=== PATIENT | male | born 1995 | race Hispanic/Latino ===

== ENCOUNTER 2017-07-07 23:27 | Emergency (ER) | payer SELFPAY ==
[2017-07-08] MEDS ORDERED: PROMETHAZINE 25 MG/ML VIAL ONE (00:02)
[2017-07-08 00:14] LABS: Bicarbonate 28 mEq/L (21-31); Glucose Level 138 mg/dL (65-120); Potassium 4.2 mEq/L (3.6-5.0); Sodium Level 142 mEq/L (135-145)
[2017-07-08 00:17] LABS: Absolute Lymphocytes (CBC) 1.1 K/uL (0.7-4.9); Absolute Monocytes 0.9 K/uL (0.1-1.3); Absolute Neutrophil 17.7 K/uL (1.8-8.0); Basophils % 0.5 % (0-1.3); Hematocrit 47.2 % (39.6-49.0); Lymphocytes % 5.6 % (15.3-44.8); MCH 31.3 pg (27.0-35.0); Monocytes % 4.3 % (3.3-12.3); RBC Red Blood Cell Count 5.08 M/uL (4.33-5.43)
[2017-07-08 00:20] LABS: ALT/SGPT 14 IU/L (10-60); AST/SGOT 21 IU/L (10-42); Albumin 5.3 g/dL (3.2-5.5); Alkaline Phosphatase 111 IU/L (42-121); BUN Blood Urea Nitrogen 11 mg/dL (6-20); Bilirubin Direct 0.1 mg/dL (0-0.2); Bilirubin Total 0.6 mg/dL (0.3-1.2)
[2017-07-08 00:21] LABS: Protime INR 1.04
[2017-07-08 00:25] LABS: Alcohol Serum/Plasma < 10 mg/dl; Salicylates Level < 4.0 mg/dl (<30)
[2017-07-08 00:36] LABS: Creatine Phosphokinase 117 IU/L (22-269)
[2017-07-08] MEDS ORDERED: NA CHLORIDE 0.9% 1,000 ML ONE (00:53)
[2017-07-08] MEDS ORDERED: DIAZEPAM 10 MG/2 ML INJ SYRINGE ONE (01:35)
[2017-07-08 01:45] LABS: Blood Morphology Comment NOT SEEN (NOT SEEN); Platelet Estimate ADEQ
[2017-07-08] MEDS ORDERED: FAMOTIDINE 20 MG/2 ML VIAL IV ONE (03:30)
[2017-07-08] MEDS ORDERED: ONDANSETRON 4 MG/2 ML VIAL ONE (03:30)
[2017-07-08 03:52] LABS: Barbiturates NEGATIVE; Benzodiazepines NEGATIVE; Cocaine NEGATIVE; Opiates NEGATIVE; Phencyclidine NEGATIVE; THC Cannibis POSITIVE
[2017-07-08 04:02] LABS: METHAMPHETAM POSITIVE
--- NOTE | 2017-07-08 05:15 | ER ---
Nurse's Notes [facility] Name: Rony Castrejon Jr Age: 21 yrs Sex: Male : 1995 Arrival Date: 07/07/2017 Time: 23:28 Bed 7 Private MD: Diagnosis: Adverse effect of other psychostimulants-Ciirlo;Unspecified abdominal pain Presentation: 07/07 23:35 Presenting complaint: Mother states: that pt was dropped on her door step at 2300 fc crying and yelling about abd pain, nausea, and vomiting along with chills. Pt states that he smoked synthetic today and a while later started to have these problems. Transition of care: patient was not received from another setting of care. Onset of symptoms was July 07, 2017 at 23:00. Initial Sepsis Screen: Does the patient meet any 2 criteria? No. Patient's initial sepsis screen is negative. Does the patient have a suspected source of infection? No. Patient's initial sepsis screen is negative. Care prior to arrival: None. 23:35 Method Of Arrival: Wheelchair fc 23:35 Acuity: JUSTICE 2 fc Historical: - Allergies: 23:52 No Known Allergies; fc - Home Meds: 23:52 None [Active]; fc - PMHx: 23:52 None; fc - PSHx: 23:52 None; fc - Immunization history:: Last tetanus immunization: unknown. - Social history:: Smoking status: Patient uses tobacco products, smokes one pack cigarettes per day. Patient uses alcohol, occasionally. street drugs, Synthetic Marijuana. Screenin:53 Abuse screen: Denies threats or abuse. Nutritional screening: No deficits noted. fc Tuberculosis screening: No symptoms or risk factors identified. 07/08 00:12 Fall Risk Total Rider Fall Scale indicates High Risk Score (45 or more points). Side lp1 Rails Up X 2 Family Present and informed to notify staff if the need to leave the bedside As available patient and family educated on Fall Prevention Program and Strategies. Assessment: 00:09 General: Appears uncomfortable, slender, Behavior is anxious, restless. Pain: Complains lp1 of pain in abdomen Pain currently is 10 out of 10 on a pain scale. Quality of pain is described as sharp, Noted to be crying, grimacing, moaning, restless. Neuro: Level of Consciousness is awake, alert, obeys commands, Oriented to person, place, situation. Cardiovascular: Patient's skin is warm and dry. Rhythm is sinus rhythm. Respiratory: Airway is patent Respiratory effort is even, Respiratory pattern is regular, symmetrical, Breath sounds are clear bilaterally. GI: Abdomen is flat, Bowel sounds present X 4 quads. Reports lower abdominal pain, upper abdominal pain, nausea, vomiting. : No signs and/or symptoms were reported regarding the genitourinary system. EENT: No signs and/or symptoms were reported regarding the EENT system. Derm: Skin is pink, warm \\T\\ dry. Musculoskeletal: Circulation, motion, and sensation intact. 01:00 Reassessment: Patient states continued nausea and abdominal pain, thrashing in bed, lp1 crying stating "It hurts! I need some ice chips, there is nothing in my stomach". 02:01 Reassessment: Patient and/or family updated on plan of care and expected duration. Pain lp1 level reassessed. States continued pain to abdomen Patient states symptoms have improved. 03:00 Reassessment: No changes from previously documented assessment. lp1 04:00 Reassessment: Patient returned from CT, intermittent outbursts of pain to abdomen. lp1 05:30 Reassessment: Patient discharged at this time, waiting for mother to return for ride lp1 home; Patient moaning, states continuing abdominal pain. 07:07 Reassessment: Mother returned at this time to take patient home. lp1 Vital Signs: 07/07 23:52 BP 124 / 59; Pulse 63; Resp 18; Temp 98.2(O); Pulse Ox 100% on R/A; Weight 63.5 kg (R); fc Height 5 ft. 4 in. (162.56 cm) (R); Pain 10/10; 07 01:33 BP 132 / 67; Pulse 67; Resp 18 S; Pulse Ox 100% on R/A; mt 02:00 BP 108 / 57; Pulse 60; Resp 16; Pulse Ox 100% on R/A; lp1 03:00 BP 119 / 74; Pulse 57; Resp 16; Pulse Ox 100% on R/A; lp1 03:30 BP 130 / 93; Pulse 61; Resp 18; Pulse Ox 100% on R/A; lp1 04:28 BP 108 / 60; Pulse 84; Resp 18; Pulse Ox 99% on R/A; lp1 05:30 BP 126 / 93; Pulse 77; Resp 16; Pulse Ox 99% on R/A; lp1 07/07 23:52 Body Mass Index 24.03 (63.50 kg, 162.56 cm) fc ED Course: 07/07 23:28 Patient arrived in ED. ds1 23:51 Triage completed. fc 23:52 Arm band placed on Patient placed in an exam room, on a stretcher. fc 23:52 No provider procedures requiring assistance completed. Inserted saline lock: 18 gauge fc in right forearm, using aseptic technique. ,using aseptic technique. per Apoorva SELF. 23:53 Patient has correct armband on for positive identification. Bed in low position. Call fc light in reach. Adult w/ patient. 23:57 Rissa Mcneil FNP-C is PHCP. snw 23:57 Anish Yancey MD is Attending Physician. snw 23:59 Apoorva Gutierrez, ARAMIS is Primary Nurse. lp1 07/08 00:02 EKG done, by ED staff. cb2 03:[address] via wheelchair. lp1 04:03 CT Abd/Pelvis - W/Contrast In Process Unspecified. EDMS 05:32 IV discontinued, No redness/swelling at site. Pressure dressing applied. lp1 Administered Medications: 07/07 23:58 Drug: NS 0.9% 1000 ml Route: IV; Rate: 1 bolus; Site: right antecubital; ak1 07/08 00:56 Follow up: IV Status: Completed infusion; IV Intake: 1000ml lp1 00:03 Drug: Phenergan 12.5 mg Route: IVP; Site: right forearm; lp1 00:56 Follow up: Response: Nausea unchanged; Patient states continued nausea, no vomiting lp1 noted 00:55 Drug: NS 0.9% 1000 ml Route: IV; Rate: 1 bolus; Site: right forearm; lp1 02:30 Follow up: IV Status: Completed infusion lp1 01:47 Drug: Valium 2 mg Route: IVP; Site: right forearm; lp1 02:30 Follow up: Response: No adverse reaction lp1 03:37 Drug: Zofran 4 mg Route: IVP; Site: right forearm; lp1 05:30 Follow up: Response: No adverse reaction lp1 03:37 Drug: Pepcid 20 mg Route: IVP; Site: right forearm; lp1 05:30 Follow up: Response: No adverse reaction lp1 Intake: 00:56 IV: 1000ml; Total: 1000ml. lp1 Outcome: 05:14 Discharge ordered by . beena2 05:59 Condition: stable lp1 05:59 Discharge instructions given to patient, Instructed on discharge instructions, follow up and referral plans. medication usage, Demonstrated understanding of instructions, follow-up care, medications, Prescriptions given X 1. 07:07 Discharged to home via wheelchair, with family. lp1 07:08 Patient left the ED. lp1 Signatures: Dispatcher [employer] EDMS Rissa Mcneil, DOCTOR'S ASSISTANT-C DOCTOR'S ASSISTANT-Csnw Margarita Ramirez, RN Mis Garzon ds1 Apoorva Gutierrez RN RN lp1 Danelle Sanchez RN RN ak1 Marcos Sánchez [place] Anish May MD MD ma2
--- NOTE | 2017-07-08 05:15 | EDPHYS ---
Physician Documentation [facility] Name: Rony Castrejon Jr Age: 21 yrs Sex: Male : 1995 Arrival Date: 07/07/2017 Time: 23:28 Bed 7 Private MD: ED Physician Anish Yancey HPI: 07/08 00:07 This 21 yrs old Male presents to ER via Wheelchair with complaints of snw Withdrawls. 00:07 Onset: The symptoms/episode began/occurred acutely. Associated signs and symptoms: snw Pertinent positives: abdominal pain. Modifying factors: The patient symptoms are alleviated by nothing. The patient has experienced similar episodes in the past. The patient has not recently seen a physician. Mom states he had smoked Cirilo before. Pt was dropped at her home post being out with his friends. Historical: - Allergies: 07/07 23:52 No Known Allergies; fc - Home Meds: 23:52 None [Active]; fc - PMHx: 23:52 None; fc - PSHx: 23:52 None; fc - Immunization history:: Last tetanus immunization: unknown. - Social history:: Smoking status: Patient uses tobacco products, smokes one pack cigarettes per day. Patient uses alcohol, occasionally. street drugs, Synthetic Marijuana. ROS: 07/08 00:06 Eyes: Negative for injury, pain, redness, and discharge, ENT: Negative for injury, snw pain, and discharge, Neck: Negative for injury, pain, and swelling, Cardiovascular: Negative for chest pain, palpitations, and edema, Respiratory: Negative for shortness of breath, cough, wheezing, and pleuritic chest pain. Back: Negative for injury and pain, : Negative for injury, bleeding, discharge, and swelling, MS/Extremity: Negative for injury and deformity, Skin: Negative for injury, rash, and discoloration, Neuro: Negative for headache, weakness, numbness, tingling, and seizure. Constitutional: Positive for body aches. Abdomen/GI: Positive for abdominal pain, nausea. Exam: 00:05 Constitutional: This is a well developed, well nourished patient who is awake, alert, snw and in no acute distress. Head/Face: Normocephalic, atraumatic. Eyes: Pupils equal round and reactive to light, extra-ocular motions intact. Lids and lashes normal. Conjunctiva and sclera are non-icteric and not injected. Cornea within normal limits. Periorbital areas with no swelling, redness, or edema. ENT: Nares patent. No nasal discharge, no septal abnormalities noted. Tympanic membranes are normal and external auditory canals are clear. Oropharynx with no redness, swelling, or masses, exudates, or evidence of obstruction, uvula midline. Mucous membranes moist. Neck: Trachea midline, no thyromegaly or masses palpated, and no cervical lymphadenopathy. Supple, full range of motion without nuchal rigidity, or vertebral point tenderness. No Meningismus. Chest/axilla: Normal chest wall appearance and motion. Nontender with no deformity. No lesions are appreciated. Cardiovascular: Regular rate and rhythm with a normal S1 and S2. No gallops, murmurs, or rubs. Normal PMI, no JVD. No pulse deficits. Respiratory: Lungs have equal breath sounds bilaterally, clear to auscultation and percussion. No rales, rhonchi or wheezes noted. No increased work of breathing, no retractions or nasal flaring. Back: No spinal tenderness. No costovertebral tenderness. Full range of motion. Male : Normal genitalia with no discharge or lesions. Skin: Warm, dry with normal turgor. Normal color with no rashes, no lesions, and no evidence of cellulitis. MS/ Extremity: Pulses equal, no cyanosis. Neurovascular intact. Full, normal range of motion. Neuro: Awake and alert, GCS 15, oriented to person, place, time, and situation. Cranial nerves II-XII grossly intact. Motor strength 5/5 in all extremities. Sensory grossly intact. Cerebellar exam normal. Normal gait. 00:05 Abdomen/GI: Inspection: abdomen appears normal, Bowel sounds: diminished, in the right upper quadrant, left upper quadrant, right lower quadrant and left lower quadrant, Palpation: moderate abdominal tenderness, in all quadrants. Vital Signs: 07/07 23:52 BP 124 / 59; Pulse 63; Resp 18; Temp 98.2(O); Pulse Ox 100% on R/A; Weight 63.5 kg (R); fc Height 5 ft. 4 in. (162.56 cm) (R); Pain 10/10; 07/08 01:33 BP 132 / 67; Pulse 67; Resp 18 S; Pulse Ox 100% on R/A; mt 02:00 BP 108 / 57; Pulse 60; Resp 16; Pulse Ox 100% on R/A; lp1 03:00 BP 119 / 74; Pulse 57; Resp 16; Pulse Ox 100% on R/A; lp1 03:30 BP 130 / 93; Pulse 61; Resp 18; Pulse Ox 100% on R/A; lp1 04:28 BP 108 / 60; Pulse 84; Resp 18; Pulse Ox 99% on R/A; lp1 05:30 BP 126 / 93; Pulse 77; Resp 16; Pulse Ox 99% on R/A; lp1 07/07 23:52 Body Mass Index 24.03 (63.50 kg, 162.56 cm) fc MDM: 07/07 23:57 Patient medically screened. snw 07/07 23:44 Order name: Acetaminophen; Complete Time: 00:36 snw 07/07 23:44 Order name: Basic Metabolic Panel; Complete Time: 00:36 snw 07/07 23:44 Order name: CBC with Diff; Complete Time: 03:23 snw 07/07 23:44 Order name: ETOH Level; Complete Time: 00:36 snw 07/07 23:44 Order name: Hepatic Function; Complete Time: 00:36 snw 07/07 23:44 Order name: PT-INR; Complete Time: 00:24 snw 07/07 23:44 Order name: Ptt, Activated; Complete Time: 00:24 snw 07/07 23:44 Order name: Salicylate; Complete Time: 00:36 snw 07/07 23:44 Order name: Urine Drug Screen; Complete Time: 05:53 snw 07/08 00:21 Order name: Manual Differential; Complete Time: 03:23 EDMS 07/08 00:25 Order name: Add On-Lab snw 07/08 00:26 Order name: Creatine Phosphokinase; Complete Time: 00:36 EDMS 07/08 03:05 Order name: Urine Dipstick--Ancillary (enter results) em1 07/08 03:06 Order name: Urine Dipstick-Ancillary; Complete Time: 05:53 EDMS 07/07 23:44 Order name: EKG; Complete Time: 23:44 snw 07/07 23:44 Order name: EKG - Nurse/Tech; Complete Time: 00:00 snw 07/07 23:44 Order name: IV Saline Lock; Complete Time: 23:53 snw 07/07 23:44 Order name: Labs collected and sent; Complete Time: 23:53 snw 07/07 23:44 Order name: Urine Dipstick-Ancillary (obtain specimen); Complete Time: 02:57 snw 07/08 03:27 Order name: CT Abd/Pelvis - W/Contrast ma2 Administered Medications: 23:58 Drug: NS 0.9% 1000 ml Route: IV; Rate: 1 bolus; Site: right antecubital; ak1 07/08 00:56 Follow up: IV Status: Completed infusion; IV Intake: 1000ml lp1 00:03 Drug: Phenergan 12.5 mg Route: IVP; Site: right forearm; lp1 00:56 Follow up: Response: Nausea unchanged; Patient states continued nausea, no vomiting lp1 noted 00:55 Drug: NS 0.9% 1000 ml Route: IV; Rate: 1 bolus; Site: right forearm; lp1 02:30 Follow up: IV Status: Completed infusion lp1 01:47 Drug: Valium 2 mg Route: IVP; Site: right forearm; lp1 02:30 Follow up: Response: No adverse reaction lp1 03:37 Drug: Zofran 4 mg Route: IVP; Site: right forearm; lp1 05:30 Follow up: Response: No adverse reaction lp1 03:37 Drug: Pepcid 20 mg Route: IVP; Site: right forearm; lp1 05:30 Follow up: Response: No adverse reaction lp1 Disposition: 05:12 Co-signature as Attending Physician, Anish Yancey MD. ma2 05:13 pain and vomiting resolved VS wnl. ma2 Disposition: 07/08/17 05:14 Discharged to Home. Impression: Adverse effect of other psychostimulants - Cirilo, Unspecified abdominal pain. - Condition is Stable. - Discharge Instructions: Abdominal Pain, Adult, Alcohol and Drug Addiction, Finding Treatment. - Prescriptions for Zofran 4 mg Oral Tablet - take 1 tablet by ORAL route every 12 hours As needed; 20 tablet. - Medication Reconciliation Form, Thank You Letter, Antibiotic Education, Prescription Opioid Use form. - Follow up: Private Physician; When: 2 - 3 days; Reason: Recheck today's complaints, Continuance of care, Re-evaluation by your physician. Follow up: Emergency Department; When: As needed; Reason: Worsening of condition. - Problem is new. - Symptoms have improved. Signatures: Dispatcher [employer] EDRissa Mensah, FADUMO-C TRAVEL REGISTERED NURSE ICU-Csnw Margarita Ramirez, RN RN fc Apoorva Gutierrez RN RN lp1 Danelle Sanchez RN RN ak1 Anish Yancey MD MD ma2 Corrections: (The following items were deleted from the chart) 07:08 05:14 07/08/2017 05:14 Discharged to Home. Impression: Adverse effect of other lp1 psychostimulants - Cirilo; Unspecified abdominal pain. Condition is Stable. Discharge Instructions: Abdominal Pain, Adult, Alcohol and Drug Addiction, Finding Treatment. Prescriptions for Zofran 4 mg Oral Tablet - take 1 tablet by ORAL route every 12 hours As needed; 20 tablet. and Forms are Medication Reconciliation Form, Thank You Letter, Antibiotic Education, Prescription Opioid Use. Follow up: Private Physician; When: 2 - 3 days; Reason: Recheck today's complaints, Continuance of care, Re-evaluation by your physician. Follow up: Emergency Department; When: As needed; Reason: Worsening of condition. Problem is new. Symptoms have improved. ma2
[2017-07-08 05:48] LABS: Urine Blood NEGATIVE (NEG); Urine Glucose NEGATIVE (NEG); Urine Protein NEGATIVE (NEG)
--- NOTE | 2017-07-08 06:54 | EKG ---
Test Date: 2017-07-07 Test Time: 23:58:00 Bung Driver: DERRICK MEASUREMENT RESULTS: Intervals: Rate: 64 CA: 126 QRSD: 102 QT: 390 QTc: 402 [place]: P: 60 CA: 126 QRS: 78 T: 55 INTERPRETIVE STATEMENTS: Sinus rhythm with marked sinus arrhythmia Otherwise normal ECG Compared to ECG 01/24/2017 18:48:20 Sinus bradycardia no longer present Electronically Signed On 07-08-17 06:53:35 CDT by Mike Hair
[2017-07-08 07:12] VITALS: TEMP 98.2
[2017-07-08 07:18] VITALS: O2SAT 99
[2017-07-08 07:19] VITALS: BP 126/93
--- NOTE | 2017-07-08 08:45 | RAD REPORT ---
EXAM DESCRIPTION: CT - Abdomen Pelvis W Contrast - 07/08/2017 6:50 am CLINICAL HISTORY: Abdominal pain with nausea and vomiting COMPARISON: 2015 TECHNIQUE: Computed axial tomography of the abdomen pelvis was obtained. 100 cc Isovue-300 was admin istered intravenously. Oral contrast was not requested which limits evaluation of bowel. A preliminar y report was generated by virtual radiologic a reviewed prior to this dictation All CT scans are performed using dose optimization technique as appropriate and may include automated exposure control or mA/KV adjustment according to patient size. FINDINGS: Some of the images are degraded by patient motion artifact. The liver, spleen, pancreas, adrenal and kidneys appear unremarkable. There is no evidence of diverticulitis. An abnormal appendix is not seen. The prostate gland is mildl y enlarged IMPRESSION: No acute abnormality is displayed.
== END 2017-07-08 07:08 | disposition home or self-care (01) ==
LOC: ER 23:27
DX: R10.9 Unspecified abdominal pain (principal); T43.695A Adverse effect of other psychostimulants, initial encounter; Y92.9 Unspecified place or not applicable; F17.210 Nicotine dependence, cigarettes, uncomplicated
CPT/HCPCS: 36415; 74177; 80048; 80076; 80307; 80320; 80329; 81003; 82550; 85025; 85610; 85730; 93005; 96361; 96374; 96375; 99285; J2405; J2550; J3360; J7030; Q9967

== ENCOUNTER 2017-09-14 07:34 | Emergency (ER) | payer SELFPAY ==
[2017-09-14] MEDS ORDERED: NA CHLORIDE 0.9% 1,000 ML ONE ×2 (08:16→09:47)
[2017-09-14] MEDS ORDERED: ONDANSETRON 4 MG/2 ML VIAL ONE (08:21)
[2017-09-14 08:38] LABS: Absolute Lymphocytes (CBC) 1.3 K/uL (0.7-4.9); Absolute Monocytes 1.1 K/uL (0.1-1.3); Absolute Neutrophil 17.5 K/uL (1.8-8.0); Basophils % 0.4 % (0-1.3); Eosinophils % 0.1 % (0-4.4); Hematocrit 49.4 % (39.6-49.0); Lymphocytes % 6.3 % (15.3-44.8); MCH 32.2 pg (27.0-35.0); MCV 91.6 fL (80-100); Monocytes % 5.3 % (3.3-12.3)
[2017-09-14] MEDS ORDERED: LORazepam 2 MG/ML VIAL ONE (08:38)
[2017-09-14 08:45] LABS: BUN Blood Urea Nitrogen 13 mg/dL (7-18); Bicarbonate 35 mmol/L (21-32); Glucose Level 99 mg/dL (74-106); Potassium 3.2 mmol/L (3.5-5.1); Sodium Level 136 mmol/L (136-145)
[2017-09-14 09:09] LABS: Protime INR 1.12
[2017-09-14] MEDS ORDERED: POTASSIUM 25 MEQ EFFERV TAB ONE (09:55)
[2017-09-14 10:00] LABS: ALT/SGPT 14 U/L (12-78); AST/SGOT 12 U/L (15-37); Albumin 4.1 g/dL (3.4-5.0); Alkaline Phosphatase 104 U/L (45-117); Bilirubin Direct 0.2 mg/dL (0-0.2); Bilirubin Total 0.7 mg/dL (0.2-1.0); Protein, Total 7.5 g/dL (6.4-8.2)
[2017-09-14] MEDS ORDERED: KCL 20 MEQ/100 mL IVPB 20 MEQ/100 ML BAG IV ONE (10:02)
[2017-09-14 10:03] LABS: Alcohol Serum/Plasma < 3 mg/dL (0-3)
[2017-09-14 10:10] LABS: Blood Morphology Comment NOT SEEN (NOT SEEN); Platelet Estimate ADEQ; Urine White Blood Cell Casts OK
[2017-09-14] MEDS ORDERED: NA CHLORIDE 0.9% 500 ML ONE (10:33)
[2017-09-14 10:57] LABS: Urine Blood NEGATIVE (NEG); Urine Glucose NEGATIVE (NEG); Urine Protein TRACE (NEG)
[2017-09-14 11:04] LABS: Barbiturates NEGATIVE (NEGATIVE); Benzodiazepines NEGATIVE (NEGATIVE); Cocaine NEGATIVE (NEGATIVE); METHAMPHETAM NEGATIVE (NEGATIVE); Methadone NEGATIVE (NEGATIVE); Opiates NEGATIVE (NEGATIVE); Phencyclidine NEGATIVE (NEGATIVE); THC Cannibis POSITIVE (NEGATIVE)
[2017-09-14 11:20] LABS: Absolute Lymphocytes (CBC) 1.2 K/uL (0.7-4.9); Absolute Monocytes 0.7 K/uL (0.1-1.3); Absolute Neutrophil 12.9 K/uL (1.8-8.0); Basophils % 0.4 % (0-1.3); Eosinophils % 0.1 % (0-4.4); Hematocrit 41.6 % (39.6-49.0); Lymphocytes % 8.1 % (15.3-44.8); MCH 32.3 pg (27.0-35.0); MCV 91.6 fL (80-100); MPV 9.1 fL (7.6-11.3); Monocytes % 4.9 % (3.3-12.3); RBC Red Blood Cell Count 4.54 M/uL (4.33-5.43)
--- NOTE | 2017-09-14 12:03 | ER ---
Nurse's Notes [facility] Name: Rony Castrejon Jr Age: 21 yrs Sex: Male : 1995 Arrival Date: 09/14/2017 Time: 07:31 Bed 13 Private MD: Diagnosis: Vomiting;Abuse of non-psychoactive substances;Hypokalemia;Elevated white blood cell count Presentation: 09/14 07:31 Presenting complaint: Patient states: Pt reports N/V that began two days ago. Pt ss reports a regular use of synthetic marijuana, however reports last use was two days ago and he is currently trying to quit. Transition of care: patient was not received from another setting of care. Onset of symptoms was September 12, 2017. Risk Assessment: Do you want to hurt yourself or someone else? Patient reports no desire to harm self or others. Initial Sepsis Screen: Does the patient meet any 2 criteria? No. Patient's initial sepsis screen is negative. Does the patient have a suspected source of infection? No. Patient's initial sepsis screen is negative. Care prior to arrival: None. 07:31 Method Of Arrival: Wheelchair ss 07:31 Acuity: JUSTICE 3 ss Historical: - Allergies: 07:33 No Known Allergies; ss - Home Meds: 07:33 None [Active]; ss - PMHx: 07:33 None; ss - PSHx: 07:33 None; ss - Immunization history:: Adult Immunizations unknown. - Social history:: Smoking status: Patient uses tobacco products, smokes one pack cigarettes per day. Patient uses street drugs, synthetic marijuana. - Ebola Screening: : Patient denies exposure to infectious person Patient denies travel to an Ebola-affected area in the 21 days before illness onset. Screenin:35 Abuse screen: Denies threats or abuse. Nutritional screening: No deficits noted. rb1 Tuberculosis screening: No symptoms or risk factors identified. Fall Risk None identified. Assessment: 07:35 General: Appears in no apparent distress. comfortable, Behavior is calm, cooperative, rb1 Denies fever. Pain: Complains of pain in abdomen Pain currently is 9 out of 10 on a pain scale. Pain began 2-3 days ago. Neuro: Level of Consciousness is awake, alert, obeys commands, Oriented to person, place, time, situation. Cardiovascular: Capillary refill < 3 seconds is brisk in bilateral fingers. Respiratory: Airway is patent Respiratory effort is even, unlabored, Respiratory pattern is regular, symmetrical. GI: Abdomen is flat, Reports nausea, vomiting. : No signs and/or symptoms were reported regarding the genitourinary system. Derm: Skin is pink, warm \T\ dry. 08:30 Reassessment: Patient appears in no apparent distress at this time. Patient and/or rb1 family updated on plan of care and expected duration. Pain level reassessed. Patient is alert, oriented x 3, equal unlabored respirations, skin warm/dry/pink. 09:27 Reassessment: Patient appears in no apparent distress at this time. Pt. is resting with rb1 eyes closed, respirations even, unlabored. call light within reach. 10:20 Reassessment: Patient appears in no apparent distress at this time. Patient and/or rb1 family updated on plan of care and expected duration. Pain level reassessed. Patient is alert, oriented x 3, equal unlabored respirations, skin warm/dry/pink. 11:20 Reassessment: Patient appears in no apparent distress at this time. No changes from rb1 previously documented assessment. 12:19 Reassessment: Patient appears in no apparent distress at this time. Patient and/or rb1 family updated on plan of care and expected duration. Pain level reassessed. Patient is alert, oriented x 3, equal unlabored respirations, skin warm/dry/pink. pt. is calling for transportation home. 12:30 Reassessment: Pt. was able to reach family for transportation. I requested for the pt. rb1 to go to the [facility] and wait for his ride. 12:37 Reassessment: Patient appears in no apparent distress at this time. Pt. is still in the [facility] room, I asked him to please go to the [employer] while he waits. 12:39 Reassessment: Notified BHUPINDER Flowers that the pt. didn't want to leave. [facility] Vital Signs: 07:33 BP 138 / 85; Pulse 88; Resp 18; Pulse Ox 99% on R/A; Weight 61.23 kg; Height 5 ft. 5 ss in. (165.10 cm); Pain 0/10; 08:28 Temp 97.6(TE); ss 08:30 BP 114 / 71; Pulse 55; Resp 19; Pulse Ox 98% on R/A; rb1 09:00 BP 129 / 75; Pulse 50; Resp 18; Pulse Ox 99% on R/A; rb1 10:00 BP 117 / 58; Pulse 48; Resp 19; Pulse Ox 99% on R/A; rb1 11:00 BP 116 / 66; Pulse 55; Resp 18; Pulse Ox 100% on R/A; rb1 12:00 BP 119 / 81; Pulse 62; Resp 20; Pulse Ox 98% on R/A; rb1 07:33 Body Mass Index 22.46 (61.23 kg, 165.10 cm) ED Course: 07:31 Patient arrived in ED. ss 07:32 Ruslan Haider MD is Attending Physician. annia 07:32 Triage completed. ss 07:33 Stefanie Vickers, RN is Primary Nurse. rb1 07:33 Arm band placed on right wrist. ss 07:35 Patient has correct armband on for positive identification. Bed in low position. Call rb1 light in reach. Side rails up X 1. Pulse ox on. NIBP on. Warm blanket given. 08:19 Initial lab(s) drawn, by ks, sent to lab. Inserted saline lock: 18 gauge in right em1 forearm, using aseptic technique. Blood collected. 08:52 EKG done, by ED staff, reviewed by Ruslan Haider MD. em1 12:24 No provider procedures requiring assistance completed. IV discontinued, intact, rb1 bleeding controlled, No redness/swelling at site. Pressure dressing applied. Administered Medications: 08:16 Drug: NS 0.9% 1000 ml Route: IV; Rate: 1 bolus; Site: right antecubital; ss 09:23 Follow up: IV Status: Completed infusion rb1 08:21 Drug: Zofran 4 mg Route: IVP; Site: right antecubital; ss 08:40 Follow up: Response: No adverse reaction; Nausea is decreased rb1 08:28 Not Given (Duplicate Order): NS 0.9% 1000 ml IV at 1000 ml once ss 08:40 Drug: Ativan 1 mg Route: IVP; Site: right antecubital; ss 09:00 Follow up: Response: No adverse reaction; Anxiety decreased rb1 09:48 Drug: NS 0.9% 1000 ml Route: IV; Rate: 1 bolus; Site: right antecubital; rb1 10:57 Follow up: IV Status: Completed infusion rb1 09:57 Not Given (provider changed order): Potassium Effervescent Tablet 25 mEq PO once; rb1 dissolve in 4 ounces of water or juice 10:02 Drug: Potassium Chloride 20 mEq Route: IV; Rate: per protocol; Site: right antecubital; rb1 12:15 Follow up: Response: No adverse reaction; IV Status: Completed infusion rb1 Outcome: 12:02 Discharge ordered by . annia 12:24 Discharged to home ambulatory. rb1 12:24 Condition: stable 12:24 Discharge instructions given to patient, Instructed on discharge instructions, follow up and referral plans. medication usage, Demonstrated understanding of instructions, follow-up care, medications, Prescriptions given X 2. 12:42 Patient left the ED. rb1 Signatures: Ruslan Haider MD MD cha Martinez, Eric 1 Kristie Segovia RN RN Stefanie Vickers, ARAMIS RN rb1 Corrections: (The following items were deleted from the chart) 12:55 12:48 Patient left the ED. rb1 rb1
--- NOTE | 2017-09-14 12:03 | EDPHYS ---
Physician Documentation [facility] Name: Rony Castrejon Jr Age: 21 yrs Sex: Male : 1995 Arrival Date: 09/14/2017 Time: 07:31 Bed 13 Private MD: ED Physician Ruslan Haider HPI: 09/14 08:16 This 21 yrs old Male presents to ER via Wheelchair with complaints of annia Nausea/Vomiting. 08:16 The patient presents to the emergency department with nausea, that is mild, that is annia moderate, vomiting, that is continuous. Onset: The symptoms/episode began/occurred 2 day(s) ago. Possible causes: unknown. The symptoms are aggravated by nothing. Associated signs and symptoms: Pertinent positives: abdominal pain, nausea, vomiting. Severity of symptoms: At their worst the symptoms were moderate in the emergency department the symptoms are unchanged. The patient has experienced similar episodes in the past, a few times. Historical: - Allergies: 07:33 No Known Allergies; ss - Home Meds: 07:33 None [Active]; ss - PMHx: 07:33 None; ss - PSHx: 07:33 None; ss - Immunization history:: Adult Immunizations unknown. - Social history:: Smoking status: Patient uses tobacco products, smokes one pack cigarettes per day. Patient uses street drugs, synthetic marijuana. - Ebola Screening: : Patient denies exposure to infectious person Patient denies travel to an Ebola-affected area in the 21 days before illness onset. ROS: 08:16 Constitutional: Negative for fever, chills, and weight loss, Eyes: Negative for injury, annia pain, redness, and discharge, ENT: Negative for injury, pain, and discharge, Neck: Negative for injury, pain, and swelling, Cardiovascular: Negative for chest pain, palpitations, and edema, Respiratory: Negative for shortness of breath, cough, wheezing, and pleuritic chest pain, Back: Negative for injury and pain, : Negative for injury, bleeding, discharge, and swelling, MS/Extremity: Negative for injury and deformity, Skin: Negative for injury, rash, and discoloration, Neuro: Negative for headache, weakness, numbness, tingling, and seizure, Allergy/Immunology: Negative for hives, rash, and allergies, Endocrine: Negative for neck swelling, polydipsia, polyuria, polyphagia, and marked weight changes, Hematologic/Lymphatic: Negative for swollen nodes, abnormal bleeding, and unusual bruising. 08:16 Abdomen/GI: Positive for abdominal pain, nausea and vomiting. 08:16 Psych: Positive for anxiety. Exam: 08:16 Constitutional: This is a well developed, well nourished patient who is awake, alert, annia and in no acute distress. Head/Face: Normocephalic, atraumatic. Eyes: Pupils equal round and reactive to light, extra-ocular motions intact. Lids and lashes normal. Conjunctiva and sclera are non-icteric and not injected. Cornea within normal limits. Periorbital areas with no swelling, redness, or edema. ENT: Nares patent. No nasal discharge, no septal abnormalities noted. Tympanic membranes are normal and external auditory canals are clear. Oropharynx with no redness, swelling, or masses, exudates, or evidence of obstruction, uvula midline. Mucous membranes moist. Neck: Trachea midline, no thyromegaly or masses palpated, and no cervical lymphadenopathy. Supple, full range of motion without nuchal rigidity, or vertebral point tenderness. No Meningismus. Chest/axilla: Normal chest wall appearance and motion. Nontender with no deformity. No lesions are appreciated. Cardiovascular: Regular rate and rhythm with a normal S1 and S2. No gallops, murmurs, or rubs. Normal PMI, no JVD. No pulse deficits. Respiratory: Lungs have equal breath sounds bilaterally, clear to auscultation and percussion. No rales, rhonchi or wheezes noted. No increased work of breathing, no retractions or nasal flaring. Abdomen/GI: Soft, non-tender, with normal bowel sounds. No distension or tympany. No guarding or rebound. No evidence of tenderness throughout. Back: No spinal tenderness. No costovertebral tenderness. Full range of motion. Male : Normal genitalia with no discharge or lesions. Skin: Warm, dry with normal turgor. Normal color with no rashes, no lesions, and no evidence of cellulitis. MS/ Extremity: Pulses equal, no cyanosis. Neurovascular intact. Full, normal range of motion. Neuro: Awake and alert, GCS 15, oriented to person, place, time, and situation. Cranial nerves II-XII grossly intact. Motor strength 5/5 in all extremities. Sensory grossly intact. Cerebellar exam normal. Normal gait. 08:16 Psych: Behavior/mood is anxious, Affect is animated, Oriented to person, place, time, Patient has no thoughts/intents to harm self or others. Judgement / Insight is normal. Vital Signs: 07:33 BP 138 / 85; Pulse 88; Resp 18; Pulse Ox 99% on R/A; Weight 61.23 kg; Height 5 ft. 5 ss in. (165.10 cm); Pain 0/10; 08:28 Temp 97.6(TE); ss 08:30 BP 114 / 71; Pulse 55; Resp 19; Pulse Ox 98% on R/A; rb1 09:00 BP 129 / 75; Pulse 50; Resp 18; Pulse Ox 99% on R/A; rb1 10:00 BP 117 / 58; Pulse 48; Resp 19; Pulse Ox 99% on R/A; rb1 11:00 BP 116 / 66; Pulse 55; Resp 18; Pulse Ox 100% on R/A; rb1 12:00 BP 119 / 81; Pulse 62; Resp 20; Pulse Ox 98% on R/A; rb1 07:33 Body Mass Index 22.46 (61.23 kg, 165.10 cm) ss MDM: 07:32 Patient medically screened. [facility] 08:18 Data reviewed: vital signs, nurses notes, lab test result(s), EKG, radiologic studies, annia plain films. 09/14 08:07 Order name: CBC with Diff; Complete Time: 10:49 ss 09/14 08:07 Order name: BMP; Complete Time: 09:11 ss 09/14 08:15 Order name: Acetaminophen; Complete Time: 10:49 annia 09/14 08:15 Order name: ETOH Level; Complete Time: 10:49 annia 09/14 08:15 Order name: Hepatic Function; Complete Time: 10:49 annia 09/14 08:15 Order name: PT-INR; Complete Time: 09:49 annia 09/14 08:15 Order name: Ptt, Activated; Complete Time: 09:49 annia 09/14 08:15 Order name: Salicylate; Complete Time: 09:49 annia 09/14 08:15 Order name: Urine Drug Screen; Complete Time: 12:02 annia 09/14 08:53 Order name: CBC Smear Scan; Complete Time: 10:49 EDMS 09/14 10:34 Order name: Urine Dipstick--Ancillary (enter results) 09/14 10:35 Order name: Urine Dipstick-Ancillary; Complete Time: 12:02 EDMS 09/14 10:43 Order name: CBC with Diff; Complete Time: 12:02 [facility] 09/14 08:07 Order name: Urine Dipstick-Ancillary (obtain specimen); Complete Time: 12:05 09/14 08:15 Order name: EKG; Complete Time: 08:16 [facility] 09/14 08:15 Order name: EKG - Nurse/Tech; Complete Time: 08:53 [facility] 09/14 08:15 Order name: IV Saline Lock; Complete Time: 08:17 [facility] 09/14 08:15 Order name: Labs collected and sent; Complete Time: 08:17 [facility] 09/14 09:52 Order name: PO challenge; Complete Time: 12:04 [facility] Administered Medications: 08:16 Drug: NS 0.9% 1000 ml Route: IV; Rate: 1 bolus; Site: right antecubital; ss 09:23 Follow up: IV Status: Completed infusion rb1 08:21 Drug: Zofran 4 mg Route: IVP; Site: right antecubital; ss 08:40 Follow up: Response: No adverse reaction; Nausea is decreased rb1 08:28 Not Given (Duplicate Order): NS 0.9% 1000 ml IV at 1000 ml once ss 08:40 Drug: Ativan 1 mg Route: IVP; Site: right antecubital; ss 09:00 Follow up: Response: No adverse reaction; Anxiety decreased rb1 09:48 Drug: NS 0.9% 1000 ml Route: IV; Rate: 1 bolus; Site: right antecubital; rb1 10:57 Follow up: IV Status: Completed infusion rb1 09:57 Not Given (provider changed order): Potassium Effervescent Tablet 25 mEq PO once; rb1 dissolve in 4 ounces of water or juice 10:02 Drug: Potassium Chloride 20 mEq Route: IV; Rate: per protocol; Site: right antecubital; rb1 12:15 Follow up: Response: No adverse reaction; IV Status: Completed infusion rb1 Disposition: 09/14/17 12:02 Discharged to Home. Impression: Vomiting, Abuse of non-psychoactive substances, Hypokalemia, Elevated white blood cell count. - Condition is Stable. - Discharge Instructions: Nausea and Vomiting, Polysubstance Abuse, Nausea and Vomiting, [id number], Hypokalemia. - Prescriptions for Zofran 4 mg Oral Tablet - take 1 tablet by ORAL route every 12 hours As needed; 20 tablet. Klonopin 0.5 mg Oral Tablet - take 1 tablet by ORAL route every 12 hours As needed; 20 tablet. - Medication Reconciliation Form, Thank You Letter, Antibiotic Education, Prescription Opioid Use form. - Follow up: Private Physician; When: 2 - 3 days; Reason: Recheck today's complaints, Continuance of care, Re-evaluation by your physician. - Problem is new. - Symptoms have improved. Signatures: Dispatcher [employer] EDMS Ruslan Haider MD MD cha Smirch, Shelby RN RN ss Stefanie Vickers, ARAMIS RN rb1 Corrections: (The following items were deleted from the chart) 12:48 12:02 09/14/2017 12:02 Discharged to Home. Impression: Vomiting; Abuse of rb1 non-psychoactive substances; Hypokalemia; Elevated white blood cell count. Condition is Stable. Discharge Instructions: Nausea and Vomiting, Polysubstance Abuse, Nausea and Vomiting, [id number], Hypokalemia. Prescriptions for Zofran 4 mg Oral Tablet - take 1 tablet by ORAL route every 12 hours As needed; 20 tablet. and Forms are Medication Reconciliation Form, Thank You Letter, Antibiotic Education, Prescription Opioid Use. Follow up: Private Physician; When: 2 - 3 days; Reason: Recheck today's complaints, Continuance of care, Re-evaluation by your physician. Problem is new. Symptoms have improved. annia
[2017-09-14 12:51] VITALS: TEMP 97.6
[2017-09-14 12:57] VITALS: BP 119/81; O2SAT 98
--- NOTE | 2017-09-15 09:32 | EKG ---
Test Date: 2017-09-14 Test Time: 08:47:02 Paint Stock Clerk: CASSIE MEASUREMENT RESULTS: Intervals: Rate: 56 NH: 126 QRSD: 106 QT: 454 QTc: 438 [place]: P: 72 NH: 126 QRS: 88 T: 72 INTERPRETIVE STATEMENTS: Sinus bradycardia with sinus arrhythmia Otherwise normal ECG Compared to ECG 07/07/2017 23:58:00 Sinus rhythm no longer present Electronically Signed On 09-15-17 09:28:28 CDT by Mike Hair
== END 2017-09-14 12:48 | disposition home or self-care (01) ==
LOC: ER 07:34
DX: F55.8 Abuse of other non-psychoactive substances (principal); E87.6 Hypokalemia; D72.829 Elevated white blood cell count, unspecified; F17.210 Nicotine dependence, cigarettes, uncomplicated
CPT/HCPCS: 36415; 80048; 80076; 80307; 80320; 80329; 81003; 85025; 85610; 85730; 93005; 96361; 96365; 96366; 96375; 99284; J2405; J7030

== ENCOUNTER 2018-01-25 11:42 | Observation (INO) | payer SELFPAY ==
[2018-01-25] MEDS ORDERED: NA CHLORIDE 0.9% 1,000 ML ONE ×2 (13:22→15:50)
[2018-01-25] MEDS ORDERED: ONDANSETRON 4 MG/2 ML VIAL ONE ×2 (13:22→15:50)
[2018-01-25] MEDS ORDERED: MORPHINE 2 MG/ML SYR ONE ×2 (13:33→15:50)
[2018-01-25 13:44] LABS: Absolute Lymphocytes (CBC) 0.7 K/uL (0.7-4.9); Absolute Monocytes 1.1 K/uL (0.1-1.3); Absolute Neutrophil 11.9 K/uL (1.8-8.0); Basophils % 0.1 % (0-1.3); Hematocrit 47.5 % (39.6-49.0); Lymphocytes % 5.4 % (15.3-44.8); MCH 31.9 pg (27.0-35.0); MCV 91.5 fL (80-100); Monocytes % 7.7 % (3.3-12.3); RBC Red Blood Cell Count 5.19 M/uL (4.33-5.43)
[2018-01-25 13:59] LABS: Albumin 4.6 g/dL (3.4-5.0); Bilirubin Direct 0.1 mg/dL (0-0.2); Bilirubin Total 0.4 mg/dL (0.2-1.0); Potassium 3.8 mmol/L (3.5-5.1); Protein, Total 9.1 g/dL (6.4-8.2)
--- NOTE | 2018-01-25 15:08 | RAD REPORT ---
EXAM DESCRIPTION: CT - Abdomen Pelvis W Contrast - 01/25/2018 2:37 pm CLINICAL HISTORY: Abdominal pain, vomiting, diarrhea COMPARISON: CT study July 08, 2017 TECHNIQUE: Biphasic, helical CT imaging of the abdomen and pelvis was performed following 100 ml non -ionic IV contrast. Oral contrast was given. All CT scans are performed using dose optimization technique as appropriate and may include automated exposure control or mA/KV adjustment according to patient size. FINDINGS: No suspicious findings in the lung bases. The liver, spleen, and pancreas show no suspicious findings. Gallbladder and biliary tree are also wi thout suspicious finding. Symmetric renal function is seen with no hydronephrosis or suspicious renal mass. No urinary bladder abnormality. Prostate gland is prominent but not clearly different from comparison. Fluid distended stomach is present without wall thickening or mass. No gastric outlet suspected. Prom inent fluid-filled small bowel loops are present. No appendicitis findings. An acute colon process no t suspected. No free air, free fluid or inflammatory stranding. No hernia, mass or bulky lymphadeno rebecca. No adrenal abnormality. No suspicious bony findings. IMPRESSION: Gastroenteritis pattern with no obstruction, free air or surgically emergent finding.
--- NOTE | 2018-01-25 16:01 | EDPHYS ---
Physician Documentation [facility] Name: Rony Castrejon Jr Age: 22 yrs Sex: Male : 1995 Arrival Date: 01/25/2018 Time: 11:44 Bed 14 Private MD: None, None ED Physician Natanael Hobson HPI: 01/25 15:44 This 22 yrs old Male presents to ER via Ambulatory with complaints of kb Vomiting, Breathing Difficulty. 15:44 The patient presents to the emergency department with nausea, vomiting, abdominal pain, kb of the left upper quadrant and left lower quadrant. Historical: - Allergies: 11:52 No Known Allergies; la1 - PMHx: 11:52 Anxiety; la1 - Immunization history:: Adult Immunizations up to date. - Social history:: Smoking status: Patient/guardian denies using tobacco. - Ebola Screening: : No symptoms or risks identified at this time. ROS: 15:42 Constitutional: Negative for fever, chills, and weight loss, Cardiovascular: Negative kb for chest pain, palpitations, and edema, Respiratory: Negative for shortness of breath, cough, wheezing, and pleuritic chest pain, Back: Negative for injury and pain, : Negative for injury, bleeding, discharge, and swelling, MS/Extremity: Negative for injury and deformity, Skin: Negative for injury, rash, and discoloration, Neuro: Negative for headache, weakness, numbness, tingling, and seizure. 15:42 Abdomen/GI: Positive for abdominal pain, nausea and vomiting, Negative for diarrhea, constipation, abdominal cramps, abdominal distension, anorexia. Exam: 15:42 Constitutional: This is a well developed, well nourished patient who is awake, alert, kb and in no acute distress. Head/Face: Normocephalic, atraumatic. Chest/axilla: Normal chest wall appearance and motion. Nontender with no deformity. No lesions are appreciated. Cardiovascular: Regular rate and rhythm with a normal S1 and S2. No gallops, murmurs, or rubs. Normal PMI, no JVD. No pulse deficits. Respiratory: Lungs have equal breath sounds bilaterally, clear to auscultation and percussion. No rales, rhonchi or wheezes noted. No increased work of breathing, no retractions or nasal flaring. Back: No spinal tenderness. No costovertebral tenderness. Full range of motion. Skin: Warm, dry with normal turgor. Normal color with no rashes, no lesions, and no evidence of cellulitis. MS/ Extremity: Pulses equal, no cyanosis. Neurovascular intact. Full, normal range of motion. Neuro: Awake and alert, GCS 15, oriented to person, place, time, and situation. Cranial nerves II-XII grossly intact. Motor strength 5/5 in all extremities. Sensory grossly intact. Cerebellar exam normal. Normal gait. 15:42 Abdomen/GI: Inspection: abdomen appears normal, Bowel sounds: normal, in all quadrants, Palpation: soft, in all quadrants, nontender, in the right lower quadrant, moderate abdominal tenderness, in the right upper quadrant, left upper quadrant and left lower quadrant. Vital Signs: 11:51 BP 140 / 100; Pulse 92; Resp 16; Temp 99.5; Pulse Ox 98% on R/A; Weight 58.97 kg; la1 Height 5 ft. 4 in. (162.56 cm); 15:13 BP 112 / 83; Pulse 61; Resp 22 S; Temp 99(O); Pulse Ox 99% on R/A; Pain 10/10; jl7 17:30 BP 115 / 85; Pulse 60; Resp 16 S; Pulse Ox 98% on R/A; jl7 19:45 BP 120 / 76; Pulse 60; Resp 18; Temp 98.7; Pulse Ox 98% on R/A; ea 11:51 Body Mass Index 22.31 (58.97 kg, 162.56 cm) la1 MDM: 12:56 Patient medically screened. kb 15:20 Data reviewed: vital signs, nurses notes. Data interpreted: Pulse oximetry: on room air kb is 99 %. Interpretation: normal. ED course: Pt reports his pain is resolved. States he does not want to be admitted, needs to go home for his son. Will PO challenge pt and dc home if he tolerates. Educated that he should return for worsening or persistent symptoms. . 15:43 ED course: Pt unable to tolerate PO. Requesting to be admitted. kb 15:52 Counseling: I had a detailed discussion with the patient and/or guardian regarding: the kb historical points, exam findings, and any diagnostic results supporting the discharge/admit diagnosis, lab results, radiology results, the need for further work-up and treatment in the hospital. 16:00 Physician consultation: Maritza Moffett MD was contacted at 16:00, regarding admission, kb to the medical/surgical unit. patient's condition, and will see patient in ED, shortly. 01/25 13:20 Order name: Basic Metabolic Panel; Complete Time: 14:08 kb 01/25 13:20 Order name: CBC with Diff; Complete Time: 17:27 kb 01/25 13:20 Order name: Hepatic Function; Complete Time: 14:08 kb 01/25 13:20 Order name: Lipase; Complete Time: 14:08 kb 01/25 13:20 Order name: Strep; Complete Time: 13:52 kb 01/25 13:50 Order name: Throat Culture EDMS 01/25 14:15 Order name: CT Abd/Pelvis - W/Contrast; Complete Time: 15:12 kb 01/25 17:22 Order name: CBC Smear Scan; Complete Time: 17:27 EDMS 01/25 13:20 Order name: IV Saline Lock; Complete Time: 13:23 kb 01/25 13:20 Order name: Labs collected and sent; Complete Time: 13:23 kb 01/25 15:20 Order name: PO challenge; Complete Time: 15:51 kb Administered Medications: 13:20 Drug: NS 0.9% 1000 ml Route: IV; Rate: 1000 ml; Site: right forearm; jl7 14:30 Follow up: IV Status: Completed infusion jl7 13:21 Drug: Zofran 4 mg Route: IVP; Site: right forearm; jl7 13:45 Follow up: Response: No adverse reaction; Nausea is decreased jl7 13:25 Drug: morphine 2 mg Route: IVP; Site: right forearm; jl7 13:45 Follow up: Response: No adverse reaction; Pain is decreased jl7 15:48 Drug: NS 0.9% 1000 ml Route: IV; Rate: 125 ml/hr; Site: right forearm; jl7 15:49 Drug: Zofran 4 mg Route: IVP; Site: right forearm; jl7 16:30 Follow up: Response: No adverse reaction; Nausea is decreased jl7 15:52 Drug: morphine 2 mg Route: IVP; Site: right forearm; jl7 16:30 Follow up: Response: No adverse reaction; Pain is decreased jl7 Disposition: 01/26 09:55 Co-signature as Attending Physician, Natanael Hobson MD I agree with the assessment and kdr plan of care. Disposition: 01/25/18 16:00 Hospitalization ordered by Maritza Moffett for Observation. Preliminary diagnosis are Acute pancreatitis, Nausea and vomiting. - Bed requested for Telemetry/MedSurg (observation). - Status is Observation. ea - Condition is Stable. - Problem is new. - Symptoms are unchanged. UTI on Admission? No Signatures: Dispatcher [employer] EDMS Sherrie España, TUBULAR SPLITTING MACHINE TENDER-C TUBULAR SPLITTING MACHINE TENDER-Aury Mae, RN RN dw Natanael Hobson MD MD kdr Dg Aguero RN RN la1 Yoav Grant RN RN jl7 Jane Brannon RN RN ea Corrections: (The following items were deleted from the chart) 01/25 18:00 16:00 Hospitalization Ordered by Maritza Moffett MD for Observation. Preliminary dw diagnosis is Acute pancreatitis; Nausea and vomiting. Bed requested for Telemetry/MedSurg (observation). Status is Observation. Condition is Stable. Problem is new. Symptoms are unchanged. UTI on Admission? No. kb 20:13 18:00 01/25/2018 16:00 Hospitalization Ordered by Maritza Moffett MD for Observation. ea Preliminary diagnosis is Acute pancreatitis; Nausea and vomiting. Bed requested for Telemetry/MedSurg (observation). Status is Observation. Condition is Stable. Problem is new. Symptoms are unchanged. UTI on Admission? No. dw
--- NOTE | 2018-01-25 16:01 | ER ---
Nurse's Notes [facility] Name: Rony Castrejon Jr Age: 22 yrs Sex: Male : 1995 Arrival Date: 01/25/2018 Time: 11:44 Bed 14 Private MD: None, None Diagnosis: Acute pancreatitis;Nausea and vomiting Presentation: 01/25 11:49 Presenting complaint: Patient states: Abdominal pain, vomiting, diarrhea since 1700 la1 yesterday. Transition of care: patient was not received from another setting of care. Onset of symptoms was January 25, 2018. Risk Assessment: Do you want to hurt yourself or someone else? Patient reports no desire to harm self or others. Initial Sepsis Screen: Does the patient meet any 2 criteria? No. Patient's initial sepsis screen is negative. Does the patient have a suspected source of infection? No. Patient's initial sepsis screen is negative. Care prior to arrival: None. 11:49 Method Of Arrival: Ambulatory la1 11:49 Acuity: JUSTICE 3 la1 Historical: - Allergies: 11:52 No Known Allergies; la1 - PMHx: 11:52 Anxiety; la1 - Immunization history:: Adult Immunizations up to date. - Social history:: Smoking status: Patient/guardian denies using tobacco. - Ebola Screening: : No symptoms or risks identified at this time. Screenin:00 Abuse screen: Denies threats or abuse. Denies injuries from another. Nutritional jl7 screening: No deficits noted. Tuberculosis screening: No symptoms or risk factors identified. Fall Risk IV access (20 points). Total Rider Fall Scale indicates No Risk (0-24 pts). Assessment: 13:00 General: Appears uncomfortable, ill, Behavior is cooperative, anxious, crying. Pain: jl7 Complains of pain in epigastric area, left upper quadrant and left lower quadrant Pain currently is 10 out of 10 on a pain scale. Quality of pain is described as sharp, stabbing, Pain began 1 day ago. Is continuous. Neuro: Level of Consciousness is awake, alert, obeys commands, Oriented to person, place, time, situation. Cardiovascular: Patient's skin is warm and dry. Respiratory: Airway is patent Respiratory effort is even, unlabored, Respiratory pattern is regular, symmetrical. GI: Abdomen is flat, non-distended, Stools are reported to be diarrhea. Last BM was January 24, 2018. Bowel sounds present X 4 quads. Abd is soft X 4 quads Abdomen is tender to palpation in left upper quadrant and left lower quadrant Guarding noted X 4 quads. Reports diarrhea, nausea, vomiting. : No signs and/or symptoms were reported regarding the genitourinary system. Derm: Skin is pink, warm \T\ dry. 13:30 Reassessment: pt laying in bed, reports the medication helped a little. jl7 14:30 Reassessment: No changes from previously documented assessment. Patient and/or family jl7 updated on plan of care and expected duration. Pain level reassessed. Patient is alert, oriented x 3, equal unlabored respirations, skin warm/dry/pink. 15:15 Reassessment: No changes from previously documented assessment. Patient and/or family jl7 updated on plan of care and expected duration. Pain level reassessed. Patient is alert, oriented x 3, equal unlabored respirations, skin warm/dry/pink. 15:35 Reassessment: Pt drank a cup of water, reports no nausea at this time. jl7 15:45 Reassessment: Pt reporting increased pain and nausea, provider notified, see MAR for jl7 orders. 17:00 Reassessment: Patient appears in no apparent distress at this time. Patient and/or jl7 family updated on plan of care and expected duration. Pain level reassessed. Patient is alert, oriented x 3, equal unlabored respirations, skin warm/dry/pink. 18:00 Reassessment: Attempted to give report, floor nurse will call back for report. jl7 18:39 Reassessment: pt laying in bed, respirations even and unlabored, no signs of distress jl7 noted at this time. 18:42 Reassessment: Attempted to call report, placed on hold for 5 minute. Will try again. jl7 19:22 General: Appears uncomfortable, Behavior is calm, cooperative. Pain: Complains of pain ls4 in right lower quadrant and right upper quadrant. Neuro: Level of Consciousness is awake, alert, obeys commands, Oriented to person, place, time, situation. Cardiovascular: Patient's skin is warm and dry. Respiratory: Airway is patent Respiratory effort is even, unlabored, Respiratory pattern is regular, symmetrical. GI: Abdomen is non-distended, Bowel sounds present X 4 quads. Abd is soft X 4 quads Abdomen is tender to palpation in right lower quadrant and right upper quadrant and left lower quadrant and left upper quadrant. Derm: Skin is pink, warm \T\ dry. 20:12 Reassessment: Patient and/or family updated on plan of care and expected duration. Pain ea level reassessed. Patient is alert, oriented x 3, equal unlabored respirations, skin warm/dry/pink. Pt transferred via wheelchair per tech, tolerating well. Vital Signs: 11:51 BP 140 / 100; Pulse 92; Resp 16; Temp 99.5; Pulse Ox 98% on R/A; Weight 58.97 kg; la1 Height 5 ft. 4 in. (162.56 cm); 15:13 BP 112 / 83; Pulse 61; Resp 22 S; Temp 99(O); Pulse Ox 99% on R/A; Pain 10/10; jl7 17:30 BP 115 / 85; Pulse 60; Resp 16 S; Pulse Ox 98% on R/A; jl7 19:45 BP 120 / 76; Pulse 60; Resp 18; Temp 98.7; Pulse Ox 98% on R/A; ea 11:51 Body Mass Index 22.31 (58.97 kg, 162.56 cm) la1 ED Course: 11:44 Patient arrived in ED. mr 11:45 None, None is Private Physician. mr 11:50 Triage completed. la1 11:52 Arm band placed on left wrist. la1 12:55 Sherrie España FNP-C is [facility]. kb 12:55 Natanael Hobson MD is Attending Physician. kb 13:00 Patient has correct armband on for positive identification. Placed in gown. Bed in low jl7 position. Call light in reach. Side rails up X 1. Pulse ox on. NIBP on. 13:00 Initial lab(s) drawn, by me, sent to lab. Inserted saline lock: 20 gauge in right jl7 forearm, using aseptic technique. Blood collected. 13:22 Yoav Grant RN is Primary Nurse. jl7 14:[address] vm2 14:37 CT Abd/Pelvis - W/Contrast In Process Unspecified. EDMS 16:00 Maritza Moffett MD is Hospitalizing Provider. kb 18:59 Primary Nurse role handed off by Yoav Grant RN jl7 19:22 Laura Herman, ARAMIS is Primary Nurse. ls4 19:23 No provider procedures requiring assistance completed. Patient admitted, IV remains in ls4 place. Administered Medications: 13:20 Drug: NS 0.9% 1000 ml Route: IV; Rate: 1000 ml; Site: right forearm; jl7 14:30 Follow up: IV Status: Completed infusion jl7 13:21 Drug: Zofran 4 mg Route: IVP; Site: right forearm; jl7 13:45 Follow up: Response: No adverse reaction; Nausea is decreased jl7 13:25 Drug: morphine 2 mg Route: IVP; Site: right forearm; jl7 13:45 Follow up: Response: No adverse reaction; Pain is decreased jl7 15:48 Drug: NS 0.9% 1000 ml Route: IV; Rate: 125 ml/hr; Site: right forearm; jl7 15:49 Drug: Zofran 4 mg Route: IVP; Site: right forearm; jl7 16:30 Follow up: Response: No adverse reaction; Nausea is decreased jl7 15:52 Drug: morphine 2 mg Route: IVP; Site: right forearm; jl7 16:30 Follow up: Response: No adverse reaction; Pain is decreased jl7 Outcome: 16:00 Decision to Hospitalize by Provider. kb 20:11 Admitted to Med/surg accompanied by tech, room 228, with chart, Report called to leigh Ya RN 20:11 Condition: stable 20:11 Instructed on the need for admit. 20:13 Patient left the ED. leigh Signatures: Dispatcher [employer] EDNC Sherrie España, SHARMILA HOP WEIGHER-Radha Juliana NashDg, RN RN laYoav Guerin RN RN jl7 Kori Baptiste Elena, RN RN ea Stewart, Lisa, RN RN ls4
[2018-01-25 17:22] LABS: Blood Morphology Comment NOT SEEN (NOT SEEN); Platelet Estimate ADEQ; Urine White Blood Cell Casts OK
[2018-01-25] MEDS ORDERED: NA CHLORIDE 0.9% 1,000 ML IV SCH (20:35)
[2018-01-25] MEDS ORDERED: ACETAMINOPHEN 500 MG TAB PO PRN (20:35)
[2018-01-25] MEDS: ONDANSETRON 4 MG/2 ML VIAL IV PRN (21:12)
[2018-01-25] MEDS: NA CHLORIDE 0.9% 1,000 ML IV SCH (21:13)
[2018-01-25] MEDS: MORPHINE 4 MG/ML SYR IV PRN (21:13)
[2018-01-26 00:18] VITALS: BMI 21.9
[2018-01-26] MEDS: MORPHINE 4 MG/ML SYR IV PRN ×3 (00:52→09:56)
[2018-01-26] MEDS: NA CHLORIDE 0.9% 1,000 ML IV SCH ×3 (00:53→10:20)
[2018-01-26] MEDS: ONDANSETRON 4 MG/2 ML VIAL IV PRN (05:45)
[2018-01-26 05:46] LABS: Absolute Lymphocytes (CBC) 2.3 K/uL (0.7-4.9); Absolute Monocytes 1.1 K/uL (0.1-1.3); Absolute Neutrophil 5.1 K/uL (1.8-8.0); Basophils % 0.8 % (0-1.3); Eosinophils % 0.4 % (0-4.4); Hematocrit 37.5 % (39.6-49.0); Lymphocytes % 26.9 % (15.3-44.8); MCH 32.2 pg (27.0-35.0); MPV 8.7 fL (7.6-11.3); Monocytes % 12.7 % (3.3-12.3); RBC Red Blood Cell Count 4.08 M/uL (4.33-5.43)
[2018-01-26 06:08] LABS: ALT/SGPT 17 U/L (12-78); AST/SGOT 18 U/L (15-37); Albumin 3.2 g/dL (3.4-5.0); Alkaline Phosphatase 78 U/L (45-117); BUN Blood Urea Nitrogen 14 mg/dL (7-18); Bicarbonate 26 mmol/L (21-32); Bilirubin Total 0.5 mg/dL (0.2-1.0); Glucose Level 93 mg/dL (74-106); Magnesium 2.3 mg/dL (1.8-2.4); Phosphorus 3.1 mg/dL (2.5-4.9); Potassium 4.1 mmol/L (3.5-5.1); Protein, Total 6.4 g/dL (6.4-8.2); Sodium Level 142 mmol/L (136-145)
[2018-01-26] MEDS ORDERED: ENOXAPARIN 40 MG/0.4 ML SQ SCH (09:00)
[2018-01-26 09:03] VITALS: BP 103/57; TEMP 97.7
[2018-01-26 10:28] LABS: Urine Appearance TURBID; Urine Bilirubin NEGATIVE (NEG); Urine Blood NEGATIVE (NEG); Urine Color YELLOW; Urine Glucose NEGATIVE (NEG); Urine Protein NEGATIVE (NEG); Urine Urobilinogen 0.2 mg/dL (0.2-1.0); Urine pH 7.5 (5.0-7.0)
[2018-01-26 10:29] LABS: Urine Microscopic Reflex ORDER UMIC
[2018-01-26 10:35] LABS: Urine Amorphous Sediment 2+ /HPF (NONE SEEN); Urine Bacteria NONE SEEN /HPF (NONE SEEN); Urine Culture Reflex Order NOT NEEDED; Urine Mucus LIGHT /HPF (NONE SEEN); Urine RBC NONE SEEN /HPF (NONE SEEN)
[2018-01-26 11:54] VITALS: O2SAT 97
--- NOTE | 2018-01-26 12:04 | P.HP ---
Certification for Inpatient Patient admitted to: Observation With expected LOS: <2 Midnights Patient will require the following post-hospital care: None Practitioner: I am a practitioner with admitting privileges, knowledge of patient current condition, hospital course, and medical plan of care. Services: Services provided to patient in accordance with Admission requirements found in Title 42 Section 412.3 of the Code of Federal Regulations Patient History Date of Service: 01/25/18 Reason for admission: Abdominal pain/ nausea /vomiting History of Present Illness: Patient is a 22-year-old gentleman who presents to the hospital with severe abdominal pain. Patient has been having intractable nausea and vomiting. Patient also is having diarrhea. Patient came into the ER because the pain was getting severe and he was not able to hold anything down. In the emergency room his workup revealed elevated lipase levels and abnormal electrolytes. He was admitted to the hospital for aggressive IV hydration. Patient denies any prior history of pancreatitis. He has been drinking heavily. He denies any gallstones in the past. He does have a history of marijuana usage. Patient could have cannabis vomiting syndrome. Also to have viral gastroenteritis. In light of the fact that he has diarrhea I would think that he most likely has a viral infection. The secondary elevation in patient's lipase is most likely related to persistent nausea and vomiting. He will need admission for further workup as well as treatment. Allergies No Known Allergies Allergy (Verified 01/26/18 00:21) Home Medications: NK [No Home Meds] 01/26/18 - Past Medical/Surgical History Has patient received pneumonia vaccine in the past: No Diabetic: No -: anxiety attack Past Surgical History: Patient denies surgical history - Family History Father Family History: Reviewed- Non-Contributory - Social History Smoking Status: Current every day smoker Alcohol use: Yes CD- Drugs: No Caffeine use: Yes Place of Residence: Home Review of Systems 10-point ROS is otherwise unremarkable Physical Examination - Vital Signs Temperature: 97.7 F Blood Pressure: 103/57 Pulse: 46 Respirations: 16 Pulse Ox (%): 97 - Physical Exam General: Alert, In no apparent distress, Oriented x3 HEENT: Atraumatic, PERRLA, Mucous membr. moist/pink, EOMI, Sclerae nonicteric Neck: Supple, 2+ carotid pulse no bruit, No LAD, Without JVD or thyroid abnormality Respiratory: Clear to auscultation bilaterally, Normal air movement Cardiovascular: Regular rate/rhythm, Normal S1 S2, No murmurs Gastrointestinal: Normal bowel sounds, Soft and benign, Non-distended, Tenderness, Rebound, Guarding Musculoskeletal: No clubbing, No swelling, No tenderness Integumentary: No rashes Neurological: Normal gait, Normal speech, Normal strength at 5/5 x4 extr, Normal tone, Sensation intact, Cranial nerves 3-12 intact, Normal affect Lymphatics: No axilla or inguinal lymphadenopathy - Studies Laboratory Data (last 24 hrs) 01/25/18 13:25: WBC 13.7 H, Hgb 16.6, Hct 47.5, Plt Count 221 01/25/18 13:25: Sodium 143, Potassium 3.8, BUN 22 H, Creatinine 1.30, Glucose 143 H, Total Bilirubin 0.4, AST 17, ALT 23, Alkaline Phosphatase 109, Lipase 429 H Microbiology Data (last 24 hrs): 01/25/18 13:25 Throat Culture & Sensitivity - Final 01/25/18 13:25 Throat Group A Streptococcus Rapid Screen - Final Assessment & Plan - Problems (Diagnosis) (1) Acute pancreatitis Current Visit: Yes Status: Acute (2) Cannabinoid hyperemesis syndrome Current Visit: Yes Status: Acute (3) Abdominal pain Onset Date: 12/23/14 Current Visit: No Status: Acute (4) Dehydration Onset Date: 12/23/14 Current Visit: No Status: Acute (5) Diarrhea Current Visit: No Status: Acute (6) Hypokalemia Current Visit: No Status: Acute (7) Nausea & vomiting Onset Date: 12/23/14 Current Visit: No Status: Acute (8) Viral gastroenteritis Current Visit: Yes Status: Acute - Plan Plan: 1. Continue monitoring patient's symptoms. If his nausea and vomiting along with diarrhea started resolving and most likely has a viral gastroenteritis. Patient needs to refrain from marijuana usage. This is prior toxicology report. We can repeat another urine drug screen as well. I doubt the elevated lipases related to severe acute pancreatitis. This is most likely related to patient's nausea and vomiting. The patient will need further treatment at this time. We will give him IV hydration. Will give him antiemetics. Pain control as well. I expect his symptoms to subside over the next 24 hr and possible discharge home within 48. - Advance Directives Does patient have a Living Will: No Does patient have a Durable POA for Healthcare: No - Code Status/Comfort Care Code Status Assessed: Yes Code Status: Full Code Critical Care: No Time Spent Managing PTS Care (In Minutes): 50
--- NOTE | 2018-01-26 14:02 | P.SSS ---
Patient History Date of Service: 01/26/18 Reason for admission: Abdominal pain/ nausea /vomiting History of Present Illness: Patient is a 22-year-old gentleman who presents to the hospital with severe abdominal pain. Patient has been having intractable nausea and vomiting. Patient also is having diarrhea. Patient came into the ER because the pain was getting severe and he was not able to hold anything down. In the emergency room his workup revealed elevated lipase levels and abnormal electrolytes. He was admitted to the hospital for aggressive IV hydration. Patient denies any prior history of pancreatitis. He has been drinking heavily. He denies any gallstones in the past. He does have a history of marijuana usage. Patient could have cannabis vomiting syndrome. Also to have viral gastroenteritis. In light of the fact that he has diarrhea I would think that he most likely has a viral infection. The secondary elevation in patient's lipase is most likely related to persistent nausea and vomiting. He will need admission for further workup as well as treatment. Allergies No Known Allergies Allergy (Verified 01/26/18 00:21) Home Medications: NK [No Home Meds] 01/26/18 - Past Medical/Surgical History Has patient received pneumonia vaccine in the past: No Diabetic: No -: anxiety attack - Social History Smoking Status: Current every day smoker Alcohol use: Yes CD- Drugs: No Caffeine use: Yes Place of Residence: Home Review of Systems 10-point ROS is otherwise unremarkable Physical Examination - Vital Signs Temperature: 97.7 F Blood Pressure: 103/57 Pulse: 46 Respirations: 16 Pulse Ox (%): 97 - Physical Exam General: Alert, In no apparent distress HEENT: Atraumatic, PERRLA, Mucous membr. moist/pink, EOMI, Sclerae nonicteric Neck: Supple, 2+ carotid pulse no bruit, No LAD, Without JVD or thyroid abnormality Respiratory: Clear to auscultation bilaterally, Normal air movement Cardiovascular: Regular rate/rhythm, Normal S1 S2 Gastrointestinal: Normal bowel sounds, No tenderness Musculoskeletal: No tenderness Integumentary: No rashes Neurological: Normal gait, Normal speech, Normal strength at 5/5 x4 extr, Normal tone, Normal affect Lymphatics: No axilla or inguinal lymphadenopathy - Studies Laboratory Data (last 24 hrs) 01/25/18 13:25: WBC 13.7 H, Hgb 16.6, Hct 47.5, Plt Count 221 01/25/18 13:25: Sodium 143, Potassium 3.8, BUN 22 H, Creatinine 1.30, Glucose 143 H, Total Bilirubin 0.4, AST 17, ALT 23, Alkaline Phosphatase 109, Lipase 429 H Microbiology Data (last 24 hrs): 01/25/18 13:25 Throat Culture & Sensitivity - Final 01/25/18 13:25 Throat Group A Streptococcus Rapid Screen - Final - Diagnosis (Problem(s)) (1) Acute pancreatitis Status: Acute Qualifiers: Pancreatitis type: alcohol induced Acute pancreatitis complication: no infection or necrosis Qualified Code(s): K85.20 - Alcohol induced acute pancreatitis without necrosis or infection (2) Cannabinoid hyperemesis syndrome Status: Chronic Treatment Summary: Overall during the hospital stay patient remained stable Patient was initially admitted to the hospital for alcoholic induced pancreatitis. Patient initially had nausea vomiting and was placed on IV fluids the patient's pancreatitis resolved here in the hospital. Patient's nausea vomiting also resolved here in the hospital. Patient's diet was then advanced and patient tolerated the diet well and thus was discharged home under stable condition. Patient was asked to follow up with the primary care provider about 1-2 days. Alcohol abstinence and smoking abstinence was educated extensively to the patient. Patient demonstrate understanding and thus was discharged home under stable condition - Disposition Disposition: ROUTINE DISCHARGE Condition: GOOD Diet: Regular Activity: Ad nigel
== END 2018-01-26 13:57 | disposition home or self-care (01) ==
LOC: ER 11:42 → ERHOLD 16:02 → 2ND 19:42
PROVIDERS: ADMIT Family Medicine; ATTEND Hospitalist
DX: K85.20 Alcohol induced acute pancreatitis without necrosis or infection (principal); T40.7X1A Poisoning by cannabis (derivatives), accidental (unintentional), initial encounter; R11.10 Vomiting, unspecified; Y92.009 Unspecified place in unspecified non-institutional (private) residence as the place of occurrence of the external cause; F17.210 Nicotine dependence, cigarettes, uncomplicated
CPT/HCPCS: 36415; 74177; 80048; 80053; 80061; 80076; 81003; 81015; 83690; 83735; 84100; 85025; 87070; 87081; 96361; 96374; 96375; 99285; G0378; J1650; J2270; J2405; J7030; Q9967

== ENCOUNTER 2018-01-27 11:43 | Inpatient (IN) | payer SELFPAY ==
[2018-01-27 13:51] LABS: Absolute Lymphocytes (CBC) 1.7 K/uL (0.7-4.9); Absolute Monocytes 0.9 K/uL (0.1-1.3); Absolute Neutrophil 9.4 K/uL (1.8-8.0); Basophils % 0.8 % (0-1.3); Eosinophils % 0.3 % (0-4.4); Hematocrit 45.3 % (39.6-49.0); MCH 31.9 pg (27.0-35.0); MCV 91.2 fL (80-100); MPV 9.6 fL (7.6-11.3); Monocytes % 7.2 % (3.3-12.3); RBC Red Blood Cell Count 4.97 M/uL (4.33-5.43)
[2018-01-27] MEDS ORDERED: NA CHLORIDE 0.9% 1,000 ML ONE ×2 (14:21→14:26)
[2018-01-27] MEDS ORDERED: ONDANSETRON 4 MG/2 ML VIAL ONE (14:21)
[2018-01-27] MEDS ORDERED: MORPHINE 4 MG/ML SYR ONE (14:21)
[2018-01-27 16:06] LABS: ALT/SGPT 18 U/L (12-78); AST/SGOT 15 U/L (15-37); Albumin 3.9 g/dL (3.4-5.0); Alkaline Phosphatase 91 U/L (45-117); BUN Blood Urea Nitrogen 11 mg/dL (7-18); Bicarbonate 30 mmol/L (21-32); Bilirubin Direct 0.2 mg/dL (0-0.2); Bilirubin Total 0.6 mg/dL (0.2-1.0); Glucose Level 97 mg/dL (74-106); Lipase 611 U/L (73-393); Potassium 4.2 mmol/L (3.5-5.1); Protein, Total 7.4 g/dL (6.4-8.2); Sodium Level 142 mmol/L (136-145)
[2018-01-27] MEDS ORDERED: TRAMADOL HCL 50 MG TAB PO PRN (16:51)
[2018-01-27] MEDS ORDERED: SODIUM CHLORIDE 0.9% 10ML INJ IV PRN (16:51)
[2018-01-27] MEDS ORDERED: ONDANSETRON 4 MG/2 ML VIAL IV PRN (16:51)
[2018-01-27] MEDS ORDERED: HYDROCODONE/APAP 7.5/325 MG TAB PO PRN (16:51)
[2018-01-27] MEDS ORDERED: ACETAMINOPHEN 500 MG TAB PO PRN (16:51)
--- NOTE | 2018-01-27 16:55 | ER ---
Nurse's Notes [facility] Name: Rony Castrejon Jr Age: 22 yrs Sex: Male : 1995 Arrival Date: 01/27/2018 Time: 11:48 Bed 23 Private MD: Wesley Moffett Diagnosis: Acute pancreatitis Presentation: 01/27 12:01 Presenting complaint: Father states: was diagnosed with pancreatitis, was released iw yesterday, states he rushed to get out of the hospital, was told to come back if pain came back, has been in pain all night, not able to vomit anymore. Transition of care: patient was not received from another setting of care. Onset of symptoms was January 27, 2018. Risk Assessment: Do you want to hurt yourself or someone else? Patient reports no desire to harm self or others. Initial Sepsis Screen: Does the patient meet any 2 criteria? No. Patient's initial sepsis screen is negative. Does the patient have a suspected source of infection? No. Patient's initial sepsis screen is negative. Care prior to arrival: None. 12:01 Method Of Arrival: Wheelchair iw 12:01 Acuity: JUSTICE 3 iw Historical: - Allergies: 12:03 NKA; iw - Home Meds: 12:03 None [Active]; iw - PMHx: 12:03 Anxiety; iw - PSHx: 12:03 None; iw - Immunization history:: Adult Immunizations up to date. - Social history:: Smoking status: Patient uses tobacco products, smokes one pack cigarettes per day. Patient/guardian denies using alcohol, street drugs. - Ebola Screening: : Patient negative for fever greater than or equal to 101.5 degrees Fahrenheit, and additional compatible Ebola Virus Disease symptoms Patient denies exposure to infectious person Patient denies travel to an Ebola-affected area in the 21 days before illness onset No symptoms or risks identified at this time. Screenin:09 Abuse screen: Denies threats or abuse. Denies injuries from another. Nutritional aj1 screening: No deficits noted. Tuberculosis screening: No symptoms or risk factors identified. 19:20 Fall Risk None identified. lp1 Assessment: 13:05 Reassessment: MARIFER Jones at bedside to assess patient. Patient becomes agitated aj1 when asked what happened after he got home from the hospital, begins screaming at provider. 13:09 General: Appears uncomfortable, Behavior is anxious, restless, uncooperative. Pain: aj1 Complains of pain in right upper quadrant and left upper quadrant Pain radiates to back Pain currently is 9 out of 10 on a pain scale. Quality of pain is described as pressure. Neuro: Level of Consciousness is awake, alert, obeys commands. Cardiovascular: Patient's skin is warm and dry. 13:09 Respiratory: Airway is patent Respiratory effort is even, unlabored, Respiratory aj1 pattern is regular, symmetrical. GI: Abdomen is flat, non-distended, Bowel sounds present X 4 quads. Abd is soft X 4 quads Abd is non tender X 4 quads. : No signs and/or symptoms were reported regarding the genitourinary system. EENT: No signs and/or symptoms were reported regarding the EENT system. Derm: No signs and/or symptoms reported regarding the dermatologic system. Skin is pink, warm \T\ dry. normal. Musculoskeletal: No signs and/or symptoms reported regarding the musculoskeletal system. Circulation, motion, and sensation intact. 13:10 Reassessment: Attempted to start IV, patient becomes agitated when he is stuck begins aj1 screaming and cussing, clenching his fists. IV start attempted was discontinued at that time. Patient was asked if he needed a minute to calm down before we reattempt to start his IV. Patient states that he does. Patient was instructed to notify staff when he is ready for us to reattempt IV start. 14:23 Reassessment: Patient appears in no apparent distress at this time. No changes from aj1 previously documented assessment. Patient and/or family updated on plan of care and expected duration. Pain level reassessed. Patient is alert, oriented x 3, equal unlabored respirations, skin warm/dry/pink. 15:30 Reassessment: Patient appears in no apparent distress at this time. No changes from aj1 previously documented assessment. Patient and/or family updated on plan of care and expected duration. Pain level reassessed. Patient is alert, oriented x 3, equal unlabored respirations, skin warm/dry/pink. 16:30 Reassessment: Patient appears in no apparent distress at this time. No changes from aj1 previously documented assessment. Patient and/or family updated on plan of care and expected duration. Pain level reassessed. Patient is alert, oriented x 3, equal unlabored respirations, skin warm/dry/pink. 17:30 Reassessment: Patient appears in no apparent distress at this time. No changes from aj1 previously documented assessment. Patient and/or family updated on plan of care and expected duration. Pain level reassessed. Patient is alert, oriented x 3, equal unlabored respirations, skin warm/dry/pink. 18:30 Reassessment: Patient appears in no apparent distress at this time. No changes from aj1 previously documented assessment. Patient and/or family updated on plan of care and expected duration. Pain level reassessed. Patient is alert, oriented x 3, equal unlabored respirations, skin warm/dry/pink. 19:46 Reassessment: Patient appears in no apparent distress at this time. Patient is alert, lp1 oriented x 3, equal unlabored respirations, skin warm/dry/pink. Patient aware of pending admission. General: Appears comfortable. Vital Signs: 12:03 BP 101 / 65; Pulse 72; Resp 16; Temp 99.0(TE); Pulse Ox 100% ; Weight 63.5 kg; Height 5 iw ft. 4 in. (162.56 cm); Pain 9/10; 14:23 BP 111 / 73; Pulse 53; Resp 16; Pulse Ox 100% on R/A; aj1 15:30 BP 109 / 79; Pulse 89; Resp 18; Pulse Ox 100% on R/A; aj1 18:30 BP 107 / 68; Pulse 65; Resp 18; Pulse Ox 100% ; aj1 19:46 BP 98 / 70; Pulse 79; Resp 16; Temp 98.8(O); Pulse Ox 99% on R/A; lp1 12:03 Body Mass Index 24.03 (63.50 kg, 162.56 cm) iw ED Course: 11:48 Patient arrived in ED. sb2 11:49 Wesley Moffett DO is Private Physician. sb2 12:03 Triage completed. iw 12:03 Arm band placed on. iw 12:56 Genna Portillo, ARAMIS is Primary Nurse. aj1 12:57 Maurice Hammonds PA is PHCP. jmm 12:57 Ruslan Haider MD is Attending Physician. jmm 13:09 Patient has correct armband on for positive identification. Bed in low position. Call aj1 light in reach. Side rails up X 1. Pulse ox on. NIBP on. 13:09 No provider procedures requiring assistance completed. aj1 13:30 Initial lab(s) drawn, by me, sent to lab. jp3 13:30 Inserted saline lock: 20 gauge in right forearm, using aseptic technique. Blood jp3 collected. 13:38 Basic Metabolic Panel Sent. jp3 13:38 CBC with Diff Sent. jp3 13:38 Creatinine for Radiology Sent. jp3 13:38 Hepatic Function Sent. jp3 13:38 Lipase Sent. jp3 16:54 Arjun Ervin DO is Hospitalizing Provider. [facility] 18:57 Patient admitted, IV remains in place. aj1 Administered Medications: 14:22 Drug: morphine 4 mg Route: IVP; Site: right forearm; aj1 14:22 Drug: Zofran 4 mg Route: IVP; Site: right forearm; aj1 14:22 Drug: NS 0.9% 1000 ml Route: IV; Rate: 1 bolus; Site: right forearm; aj1 Outcome: 16:54 Decision to Hospitalize by Provider. [facility] 19:21 Condition: stable lp1 19:21 Instructed on the need for admit. 19:54 Admitted to Med/surg accompanied by tech, via wheelchair, room 207, with chart, Report lp1 called to ARAMIS Goodwin 20:19 Patient left the ED. lp1 Signatures: Genna Portillo RN RN aj1 Maurice Hammonds PA PA [facility] Jo Ann Avina RN RN iw Apoorva Gutierrez RN RN lp1 Kristen Villaseñor2 Serge Avila jp3 Corrections: (The following items were deleted from the chart) 12:04 12:03 BP 101 / 65; Pulse 72bpm; Resp 16bpm; Pulse Ox 100%; Temp 99.0F Temporal; 63.5 iw kg; Height 5 ft. 4 in.; BMI: 24.0; Pain 10/10; iw 13:38 13:37 Inserted saline lock: 20 gauge in right forearm, using aseptic technique. Blood jp3 collected. jp3 13:46 13:09 Cardiovascular: Patient's skin is warm and dry. aj1 aj1
--- NOTE | 2018-01-27 16:55 | EDPHYS ---
Physician Documentation [facility] Name: Rony Castrejon Jr Age: 22 yrs Sex: Male : 1995 Arrival Date: 01/27/2018 Time: 11:48 Bed 23 Private MD: Wesley Moffett ED Physician Ruslan Haider HPI: 01/27 12:57 This 22 yrs old Male presents to ER via Wheelchair with complaints of jmm Abdominal Pain, . 12:57 The patient presents with abdominal pain. Onset: The symptoms/episode began/occurred 2 jmm day(s) ago. The symptoms do not radiate. Associated signs and symptoms: Pertinent positives: nausea and vomiting. The symptoms are described as achy, sharp. This is a 22 year old male with a history of anxiety that presents to the Ed with epigastric abdominal pain and vomiting. Patient was recently discharged from inpatient care yesterday for pancreatitis. Patient states symptoms worsened after he attempted to eat at home. Patient denies etoh use. . Historical: - Allergies: 12:03 NKA; iw - Home Meds: 12:03 None [Active]; iw - PMHx: 12:03 Anxiety; iw - PSHx: 12:03 None; iw - Immunization history:: Adult Immunizations up to date. - Social history:: Smoking status: Patient uses tobacco products, smokes one pack cigarettes per day. Patient/guardian denies using alcohol, street drugs. - Ebola Screening: : Patient negative for fever greater than or equal to 101.5 degrees Fahrenheit, and additional compatible Ebola Virus Disease symptoms Patient denies exposure to infectious person Patient denies travel to an Ebola-affected area in the 21 days before illness onset No symptoms or risks identified at this time. ROS: 12:57 Constitutional: Negative for fever, chills, and weight loss, Cardiovascular: Negative jmm for chest pain, palpitations, and edema, Respiratory: Negative for shortness of breath, cough, wheezing, and pleuritic chest pain. 12:57 Back: Negative for injury and pain, Skin: Negative for injury, rash, and discoloration, Neuro: Negative for headache, weakness, numbness, tingling, and seizure. 12:57 Abdomen/GI: Positive for abdominal pain, nausea and vomiting. 12:57 All other systems are negative. Exam: 12:57 Head/Face: atraumatic. Eyes: EOMI, no conjunctival erythema appreciated ENT: Moist [facility] Mucus Membranes Neck: Trachea midline, Supple Chest/axilla: Normal chest wall appearance and motion. 12:57 Back: Normal ROM Skin: General appearance color normal MS/ Extremity: Moves all extremities, no obvious deformities appreciated, no edema noted to the lower extremities Neuro: Awake and alert, normal gait Psych: Behavior is normal, Mood is normal, Patient is cooperative and pleasant 12:57 Constitutional: The patient appears alert, awake, in obvious distress, in obvious pain. 12:57 Cardiovascular: Rate: normal, Rhythm: regular. 12:57 Respiratory: the patient does not display signs of respiratory distress, Respirations: normal, Breath sounds: are clear throughout. 12:57 Abdomen/GI: Inspection: abdomen appears normal, Bowel sounds: normal, Palpation: soft, mild abdominal tenderness, in the epigastric area. Vital Signs: 12:03 BP 101 / 65; Pulse 72; Resp 16; Temp 99.0(TE); Pulse Ox 100% ; Weight 63.5 kg; Height 5 iw ft. 4 in. (162.56 cm); Pain 9/10; 14:23 BP 111 / 73; Pulse 53; Resp 16; Pulse Ox 100% on R/A; aj1 15:30 BP 109 / 79; Pulse 89; Resp 18; Pulse Ox 100% on R/A; aj1 18:30 BP 107 / 68; Pulse 65; Resp 18; Pulse Ox 100% ; aj1 19:46 BP 98 / 70; Pulse 79; Resp 16; Temp 98.8(O); Pulse Ox 99% on R/A; lp1 12:03 Body Mass Index 24.03 (63.50 kg, 162.56 cm) iw MDM: 12:59 Patient medically screened. [facility] 16:53 Data reviewed: vital signs, nurses notes. Counseling: I had a detailed discussion with arvin the patient and/or guardian regarding: the historical points, exam findings, and any diagnostic results supporting the discharge/admit diagnosis, lab results, the need for further work-up and treatment in the hospital. Response to treatment: the patient's symptoms have markedly improved after treatment. 16:53 ED course: I discussed the patient with Dr. Ervin whom accepted admission. . arvin 01/27 12:57 Order name: Basic Metabolic Panel; Complete Time: 16:17 [facility] 01/27 12:57 Order name: CBC with Diff; Complete Time: 13:54 [facility] 01/27 12:57 Order name: Creatinine for Radiology; Complete Time: 16:17 [facility] 01/27 12:57 Order name: Hepatic Function; Complete Time: 16:17 [facility] 01/27 12:57 Order name: Lipase; Complete Time: 16:17 [facility] 01/27 16:51 Order name: Urine Drug Screen; Complete Time: 06:01 [facility] 01/27 16:59 Order name: Amylase Level; Complete Time: 06:01 [facility] 01/27 16:59 Order name: Alcohol Serum/Plasma; Complete Time: 06:01 [facility] 01/27 16:59 Order name: Lipase; Complete Time: 06:01 [facility] 01/27 17:00 Order name: Procalcitonin; Complete Time: 06:01 [facility] 01/27 17:00 Order name: Lactate; Complete Time: 06:01 [facility] 01/27 17:00 Order name: T4 Free; Complete Time: 06:01 [facility] 01/27 17:00 Order name: Thyroid Stimulating Hormone; Complete Time: 06:01 [facility] 01/27 17:00 Order name: Urinalysis [facility] 01/27 17:00 Order name: CBC with Automated Diff [facility] 01/27 17:00 Order name: CBC with Automated Diff [facility] 01/27 17:00 Order name: CBC with Automated Diff [facility] 01/27 17:00 Order name: Comprehensive Metabolic Panel [facility] 01/27 17:00 Order name: Comprehensive Metabolic Panel [facility] 01/27 17:00 Order name: Comprehensive Metabolic Panel [facility] 01/27 17:00 Order name: Lipid Profile [facility] 01/27 17:00 Order name: Lipid Profile [facility] 01/27 17:00 Order name: Magnesium [facility] 01/27 17:00 Order name: Magnesium [facility] 01/27 17:00 Order name: Magnesium [facility] 01/27 17:00 Order name: Blood Culture [facility] 01/27 18:09 Order name: Urine Dipstick--Ancillary (enter results) bd 01/27 12:57 Order name: IV Saline Lock; Complete Time: 13:38 [facility] 01/27 12:57 Order name: Labs collected and sent; Complete Time: 13:38 [facility] 01/27 12:57 Order name: Urine Dipstick-Ancillary (obtain specimen); Complete Time: 19:06 [facility] 01/27 14:14 Order name: Labs - recollect needed; Complete Time: 15:04 01/27 16:59 Order name: Clear Liquid EDMS Administered Medications: 14:22 Drug: morphine 4 mg Route: IVP; Site: right forearm; [facility] 14:22 Drug: Zofran 4 mg Route: IVP; Site: right forearm; [facility] 14:22 Drug: NS 0.9% 1000 ml Route: IV; Rate: 1 bolus; Site: right forearm; [facility] Disposition: 01/28 07:27 Co-signature as Attending Physician, Ruslan Haider MD I agree with the assessment and annia plan of care. Disposition: 01/27/18 16:54 Hospitalization ordered by Arjun Ervin for Observation. Preliminary diagnosis is Acute pancreatitis. - Bed requested for Telemetry/MedSurg (observation). - Status is Observation. lp1 - Condition is Stable. - Problem is an acute exacerbation. - Symptoms have improved. UTI on Admission? No Signatures: Dispatcher [employer] EDMS Meche Boone Angela RN ARAMIS aj1 Aury Brown RN ARAMIS dw Ruslan Haider MD MD cha Mickail, Joel, PA PA [facility] Jo Ann Avina, ARAMIS SELF Apoorva Gutierrez, RN RN lp1 Corrections: (The following items were deleted from the chart) 01/27 18:40 16:54 Hospitalization Ordered by rAjun Ervin DO for Observation. Preliminary dw diagnosis is Acute pancreatitis. Bed requested for Telemetry/MedSurg (observation). Status is Observation. Condition is Stable. Problem is an acute exacerbation. Symptoms have improved. UTI on Admission? No. [facility] 20:19 18:40 01/27/2018 16:54 Hospitalization Ordered by Arjun Ervin DO for Observation. lp1 Preliminary diagnosis is Acute pancreatitis. Bed requested for Telemetry/MedSurg (observation). Status is Observation. Condition is Stable. Problem is an acute exacerbation. Symptoms have improved. UTI on Admission? No. dw
[2018-01-27] MEDS: ENOXAPARIN 40 MG/0.4 ML SQ SCH (18:00)
[2018-01-27 18:25] LABS: Thyroid Stimulating Hormone 1.78 uIU/mL (0.360-3.740)
[2018-01-27 18:25] LABS: Barbiturates NEGATIVE (NEGATIVE); Benzodiazepines NEGATIVE (NEGATIVE); Cocaine POSITIVE (NEGATIVE); METHAMPHETAM NEGATIVE (NEGATIVE); Methadone NEGATIVE (NEGATIVE); Opiates POSITIVE (NEGATIVE); Phencyclidine NEGATIVE (NEGATIVE); THC Cannibis NEGATIVE (NEGATIVE)
--- NOTE | 2018-01-27 19:44 | P.HP ---
Certification for Inpatient Patient admitted to: Observation With expected LOS: <2 Midnights Practitioner: I am a practitioner with admitting privileges, knowledge of patient current condition, hospital course, and medical plan of care. Services: Services provided to patient in accordance with Admission requirements found in Title 42 Section 412.3 of the Code of Federal Regulations Patient History Date of Service: 01/27/18 Reason for admission: pancreatitis History of Present Illness: Mr Castrejon is a 22 years old male who was discharged from this hospital 2 days ago due to acute pancreatitis. When he went home, he tried to eat a grill cheese sandwich, and start vomiting again, also abdominal pain, localized on LUQ , radiated to the back, 10/10 of intensity, similar symptoms to his previous admission. He denied any fever or chills. No diarrhea either. He came tonight because his symptoms got worse. In ER his temp was 99.0F, BP on the lower side 101/65. Lab work remarkable for leukocytosis 12.1K, amylase 163 and lipase initially 611, and subsequent control 1104. At my encounter the patient is not on significant distress. Allergies No Known Allergies Allergy (Verified 01/26/18 00:21) Home Medications: NK [No Home Meds] 01/26/18 - Past Medical/Surgical History Diabetic: No -: anxiety attack Past Surgical History: Reviewed- Non-Contributory - Family History Family History: Reviewed- Non-Contributory - Social History Alcohol use: Yes CD- Drugs: No Caffeine use: Yes Place of Residence: Home Review of Systems 10-point ROS is otherwise unremarkable Physical Examination - Physical Exam General: Alert, In no apparent distress HEENT: Atraumatic, PERRLA, Mucous membr. moist/pink, EOMI, Sclerae nonicteric Neck: Supple, 2+ carotid pulse no bruit, No LAD, Without JVD or thyroid abnormality Respiratory: Clear to auscultation bilaterally, Normal air movement Cardiovascular: Regular rate/rhythm, Normal S1 S2 Gastrointestinal: Normal bowel sounds, Tenderness (LUQ) Musculoskeletal: No tenderness Integumentary: No rashes Neurological: Normal gait, Normal speech, Normal strength at 5/5 x4 extr, Normal tone, Normal affect Lymphatics: No axilla or inguinal lymphadenopathy - Studies Laboratory Data (last 24 hrs) 01/27/18 15:30: Creatinine 0.80 01/27/18 15:30: Sodium 142, Potassium 4.2, BUN 11, Creatinine 0.90, Glucose 97, Total Bilirubin 0.6, AST 15, ALT 18, Alkaline Phosphatase 91, Lipase 611 H 01/27/18 13:30: WBC 12.1 H D, Hgb 15.9 D, Hct 45.3 D, Plt Count 237 D Assessment and Plan - Problems (Diagnosis) (1) Abdominal pain Onset Date: 12/23/14 Current Visit: No Status: Acute Qualifiers: Abdominal location: left upper quadrant Qualified Code(s): R10.12 - Left upper quadrant pain (2) Acute pancreatitis Onset Date: 01/27/18 Current Visit: No Status: Acute Qualifiers: Pancreatitis type: unspecified pancreatitis type Acute pancreatitis complication: no infection or necrosis Qualified Code(s): K85.90 - Acute pancreatitis without necrosis or infection, unspecified (3) Nausea & vomiting Onset Date: 12/23/14 Current Visit: No Status: Acute Qualifiers: Vomiting type: unspecified Vomiting Intractability: non-intractable Qualified Code(s): R11.2 - Nausea with vomiting, unspecified - Plan The patient will be admitted to the hospital due to Pancreatitis, likely related to previous episode without full resolution, and non-compliant with his discharge instruction. Will keep the patient NPO, order IV fluids, symptomatic medication, and abdominal US, to R/O gallstone related pancreatitis. - Advance Directives Does patient have a Living Will: No Does patient have a Durable POA for Healthcare: No - Code Status/Comfort Care Code Status Assessed: Yes Code Status: Full Code
[2018-01-27 20:33] VITALS: BMI 19.5
[2018-01-27 21:07] LABS: Urine Blood NEGATIVE (NEG); Urine Glucose NEGATIVE (NEG); Urine Protein NEGATIVE (NEG); Urine Specific Gravity 1.025 (1.005-1.030)
[2018-01-27] MEDS: NA CHLORIDE 0.9% 1,000 ML IV SCH (21:37)
[2018-01-27] MEDS: PANTOPRAZOLE 40 MG INJ IVP SCH (21:38)
[2018-01-27] MEDS: MORPHINE 2 MG/ML SYR IV PRN (23:45)
[2018-01-28] MEDS: NA CHLORIDE 0.9% 1,000 ML IV SCH ×2 (05:31→14:00)
[2018-01-28 06:38] LABS: Absolute Lymphocytes (CBC) 2.4 K/uL (0.7-4.9); Absolute Monocytes 0.8 K/uL (0.1-1.3); Absolute Neutrophil 5.1 K/uL (1.8-8.0); Basophils % 0.4 % (0-1.3); Eosinophils % 1.7 % (0-4.4); Hematocrit 41.5 % (39.6-49.0); Lymphocytes % 28.2 % (15.3-44.8); MCH 32.4 pg (27.0-35.0); MCV 92.7 fL (80-100); MPV 9.2 fL (7.6-11.3); Monocytes % 9.4 % (3.3-12.3); RBC Red Blood Cell Count 4.48 M/uL (4.33-5.43)
[2018-01-28] MEDS: MORPHINE 2 MG/ML SYR IV PRN ×2 (06:45→20:54)
[2018-01-28 06:53] LABS: ALT/SGPT 15 U/L (12-78); AST/SGOT 11 U/L (15-37); Albumin 3.5 g/dL (3.4-5.0); Alkaline Phosphatase 85 U/L (45-117); BUN Blood Urea Nitrogen 11 mg/dL (7-18); Bicarbonate 28 mmol/L (21-32); Bilirubin Total 0.8 mg/dL (0.2-1.0); Glucose Level 85 mg/dL (74-106); HDL Cholesterol 31 mg/dL (40-60); LDL Cholesterol, Calculated 64 (<130); Magnesium 2.3 mg/dL (1.8-2.4); Potassium 3.6 mmol/L (3.5-5.1); Protein, Total 6.8 g/dL (6.4-8.2); Sodium Level 142 mmol/L (136-145)
[2018-01-28] MEDS: ENOXAPARIN 40 MG/0.4 ML SQ SCH (08:39)
[2018-01-28] MEDS: PANTOPRAZOLE 40 MG INJ IVP SCH (08:39)
--- NOTE | 2018-01-28 09:10 | RAD REPORT ---
EXAM DESCRIPTION: US - Abdomen Exam Limited - 01/28/2018 7:15 am CLINICAL HISTORY: Abdominal pain. COMPARISON: None. FINDINGS: The gallbladder wall is not thickened. A gallstone is not seen. Small to moderate amount of gallbladder sludge. Borderline gallbladder distention The biliary tree is normal caliber. IMPRESSION: Small to moderate gallbladder sludge Borderline gallbladder distention
[2018-01-28] MEDS: NACHLORIDE 0.45% 1,000 ML IV SCH ×3 (10:50→20:42)
--- NOTE | 2018-01-28 16:13 | P.PN ---
Subjective Date of Service: 01/28/18 Primary Care Provider: None Chief Complaint: pancreatitis Subjective: Other (Abdominal pain improved. Nausea improved.) Physical Examination - Vital Signs Temperature: 97.6 F Blood Pressure: 103/63 Pulse: 53 Respirations: 17 Pulse Ox (%): 98 - Physical Exam General: Alert, In no apparent distress, Oriented x3, Cooperative HEENT: Atraumatic Neck: Supple Respiratory: Clear to auscultation bilaterally, Normal air movement Cardiovascular: Normal pulses, Regular rate/rhythm Gastrointestinal: Normal bowel sounds, Soft and benign, Non-distended, No masses , No rebound, No guarding, Tenderness (Pain to the epigastric region improved) Musculoskeletal: No erythema, No tenderness, No warmth Integumentary: No tenderness/swelling, No erythema, No warmth, No cyanosis Neurological: Normal speech, Normal strength at 5/5 x4 extr, Normal tone, Normal affect - Studies Medications List Reviewed: Yes Assessment & Plan Discharge Plan: Home Plan to discharge in: 48 Hours Physician Review Additional Text: Impression: Recurrent epigastric abdominal pain with nausea and vomiting secondary to acute on chronic recurrent alcoholic pancreatitis Dehydration related to nausea and vomiting Cocaine abuse Alcohol abuse Plan: Recurrent epigastric abdominal pain with nausea and vomiting secondary to acute on chronic recurrent alcoholic pancreatitis: Patient recently hospitalized and readmitted for acute on chronic recurrent alcoholic pancreatitis. Education on pancreatitis address in detail. Patient positive for cocaine and alcohol. Will continue with IV fluids. Will continue with NPO. If improved will consider clear liquid diet later today. Encourage ambulation. Anticipate discharge in the next 48-72 hr. Will slowly advance diet. Will monitor lipase and electrolytes. Dehydration related to nausea and vomiting: Continue with IV fluid hydration. Will monitor and adjust electrolytes. Cocaine abuse: Patient admits use but reports last cocaine use was 2-3 months ago. Cocaine cessation addressed in detail. Risks addressed. Alcohol abuse: Alcohol cessation addressed in detail especially in light of acute on chronic recurrent alcoholic pancreatitis. Time Spent Managing Pts Care (In Minutes): 55
[2018-01-29] MEDS: MORPHINE 2 MG/ML SYR IV PRN (03:43)
[2018-01-29] MEDS: NACHLORIDE 0.45% 1,000 ML IV SCH ×3 (08:25→22:07)
[2018-01-29] MEDS: PANTOPRAZOLE 40 MG INJ IVP SCH (08:25)
[2018-01-29] MEDS: ENOXAPARIN 40 MG/0.4 ML SQ SCH (08:26)
[2018-01-29] MEDS ORDERED: THIAMINE 200 MG/2 ML INJ IVP SCH (09:00)
[2018-01-29 09:45] LABS: Absolute Lymphocytes (CBC) 1.5 K/uL (0.7-4.9); Absolute Monocytes 0.7 K/uL (0.1-1.3); Absolute Neutrophil 9.4 K/uL (1.8-8.0); Basophils % 0.3 % (0-1.3); Eosinophils % 0.6 % (0-4.4); Hematocrit 41.5 % (39.6-49.0); Lymphocytes % 12.7 % (15.3-44.8); MPV 9.1 fL (7.6-11.3); Monocytes % 5.9 % (3.3-12.3); RBC Red Blood Cell Count 4.51 M/uL (4.33-5.43)
[2018-01-29 10:04] LABS: ALT/SGPT 17 U/L (12-78); AST/SGOT 11 U/L (15-37); Albumin 3.5 g/dL (3.4-5.0); Alkaline Phosphatase 92 U/L (45-117); Amylase Level 72 U/L (25-115); BUN Blood Urea Nitrogen 11 mg/dL (7-18); Bicarbonate 28 mmol/L (21-32); Bilirubin Total 0.6 mg/dL (0.2-1.0); Glucose Level 83 mg/dL (74-106); Lipase 107 U/L (73-393); Magnesium 2.5 mg/dL (1.8-2.4); Potassium 3.8 mmol/L (3.5-5.1); Sodium Level 139 mmol/L (136-145)
--- NOTE | 2018-01-29 15:18 | P.PN ---
Subjective Date of Service: 01/29/18 Primary Care Provider: None Chief Complaint: pancreatitis Subjective: Improving Physical Examination - Vital Signs Temperature: 98 F Blood Pressure: 115/55 Pulse: 54 Respirations: 18 Pulse Ox (%): 100 - Physical Exam General: Alert, In no apparent distress, Oriented x3, Cooperative HEENT: Atraumatic Neck: Supple Respiratory: Clear to auscultation bilaterally, Normal air movement Cardiovascular: Normal pulses, Regular rate/rhythm Gastrointestinal: Normal bowel sounds, Soft and benign, Non-distended, No ascites, No tenderness, No masses, No rebound, No guarding Musculoskeletal: No erythema, No tenderness, No warmth Integumentary: No tenderness/swelling, No erythema, No warmth, No cyanosis Neurological: Normal speech, Normal strength at 5/5 x4 extr, Normal tone, Normal affect - Studies Medications List Reviewed: Yes Assessment & Plan Discharge Plan: Home Plan to discharge in: 24 Hours Physician Review Additional Text: Impression: Recurrent epigastric abdominal pain with nausea and vomiting secondary to acute on chronic recurrent alcoholic pancreatitis Dehydration related to nausea and vomiting Cocaine abuse Alcohol abuse Plan: Recurrent epigastric abdominal pain with nausea and vomiting secondary to acute on chronic recurrent alcoholic pancreatitis: Patient doing well at this time. No significant abdominal pain, nausea and vomiting. Will start with a clear liquid diet and advance to soft diet later today. If tolerating diet and without significant abdominal pain then will plan to discharge patient tomorrow. Continue monitor electrolytes. Dehydration related to nausea and vomiting: Continue with IV fluid hydration. Will monitor and adjust electrolytes. Cocaine abuse: Patient admits use but reports last cocaine use was 2-3 months ago. Cocaine cessation addressed in detail. Risks addressed. Alcohol abuse: Alcohol cessation addressed in detail especially in light of acute on chronic recurrent alcoholic pancreatitis. Patient understands this in detail. Time Spent Managing Pts Care (In Minutes): 55
[2018-01-29] MEDS ORDERED: KCL 20 MEQ/100 mL IVPB 20 MEQ/100 ML BAG IV SCH (17:00)
[2018-01-29 19:55] VITALS: O2SAT 99
[2018-01-30] MEDS: NACHLORIDE 0.45% 1,000 ML IV SCH ×3 (00:11→08:38)
[2018-01-30] MEDS ORDERED: PANTOPRAZOLE 40MG TABLET PO SCH (07:30)
[2018-01-30] MEDS: ENOXAPARIN 40 MG/0.4 ML SQ SCH (08:17)
[2018-01-30] MEDS ORDERED: THIAMINE HCL 100 MG TABLET PO SCH (09:00)
--- NOTE | 2018-01-30 10:32 | P.DS ---
Admission Date: 01/27/18 Discharge Date: 01/30/18 Primary Care Provider: None Disposition: ROUTINE DISCHARGE Discharge Condition: GOOD Reason for Admission: pancreatitis Consultations: None Procedures: ABUS: FINDINGS: The gallbladder wall is not thickened. A gallstone is not seen. Small to moderate amount of gallbladder sludge. Borderline gallbladder distention The biliary tree is normal caliber. IMPRESSION: Small to moderate gallbladder sludge Borderline gallbladder distention Medical Problem List: Recurrent epigastric abdominal pain with nausea and vomiting secondary to acute on chronic recurrent alcoholic pancreatitis Dehydration related to nausea and vomiting Cocaine abuse Alcohol abuse GERD Brief History of Present Illness: 22 yo HM presented to the ER with recurrent abdominal pain, nausea and vomiting. He was recently hospitalized and discharged for pancreatitis. He was found to have recurrent alcoholic pancreatitis. He was also found to be positive for cocaine. [facility]: Patient presented to the ER with abdominal pain, nausea and vomiting. He was found to have acute on chronic recurrent alcoholic pancreatitis. He was admitted for IV fluids and treatment. He was found to be positive for cocaine and alcohol. He did well during the course of his stay. At discharge, lipase is within normal range. No more abdominal pain, nausea and vomiting is noted. At discharge he will continue with a soft GI diet. It is recommended that he refrain from fatty foods, alcohol and cocaine. He understands this. He will comply with recommendations. He will establish care with a PCP to follow up his care. It is recommended that he also follow up with GI to further address. Patient may have underlying GERD. At discharge he will continue with Protonix 40 mg daily. Recommendation is to follow up with GI to further evaluate and monitor. Patient with alcohol and cocaine abuse. Cessation addressed in detail. He understands this and plans to quit both. Vital Signs/Physical Exam: Temp Pulse Resp BP Pulse Ox 98.1 F 47 L 18 115/58 L 98 01/30/18 04:00 01/30/18 04:00 01/30/18 04:00 01/30/18 04:00 01/30/18 04:00 General: Alert, In no apparent distress, Oriented x3, Cooperative HEENT: Atraumatic, Mucous membr. moist/pink Neck: Supple, No Thyromegaly Respiratory: Clear to auscultation bilaterally, Normal air movement Cardiovascular: Normal pulses, Regular rate/rhythm Gastrointestinal: Normal bowel sounds, Soft and benign, Non-distended, No ascites, No tenderness, No masses, No rebound, No guarding Musculoskeletal: No contractures, No erythema, No tenderness, No warmth Integumentary: No tenderness/swelling, No erythema, No warmth, No cyanosis Neurological: Normal speech, Normal strength at 5/5 x4 extr, Normal tone, Normal affect Laboratory Data at Discharge: WBC 11.7 K/uL (4.3-10.9) H D 01/29/18 09:28 Hgb 14.4 g/dL (13.6-17.9) 01/29/18 09:28 Hct 41.5 % (39.6-49.0) 01/29/18 09:28 Plt Count 201 K/uL (152-406) 01/29/18 09:28 Sodium 139 mmol/L (136-145) 01/29/18 09:28 Potassium 3.8 mmol/L (3.5-5.1) 01/29/18 09:28 BUN 11 mg/dL (7-18) 01/29/18 09:28 Creatinine 0.90 mg/dL (0.55-1.3) 01/29/18 09:28 Glucose 83 mg/dL (74-106) 01/29/18 09:28 Magnesium 2.5 mg/dL (1.8-2.4) H 01/29/18 09:28 Total Bilirubin 0.6 mg/dL (0.2-1.0) 01/29/18 09:28 AST 11 U/L (15-37) L 01/29/18 09:28 ALT 17 U/L (12-78) 01/29/18 09:28 Alkaline Phosphatase 92 U/L (45-117) 01/29/18 09:28 Triglycerides 71 mg/dL (<150) 01/28/18 06:03 Cholesterol 109 mg/dL (<200) 01/28/18 06:03 HDL Cholesterol 31 mg/dL (40-60) L 01/28/18 06:03 Cholesterol/HDL Ratio 3.52 01/28/18 06:03 Amylase 72 U/L (25-115) 01/29/18 09:28 Lipase 107 U/L (73-393) 01/29/18 09:28 Home Medications: Pantoprazole [Protonix Tab*] 40 mg PO DAILY #30 tab 01/30/18 Thiamine HCl [Vitamin B-1*] 100 mg PO DAILY #30 tablet 01/30/18 New Medications: Pantoprazole [Protonix Tab*] 40 mg PO DAILY #30 tab Thiamine HCl [Vitamin B-1*] 100 mg PO DAILY #30 tablet Patient Discharge Instructions: 1. Patient will need to establish care with a PCP to follow up this hospitalization. 2. Patient presented to the ER with abdominal pain, nausea and vomiting. He was found to have acute on chronic recurrent alcoholic pancreatitis. He was admitted for IV fluids and treatment. He was found to be positive for cocaine and alcohol. He did well during the course of his stay. At discharge, lipase is within normal range. No more abdominal pain, nausea and vomiting is noted. At discharge he will continue with a soft GI diet. It is recommended that he refrain from fatty foods, alcohol and cocaine. He understands this. He will comply with recommendations. He will establish care with a PCP to follow up his care. It is recommended that he also follow up with GI to further address. 3. Patient may have underlying GERD. At discharge he will continue with Protonix 40 mg daily. Recommendation is to follow up with GI to further evaluate and monitor. 4. Patient with alcohol and cocaine abuse. Cessation addressed in detail. He understands this and plans to quit both. Diet: AHA Activity: Ad nigel Time spent managing pt's care (in minutes): 55
[2018-01-30 10:48] VITALS: BP 93/50; TEMP 97.4
== END 2018-01-30 11:00 | disposition home or self-care (01) | DRG 440 ==
LOC: ER 11:43 → ERHOLD 16:55 → OBSVTOIN 16:55 → 2ND 19:55
PROVIDERS: ADMIT Family Medicine; ATTEND Family Medicine
DX: K85.20 Alcohol induced acute pancreatitis without necrosis or infection (principal); K86.0 Alcohol-induced chronic pancreatitis; F10.10 Alcohol abuse, uncomplicated; E86.0 Dehydration; K21.9 Gastro-esophageal reflux disease without esophagitis; F14.10 Cocaine abuse, uncomplicated
CPT/HCPCS: 36415; 76705; 80048; 80053; 80061; 80076; 80307; 80320; 81003; 82150; 83605; 83690; 83735; 84145; 84439; 84443; 85025; 87040; 87205; 96374; 96375; 99285; C9113; J1650; J2270; J2405; J3411; J7030

== ENCOUNTER 2021-03-07 11:29 | Emergency (ER) | payer SELFPAY ==
--- OUTSIDE RECORDS SUMMARY | 2021-03-07 11:32 | XMS REPORT | Continuity of Care Document ---
:1995 Author Organization [facility] t Address [address] [place] [address] Care Team Providers Name Role Phone Pcp, Patient Does Not Have A Primary Care Physician [id number] Katherine HERNÁNDEZ Attending Clinician Unavailable Katherine Hernández DO Attending Clinician Problems Condition Condition Condition Status Onset Resolution Last Treating Co mments Source Name Details Category Date Date Treatment Clinician Date Altered Altered Disease Active Univers mental mental 2-27 ity of status status 00:00: [address] Leukocytos Leukocytos Disease Active U nivers is is 2-27 ity of 00:00: [address] Dehydratio Dehydratio Disease Active U nivers n n 2-27 ity of 00:00: [address] Allergies, Adverse Reactions, Alerts Allergy Allergy Status Severity Reaction(s) Onset Inactive Treating Comm ents Source Name Type Date Date Clinician NO KNOWN Drug Active Univers ALLERGIE Class ity of S [facility] Social History Social Habit Start Date Stop Date Quantity Comments Source History SDIA University o f Alcohol Frequency [facility] edical Branch History [facility] University o f Alcohol Std Drinks [facility] History [facility] University o f Alcohol Binge [place] Medic al Branch Exposure to Not sure University of SARS-CoV-2 (event) [facility] History of tobacco Cigarette Smoker University of use [facility] Alcohol intake 2021-02-15 2021-02-15 Current drinker Unive rsity of 00:00:00 00:00:00 of alcohol [facility] (finding) Branch Cigarette 2017-04-30 2017-04-30 University of pack-years 00:00:00 00:00:00 [facility] Tobacco use and 2017-04-30 2017-04-30 Never used Universit y of exposure 00:00:00 00:00:00 [facility] Alcohol Comment 2017-04-30 2017-04-30 social drinker Unive rsity of 00:00:00 00:00:00 [facility] Cigarettes smoked 2017-04-30 2017-04-30 Univers ity of current (pack per 00:00:00 00:00:00 [facility] ) - Reported Branch Sex Assigned At [birth year] Universit y of 00:00:00 00:00:00 [facility] Smoking Status Start Date Stop Date Source Current every day smoker 2017-04-30 00:00:00 [facility]ations Ordered Filled Start Stop Current Ordering Indication Dosage Frequency Signature Comments Components Source Medication Medication Date Date Medication? Clinician (SIG) Name Name ondansetron 2020-03 4mg 4 mg, Univ ers (ZOFRAN-ODT 2-15 12-15 Oral, ity of ) 15:45: 14:48 ONCE, 1 [place] disintegrat 00 :00 dose, On Medi kezia ing tablet [facility] 4 mg 02/15/21 at 0945, Routine ondansetron 2020-03 Yes [id number] 4mg Take 1 Univers (ZOFRAN 2-15 tablet by ity of ODT) 4 mg 00:00: mouth [place] disintegrat 00 every 8 Medic al ing tablet (eight) Branch hours as needed for Nausea and Vomiting (N/V). Vital Signs Vital Name Observation Time Observation Value Comments Source Systolic blood 2021-02-15 14:14:00 122 mm[Hg] Univer sity of pressure [facility] Diastolic blood 2021-02-15 14:14:00 71 mm[Hg] Unive rsity of [facility] Heart rate 2021-02-15 14:14:00 100 /min [facility] Body temperature 2021-02-15 14:14:00 37.67 Cathy [facility] Respiratory rate 2021-02-15 14:14:00 18 /min [facility] Body weight 2021-02-15 14:14:00 63.504 kg [facility] BMI 2021-02-15 14:14:00 22.60 kg/m2 [facility] Oxygen saturation in 2021-02-15 14:14:00 99 /min University Arterial blood by [facility] Pulse oximetry Branch Procedures Procedure Date / Time Performed Performing Clinician Sourc e RAPID STREP SCREEN 2021-02-15 14:19:00 Ivett Hernández [facility] FOR GROUP A [facility] RAPID INFLUENZA A/B 2021-02-15 14:19:00 Ivett Hernández [facility] COVID-19 (ID NOW 2021-02-15 14:19:00 Ivett Hernández [facility] RAPID TESTING) [facility] CONSENT/REFUSAL FOR 2021-02-15 14:10:35 [facility] Un[facility]igned, [facility] AND Name [facility] TREATMENT NOTICE OF PRIVACY 2021-02-15 14:09:58 Doctor Unassigned, No Univ [facility] PRACTICES Name [facility] Branch Encounters Start End Encounter Admission Attending Care Care Encounter Source Date/Time Date/Time Type Type Clinicians Facility Department ID 2021-02-15 2021-02-15 Emergency X DORIS HERNÁNDEZ ERT [id number] Univers 08:19:00 09:35:00 IVETT escamilla [facility] 2021-02-15 2021-02-15 Emergency DORIS Hernández [id number] Univers 08:19:00 09:35:00 Ivett EDWARDS [id number] andi [facility] [id number] [facility] [id number] [facility] 084 Branch Results This patient has no known results.
[2021-03-07 13:16] LABS: SARS-COV-2 RT PCR NEGATIVE (NEGATIVE)
--- NOTE | 2021-03-07 13:43 | EDPHYS ---
Physician Documentation [facility] Name: Rony Castrejon Jr Age: 25 yrs Sex: Male : 1995 Arrival Date: 03/07/2021 Time: 11:30 Bed Waiting Private MD: ED Physician John Bustillo HPI: 03/07 13:38 This 25 yrs old Male presents to ER via Ambulatory with complaints of Sore kb Throat, Cough, Headache, Diarrhea. 13:39 The patient or guardian reports cough, that is intermittent, described as mild. Onset: kb The symptoms/episode began/occurred 3 week(s) ago. Severity of symptoms: At their worst the symptoms were moderate, in the emergency department the symptoms are unchanged. Modifying factors: The symptoms are alleviated by nothing, the symptoms are aggravated by nothing. Associated signs and symptoms: Pertinent positives: diarrhea, rhinorrhea, Pertinent negatives: chest pain, ear ache, fever, nausea, sore throat, vomiting. The patient has not experienced similar symptoms in the past. The patient has not recently seen a physician. Pt reports cough, congestion, sore throat, headaches and diarrhea that started 3 weeks ago. States he tested positive for covid at that time. Symptoms resolved for a couple of days and started back a week ago. . Historical: - Allergies: 12:04 NKA; ll1 - PMHx: 12:04 Anxiety; ll1 - PSHx: 12:04 None; ll1 - Immunization history:: Client reports having NOT received the Covid vaccine. Flu vaccine status is unknown. - Social history:: Smoking status: Patient reports the use of cigarette tobacco products, smokes one pack cigarettes per day. ROS: 13:38 Constitutional: Negative for fever, chills, and weight loss. kb 13:38 ENT: Positive for sinus congestion, sore throat. 13:38 Respiratory: Positive for cough, Negative for dyspnea on exertion, hemoptysis, orthopnea, pleurisy, shortness of breath, sputum production, wheezing. 13:38 Abdomen/GI: Positive for diarrhea, Negative for abdominal pain, nausea and vomiting. 13:38 Neuro: Positive for headache. 13:38 All other systems are negative. Exam: 13:38 Constitutional: This is a well developed, well nourished patient who is awake, alert, kb and in no acute distress. Head/Face: Normocephalic, atraumatic. ENT: Moist Mucous membranes Cardiovascular: Regular rate and rhythm with a normal S1 and S2. No gallops, murmurs, or rubs. No pulse deficits. Respiratory: Respirations even and unlabored. No increased work of breathing. Talking in full sentences Skin: Warm, dry with normal turgor. Normal color. MS/ Extremity: Pulses equal, no cyanosis. Neurovascular intact. Full, normal range of motion. Neuro: Awake and alert, GCS 15, oriented to person, place, time, and situation. Moves all extremities. Normal gait. Psych: Awake, alert, with orientation to person, place and time. Behavior, mood, and affect are within normal limits. Vital Signs: 12:02 BP 120 / 78; Pulse 75; Resp 17; Temp 97.9; Pulse Ox 100% ; Weight 61.23 kg; Height 5 ll1 ft. 5 in. (165.10 cm); Pain 0/10; 12:02 Body Mass Index 22.46 (61.23 kg, 165.10 cm) ll1 MDM: 12:15 Patient medically screened. kb 13:33 Data reviewed: vital signs, nurses notes. Data interpreted: Pulse oximetry: on room air kb is 100 %. Interpretation: normal. 13:35 Counseling: I had a detailed discussion with the patient and/or guardian regarding: the kb historical points, exam findings, and any diagnostic results supporting the discharge/admit diagnosis, lab results, the need for outpatient follow up, a family practitioner, to return to the emergency department if symptoms worsen or persist or if there are any questions or concerns that arise at home. 03/07 12:07 Order name: COVID-19/FLU A+B (Document "Date of Onset" if Symptomatic) ll1 03/07 12:07 Order name: COVID-19/FLU A+B; Complete Time: 13:18 EDMS Administered Medications: No medications were administered Disposition: 17:44 Co-signature as Attending Physician, John Bustillo MD I agree with the assessment and rn plan of care. Attestation: The patient's history, exam findings, diagnostics, and a summary of any interventions or procedures was reviewed in detail with Sherrie DOLL. Disposition Summary: 03/07/21 13:42 Discharge Ordered Location: Home kb Condition: Stable kb Diagnosis - Acute upper respiratory infection, unspecified kb Followup: kb - With: Emergency Department - When: As needed - Reason: Worsening of condition Followup: kb - With: Private Physician - When: 2 - 3 days - Reason: Recheck today's complaints, Continuance of care, Re-evaluation by your physician Discharge Instructions: - Upper Respiratory Infection, Adult, [id number] kb - Viral Respiratory Infection, [id number] kb - Discharge Summary Sheet ll1 Forms: - Medication Reconciliation Form kb - Thank You Letter kb - Antibiotic Education kb - Work release form ll1 - Prescription Opioid Use kb Signatures: Dispatcher [employer] EDMS Sherrie España, MAIL DISTRIBUTION SCHEME EXAMINER-C MAIL DISTRIBUTION SCHEME EXAMINER-Danielb John Bustillo MD MD rn Otilio Burrell RN RN 1
--- NOTE | 2021-03-07 13:43 | ER ---
Nurse's Notes [facility] Name: Rony Castrejon Jr Age: 25 yrs Sex: Male : 1995 Arrival Date: 03/07/2021 Time: 11:30 Bed Waiting Private MD: Diagnosis: Acute upper respiratory infection, unspecified Presentation: 03/07 12:02 Chief complaint: Patient states: BARKER, cough, sore throat, diarrhea for 1 week. Covid ll1 positive 3 weeks ago, got better for 2 days, then came back. Coronavirus screen: Vaccine status: Patient reports being unvaccinated. Client denies travel out of the [place] in the last 14 days. congestion, cough unrelated to allergies, fatigue, Client presents with at least one sign or symptom that may indicate coronavirus-19. Standard/surgical mask placed on the client. Ebola Screen: Patient denies travel to an Ebola-affected area in the 21 days before illness onset. Initial Sepsis Screen: Does the patient meet any 2 criteria? No. Patient's initial sepsis screen is negative. Does the patient have a suspected source of infection? No. Patient's initial sepsis screen is negative. Risk Assessment: Do you want to hurt yourself or someone else? Patient reports no desire to harm self or others. Onset of symptoms was February 27, 2021. 12:02 Method Of Arrival: Ambulatory ll1 12:02 Acuity: JUSTICE 4 ll1 Triage Assessment: 12:05 General: Appears in no apparent distress. Behavior is calm, cooperative, appropriate ll1 for age. Pain: Denies pain. EENT: Nares are clear Reports nasal congestion. Neuro: No deficits noted. Cardiovascular: No deficits noted. Respiratory: Reports cough that is Breath sounds are clear bilaterally. GI: Abdomen is Reports diarrhea. Historical: - Allergies: 12:04 NKA; ll1 - PMHx: 12:04 Anxiety; ll1 - PSHx: 12:04 None; ll1 - Immunization history:: Client reports having NOT received the Covid vaccine. Flu vaccine status is unknown. - Social history:: Smoking status: Patient reports the use of cigarette tobacco products, smokes one pack cigarettes per day. Screenin:05 Abuse screen: Denies threats or abuse. Nutritional screening: No deficits noted. ll1 Tuberculosis screening: No symptoms or risk factors identified. 13:55 Fall Risk Total Rider Fall Scale indicates No Risk (0-24 pts). ll1 Assessment: 12:05 Respiratory: Denies shortness of breath. EENT: Throat is clear. ll1 12:06 Respiratory: Airway is patent Respiratory effort is even, unlabored. ll1 13:05 Reassessment: No changes from previously documented assessment. Patient and/or family ll1 updated on plan of care and expected duration. Pain level reassessed. Patient is alert, oriented x 3, equal unlabored respirations, skin warm/dry/pink. Respiratory: Trachea midline. Vital Signs: 12:02 BP 120 / 78; Pulse 75; Resp 17; Temp 97.9; Pulse Ox 100% ; Weight 61.23 kg; Height 5 ll1 ft. 5 in. (165.10 cm); Pain 0/10; 12:02 Body Mass Index 22.46 (61.23 kg, 165.10 cm) ll1 ED Course: 11:30 Patient arrived in ED. am2 12:01 Sherrie España FNP-C is [facility]. kb 12:02 John Bustillo MD is Attending Physician. kb 12:04 Triage completed. ll1 12:05 Arm band placed on. ll1 12:05 Patient has correct armband on for positive identification. Cardiac monitoring not ll1 applicable on this patient. 13:55 No provider procedures requiring assistance completed. Patient did not have IV access ll1 during this emergency room visit. Administered Medications: No medications were administered Outcome: 13:42 Discharge ordered by MD. kb 13:55 Patient left the ED. ll1 13:55 Discharged to home ambulatory. ll1 13:55 Condition: stable 13:55 Discharge instructions given to patient, family, Instructed on discharge instructions, follow up and referral plans. Demonstrated understanding of instructions, follow-up care. Signatures: Sherrie España FNP-C [employer]-[address] am2 Otilio Burrell RN RN ll1 Corrections: (The following items were deleted from the chart) 12:05 12:02 Pulse 83bpm; Resp 17bpm; Pulse Ox 100%; Temp 97.9F; 61.23 kg; Height 5 ft. 5 in.; ll1 BMI: 22.4; Pain 0/10; ll1
[2021-03-07 14:09] VITALS: BP 120/78; TEMP 97.9; O2SAT 100
== END 2021-03-07 13:55 | disposition home or self-care (01) ==
LOC: ER 11:29
DX: J06.9 Acute upper respiratory infection, unspecified (principal); Z86.16 Personal history of COVID-19; Z20.822 Contact with and (suspected) exposure to COVID-19; F17.210 Nicotine dependence, cigarettes, uncomplicated
CPT/HCPCS: 0240U; 99281

== ENCOUNTER 2021-06-01 00:41 | Emergency (ER) | payer SELFPAY ==
--- OUTSIDE RECORDS SUMMARY | 2021-06-01 00:44 | XMS REPORT | Continuity of Care Document ---
:1995 Author Organization [facility] t Address [address] [place] [address] Care Team Providers Name Role Phone PCP, PATIENT DOES NOT HAVE A Primary Care Physician Unavaila Katherine Simmons Attending Clinician Unavailable Katherine Hernández DO Attending Clinician Problems Condition Condition Condition Status Onset Resolution Last Treating Co mments Source Name Details Category Date Date Treatment Clinician Date Altered Altered Disease Active Univers mental mental 2-27 ity of status status 00:00: [address] Leukocytos Leukocytos Disease Active U nivers is is 2-27 ity of 00:00: [address] Dehydratio Dehydratio Disease Active U nivers n n 2-27 ity of 00:00: [address] Allergies, Adverse Reactions, Alerts Allergy Allergy Status Severity Reaction(s) Onset Inactive Treating Comm ents Source Name Type Date Date Clinician NO KNOWN Drug Active Univers ALLERGIE Class ity of S [facility] Social History Social Habit Start Date Stop Date Quantity Comments Source History SDND University o f Alcohol Frequency [facility] edical Branch History SDND University o f Alcohol Std Drinks [facility] History SDND University o f Alcohol Binge [place] Medic al Branch Exposure to Not sure University of SARS-CoV-2 (event) [facility] History of tobacco Cigarette Smoker University of use [facility] Alcohol intake 2021-02-15 2021-02-15 Current drinker Unive rsity of 00:00:00 00:00:00 of alcohol [facility] (finding) Branch Cigarette 2017-04-30 2017-04-30 University of pack-years 00:00:00 00:00:00 [facility] Tobacco use and 2017-04-30 2017-04-30 Never used Universit y of exposure 00:00:00 00:00:00 [facility] Alcohol Comment 2017-04-30 2017-04-30 social drinker Unive rsity of 00:00:00 00:00:00 [facility] Cigarettes smoked 2017-04-30 2017-04-30 Univers ity of current (pack per 00:00:00 00:00:00 [facility] ) - Reported Branch Sex Assigned At [birth year] Universit y of 00:00:00 00:00:00 [facility] Smoking Status Start Date Stop Date Source Current every day smoker 2017-04-30 [facility]:00[facility]00 [facility] F[facility] Start Stop Current Ordering Indication Dosage Frequency Signature Comments Components Source Medication Medication Date Date Medication? Clinician (SIG) Name Name ondansetron 2020-03 4mg 4 mg, Univ ers (ZOFRAN-ODT 2-15 12-15 Oral, ity of ) 15:45: 14:48 ONCE, 1 [place] disintegrat 00 :00 dose, On Medi kezia ing tablet [facility] 4 mg 02/15/21 at 0945, Routine ondansetron 2020-03 Yes [id number] 4mg Take 1 Univers (ZOFRAN 2-15 tablet by ity of ODT) 4 mg 00:00: mouth [place] disintegrat 00 every 8 Medic al ing tablet (eight) Branch hours as needed for Nausea and Vomiting (N/V). Vital Signs Vital Name Observation Time Observation Value Comments Source Systolic blood 2021-02-15 14:14:00 122 mm[Hg] Univer sity of pressure [facility] Diastolic blood 2021-02-15 14:14:00 71 mm[Hg] Unive rsity of pressure [facility] Heart rate 2021-02-15 14:14:00 100 /min [facility] Body temperature 2021-02-15 14:14:00 37.67 [facility]athy [facility] Res[facility] rate 2021-02-15 14:14:00 18 /min [facility] Body weight 2021-02-15 14:14:00 63.504 kg [facility] BMI 2021-02-15 14:14:00 22.60 kg/m2 [facility] Oxygen saturation in 2021-02-15 14:14:00 99 /min University Arterial blood by [facility] Pulse oximetry Branch Procedures Procedure Date / Time Performed Performing Clinician Sourc e RAPID STREP SCREEN 2021-02-15 14:19:00 Ivett Hernández [facility] FOR GROUP A [facility] RAPID INFLUENZA A/B 2021-02-15 14:19:00 Ivett Hernández [facility] COVID-19 (ID NOW 2021-02-15 14:19:00 Ivett Hernández [facility] RAPID TESTING) [facility] CONSENT/REFUSAL FOR 2021-02-15 14:10:35 [facility] Name [facility] TREATMENT NOTICE OF PRIVACY 2021-02-15 14:09:58 Doctor Unassigned, No Univ [facility] PRACTICES Name [facility] Encounters Start End Encounter Admission Attending Care Care Encounter Source Date/Time Date/Time Type Type Clinicians Facility Department ID 2021-02-15 2021-02-15 Emergency X DORIS HERNÁNDEZ ERT [id number] Univers 08:19:00 09:35:00 IVETT escamilla [facility] 2021-02-15 2021-02-15 Emergency DORIS Hernández [id number] Univers 08:19:00 09:35:00 Ivett [facility]WARDS [id number] [id number] [facility] [id number] [facility] 084 Branch Results This patient has no known results.
[2021-06-01] MEDS ORDERED: KETOROLAC 30 MG/ML INJ ONE (01:04)
[2021-06-01] MEDS ORDERED: METOCLOPRAMIDE 10 MG/2mL INJ ONE (01:04)
[2021-06-01] MEDS ORDERED: DIPHENHYDRAMINE 50 MG/ML VIAL ONE (01:04)
--- NOTE | 2021-06-01 01:55 | ER ---
Nurse's Notes [facility] Name: Rony Castrejon Jr Age: 25 yrs Sex: Male : 1995 Arrival Date: 06/01/2021 Time: 00:42 Bed 2 Private MD: Diagnosis: Periapical abscess without sinus;Dentalgia Presentation: 06/01 00:48 Chief complaint: Patient states: left sided tooth pain radiating to head. Coronavirus as6 screen: Client denies travel out of the [place] in the last 14 days. At this time, the client does not indicate any symptoms associated with coronavirus-19. Ebola Screen: No symptoms or risks identified at this time. Initial Sepsis Screen: Does the patient meet any 2 criteria? No. Patient's initial sepsis screen is negative. Does the patient have a suspected source of infection? No. Patient's initial sepsis screen is negative. Risk Assessment: Do you want to hurt yourself or someone else? Patient reports no desire to harm self or others. Onset of symptoms was May 29, 2021. 00:48 Method Of Arrival: Wheelchair as6 00:48 Acuity: JUSTICE 4 as6 Triage Assessment: 00:50 General: Appears in no apparent distress. uncomfortable, Behavior is anxious, crying, as6 fussy, inappropriate for age. Pain: Complains of pain in face, left ear and mouth. EENT: Reports pain. Neuro: No deficits noted. Level of Consciousness is awake, alert, obeys commands, Oriented to person, place, time, situation. Cardiovascular: No deficits noted. Denies chest pain, shortness of breath, Capillary refill < 3 seconds Patient's skin is warm and dry. Respiratory: No deficits noted. Airway is patent Trachea midline Respiratory effort is even, unlabored, Respiratory pattern is regular, symmetrical. GI: No deficits noted. No signs and/or symptoms were reported involving the gastrointestinal system. : No deficits noted. No signs and/or symptoms were reported regarding the genitourinary system. Derm: No deficits noted. No signs and/or symptoms reported regarding the dermatologic system. Skin is intact, is healthy with good turgor, Skin is dry. Musculoskeletal: No deficits noted. No signs and/or symptoms reported regarding the musculoskeletal system. Circulation, motion, and sensation intact. Range of motion: intact in all extremities. Historical: - Allergies: 00:50 NKA; as6 - Home Meds: 00:50 None [Active]; as6 - PMHx: 00:50 Anxiety; as6 - PSHx: 00:50 None; as6 - Immunization history:: Adult Immunizations up to date, Client reports having NOT received the Covid vaccine. - Social history:: Smoking status: Patient reports the use of cigarette tobacco products, smokes one pack cigarettes per day. Patient/guardian denies using alcohol. Screenin:52 Abuse screen: Denies threats or abuse. Denies injuries from another. Nutritional as6 screening: No deficits noted. Tuberculosis screening: No symptoms or risk factors identified. Fall Risk None identified. Assessment: 00:57 Reassessment: please see triage assessment. st1 Vital Signs: 00:48 BP 151 / 99; Pulse 92; Resp 17 S; Temp 97.7(A); Pulse Ox 99% on R/A; Weight 61.23 kg as6 (R); Height 5 ft. 5 in. (165.10 cm) (R); Pain 10/10; 01:07 BP 124 / 63; Pulse 68; Resp 16; Pulse Ox 99% on R/A; Pain 10/10; st1 01:39 BP 115 / 64; Pulse 52; Resp 16; Pulse Ox 98% on R/A; st1 00:48 Body Mass Index 22.46 (61.23 kg, 165.10 cm) as6 ED Course: 00:42 Patient arrived in ED. kz 00:49 Tom Whaley PA is PHCP. jr8 00:49 Ruslan Haider MD is Attending Physician. jr8 00:50 Triage completed. as6 00:50 Arm band placed on right wrist. as6 00:57 Allergy band placed. Bed in low position. Call light in reach. Side rails up X 1. st1 00:58 Inserted saline lock: 20 gauge in right antecubital area, using aseptic technique. st1 01:06 No provider procedures requiring assistance completed. st1 01:56 Cassy Ny, ARAMIS is Primary Nurse. st1 02:22 IV discontinued, intact, bleeding controlled, No redness/swelling at site. Pressure as6 dressing applied. Administered Medications: 01:05 Drug: Reglan (metoCLOPramide) 10 mg Route: IVP; Site: right antecubital; st1 01:56 Follow up: Response: No adverse reaction st1 01:06 Drug: Benadryl (diphenhydrAMINE) 25 mg Route: IVP; Site: right antecubital; st1 01:56 Follow up: Response: No adverse reaction st1 01:06 Drug: Ketorolac 30 mg Route: IVP; Site: right antecubital; st1 01:56 Follow up: Response: No adverse reaction; Pain is decreased st1 02:00 Drug: morphine 4 mg Route: IVP; Site: right antecubital; st1 02:22 Follow up: Response: No adverse reaction; Pain is decreased st1 Outcome: 01:54 Discharge ordered by . jr8 02:21 Discharged to home ambulatory, with significant other. as6 02:21 Condition: stable 02:21 Discharge instructions given to patient, significant other, Instructed on discharge instructions, follow up and referral plans. medication usage, Demonstrated understanding of instructions, follow-up care, medications, Prescriptions given X 3. 02:22 Patient left the ED. as6 Signatures: Tom Whaley PA PA jr8 Luke Suggs RN RN as6 Cassy Ny RN RN st1 Darlin Bolden
--- NOTE | 2021-06-01 01:55 | EDPHYS ---
Physician Documentation [facility] Name: Rony Castrejon Jr Age: 25 yrs Sex: Male : 1995 Arrival Date: 06/01/2021 Time: 00:42 Bed 2 Private MD: ED Physician Ruslan Haider HPI: 06/01 01:56 This 25 yrs old Male presents to ER via Wheelchair with complaints of jr8 Toothache, Headache. 01:56 The patient presents with pain. The problem is located in the left upper jaw. Onset: jr8 The symptoms/episode began/occurred acutely, today. Duration: The symptoms are continuous. Modifying factors: The symptoms are alleviated by nothing, the symptoms are aggravated by talking. Associated signs and symptoms: Pertinent positives: headache. Severity of symptoms: At their worst the symptoms were moderate, in the emergency department the symptoms are unchanged. The patient has not experienced similar symptoms in the past. The patient has not recently seen a physician. Patient stated that he started with toothache yesterday. Markedly worse tonight and causing radiated pain to head and ear. Historical: - Allergies: 00:50 NKA; as6 - Home Meds: 00:50 None [Active]; as6 - PMHx: 00:50 Anxiety; as6 - PSHx: 00:50 None; as6 - Immunization history:: Adult Immunizations up to date, Client reports having NOT received the Covid vaccine. - Social history:: Smoking status: Patient reports the use of cigarette tobacco products, smokes one pack cigarettes per day. Patient/guardian denies using alcohol. ROS: 01:56 Eyes: Negative for injury, pain, redness, and discharge, Neck: Negative for injury, jr8 pain, and swelling, Cardiovascular: Negative for chest pain, palpitations, and edema, Respiratory: Negative for shortness of breath, cough, wheezing, and pleuritic chest pain, Abdomen/GI: Negative for abdominal pain, nausea, vomiting, diarrhea, and constipation, Back: Negative for injury and pain, MS/Extremity: Negative for injury and deformity, Skin: Negative for injury, rash, and discoloration. 01:56 ENT: Positive for dental pain. 01:56 Neuro: Positive for headache. Exam: 01:56 Eyes: Pupils equal round and reactive to light, extra-ocular motions intact. Lids and jr8 lashes normal. Conjunctiva and sclera are non-icteric and not injected. Cornea within normal limits. Periorbital areas with no swelling, redness, or edema. Neck: Trachea midline, no thyromegaly or masses palpated, and no cervical lymphadenopathy. Supple, full range of motion without nuchal rigidity, or vertebral point tenderness. No Meningismus. Cardiovascular: Regular rate and rhythm with a normal S1 and S2. No gallops, murmurs, or rubs. Normal PMI, no JVD. No pulse deficits. Respiratory: Lungs have equal breath sounds bilaterally, clear to auscultation and percussion. No rales, rhonchi or wheezes noted. No increased work of breathing, no retractions or nasal flaring. Abdomen/GI: Soft, non-tender, with normal bowel sounds. No distension or tympany. No guarding or rebound. No evidence of tenderness throughout. Back: No spinal tenderness. No costovertebral tenderness. Full range of motion. Skin: Warm, dry with normal turgor. Normal color with no rashes, no lesions, and no evidence of cellulitis. MS/ Extremity: Pulses equal, no cyanosis. Neurovascular intact. Full, normal range of motion. Neuro: Awake and alert, GCS 15, oriented to person, place, time, and situation. Cranial nerves II-XII grossly intact. Motor strength 5/5 in all extremities. Sensory grossly intact. 01:56 Constitutional: The patient appears alert, awake, in obvious pain. 01:56 ENT: External ear(s): are unremarkable, Ear canal(s): are normal, clear, TM's: are normal, no evidence of bulging, no dullness, no erythema, no fluid levels, no hemotympanum, no rupture, normal bony landmarks, normal mobility, Nose: is normal, Mouth: Lips: moist, Oral mucosa: pink and intact, moist, Gums: pink, Tongue: is moist, Posterior pharynx: Airway: patent, Tonsils: are normal in appearance, Uvula: midline, non-edematous, no erythema, swelling, is not appreciated, erythema, is not appreciated, Dental exam: pain, that is severe, specifically in the upper left first molar (#14). Vital Signs: 00:48 BP 151 / 99; Pulse 92; Resp 17 S; Temp 97.7(A); Pulse Ox 99% on R/A; Weight 61.23 kg as6 (R); Height 5 ft. 5 in. (165.10 cm) (R); Pain 10/10; 01:07 BP 124 / 63; Pulse 68; Resp 16; Pulse Ox 99% on R/A; Pain 10/10; st1 01:39 BP 115 / 64; Pulse 52; Resp 16; Pulse Ox 98% on R/A; st1 00:48 Body Mass Index 22.46 (61.23 kg, 165.10 cm) as6 MDM: 00:54 Patient medically screened. jr8 01:53 Data reviewed: vital signs, nurses notes, and as a result, I will discharge patient. jr8 Data interpreted: Pulse oximetry: on room air is 98 %. Interpretation: normal. Counseling: I had a detailed discussion with the patient and/or guardian regarding: the historical points, exam findings, and any diagnostic results supporting the discharge/admit diagnosis, the need for outpatient follow up, a dentist, to return to the emergency department if symptoms worsen or persist or if there are any questions or concerns that arise at home. Response to treatment: the patient's symptoms have markedly improved after treatment. 06/01 00:59 Order name: IV; Complete Time: 01:05 8 Administered Medications: 01:05 Drug: Reglan (metoCLOPramide) 10 mg Route: IVP; Site: right antecubital; st1 01:56 Follow up: Response: No adverse reaction st1 01:06 Drug: Benadryl (diphenhydrAMINE) 25 mg Route: IVP; Site: right antecubital; st1 01:56 Follow up: Response: No adverse reaction st1 01:06 Drug: Ketorolac 30 mg Route: IVP; Site: right antecubital; st1 01:56 Follow up: Response: No adverse reaction; Pain is decreased st1 02:00 Drug: morphine 4 mg Route: IVP; Site: right antecubital; st1 02:22 Follow up: Response: No adverse reaction; Pain is decreased st1 Disposition: 06:43 Co-signature as Attending Physician, Ruslan Haider MD I agree with the assessment and annia plan of care. Disposition Summary: 06/01/21 01:54 Discharge Ordered Location: Home jr8 Problem: new jr8 Symptoms: have improved jr8 Condition: Stable jr8 Diagnosis - Periapical abscess without sinus jr8 - Dentalgia jr8 Followup: jr8 - With: Private Physician - When: 2 - 3 days - Reason: Recheck today's complaints, Continuance of care, Re-evaluation by your physician Discharge Instructions: - Discharge Summary Sheet jr8 - Dental Abscess jr8 - Dental Pain jr8 Forms: - Medication Reconciliation Form jr8 - Thank You Letter jr8 - Antibiotic Education jr8 - Prescription Opioid Use jr8 Prescriptions: - Augmentin 875-125 mg Oral Tablet - take 1 tablet by ORAL route every 12 hours for 10 days; 20 tablet; Refills: 0, jr8 Product Selection Permitted - Ibuprofen 800 mg Oral Tablet - take 1 tablet by ORAL route every 12 hours As needed take with food; 20 tablet; jr8 Refills: 0, Product Selection Permitted - Tylenol-Codeine #3 300 mg-30 mg Oral - take 2 tablet by ORAL route every 8 hours As needed; 20 tablet; Refills: 0, jr8 Product Selection Permitted Signatures: Ruslan Haider MD MD cha Roszak, Josh, PA PA jr8 Luke Suggs, RN RN as6 Cassy Ny RN RN st1
[2021-06-01] MEDS ORDERED: MORPHINE 4 MG/ML SYR ONE (02:00)
[2021-06-01 03:09] VITALS: TEMP 97.7
[2021-06-01 03:11] VITALS: BP 115/64; O2SAT 98
== END 2021-06-01 02:22 | disposition home or self-care (01) ==
LOC: ER 00:41
DX: K04.7 Periapical abscess without sinus (principal); F17.210 Nicotine dependence, cigarettes, uncomplicated
CPT/HCPCS: 96374; 96375; 99283; J1200; J2765

== ENCOUNTER 2022-05-20 15:45 | Emergency (ER) | payer SELFPAY ==
--- OUTSIDE RECORDS SUMMARY | 2022-05-20 15:48 | XMS REPORT | Continuity of Care Document ---
:1995 Author Organization [facility] t Address [address] [place] [place] [address] Care Team Providers Name Role Phone PCP, PATIENT DOES NOT HAVE A Primary Care Physician Unavaila IVETT Simmons Attending Clinician Unavailable Ivett Hernández DO Attending Clinician Problems Condition Condition Condition Status Onset Resolution Last Treating Co mments Source Name Details Category Date Date Treatment Clinician Date Altered Altered Disease Active Univers mental mental 2-27 ity of status status 00:00: [address] Leukocytos Leukocytos Disease Active U nivers is is 2-27 ity of 00:00: [address] Dehydratio Dehydratio Disease Active U nivers n n 2-27 ity of 00:00: [address] Allergies, Adverse Reactions, Alerts Allergy Allergy Status Severity Reaction(s) Onset Inactive Treating Comm ents Source Name Type Date Date Clinician NO KNOWN Drug Active Univers ALLERGIE Class ity of S [facility] Social History Social Habit Start Date Stop Date Quantity Comments Source History SDOH University o f Alcohol Frequency [facility] edical Branch History SDOH University o f Alcohol Std Drinks [facility] History SDOH University o f Alcohol Binge [place] [facility] [place] Exposure to Not sure University of SARS-CoV-2 (event) [facility] History of tobacco Cigarette Smoker University of use [facility] Alcohol intake 2021-02-15 2021-02-15 Current drinker Unive rsity of 00:00:00 00:00:00 of alcohol [facility] (finding) Branch Cigarette 2017-04-30 2017-04-30 University of pack-years 00:00:00 00:00:00 [facility] Tobacco use and 2017-04-30 2017-04-30 Never used Universit y of exposure 00:00:00 00:00:00 [facility] Alcohol Comment 2017-04-30 2017-04-30 social drinker Unive rsity of 00:00:00 00:00:00 [facility] Cigarettes smoked 2017-04-30 2017-04-30 Univers ity of current (pack per 00:00:00 00:00:00 ) - Reported Branch Sex Assigned At [birth year] Universit y of 00:00:00 00:00:00 [facility] Smoking Status Start Date Stop Date Source Current every day smoker 2017-04-30 00:00[facility]00 [facility] Ordered Filled Start Stop Current Ordering Indication Dosage Frequency Signature Comments Components Source Medication Medication Date Date Medication? Clinician (SIG) Name Name ondansetron 2020-03 4mg 4 mg, Univ ers (ZOFRAN-ODT 2-15 12-15 Oral, ity of ) 15:45: 14:48 ONCE, 1 [place] disintegrat 00 :00 dose, On Medi kezia ing tablet [facility] 4 mg 02/15/21 at 0945, Routine ondansetron 2020-03 Yes [id number] 4mg Take 1 Univers (ZOFRAN 2-15 tablet by ity of ODT) 4 mg 00:00: mouth [place] disintegrat 00 every 8 Medic al ing tablet (eight) Branch hours as needed for Nausea and Vomiting (N/V). Vital Signs Vital Name Observation Time Observation Value Comments Source Systolic blood 2021-02-15 14:14:00 122 mm[Hg] Univer sity of pressure [facility] Diastolic blood 2021-02-15 14:14:00 71 mm[Hg] Unive rsity of pressure [facility] Heart rate 2021-02-15 14:14:00 100 /min [facility] Body temperature 2021-02-15 14:14:00 37.67 [facility] Respiratory rate 2021-02-15 14:14:00 18 /min [facility] Body weight 2021-02-15 14:14:00 63.504 kg [facility] BMI 2021-02-15 14:14:00 22.60 kg/m2 [facility] Oxygen saturation in 2021-02-15 14:14:00 99 /min [facility] Arterial blood by [facility] Pulse oximetry Branch Procedures Procedure Date / Time Performed Performing Clinician Sour e RAPID STREP SCREEN 2021-02-15 14:19:00 Ivett Hernández [facility] FOR GROUP A [facility] RAPID INFLUENZA A/B 2021-02-15 14:19:00 Ivett Hernández [facility] COVID-19 (ID NOW 2021-02-15 14:19:00 Ivett Hernández [facility] RAPID TESTING) [facility] CONSENT/REFUSAL FOR 2021-02-15 14:10:35 [facility]assigned, [facility] AND Name [facility] TREATMENT NOTICE OF PRIVACY 2021-02-15 14:09:58 Doctor Unassigned, No Univ [facility] PRACTICES Name [facility] Encounters Start End Encounter Admission Attending Care Care Encounter Source Date/Time Date/Time Type Type Clinicians Facility Department ID 2021-02-15 2021-02-15 Emergency X DORIS HERNÁNDEZ ERT [id number] Univers 08:19:00 09:35:[address] [facility] 2021-02-15 2021-02-15 Emergency DORIS Hernández [id number] Univers 08:19:00 09:35:00 [id number] [id number] [facility] 084 Branch Results This patient has no known results.
[2022-05-20] MEDS ORDERED: KETOROLAC 30 MG/ML INJ ONE (16:06)
[2022-05-20] MEDS ORDERED: NA CHLORIDE 0.9% 1,000 ML ONE (16:06)
[2022-05-20] MEDS ORDERED: FAMOTIDINE 20 MG/2 ML VIAL IV ONE (16:06)
[2022-05-20 16:36] LABS: Absolute Lymphocytes (CBC) 1.4 K/uL (0.7-4.9); Lymphocytes % 10.4 % (15.3-44.8); MCV 85.5 fL (80-100); MPV 8.3 fL (7.6-11.3); RBC Red Blood Cell Count 4.79 M/uL (4.33-5.43)
[2022-05-20 16:41] LABS: Albumin 4.1 g/dL (3.4-5.0); Bilirubin Total 1.5 mg/dL (0.2-1.0); Potassium 2.9 mEq/L (3.5-5.1); Protein, Total 8.4 g/dL (6.4-8.2)
[2022-05-20 17:00] LABS: SARS-COV-2 RT PCR NEGATIVE (NEGATIVE)
[2022-05-20] MEDS ORDERED: POTASSIUM CL SA 10 MEQ TAB PO ONE (17:35)
--- NOTE | 2022-05-20 18:25 | RAD REPORT ---
EXAM DESCRIPTION: CT - Abdomen Pelvis W Contrast - 05/20/2022 5:35 pm CLINICAL HISTORY: ABD PAIN COMPARISON: Abdomen Pelvis W Contrast dated 01/25/2018; Abdomen Pelvis W Contrast dated 07/08/2017 ; Abdomen Pelvis W Contrast dated 08/27/2015; CT ABD PELVIS W CONTRAST dated 12/22/2014 TECHNIQUE: Thin cut axial CT imaging of the abdomen and pelvis was performed following intravenous a dministration of 95 mL Isovue 300. Multiplanar reformats were generated and reviewed. All CT scans are performed using dose optimization technique as appropriate and may include automated exposure control or mA/KV adjustment according to patient size. FINDINGS: No suspicious findings in the lung bases. The liver, spleen, and pancreas show no suspicious findings. Small region of focal fatty infiltration in the liver adjacent to the falciform ligament. Gallbladder and biliary tree are also without suspi cious finding. Symmetric renal function is seen with no hydronephrosis or suspicious renal mass. No dilated bowel loops or bowel wall thickening. No free air, free fluid or inflammatory stranding. N o hernia, mass or bulky lymphadenopathy. The urinary bladder is without significant finding. No suspicious bony findings. IMPRESSION: No acute intra-abdominal process.
--- NOTE | 2022-05-20 18:57 | ER ---
Nurse's Notes [facility] Name: Rony Castrejon Jr Age: 26 yrs Sex: Male : 1995 Arrival Date: 05/20/2022 Time: 15:48 Bed 5 Private MD: Diagnosis: Viral infection, unspecified;Noninfective gastroenteritis and colitis, unspecified Presentation: 05/20 15:54 Chief complaint: Patient states: N/V/D for 3 days. + cough/sneezing. Decreased hearing ll1 L ear, + BARKER. + chills. Coronavirus screen: Vaccine status: Patient reports being unvaccinated. Client denies travel out of the [place] in the last 14 days. congestion, cough unrelated to allergies, diarrhea, difficulty breathing, fatigue, headache, muscle pain, nausea, vomiting. Client presents with at least one sign or symptom that may indicate coronavirus-19. Standard/surgical mask placed on the client. Ebola Screen: Patient denies travel to an Ebola-affected area in the 21 days before illness onset. Initial Sepsis Screen: Does the patient meet any 2 criteria? No. Patient's initial sepsis screen is negative. Does the patient have a suspected source of infection? Yes: Acute abdominal pain. Risk Assessment: Do you want to hurt yourself or someone else? Patient reports no desire to harm self or others. Onset of symptoms was May 18, 2022. 15:54 Method Of Arrival: Ambulatory ll1 15:54 Acuity: JUSTICE 3 ll1 Triage Assessment: 15:56 General: Appears uncomfortable, ill, Behavior is cooperative, appropriate for age, ll1 anxious, restless. Pain: Complains of pain in head Quality of pain is described as aching. Neuro: Reports headache weakness. Cardiovascular: No deficits noted. Respiratory: No deficits noted. GI: Reports cramping, diarrhea, nausea, vomiting. Historical: - Allergies: 15:54 NKA; ll1 - PMHx: 15:54 Anxiety; ll1 - PSHx: 15:54 None; ll1 - Immunization history:: Client reports having NOT received the Covid vaccine. - Social history:: Smoking status: Patient reports the use of cigarette tobacco products, smokes one-half pack cigarettes per day. Screenin:57 Abuse screen: Denies threats or abuse. Nutritional screening: No deficits noted. ll1 Tuberculosis screening: No symptoms or risk factors identified. 17:50 [facility] ED Fall Risk Assessment (Adult) History of falling in the last 3 months, ss including since admission No falls in past 3 months (0 pts). Assessment: 16:14 General: Appears in no apparent distress. Behavior is cooperative, anxious, restless. hb Pain: Pain currently is 8 out of 10 on a pain scale. Neuro: Level of Consciousness is awake, alert, obeys commands, Oriented to person, place, time, situation. Cardiovascular: Patient's skin is warm and dry. Respiratory: Respiratory effort is even, unlabored, Respiratory pattern is regular, symmetrical. GI: Reports lower abdominal pain, upper abdominal pain. : No signs and/or symptoms were reported regarding the genitourinary system. EENT: No signs and/or symptoms were reported regarding the EENT system. Derm: Skin is pink, warm \T\ dry. 17:50 Reassessment: PT states he is feeling a little better after medication administration, ss but still feels bad. Awaiting for CT results. Vital Signs: 15:54 BP 149 / 103; Pulse 81; Resp 20; Temp 98.7; Pulse Ox 97% on R/A; Pain 8/10; ll1 16:15 BP 148 / 109; Pulse 62; Resp 16; Pulse Ox 100% on R/A; Pain 8/10; hb 17:52 BP 123 / 81; Pulse 73; Resp 16; Pulse Ox 100% on R/A; hb 15:54 Pain Scale: Adult ll1 16:15 Pain Scale: Adult hb ED Course: 15:48 Patient arrived in ED. mr 15:52 Sherrie España FNP-C is PHCP. kb 15:52 Natanael Hobson MD is Attending Physician. kb 15:54 Arm band placed on Patient placed in an exam room, on a stretcher. ll1 15:56 Triage completed. ll1 16:06 Kristie Segovia, ARAMIS is Primary Nurse. ss 16:06 COVID-19/FLU A+B Sent. ss 16:15 Inserted saline lock: 20 gauge in right antecubital area, using aseptic technique. ss Blood collected. 17:37 CT Abd/Pelvis - IV Contrast Only In Process Unspecified. EDMS 17:50 Patient has correct armband on for positive identification. Bed in low position. Call light in reach. 17:50 No provider procedures requiring assistance completed. ss Administered Medications: 16:03 Drug: TORadol - Ketorolac IVP 15 mg Route: IVP; Site: right antecubital; ss 16:55 Follow up: Response: No adverse reaction hb 16:07 Drug: Famotidine IVP 20 mg Route: IVP; Site: right antecubital; ss 16:55 Follow up: Response: No adverse reaction hb 16:07 Drug: NS 0.9% IV 1000 ml Route: IV; Rate: 1 bolus; Site: right antecubital; ss 17:42 Drug: Potassium Chloride PO 40 mEq Route: PO; ss Medication: 15:57 VIS not applicable for this client. ll1 Outcome: 18:57 Discharge ordered by . kb Signatures: Dispatcher [employer] EDSherrie Blancas, FADUMO-C YARROW GATHERER-Radha SealsaJuliana mr Kristie Segovia RN RN Valencia Fregoso RN RN Otilio Burrell RN RN ll1 Corrections: (The following items were deleted from the chart) 17:52 16:15 Inserted saline lock: hb
--- NOTE | 2022-05-20 18:58 | EDPHYS ---
Physician Documentation [facility] Name: Rony Castrejon Jr Age: 26 yrs Sex: Male : 1995 Arrival Date: 05/20/2022 Time: 15:48 Bed 5 Private MD: ED Physician Natanael Hobson HPI: 05/20 18:56 This 26 yrs old Male presents to ER via Ambulatory with complaints of kb Vomiting, Anxiety. 18:56 The patient presents to the emergency department with nausea, vomiting, diarrhea. kb Onset: The symptoms/episode began/occurred 1 week(s) ago. Possible causes: unknown. The symptoms are aggravated by nothing. The symptoms are alleviated by nothing. Associated signs and symptoms: Pertinent positives: abdominal pain, diarrhea, nausea, vomiting, cough, headache, sneezing, bodyaches. Severity of symptoms: At their worst the symptoms were moderate in the emergency department the symptoms are unchanged. The patient has not experienced similar symptoms in the past. The patient has not recently seen a physician. Historical: - Allergies: 15:54 NKA; ll1 - PMHx: 15:54 Anxiety; ll1 - PSHx: 15:54 None; ll1 - Immunization history:: Client reports having NOT received the Covid vaccine. - Social history:: Smoking status: Patient reports the use of cigarette tobacco products, smokes one-half pack cigarettes per day. ROS: 18:55 Constitutional: Positive for body aches, chills, fatigue, malaise. kb 18:55 Abdomen/GI: Positive for abdominal pain, nausea, vomiting, and diarrhea. 18:55 All other systems are negative. 18:56 ENT: Positive for ear pain. kb 18:56 Respiratory: Positive for cough. 18:56 Neuro: Positive for headache. 18:56 Cardiovascular: Negative for chest pain, palpitations, and edema. kb Exam: 18:55 Constitutional: This is a well developed, well nourished patient who is awake, alert, kb and in no acute distress. Head/Face: Normocephalic, atraumatic. ENT: Moist Mucous membranes Cardiovascular: Regular rate and rhythm with a normal S1 and S2. No gallops, murmurs, or rubs. No pulse deficits. Respiratory: Respirations even and unlabored. No increased work of breathing. Talking in full sentences Skin: Warm, dry with normal turgor. Normal color. MS/ Extremity: Pulses equal, no cyanosis. Neurovascular intact. Full, normal range of motion. Neuro: Awake and alert, GCS 15, oriented to person, place, time, and situation. Moves all extremities. Normal gait. 18:55 Abdomen/GI: Inspection: abdomen appears normal, Bowel sounds: normal, in all quadrants, Palpation: soft, in all quadrants, mild abdominal tenderness, in all quadrants. 18:55 ENT: TM's: are normal. kb Vital Signs: 15:54 BP 149 / 103; Pulse 81; Resp 20; Temp 98.7; Pulse Ox 97% on R/A; Pain 8/10; ll1 16:15 BP 148 / 109; Pulse 62; Resp 16; Pulse Ox 100% on R/A; Pain 8/10; hb 17:52 BP 123 / 81; Pulse 73; Resp 16; Pulse Ox 100% on R/A; hb 15:54 Pain Scale: Adult ll1 16:15 Pain Scale: Adult hb MDM: 15:52 Patient medically screened. kb 18:56 Differential diagnosis: Nonspecific abd pain, gastritis, viral gastroenteritis, flu, kb covid, uri. Data reviewed: vital signs, nurses notes. Counseling: I had a detailed discussion with the patient and/or guardian regarding: the historical points, exam findings, and any diagnostic results supporting the discharge/admit diagnosis, lab results, radiology results, the need for outpatient follow up, a family practitioner, to return to the emergency department if symptoms worsen or persist or if there are any questions or concerns that arise at home. 05/20 15:56 Order name: IV Saline Lock; Complete Time: 16:06 kb 05/20 15:56 Order name: Labs collected and sent; Complete Time: 16:06 kb 05/20 15:56 Order name: CBC with Diff; Complete Time: 16:42 kb 05/20 15:56 Order name: CMP; Complete Time: 16:42 kb 05/20 15:56 Order name: Lipase; Complete Time: 16:42 kb 05/20 15:56 Order name: COVID-19/FLU A+B; Complete Time: 17:08 kb 05/20 16:42 Order name: CT Abd/Pelvis - IV Contrast Only; Complete Time: 18:26 kb Administered Medications: 16:03 Drug: TORadol - Ketorolac IVP 15 mg Route: IVP; Site: right antecubital; ss 16:55 Follow up: Response: No adverse reaction hb 16:07 Drug: Famotidine IVP 20 mg Route: IVP; Site: right antecubital; ss 16:55 Follow up: Response: No adverse reaction hb 16:07 Drug: NS 0.9% IV 1000 ml Route: IV; Rate: 1 bolus; Site: right antecubital; ss 17:42 Drug: Potassium Chloride PO 40 mEq Route: PO; ss Disposition Summary: 05/20/22 18:57 Discharge Ordered Location: Home kb Condition: Stable kb Diagnosis - Viral infection, unspecified kb - Noninfective gastroenteritis and colitis, unspecified kb Followup: kb - With: Emergency Department - When: As needed - Reason: Worsening of condition Followup: kb - With: Private Physician - When: 2 - 3 days - Reason: Recheck today's complaints, Continuance of care, Re-evaluation by your physician Forms: - Medication Reconciliation Form kb - Thank You Letter kb - Antibiotic Education kb - Prescription Opioid Use kb Signatures: Dispatcher [employer] EDMS Sherrie España, ADVERTISING DESIGNER-C ADVERTISING DESIGNER-Kristie Mast RN RN ss Otilio Burrell RN RN ll1 Valencia Fregoso RN Corrections: (The following items were deleted from the chart) 18:56 18:55 Respiratory: Negative for shortness of breath, cough, wheezing, and pleuritic kb chest pain, kb
[2022-05-20 23:00] VITALS: TEMP 98.7
[2022-05-20 23:02] VITALS: O2SAT 100
[2022-05-20 23:03] VITALS: BP 123/81
== END 2022-05-20 19:10 | disposition home or self-care (01) ==
LOC: ER 15:45
DX: B34.9 Viral infection, unspecified (principal); K52.9 Noninfective gastroenteritis and colitis, unspecified; R11.10 Vomiting, unspecified; F41.9 Anxiety disorder, unspecified; Z20.822 Contact with and (suspected) exposure to COVID-19
CPT/HCPCS: 0240U; 36415; 74177; 80053; 83690; 85025; 96374; 96375; 99284; J7030; Q9967

== ENCOUNTER 2024-06-22 07:45 | Emergency (ER) | payer OTHER, SELFPAY ==
[2024-06-22] MEDS ORDERED: FAMOTIDINE 20 MG/2 ML VIAL IV ONE (08:41)
[2024-06-22] MEDS ORDERED: MAGNES/ALUMIN/SIMET 30ML UCUP ONE (08:41)
[2024-06-22] MEDS ORDERED: MORPHINE 4 MG/ML SYR ONE (08:41)
[2024-06-22] MEDS ORDERED: ONDANSETRON 4 MG/2 ML VIAL ONE (08:41)
[2024-06-22] MEDS ORDERED: NA CHLORIDE 0.9% 1,000 ML ONE (08:42)
[2024-06-22] MEDS ORDERED: LIDOCAINE VISCOUS 2% 10ML ORAL SOLN ONE (08:42)
[2024-06-22 08:46] LABS: Absolute Basophils 0.1 K/uL (0-0.5); Absolute Lymphocytes (CBC) 1.7 K/uL (0.7-4.9); Absolute Monocytes 0.4 K/uL (0.1-1.3); Absolute Neutrophil 6.1 K/uL (1.8-8.0); Basophils % 1.4 % (0-1.3); Eosinophils % 0.3 % (0-4.4); Hematocrit 46.1 % (39.6-49.0); Hemoglobin 16.1 g/dL (13.6-17.9); Lymphocytes % 20.3 % (15.3-44.8); MCH 30.6 pg (27.0-35.0); MCV 87.5 fL (80-100); MPV 8.8 fL (7.6-11.3); Monocytes % 4.9 % (3.3-12.3); Neutrophils % 73.1 % (41.7-73.7); Nucleated Red Blood Cells % 0.2 % (0-0); Platelets 289 thou/uL (152-406); RBC Red Blood Cell Count 5.27 M/uL (4.33-5.43); Red Cell Distribution Width 13.3 % (12.1-15.2)
[2024-06-22 09:10] LABS: ALT/SGPT 29 U/L (16-61); AST/SGOT 13 U/L (15-37); Albumin 4.3 g/dL (3.4-5.0); Alkaline Phosphatase 125 U/L (45-117); Anion Gap 7.7 mEq/L (5.0-15.0); BUN Blood Urea Nitrogen 14 mg/dL (7-18); Bicarbonate 28 mEq/L (21-32); Bilirubin Total 0.8 mg/dL (0.2-1.0); Globulin 4.4 g/dL (2.3-3.5); Glomerular Filtration Rate 83 ml/min (=/>90); Glucose Level 101 mg/dL (74-106); Lipase 44 U/L (13-75); Potassium 3.7 mEq/L (3.5-5.1); Protein, Total 8.7 g/dL (6.4-8.2); Sodium Level 139 mEq/L (136-145)
--- NOTE | 2024-06-22 09:10 | RAD REPORT ---
EXAM: Chest Single View HISTORY: 28 years Male DYSPNEA COMPARISON: 01/24/2017 FINDINGS: LUNGS/PLEURA: The lungs are clear. No pleural effusions or pneumothorax. No pulmonary edema. CARDIAC/MEDIASTINUM: The cardiac silhouette is within normal limits. UPPER ABDOMEN: No significant abnormality. BONES: No acute abnormality. LINES/TUBES/OTHER: N/A IMPRESSION: No evidence of acute cardiopulmonary disease.
[2024-06-22 09:17] LABS: Troponin High Sensitivity < 3.0 pg/mL (<58.9)
--- NOTE | 2024-06-22 09:26 | RAD REPORT ---
EXAMINATION: Abdomen Pelvis W Contrast CLINICAL INDICATION: Male, 28 years old.ABD PAIN TECHNIQUE: CT abdomen and pelvis was performed, after the administration of IV contrast, [facility]. Axial, sagittal and coronal reconstructions were obtained. One or more of the following dose reduction techniques were used: Automated exposure control, adjustment of the mA and/o r kV according to patient size, and/or iterative reconstruction. Unless otherwise specified, incidental findings do not require dedicated imaging follow-up. [id number]. COMPARISON: 05/20/2022 FINDINGS: LOWER CHEST: No acute process identified.No significant pericardial effusion. Small hiatal hernia wit h circumferential thickening of the esophagus which could reflect esophagitis. UPPER GI: No significant abnormality. LIVER: No significant focal abnormality. GALLBLADDER/BILE DUCTS: No biliary ductal dilatation.? PANCREAS: No mass, ductal dilation, or jameel-pancreatic fluid. SPLEEN: Unremarkable. ADRENALS: No adrenal masses. KIDNEYS AND URETERS: No hydronephrosis.No suspicious renal mass. ABDOMINAL AORTA AND OTHER VESSELS: Normal caliber aorta and IVC. PERITONEUM: No abnormal free fluid. No free air. LYMPH NODES: No pathologic lymphadenopathy. ABDOMINAL WALL: Unremarkable SMALL BOWEL/COLON: Wall thickening versus underdistention at the transverse colon through the rectum. Normal appendix. Small bowel underdistended and not well assessed URINARY BLADDER: Underdistended but grossly unremarkable. REPRODUCTIVE ORGANS: No pathologic process. MUSCULOSKELETAL: No acute or suspicious osseous abnormality. ADDITIONAL FINDINGS: None. IMPRESSION: Possible mild colitis. No appendicitis or urinary tract calculi.
[2024-06-22] MEDS ORDERED: droPERidol 5 MG/2 ML VIAL ONE (10:04)
[2024-06-22 10:20] LABS: Urine Bilirubin NEGATIVE (Negative); Urine Blood Negative (Negative); Urine Clarity Clear (Clear); Urine Color Light-Yellow (Yellow); Urine Glucose NEGATIVE (Negative); Urine Ketones NEGATIVE (Negative); Urine Microscopic Reflex YN NO UMIC; Urine Nitrite NEGATIVE (Negative); Urine Protein NEGATIVE (Negative); Urine Urobilinogen Normal (Normal); Urine pH 7.5 (5.0-7.0)
[2024-06-22 10:24] LABS: Specific Gravity > 1.030 (1.005-1.030)
--- NOTE | 2024-06-22 10:54 | ER ---
Nurse's Notes [facility] Name: Rony Castrejon Jr Age: 28 yrs Sex: Male : 1995 Arrival Date: 06/22/2024 Time: 07:45 Bed 16 Private MD: Diagnosis: Left sided colitis Presentation: 06/22 08:06 Chief complaint: Patient states: STATES STARTED YESTERDAY WITH N/V WORSE TODAY WITH db LEFT SIDE AND ABD PAIN. Coronavirus screen: Client denies travel out of the [place] in the last 14 days. At this time, the client does not indicate any symptoms associated with coronavirus-19. Ebola Screen: Patient negative for fever greater than or equal to 101.5 degrees Fahrenheit, and additional compatible Ebola Virus Disease symptoms Patient denies exposure to infectious person. Patient denies travel to an Ebola-affected area in the 21 days before illness onset. No symptoms or risks identified at this time. Initial Sepsis Screen: Does the patient meet any 2 criteria? No. Patient's initial sepsis screen is negative. Does the patient have a suspected source of infection? No. Patient's initial sepsis screen is negative. Risk Assessment: Do you want to hurt yourself or someone else? Patient reports no desire to harm self or others. Onset of symptoms was June 22, 2024. 08:06 Method Of Arrival: Ambulatory db 08:06 Acuity: JUSTICE 3 db Triage Assessment: 08:06 General: Appears in no apparent distress. uncomfortable, Behavior is cooperative, db agitated, anxious. General: Behavior is restless. Pain: Complains of pain in abdomen. Neuro: Level of Consciousness is awake, alert, obeys commands, Oriented to person, place, time, situation. Respiratory: Airway is patent Respiratory effort is even, unlabored, Respiratory pattern is regular, symmetrical. GI: Abdomen is. Historical: - Allergies: 08:06 NKA; db - PMHx: 08:06 Anxiety; db - Immunization history:: Adult Immunizations unknown. - Infectious Disease History:: Denies. - Social history:: Smoking status: Reported history of juuling and/or vaping. Patient uses street drugs, marijuana. - Family history:: not pertinent. Screenin:52 [facility] [place] ED Fall Risk Assessment (Adult) History of falling in the last 3 months, db including since admission No falls in past 3 months (0 pts) Confusion or Disorientation No (0 pts) Intoxicated or Sedated No (0 pts) Impaired Gait No (0 pts) Mobility Assist Device Used No (0 pt) Altered Elimination No (0 pt) Score/Fall Risk Level 0 - 2 = Low Risk Oriented to surroundings, Maintained a safe environment. Abuse screen: Denies threats or abuse. Denies injuries from another. Nutritional screening: No deficits noted. Tuberculosis screening: No symptoms or risk factors identified. Assessment: 08:48 GI: Pt is actively vomiting Reports nausea, vomiting. db 08:51 Reassessment: Patient appears in no apparent distress at this time. Patient and/or db family updated on plan of care and expected duration. Pain level reassessed. Patient is alert, oriented x 3, equal unlabored respirations, skin warm/dry/pink. 10:00 General: Behavior is agitated, anxious. db 11:05 Reassessment: Patient appears in no apparent distress at this time. Patient and/or db family updated on plan of care and expected duration. Pain level reassessed. Patient is alert, oriented x 3, equal unlabored respirations, skin warm/dry/pink. Patient states feeling better. Patient states symptoms have improved. General: Appears in no apparent distress. comfortable, Behavior is calm, cooperative. Neuro: Level of Consciousness is awake, alert, obeys commands, Oriented to person, place, time, situation. Vital Signs: 08:06 BP 135 / 91; Pulse 70; Resp 17; Temp 97.5(O); Pulse Ox 100% on R/A; Weight 78.47 kg; db Height 5 ft. 5 in. ; 10:00 BP 121 / 88; Pulse 83; Resp 16; Pulse Ox 99% ; db 11:00 BP 123 / 85; Pulse 69; Resp 18; Pulse Ox 100% on R/A; db 08:06 Body Mass Index 28.79 (78.47 kg, 165.1 cm) db ED Course: 07:49 Patient arrived in ED. cj3 08:04 Barb Ervin, ARAMIS is Primary Nurse. ap3 08:06 Arm band placed on Patient placed in an exam room. db 08:24 Jaime Kirk MD is Attending Physician. rt 08:27 Triage completed. db 08:38 Initial lab(s) drawn, by ED staff, sent to lab. Inserted saline lock: 20 gauge in left db antecubital area, using aseptic technique. Blood collected. Flushed with 10 mL NS. 09:[address] via stretcher. db 09:04 Chest Single View XRAY In Process Unspecified. EDMS 09:08 CT Abd/Pelvis - IV Contrast Only In Process Unspecified. EDMS 10:53 Neftali Chris MD is Referral Physician. rt 11:05 Patient has correct armband on for positive identification. Bed in low position. Call db light in reach. Side rails up X 1. Provided Education on: DISCHARGE AND FOLLOWUP. Pulse ox on. NIBP on. Warm blanket given. Pillow given. 11:05 No provider procedures requiring assistance completed. IV discontinued, intact, db bleeding controlled, No redness/swelling at site. Administered Medications: 08:45 Drug: Famotidine IVP 20 mg IVP once; dilute with 10 mL 0.9% NaCl; give over 2 minutes db Route: IVP; Site: left antecubital; 11:15 Follow up: Response: No adverse reaction db 08:45 Drug: Ondansetron IVP 4 mg IVP once; over 2 minutes Route: IVP; Site: left antecubital; db 11:15 Follow up: Response: No adverse reaction db 08:45 Drug: morphine IVP or IV 4 mg IVP once over 4 mins Route: IVP; Infused Over: 4 mins; db Site: left antecubital; 11:16 Follow up: Response: No adverse reaction db 08:45 Drug: NS 0.9% IV 1000 ml IV at 1 bolus Per protocol; to be given as a bolus over 60 db minutes Route: IV; Rate: 1 bolus; Site: left antecubital; 11:15 Follow up: Response: No adverse reaction; IV Status: Completed infusion; IV Intake: db 1000ml 08:50 Drug: GI Cocktail without - (Maalox PO 30 ml, Lidocaine Mucous Membrane 2 % 15 db ml) PO once Route: PO; 11:15 Follow up: Response: No adverse reaction db 10:05 Drug: Droperidol IVP 1.25 mg IVP once Route: IVP; Site: left antecubital; db 11:15 Follow up: Response: No adverse reaction db Medication: 11:05 VIS not applicable for this client. db Intake: 11:15 IV: 1000ml; Total: 1000ml. db Outcome: 10:53 Discharge ordered by . rt 11:05 Discharged to home ambulatory, with family, db 11:05 Condition: stable 11:05 Discharge instructions given to patient, family, Instructed on discharge instructions, follow up and referral plans. Prescriptions given X 4, 11:16 Patient left the ED. db Signatures: Dispatcher [employer] EDBarb Pelayo RN RN ap3 Sandi Velásquez RN RN db Jaime Kirk MD MD rt Haley Portillo cj3 Corrections: (The following items were deleted from the chart) 11:13 11:05 Condition: stable db db
--- NOTE | 2024-06-22 10:54 | EDPHYS ---
Physician Documentation [facility] Name: Rony Castrejon Jr Age: 28 yrs Sex: Male : 1995 Arrival Date: 06/22/2024 Time: 07:45 Bed 16 Private MD: ED Physician Jaime Kirk HPI: 06/22 09:37 This 28 yrs old Male presents to ER via Ambulatory with complaints of rt Abdominal Pain, Nausea/Vomiting. 09:37 Patient presents to the ED with a left-sided abdominal pain with nausea, vomiting. rt Patient reports of chest tightness, difficulty breathing as well. States that he consumed a large amount of alcohol for Easter yesterday. Denies other acute complaints at this time, symptoms are moderate in severity, no other aggravating elevating factors.. Historical: - Allergies: 08:06 NKA; db - PMHx: 08:06 Anxiety; db - Immunization history:: Adult Immunizations unknown. - Infectious Disease History:: Denies. - Social history:: Smoking status: Reported history of juuling and/or vaping. Patient uses street drugs, marijuana. - Family history:: not pertinent. ROS: 09:37 Constitutional: Negative for fever, chills, and weight loss, MS/Extremity: Negative for rt injury and deformity, Skin: Negative for injury, rash, and discoloration, 09:37 Cardiovascular: Positive for chest pain, Negative for edema, 09:37 Respiratory: Positive for shortness of breath, Negative for cough, 09:37 Abdomen/GI: Positive for abdominal pain, nausea and vomiting, Exam: 09:37 Constitutional: This is a well developed, well nourished patient who is awake, alert, rt and in no acute distress. Head/Face: Normocephalic, atraumatic. Chest/axilla: Normal chest wall appearance and motion. Nontender with no deformity. No lesions are appreciated. Cardiovascular: Regular rate and rhythm with a normal S1 and S2. No gallops, murmurs, or rubs. Normal PMI, no JVD. No pulse deficits. Respiratory: Lungs have equal breath sounds bilaterally, clear to auscultation and percussion. No rales, rhonchi or wheezes noted. No increased work of breathing, no retractions or nasal flaring. Skin: Warm, dry with normal turgor. Normal color with no rashes, no lesions, and no evidence of cellulitis. MS/ Extremity: Pulses equal, no cyanosis. Neurovascular intact. Full, normal range of motion. Neuro: Awake and alert, GCS 15, oriented to person, place, time, and situation. Cranial nerves II-XII grossly intact. Motor strength 5/5 in all extremities. Sensory grossly intact. Cerebellar exam normal. Normal gait. 09:37 ECG was reviewed by the Attending Physician. 09:37 Abdomen/GI: Tenderness of left upper, left lower quadrants, no rebound, guarding, distention, Vital Signs: 08:06 BP 135 / 91; Pulse 70; Resp 17; Temp 97.5(O); Pulse Ox 100% on R/A; Weight 78.47 kg; db Height 5 ft. 5 in. ; 10:00 BP 121 / 88; Pulse 83; Resp 16; Pulse Ox 99% ; db 11:00 BP 123 / 85; Pulse 69; Resp 18; Pulse Ox 100% on R/A; db 08:06 Body Mass Index 28.79 (78.47 kg, 165.1 cm) db MDM: 08:25 Medical Screening Exam initiated rt 10:57 Differential diagnosis: Gastroenteritis, pancreatitis, colitis, ureterolithiasis. Data rt reviewed: vital signs, nurses notes, lab test result(s), EKG, radiologic studies. Consideration of Admission/Observation Escalation of care including admission/observation considered. Symptoms improved with treatment in the ED, only mild colitis seen, labs are benign, no indications for admission. I considered the following discharge prescriptions or medication management in the emergency department Medications were administered in the Emergency Department. See MAR. Independent interpretation of the following test(s) in the Emergency Department CT Scan: My interpretation is No bowel obstruction seen on interpretation of CT scan images. Test considered but Not performed: Ultrasound Low suspicion for gallbladder pathology, ultrasound is not indicated. Care significantly affected by the following Social Determinants of Health: Misuse of alcohol and/or drugs. Counseling: I had a detailed discussion with the patient and/or guardian regarding the historical points, exam findings, and any diagnostic results supporting the discharge/admit diagnosis, lab results, radiology results, the need for outpatient follow up. Response to treatment: the patient's symptoms have markedly improved after treatment. 06/22 08:30 Order name: CBC with Diff; Complete Time: 09:36 rt 04/21 08:30 Order name: CMP; Complete Time: 09:36 rt 06/22 08:30 Order name: Lipase; Complete Time: 09:36 rt 06/22 08:30 Order name: Urinalysis w/ reflexes; Complete Time: 10:32 rt 06/22 08:30 Order name: Troponin High Sensitivity; Complete Time: 09:36 rt 06/22 08:30 Order name: CT Abd/Pelvis - IV Contrast Only; Complete Time: 09:36 rt 06/22 08:30 Order name: Chest Single View XRAY; Complete Time: 09:36 rt 06/22 08:30 Order name: IV Saline Lock; Complete Time: 08:51 rt 06/22 08:30 Order name: Labs collected and sent; Complete Time: 08:51 rt 06/22 08:30 Order name: EKG - Nurse/Tech; Complete Time: 10:10 rt EC:37 Rate is 64 beats/min. Rhythm is regular, Normal Sinus Rhythm with No ectopy. QRS Compton rt is Normal. VT interval is normal. QRS interval is normal. QT interval is normal. No Q waves. T waves are Normal. No ST changes noted. Interpreted by me. Administered Medications: 08:45 Drug: Famotidine IVP 20 mg IVP once; dilute with 10 mL 0.9% NaCl; give over 2 minutes db Route: IVP; Site: left antecubital; 11:15 Follow up: Response: No adverse reaction db 08:45 Drug: Ondansetron IVP 4 mg IVP once; over 2 minutes Route: IVP; Site: left antecubital; db 11:15 Follow up: Response: No adverse reaction db 08:45 Drug: morphine IVP or IV 4 mg IVP once over 4 mins Route: IVP; Infused Over: 4 mins; db Site: left antecubital; 11:16 Follow up: Response: No adverse reaction db 08:45 Drug: NS 0.9% IV 1000 ml IV at 1 bolus Per protocol; to be given as a bolus over 60 db minutes Route: IV; Rate: 1 bolus; Site: left antecubital; 11:15 Follow up: Response: No adverse reaction; IV Status: Completed infusion; IV Intake: db 1000ml 08:50 Drug: GI Cocktail without - (Maalox PO 30 ml, Lidocaine Mucous Membrane 2 % 15 db ml) PO once Route: PO; 11:15 Follow up: Response: No adverse reaction db 10:05 Drug: Droperidol IVP 1.25 mg IVP once Route: IVP; Site: left antecubital; db 11:15 Follow up: Response: No adverse reaction db Disposition Summary: 06/22/24 10:53 Discharge Ordered Notes: Location: Home rt Problem: new rt Symptoms: have improved rt Condition: Stable rt Diagnosis - Left sided colitis rt Followup: rt - With: Private Physician - When: 2 - 3 days - Reason: Followup: rt - With: Neftali Chris MD - When: 2 - 3 days - Reason: Discharge Instructions: - Discharge Summary Sheet rt - Colitis rt Forms: - Work release form db - Family Work Release db - Medication Reconciliation Form rt - Antibiotic Education rt - Prescription Opioid Use rt - Patient Portal Instructions rt - Leadership Thank You Letter rt Prescriptions: - ondansetron 4 mg Oral Tablet,disintegrating - take 1 tablet ORAL route every 6 hours as needed for nausea; 15 tablet; rt Refills: 0, Product Selection Permitted - Augmentin 875-125 mg Oral Tablet - take 1 tablet ORAL route every 12 hours for 10 days; 20 tablet; Refills: 0, rt Product Selection Permitted - Protonix 40 mg Oral tablet, delayed release (enteric coated) - take 1 tablet ORAL route once daily; 14 tablet; Refills: 0, Product Selection rt Permitted - Tramadol 50 mg Oral tablet - take 1 tablet ORAL route every 8 hours as needed; 15 tablet; Refills: 0, rt Product Selection Permitted Signatures: Dispatcher [employer] EDSandi Quesada RN RN Jaime Luna MD MD rt Corrections: (The following items were deleted from the chart) 08: 08:31 Abdomen Pelvis W Con+CT.RAD.BRZ ordered. EDMS EDMS 08:31 08:31 Chest Single View+RAD.RAD.BRZ ordered. EDMS EDMS
[2024-06-22 11:39] VITALS: TEMP 97.5
[2024-06-22 11:42] VITALS: BP 123/85; O2SAT 100
--- NOTE | 2024-06-24 12:43 | EKG ---
Test Date: 2024-06-22 Test Time: 09:28:04 Director Of Analytical Development: FRANCHESKA MEASUREMENT RESULTS: Intervals: Rate: 64 OH: 138 QRSD: 98 QT: 384 QTc: 396 [place]: P: 60 OH: 138 QRS: 64 T: 51 INTERPRETIVE STATEMENTS: Normal sinus rhythm with sinus arrhythmia Normal ECG Compared to ECG 09/14/2017 08:47:02 Sinus bradycardia no longer present Electronically Signed On 06-24-24 12:37:49 CDT by Clay Salas
== END 2024-06-22 11:16 | disposition home or self-care (01) ==
LOC: ER 07:45
DX: K51.50 Left sided colitis without complications (principal)
CPT/HCPCS: 96361; 93005; 85025; 36415; 81003; 84484; 83690; 80053; 74177; 71045; 96375; 96374; 99285; Q9967; J2405; J1790; J7030

== ENCOUNTER 2024-06-23 02:50 | Emergency (ER) | payer OTHER ==
[2024-06-23] MEDS ORDERED: ONDANSETRON 4 MG/2 ML VIAL ONE (03:33)
[2024-06-23] MEDS ORDERED: FAMOTIDINE 20 MG/2 ML VIAL IV ONE (03:33)
[2024-06-23] MEDS ORDERED: NA CHLORIDE 0.9% 1,000 ML ONE (03:33)
[2024-06-23] MEDS ORDERED: LORazepam 2 MG/ML VIAL ONE (04:14)
[2024-06-23] MEDS ORDERED: KCL 20 MEQ/100 mL IVPB 0 ML IV ONE (04:33)
[2024-06-23] MEDS ORDERED: CALCIUM GLUCONATE 1 GM IVPB 2 GM/100 ML BAG IV ONE (04:33)
[2024-06-23] MEDS ORDERED: PROMETHAZINE INJ 25 MG/ML AMP ONE (04:33)
[2024-06-23] MEDS ORDERED: NA CHLORIDE 0.9% 0 ML ONE (04:33)
[2024-06-23 04:39] LABS: Albumin 4.7 g/dL (3.4-5.0); Albumin/Globulin Ratio 1.2 (1.1-1.8); Anion Gap 9.5 mEq/L (5.0-15.0); Bilirubin Total 0.9 mg/dL (0.2-1.0); Potassium 3.5 mEq/L (3.5-5.1); Protein, Total 8.7 g/dL (6.4-8.2)
[2024-06-23 04:43] LABS: Absolute Lymphocytes (CBC) 1.2 K/uL (0.7-4.9); Absolute Monocytes 0.9 K/uL (0.1-1.3); Absolute Neutrophil 10.3 K/uL (1.8-8.0); Basophils % 0.1 % (0-1.3); Hematocrit 46.8 % (39.6-49.0); Lymphocytes % 9.6 % (15.3-44.8); MCH 30.2 pg (27.0-35.0); MCHC 34.3 g/dL (32.0-36.0); MPV 9.3 fL (7.6-11.3); Monocytes % 7.6 % (3.3-12.3); Neutrophils % 82.7 % (41.7-73.7); Nucleated Red Blood Cells % 0.1 % (0-0); Platelets 273 thou/uL (152-406); RBC Red Blood Cell Count 5.32 M/uL (4.33-5.43); Red Cell Distribution Width 13.3 % (12.1-15.2)
[2024-06-23 05:42] LABS: Specific Gravity > 1.030 (1.005-1.030); Sqamous Epithelial <5 /HPF (None Seen); Urine Bacteria 20-50 /HPF (<20); Urine Bilirubin NEGATIVE (Negative); Urine Blood 1+ (Negative); Urine Clarity Extremely Turbid (Clear); Urine Color Yellow (Yellow); Urine Culture Reflex Order NOT NEEDED; Urine Glucose TRACE (Negative); Urine Ketones 1+ (Negative); Urine Microscopic Reflex YN ORDER UMIC; Urine Mucus 4+ /HPF (None Seen); Urine Nitrite NEGATIVE (Negative); Urine Protein 1+ (Negative); Urine Urobilinogen Normal (Normal); Urine WBC <5 /HPF (<5)
--- NOTE | 2024-06-23 07:05 | ER ---
Nurse's Notes [facility] Name: Rony Castrejon Jr Age: 28 yrs Sex: Male : 1995 Arrival Date: 06/23/2024 Time: 02:50 Bed 8 Private MD: Diagnosis: Acute viral gastroenteritis, acute vomiting, acute muscle cramps Presentation: 06/23 03:21 Chief complaint: Patient states: PT C/O AB PAIN N/V/D/CHILLS FOR 3 DAYS. PT STATES HE br2 WAS HERE IN ER THIS MORNING AND SYMPTOMS ARE WORSE NOW. PT C/O MUSCLE CRAMPS ALL OVER. Coronavirus screen: Client denies travel out of the [place] in the last 14 days. Ebola Screen: Patient denies exposure to infectious person. Initial Sepsis Screen: Does the patient meet any 2 criteria? No. Patient's initial sepsis screen is negative. Does the patient have a suspected source of infection? No. Patient's initial sepsis screen is negative. Risk Assessment: Do you want to hurt yourself or someone else? Patient reports no desire to harm self or others. Onset of symptoms was June 20, 2024. 03:21 Method Of Arrival: Wheelchair br2 03:21 Acuity: JUSTICE 3 br2 Triage Assessment: 03:24 General: Appears uncomfortable, Behavior is anxious. Pain: Complains of pain in abdomen br2 Pain currently is 8 out of 10 on a pain scale. GI: Reports lower abdominal pain, upper abdominal pain, cramping, diarrhea, intolerance of fluids, intolerance of food, nausea, vomiting. Historical: - Allergies: 03:24 NKA; br2 - PMHx: 03:24 Anxiety; br2 - Immunization history:: Adult Immunizations not up to date. - Infectious Disease History:: Denies. - Social history:: Smoking status: Patient reports the use of cigarette tobacco products, smokes three packs cigarettes per day. Patient uses alcohol, occasionally. street drugs, marijuana. - Family history:: not pertinent. Screenin:56 [facility] ED Fall Risk Assessment (Adult) History of falling in the last 3 months, kd3 including since admission No falls in past 3 months (0 pts) Confusion or Disorientation No (0 pts) Intoxicated or Sedated No (0 pts) Impaired Gait No (0 pts) Mobility Assist Device Used No (0 pt) Altered Elimination No (0 pt) Score/Fall Risk Level 0 - 2 = Low Risk Oriented to surroundings. Abuse screen: Denies threats or abuse. Denies injuries from another. Nutritional screening: No deficits noted. Tuberculosis screening: No symptoms or risk factors identified. Assessment: 04:55 General: Appears in no apparent distress. Behavior is calm, cooperative. Neuro: Level kd3 of Consciousness is awake, alert, obeys commands, Oriented to person, place, time, situation. Cardiovascular: Patient's skin is warm and dry. Respiratory: Airway is patent Trachea midline Respiratory effort is even, unlabored, Respiratory pattern is regular, symmetrical. 04:56 GI: Bowel sounds present X 4 quads. Abd is soft X 4 quads. kd3 Vital Signs: 03:21 BP 137 / 93; Pulse 79; Resp 18 S; Temp 97.4(TE); Pulse Ox 99% on R/A; Weight 78.47 kg; br2 Height 5 ft. 5 in. ; Pain 8/10; 04:55 BP 113 / 68; Pulse 64; Resp 18; Pulse Ox 93% on R/A; kd3 06:08 BP 112 / 62; Pulse 72; Resp 18; Pulse Ox 94% on R/A; kd3 07:33 BP 107 / 68; Pulse 66; Resp 14; Pulse Ox 100% ; bp 03:21 Body Mass Index 28.79 (78.47 kg, 165.1 cm) br2 03:21 Pain Scale: Adult br2 Rosendo Coma Score: 21:37 Eye Response: spontaneous(4). Motor Response: obeys commands(6). Verbal Response: sp4 oriented(5). Total: 15. ED Course: 02:52 Patient arrived in ED. gm2 03:04 Ulises Gandhi MD is Attending Physician. sp4 03:15 Sheela Pradhan RN is Primary Nurse. kd3 03:24 Triage completed. br2 03:24 Arm band placed on right wrist. br2 03:46 Inserted saline lock: 20 gauge in left antecubital area, using aseptic technique. Blood oe collected. Flushed with 10 mL NS. 03:47 CBC with Diff Sent. oe 03:47 CMP Sent. oe 03:47 Lipase Sent. oe 03:47 Urinalysis w/ reflexes Sent. oe 04:56 Patient has correct armband on for positive identification. Provided Education on: kd3 electrolytes. 07:33 No provider procedures requiring assistance completed. IV discontinued, intact, bp bleeding controlled, No redness/swelling at site. Pressure dressing applied. Administered Medications: 03:49 Drug: Ondansetron IVP 4 mg IVP once; over 2 minutes Route: IVP; Site: left antecubital; kd3 07:34 Follow up: Response: No adverse reaction bp 03:50 Drug: Famotidine IVP 20 mg IVP once; dilute with 10 mL 0.9% NaCl; give over 2 minutes kd3 Route: IVP; Site: left antecubital; 07:34 Follow up: Response: No adverse reaction bp 03:50 Drug: NS 0.9% IV 1000 ml IV at 1 bolus Per protocol; to be given as a bolus over 60 kd3 minutes Route: IV; Rate: 1 bolus; Site: left antecubital; 07:34 Follow up: IV Status: Completed infusion bp 04:15 Drug: Ativan IVP 2 mg IVP once Route: IVP; Site: left antecubital; kd3 07:34 Follow up: Response: No adverse reaction bp 04:46 Not Given (Physician Discretion): potassium [id number] meq IV at calculated rate once; kd3 administer over 1-2 hours 04:51 Drug: Calcium Gluconate IVPB 2 grams IVPB once over 60 mins; (mix in NS 100 mL) Route: dd2 IVPB; Infused Over: 60 mins; Site: left antecubital; 07:34 Follow up: IV Status: Completed infusion bp 04:51 Drug: Promethazine IM 50 mg IM once Route: IM; Site: left deltoid; dd2 07:34 Follow up: Response: No adverse reaction bp Medication: 04:56 VIS not applicable for this client. kd3 Outcome: 07:05 Discharge ordered by MD. gibbons 07:33 Discharged to home via wheelchair, with family, bp 07:33 Condition: stable 07:33 Discharge instructions given to patient, family, Instructed on discharge instructions, follow up and referral plans. medication usage, Demonstrated understanding of instructions, follow-up care, medications, Prescriptions given X 3, 07:35 Patient left the ED. bp Signatures: Jesús Wright Brian, RN RN bp Sheela Pradhan, RN RN kd3 Ulises Gandhi MD MD sp4 Kely Lang gm2 Martina Benitez, RN RN br2 FRANC KWONG RN RN dd2
--- NOTE | 2024-06-23 07:05 | EDPHYS ---
Physician Documentation [facility] Name: Rony Castrejon Jr Age: 28 yrs Sex: Male : 1995 Arrival Date: 06/23/2024 Time: 02:50 Bed 8 Private MD: ED Physician Ulises Gandhi HPI: 06/23 03:04 This 28 yrs old Male presents to ER via Unassigned with complaints of sp4 Abdominal Pain, Weakness. 21:37 28-year-old male presents with vomiting and diffuse muscle cramps also generalized sp4 weakness.. Historical: - Allergies: 03:24 NKA; br2 - PMHx: 03:24 Anxiety; br2 - Immunization history:: Adult Immunizations not up to date. - Infectious Disease History:: Denies. - Social history:: Smoking status: Patient reports the use of cigarette tobacco products, smokes three packs cigarettes per day. Patient uses alcohol, occasionally. street drugs, marijuana. - Family history:: not pertinent. ROS: 21:37 Constitutional: Negative for fever, chills, and weight loss, positive for diffuse sp4 muscle cramps, positive for diffuse generalized weakness, positive for vomiting 21:37 All other systems are negative, Exam: 21:37 Constitutional: This is a well developed, well nourished patient who is awake, alert, sp4 and in no acute distress. Head/Face: Normocephalic, atraumatic. Eyes: Pupils equal round and reactive to light, extra-ocular motions intact. Lids and lashes normal. Conjunctiva and sclera are not injected. Cornea within normal limits. Periorbital areas with no swelling, redness, or edema. ENT: Nares patent. No nasal discharge, no septal abnormalities noted. Tympanic membranes are normal and external auditory canals are clear. Oropharynx with no redness, swelling, or masses, exudates, or evidence of obstruction, uvula midline. Mucous membranes moist. Neck: Trachea midline, no thyromegaly or masses palpated, and no cervical lymphadenopathy. Supple, full range of motion without nuchal rigidity, or vertebral point tenderness. Chest/axilla: Normal chest wall appearance and motion. Nontender with no deformity. No lesions are appreciated. Cardiovascular: Regular rate and rhythm with a normal S1 and S2. No gallops, murmurs, or rubs. Normal PMI, no JVD. No pulse deficits. Respiratory: Lungs have equal breath sounds bilaterally, clear to auscultation and percussion. No rales, rhonchi or wheezes noted. No increased work of breathing, no retractions or nasal flaring. Abdomen/GI: Soft, with normal bowel sounds. No distension or tympany. No guarding or rebound. No evidence of tenderness throughout. Back: No spinal tenderness. No costovertebral tenderness. Skin: Warm, dry with normal turgor. Normal color with no rashes, no lesions, and no evidence of cellulitis. MS/ Extremity: Pulses equal, no cyanosis. Neurovascular intact. Full, normal range of motion. Neuro: Awake and alert, GCS 15, oriented to person, place, time, and situation. Cranial nerves II-XII grossly intact. Motor strength 5/5 in all extremities. Sensory grossly intact. Psych: Awake, alert, with orientation to person, place and time. Behavior, mood, and affect are within normal limits Vital Signs: 03:21 BP 137 / 93; Pulse 79; Resp 18 S; Temp 97.4(TE); Pulse Ox 99% on R/A; Weight 78.47 kg; br2 Height 5 ft. 5 in. ; Pain 8/10; 04:55 BP 113 / 68; Pulse 64; Resp 18; Pulse Ox 93% on R/A; kd3 06:08 BP 112 / 62; Pulse 72; Resp 18; Pulse Ox 94% on R/A; kd3 07:33 BP 107 / 68; Pulse 66; Resp 14; Pulse Ox 100% ; bp 03:21 Body Mass Index 28.79 (78.47 kg, 165.1 cm) br2 03:21 Pain Scale: Adult br2 Rosendo Coma Score: 21:37 Eye Response: spontaneous(4). Motor Response: obeys commands(6). Verbal Response: sp4 oriented(5). Total: 15. MDM: 03:06 Medical Screening Exam initiated sp4 04:08 ED course: CT report 06/22/2024 - COMPARISON: 05/20/2022 FINDINGS: LOWER CHEST: No acute sp4 process identified.No significant pericardial effusion. Small hiatal hernia with circumferential thickening of the esophagus which could reflect esophagitis. UPPER GI: No significant abnormality. LIVER: No significant focal abnormality. GALLBLADDER/BILE DUCTS: No biliary ductal dilatation.? PANCREAS: No mass, ductal dilation, or jameel-pancreatic fluid. SPLEEN: Unremarkable. ADRENALS: No adrenal masses. KIDNEYS AND URETERS: No hydronephrosis.No suspicious renal mass. ABDOMINAL AORTA AND OTHER VESSELS: Normal caliber aorta and IVC. PERITONEUM: No abnormal free fluid. No free air. LYMPH NODES: No pathologic lymphadenopathy. ABDOMINAL WALL: Unremarkable SMALL BOWEL/COLON: Wall thickening versus underdistention at the transverse colon through the rectum.Normal appendix. Small bowel underdistended and not well assessed URINARY BLADDER: Underdistended but grossly unremarkable. REPRODUCTIVE ORGANS: No pathologic process. MUSCULOSKELETAL: No acute or suspicious osseous abnormality. ADDITIONAL FINDINGS: None. IMPRESSION: Possible mild colitis. No appendicitis or urinary tract calculi.. 21:39 Data reviewed: vital signs, nurses notes, old medical records, lab test result(s). sp4 Consideration of Admission/Observation Escalation of care including admission/observation considered. ED course: Patient improved symptomatically. CT report from yesterday repeats mild colitis. No indication for repeat CT scan today. Patient stable for discharge home. 06/23 03:06 Order name: CBC with Diff; Complete Time: 05:31 sp4 06/23 03:06 Order name: CMP; Complete Time: 05:31 sp4 06/23 03:06 Order name: Lipase; Complete Time: 05:31 sp4 06/23 03:06 Order name: Urinalysis w/ reflexes; Complete Time: 07:00 sp4 06/23 03:06 Order name: IV Saline Lock; Complete Time: 03:46 sp4 06/23 03:06 Order name: Labs collected and sent; Complete Time: 03:46 sp4 Administered Medications: 03:49 Drug: Ondansetron IVP 4 mg IVP once; over 2 minutes Route: IVP; Site: left antecubital; kd3 07:34 Follow up: Response: No adverse reaction bp 03:50 Drug: Famotidine IVP 20 mg IVP once; dilute with 10 mL 0.9% NaCl; give over 2 minutes kd3 Route: IVP; Site: left antecubital; 07:34 Follow up: Response: No adverse reaction bp 03:50 Drug: NS 0.9% IV 1000 ml IV at 1 bolus Per protocol; to be given as a bolus over 60 kd3 minutes Route: IV; Rate: 1 bolus; Site: left antecubital; 07:34 Follow up: IV Status: Completed infusion bp 04:15 Drug: Ativan IVP 2 mg IVP once Route: IVP; Site: left antecubital; kd3 07:34 Follow up: Response: No adverse reaction bp 04:46 Not Given (Physician Discretion): potassium [id number] meq IV at calculated rate once; kd3 administer over 1-2 hours 04:51 Drug: Calcium Gluconate IVPB 2 grams IVPB once over 60 mins; (mix in NS 100 mL) Route: dd2 IVPB; Infused Over: 60 mins; Site: left antecubital; 07:34 Follow up: IV Status: Completed infusion bp 04:51 Drug: Promethazine IM 50 mg IM once Route: IM; Site: left deltoid; dd2 07:34 Follow up: Response: No adverse reaction bp Disposition Summary: 06/23/24 07:05 Discharge Ordered Notes: Location: Home sp4 Problem: new sp4 Symptoms: have improved sp4 Condition: Stable sp4 Diagnosis - Acute viral gastroenteritis, acute vomiting, acute muscle cramps sp4 Followup: sp4 - With: Private Physician - When: 7 - 10 days - Reason: Recheck today's complaints Discharge Instructions: - Discharge Summary Sheet sp4 - Muscle Cramps and Spasms sp4 Forms: - Work release form sp4 - Patient Portal Instructions sp4 Prescriptions: - Valium 5 mg Oral tablet - take 1 tablet ORAL route every 8 hours As needed PRN cramps; 20 tablet; sp4 Refills: 0, Product Selection Permitted - dicyclomine 20 mg Oral tablet - take 2 tablets ORAL route every 8 hours PRN cramps; 30 tablet; Refills: 0, sp4 Product Selection Permitted - ondansetron 8 mg Oral Tablet,disintegrating - take 1 tablet ORAL route every 8 hours PRN nausea; 30 tablet; Refills: 0, sp4 Product Selection Permitted Signatures: Dispatcher [employer] Sheela Tenorio RN RN kd3 Ulises Gandhi MD MD sp4 Martina Benitez RN RN br2 FRANC KWONG RN RN dd2 Abisai Candelario RN bp Corrections: (The following items were deleted from the chart) 03:07 03:07 CBC+H.LAB.BRZ ordered. EDMS EDMS 03:07 03:07 COMPREHENSIVE METABOLIC PANEL+C.LAB.BRZ ordered. EDMS EDMS 03:07 03:07 LIPASE+C.LAB.BRZ ordered. EDMS EDMS 03:07 03:07 Urinalysis+U.LAB.BRZ ordered. EDMS EDMS
[2024-06-23 07:50] VITALS: TEMP 97.4
[2024-06-23 08:02] VITALS: BP 107/68; O2SAT 100
== END 2024-06-23 07:35 | disposition home or self-care (01) ==
LOC: ER 02:50
DX: A08.4 Viral intestinal infection, unspecified (principal); R25.2 Cramp and spasm; F17.210 Nicotine dependence, cigarettes, uncomplicated
CPT/HCPCS: 96365; 96361; 85025; 81001; 36415; 83690; 80053; 96375; 96372; 99284; 96366; J2550; J0612; J2405; J7030; J3480; J7050

== ENCOUNTER 2024-12-11 04:20 | Emergency (ER) | payer OTHER ==
--- OUTSIDE RECORDS SUMMARY | 2024-12-11 04:25 | XMS REPORT | Continuity of Care Document ---
Author Name Unknown Address [address] [facility] [address] [place] [address] Organization [facility] Address [address] [facility] [address] [place] [address] Care Team Providers Care Night Court Magistrate Name Role Phone PCP, PATIENT DOES NOT HAVE A Primary Care Physic kit Unavailable Christopher Bustillo Attending Clinician Unavailable IVETT HERNÁNDEZ Attending Clinician Unavailab IVETT Zepeda Attending Clinician Unavailab CIARRA Jackson Attending Clinician UnavailDustin Coronel Attending Clinician Unavailable Andrea Devries MD Attending Clinician [phone] RANDALL HULL Attending Clinician Unavailable RANDALL HULL Attending Clinician Unavailable Randall Hull DO Attending Clinician [phone] Physician, No Primary or Family Admitting Clinic kit Unavailable CIARRA ROSSI Admitting Clinician UnavailDustin Coronel Admitting Clinician Unavailable Payers Payer Name Policy Type Policy Number Effective Date Expirati on Date Source [employer] PPO [id number] 2023 00:00:00 Problems Condition Name Condition Details Condition Category Status Onset Date Resolution Date Last Treatment Date Treating Clinician Comments Source Right upper quadrant abdominal pain Right upper quadrant abdominal pain Disease Active 09-17 00:00: 00 [facility] Altered mental status Altered mental status Disease Active 04-30 00:00: 00 [facility] Leukocytos is Leukocytos is Disease Active 04-30 00:00: 00 [facility] Dehydratio n Dehydratio n Disease Active 04-30 00:00: 00 [facility] Allergies, Adverse Reactions, Alerts Allergy Name Allergy Type Status Severity Reaction(s) Onset Date Inactive Date Treating Clinician Comments Source No Known Allergie s DA Active U 11-22 00:00: 00 [facility] NO KNOWN ALLERGIE S Drug Class Active [facility] Social History Social Habit Start Date Stop Date Quantity Comments Source History SDOH Alcohol Frequency [facility] History SDOH Alcohol Std Drinks [facility] History SDOH Alcohol Binge [facility] Exposure to SARS-CoV-2 (event) Not sure [facility] of tobacco use Cigarette Smoker [facility] Alcoholic beverage intake 2024-09-25 00:00:00 2024-09-25 00:00:00 Current drinker of alcohol (finding) [facility] History of Social function 2024-09-18 00:00:00 2024-09-18 00:00:00 [facility] Cigarette pack-years 2024-09-17 00:00:00 2024-09-17 00:00:00 [facility] Tobacco use and exposure 2024-09-17 00:00:00 2024-09-17 00:00:00 Smokeless tobacco non-user [facility] Cigarettes smoked current (pack per day) - Reported 2024-09-17 00:00:00 2024-09-17 00:00:00 [facility] Alcohol intake 2021-02-15 00:00:00 2021-02-15 00:00:00 Current drinker of alcohol (finding) [facility] Alcohol Comment 2017-04-30 00:00:00 2017-04-30 00:00:00 social drinker [facility] Sex assigned at 1995 00:00:00 1995 00:00:00 [facility] Smoking Status Start Date Stop Date Source Smokes tobacco daily 2024-09-17 00:00:00 [facility] Medications Ordered Medication Name Filled Medication Name Start Date Stop Date Current Medication? Ordering Clinician Indication Dosage Frequency Signature (SIG) Comments Components Source NaCl 0.9% (NS) bolus infusion 1,000 mL 09-25 12:15: 00 09-25 13:27 :00 No 1000mL at 999 mL/hr, 1,000 mL, IV Infusion, ONCE, 1 dose, On Sat09/25/24 at 0715, [facility] famotidine (PEPCID (PF)) 20 mg in NaCl 0.9% (NS) 5 mL IV push 09-25 11:45: 09-25 11:41 :00 No 20mg 20 mg, Intravenou s, ONCE, 1 dose, On Sat09/25/24 at 0645, Administer over 2 Minutes, 5 mL [facility] metoclopram violette HCl (REGLAN) injection 10 mg 09-25 11:45: 09-25 11:39 :00 No 10mg 10 mg, Slow IV Push, ONCE, 1 dose, On Sat09/25/24 at 0645, [facility] haloperidol lactate (HALDOL) injection 2.5 mg 09-25 11:45: 00 09-25 11:39 :00 No 2.5mg 2.5 mg, Intravenou s, ONCE, 1 dose, On Sat09/25/24 at 0645, STAT, Chemical Restraint: No, Reason for Use: Management of Acute Agitation/ Delirium (NOT CHEMICAL RESTRAINT) , Indication for use of Injectable Psychotrop ics: Other, Please Specify Other Indication : n/v [facility] foLIC acid 1 mg tablet 09-24 00:00: 00 Yes [id number] 1mg Take 1 tablet by mouth in the morning. [facility] lactobacill us acidophilus 09-24 00:00: 00 Yes [id number] .5mg Take 1 tablet by mouth in the morning and 1 tablet at noon and 1 tablet in the evening. Take with meals. [facility] thiamine mononitrate 100 mg tablet 09-24 00:00: 00 Yes [id number] 100mg Take 1 tablet by mouth in the morning. [facility] proMETHazin e 25 mg tablet 09-24 00:00: 00 Yes [id number] 25mg Take 1 tablet by mouth every 6 hours as needed for Nausea and Vomiting (N/V). [facility] ibuprofen 600 mg tablet 09-24 00:00: 00 Yes [id number] 600mg Take 1 tablet by mouth every 8 hours as needed (Pain). [facility] oxazepam 10 mg capsule 09-24 00:00: 00 Yes [id number] 10mg Take 1 capsule by mouth every 4 hours as needed (Only while awake for DBP equal to or greater than 100, HR equal to or greater than 100.) for up to 12 doses. [facility] methocarbam oL 750 mg tablet 09-24 00:00: 00 Yes [id number] 750mg Take 1 tablet by mouth every 6 hours as needed (muscle aches). [facility] acetaminoph en 325 mg tablet 09-24 00:00: 00 09-25 04:59 :00 Yes [id number] 650mg Take 2 tablets by mouth every 6 hours as needed for Pain (scale 1-3) or Temp > 38 C. [facility] pantoprazol e 40 mg EC tablet 09-24 00:00: 00 10-10 04:59 :00 Yes [id number] 40mg Take 1 tablet by mouth in the morning for 15 days. [facility] vancomycin 125 mg capsule 09-24 00:00: 00 10-05 04:59 :00 Yes [id number] 125mg Take 1 capsule by mouth 4 times daily for 10 days. [facility] gabapentin (NEURONTIN) capsule 300 mg gabapentin (NEURONTIN) capsule 300 mg 09-23 19:00: 00 09-24 16:40 :30 Yes 300mg 300 mg, Oral, TID, First dose on Sat09/23/24 at 1400, Until Discontinu ed, Routine [facility] ketorolac (TORADOL) injection 30 mg ketorolac (TORADOL) injection 30 mg 09-23 17:00: 00 09-24 16:40 :30 Yes 30mg 30 mg, Slow IV Push, Q6H, 4 doses, First dose on Sat09/23/24 at 1200, Last dose on Sat09/24/24 at 0600, Routine [facility] methocarbam oL (ROBAXIN) tablet 750 mg methocarbam oL (ROBAXIN) tablet 750 mg 09-23 16:45: 00 Yes 750mg 750 mg, Oral, TID, First dose on Sat09/23/24 at 1145, Until Discontinu ed, Routine [facility] droNABinol (MARINOL) capsule 2.5 mg droNABinol (MARINOL) capsule 2.5 mg 09-23 13:00: 00 09-24 16:40 :30 Yes 2.5mg 2.5 mg, Oral, BID, First dose on Sat09/23/24 at 0800, Until Discontinu ed, Routine [facility] KCL (KLOR-CON M20) tablet 40 mEq KCL (KLOR-CON M20) tablet 40 mEq 09-23 13:00: 00 09-23 13:53 :00 Yes 40meq 40 mEq, Oral, ONCE, 1 dose, On Sat09/23/24 at 0800, Routine [facility] traMADoL (ULTRAM) tablet 50 mg traMADoL (ULTRAM) tablet 50 mg 09-23 09:44: 52 09-24 16:40 :30 Yes 50mg 50 mg, Oral, Q6HPRN, Starting on Sat09/23/24 at 0444, Until Sat09/24/24 at 1140, Routine, Pain (scale 4-6) [facility] morphine (2 mg/mL) injection 2 mg morphine (2 mg/mL) injection 2 mg 09-23 09:43: 56 09-24 16:40 :30 Yes 2mg 2 mg, Slow IV Push, Q4HPRN, Starting on Sat09/23/24 at 0443, Until Sat09/24/24 at 1140, Routine, Pain (scale 7-10) [facility] ketorolac (TORADOL) injection 15 mg ketorolac (TORADOL) injection 15 mg 09-23 01:45: 00 09-23 01:57 :00 Yes 15mg 15 mg, Slow IV Push, ONCE, 1 dose, On Sat09/22/24 at 2045, Routine [facility] alum-mag hydroxide-s imeth (MAG-AL PLUS) 200-200-20 mg/5 mL suspension 30 mL alum-mag hydroxide-s imeth (MAG-AL PLUS) 200-200-20 mg/5 mL suspension 30 mL 09-22 23:38: 00 09-24 16:40 :30 Yes 30mL 30 mL, Oral, Q6HPRN, Starting on Sat09/22/24 at 1838, Until Sat09/24/24 at 1140, Routine, Indigestio n [facility] droNABinol (MARINOL) capsule 2.5 mg droNABinol (MARINOL) capsule 2.5 mg 09-22 19:00: 00 09-22 18:28 :00 Yes 2.5mg 2.5 mg, Oral, ONCE, 1 dose, On Sat09/22/24 at 1400, Routine [facility] pantoprazol e (PROTONIX) EC tablet 40 mg pantoprazol e (PROTONIX) EC tablet 40 mg 09-22 16:30: 00 09-24 16:40 :30 Yes 40mg 40 mg, Oral, DAILY, First dose on Sat09/22/24 at 1130, Until Discontinu ed, Routine [facility] foLIC acid (FOLATE) tablet 1 mg foLIC acid (FOLATE) tablet 1 mg 09-22 14:00: 00 Yes 1mg 1 mg, Oral, DAILY, First dose on Sat09/22/24 at 0900, Until Discontinu ed, Routine [facility] thiamine mononitrate (VITAMIN B-1 (MONONITRAT E)) tablet 100 mg thiamine mononitrate (VITAMIN B-1 (MONONITRAT E)) tablet 100 mg 09-22 14:00: 00 Yes 100mg 100 mg, Oral, DAILY, First dose on Sat09/22/24 at 0900, Until Discontinu ed, Routine [facility] fidaxomicin (DIFICID) tablet 200 mg fidaxomicin (DIFICID) tablet 200 mg 09-21 18:15: 00 09-24 16:40 :30 Yes 200mg 200 mg, Oral, BID, 20 doses, First dose on Sat09/21/24 at 1315, Last dose on Sat09/30/24 at 2000, Routine, Reason for Anti-Infec tive: Documented Infection, Documented Infection Site: Other, Other site: cdiff infection, Duration of therapy: 10 days [facility] oxazepam (SERAX) capsule 15 mg 09-21 17:57: 02 Yes 15mg 15 mg, Oral, Q4HPRN, Starting on Sat09/21/24 at 1257, Until Discontinu ed, Routine, Only while awake for DBP equal to or greater than 100, HR equal to or greater than 100. [facility] pantoprazol e (PROTONIX) 40 mg in NaCl 0.9% (NS) 10 mL syringe pantoprazol e (PROTONIX) 40 mg in NaCl 0.9% (NS) 10 mL syringe 09-21 16:30: 00 09-22 15:37 :42 Yes 40mg 40 mg, Slow IV Push, Administer over 2 Minutes, Q24H, First dose on Sat09/21/24 at 1130, Until Discontinu ed, Routine [facility] diazePAM (VALIUM) injection 2 mg diazePAM (VALIUM) injection 2 mg 09-21 15:48: 55 09-24 16:40 :29 Yes 2mg 2 mg, Intravenou s, Q6HPRN, Starting on Sat09/21/24 at 1048, Until Sat09/24/24 at 1140, Routine, Nausea and Vomiting (N/V), anxiety, agitation [facility] morpHINE (4 mg/mL) injection 4 mg morpHINE (4 mg/mL) injection 4 mg 09-21 15:48: 11 09-21 22:49 :07 Yes 4mg 4 mg, Slow IV Push, Q4HPRN, Starting on Sat09/21/24 at 1048, Until Sat09/21/24 at 1749, Routine, Pain (scale 7-10) [facility] ondansetron (ZOFRAN (PF)) injection 4 mg ondansetron (ZOFRAN (PF)) injection 4 mg 09-21 15:17: 32 09-24 16:40 :29 Yes 4mg 4 mg, Slow IV Push, Q6HPRN, Nausea and Vomiting (N/V), Starting on Sat09/21/24 at 1017, Please give medication over 2-5 minutes. [facility] proMETHazin e (PHENERGAN) 25 mg in NS 50 mL IV piggyback (CNR) proMETHazin e (PHENERGAN) 25 mg in NS 50 mL IV piggyback (CNR) 09-21 13:36: 49 09-24 16:40 :29 Yes 25mg 25 mg, IV Piggyback, at 200 mL/hr Administer over 15 Minutes, Q4HPRN, Starting on Sat09/21/24 at 0836, Until Sat09/24/24 at 1140, Routine, N/V unresponsi ve to Ondansetro n [facility] potassium chloride in water 10 mEq/100 mL RTU 10 mEq potassium chloride in water 10 mEq/100 mL RTU 10 mEq 09-20 17:00: 00 09-20 21:09 :00 Yes 10meq 10 mEq, IV Piggyback, Q1H, 4 doses, First dose on Sat09/20/24 at 1200, Last dose on Sat09/20/24 at 1500, Administer over 60 Minutes, 100 mL [facility] ketorolac (TORADOL) injection 15 mg ketorolac (TORADOL) injection 15 mg 09-20 16:16: 56 09-22 17:12 :00 Yes 15mg 15 mg, Slow IV Push, Q6HPRN, 6 doses, Starting on Sat09/20/24 at 1116, Until Sat09/22/24 at 1212, Routine, Pain (scale 4-6) [facility] ondansetron (ZOFRAN-ODT ) disintegrat ing tablet 4 mg ondansetron (ZOFRAN-ODT ) disintegrat ing tablet 4 mg 09-20 16:16: 28 09-21 15:17 :44 Yes 4mg 4 mg, Oral, Q8HPRN, Starting on Sat09/20/24 at 1116, Until 09/21/24 at 1017, Routine, Nausea and Vomiting (N/V) [facility] HYDROcodone -acetaminop hen (NORCO) 10-325 mg tablet 1 tablet HYDROcodone -acetaminop hen (NORCO) 10-325 mg tablet 1 tablet 09-20 03:58: 25 09-20 15:40 :27 Yes 1{tbl} 1 tablet, Oral, Q6HPRN, Starting on 09/19/24 at 2258, Until Sat09/20/24 at 1040, Routine, Pain (scale 4-6) [facility] lactobacill us acidophilus tablet 0.5 mg lactobacill us acidophilus tablet 0.5 mg 09-19 22:00: 00 Yes .5mg 0.5 mg, Oral, TID MEALS, First dose on Sat09/19/24 at 1700, Until Discontinu ed, Routine [facility] psyllium husk (METAMUCIL (SUGAR FREE)) oral powder packet 1 Packet psyllium husk (METAMUCIL (SUGAR FREE)) oral powder packet 1 Packet 09-19 21:00: 00 09-20 16:19 :32 Yes 1{packe t} 1 Packet, Oral, DAILY, First dose on Sat09/19/24 at 1600, Until Discontinu ed, Routine [facility] baclofen (LIORESAL) tablet 10 mg baclofen (LIORESAL) tablet 10 mg 09-19 19:00: 00 09-21 22:51 :02 Yes 10mg 10 mg, Oral, TID, First dose on Sat09/19/24 at 1400, Until Discontinu ed, Routine [facility] morpHINE (4 mg/mL) injection 4 mg morpHINE (4 mg/mL) injection 4 mg 09-19 17:11: 06 09-20 01:27 :45 Yes 4mg 4 mg, Slow IV Push, Q3HPRN, Starting on Sat09/19/24 at 1211, Until Sat09/19/24 at 2026, Routine, Pain (scale 7-10) [facility] dicyclomine (BENTYL) capsule 10 mg dicyclomine (BENTYL) capsule 10 mg 09-19 17:00: 00 09-24 16:40 :29 Yes 10mg 10 mg, Oral, QID, First dose on Sat09/19/24 at 1200, Until Discontinu ed, Routine [facility] FENTanyl (PF) (SUBLIMAZE) injection 25 mcg FENTanyl (PF) (SUBLIMAZE) injection 25 mcg 09-19 00:38: 58 09-19 17:11 :17 Yes 25ug 25 mcg, Slow IV Push, Q4HPRN, Starting on Sat09/18/24 at 1938, Until Sat09/19/24 at 1211, Routine, Pain (scale 7-10) [facility] enoxaparin (LOVENOX) injection 40 mg enoxaparin (LOVENOX) injection 40 mg 09-18 22:00: 00 09-24 16:40 :29 Yes 40mg 40 mg, Subcutaneo us, DAILY AT 1700, First dose on Sat09/18/24 at 1700, Until Discontinu ed, Routine [facility] haloperidol lactate (HALDOL) injection 5 mg haloperidol lactate (HALDOL) injection 5 mg 09-18 18:45: 00 09-18 18:09 :00 Yes 5mg 5 mg, Intramuscu lar, ONCE, 1 dose, On Sat09/18/24 at 1345, Routine, Chemical Restraint: No, Reason for Use: Management of Acute Agitation/ Delirium (NOT CHEMICAL RESTRAINT) , Indication for use of Injectable Psychotrop ics: Other, Please Specify Other Indication : Cannaboid Hyperemesi s Syndrome [facility] proMETHazin e (PHENERGAN) 25 mg in NS 50 mL IV piggyback (CNR) proMETHazin e (PHENERGAN) 25 mg in NS 50 mL IV piggyback (CNR) 09-18 18:45: 00 09-18 18:46 :00 Yes 25mg 25 mg, IV Piggyback, at 200 mL/hr Administer over 15 Minutes, ONCE, 1 dose, On Sat09/18/24 at 1345, Routine [facility] diazePAM (VALIUM) injection 5 mg diazePAM (VALIUM) injection 5 mg 09-18 17:53: 30 09-20 15:40 :37 Yes 5mg 5 mg, Intravenou s, Q6HPRN, Starting on Sat09/18/24 at 1253, Until Sat09/20/24 at 1040, Routine, Agitation [facility] gadobenate dimeglumine (MULTIHANCE -15 mL) injection 14.6 mL 09-18 14:15: 00 09-18 14:15 :00 No [id number] .2mL/kg 14.6 mL (0.2 mL/kg ?73 kg), Intravenou s, ONCE, 1 dose, On Sat09/18/24 at 0915, Routine [facility] FENTanyl (PF) (SUBLIMAZE) injection 25 mcg FENTanyl (PF) (SUBLIMAZE) injection 25 mcg 09-18 07:15: 00 09-18 07:06 :00 Yes 25ug 25 mcg, Slow IV Push, ONCE, 1 dose, On Sat09/18/24 at 0215, STAT [facility] FENTanyl (PF) (SUBLIMAZE) injection 25 mcg FENTanyl (PF) (SUBLIMAZE) injection 25 mcg 09-18 07:05: 29 09-19 00:04 :29 Yes 25ug 25 mcg, Slow IV Push, Q3HPRN, Starting on Sat09/18/24 at 0205, Until Sat09/18/24 at 1904, Routine, Pain (scale 7-10) [facility] NaCl 0.9% (NS) bolus infusion 1,000 mL 09-18 02:15: 00 09-18 02:17 :00 No 1000mL at 999 mL/hr, 1,000 mL, IV Piggyback, ONCE, 1 dose, On Sat09/17/24 at 2115, Routine [facility] NaCl 0.9% (NS) IV infusion 1,000 mL 09-18 02:00: 00 09-24 16:40 :29 No 1000mL at 150 mL/hr, IV Infusion, CONTINUOUS , Starting on Sat09/17/24 at 2100, Until Sat09/24/24 at 1140, Routine [facility] ondansetron (ZOFRAN (PF)) injection 4 mg ondansetron (ZOFRAN (PF)) injection 4 mg 09-18 01:42: 10 09-20 16:27 :57 Yes 4mg 4 mg, Slow IV Push, Q6HPRN, Starting on Sat09/17/24 at 2042, Until Sat09/20/24 at 1127, Administer over 2-5 Minutes, 2 mL [facility] FENTanyl (PF) (SUBLIMAZE) injection 25 mcg FENTanyl (PF) (SUBLIMAZE) injection 25 mcg 09-18 01:42: 06 09-18 07:02 :00 Yes 25ug 25 mcg, Slow IV Push, Q6HPRN, Starting on Sat09/17/24 at 204, Until Sat09/18/24 at 0202, Routine, Pain (scale 7-10) [facility] HYDROcodone -acetaminop hen (NORCO 5) 5-325 mg tablet 1 tablet HYDROcodone -acetaminop hen (NORCO 5) 5-325 mg tablet 1 tablet 09-18 01:41: 56 09-18 07:05 :11 Yes 1{tbl} 1 tablet, Oral, Q6HPRN, Starting on Sat09/17/24 at 2040, Until Sat09/18/24 at 204, Routine, Pain (scale 4-6) [facility] acetaminoph en (TYLENOL) tablet 650 mg acetaminoph en (TYLENOL) tablet 650 mg 09-18 01:41: 54 Yes 650mg 650 mg, Oral, Q6HPRN, Starting on Sat09/17/24 at 2040, Until Discontinu ed, Routine, Pain (scale 1-3) [facility] dicyclomine (BENTYL) injection 20 mg dicyclomine (BENTYL) injection 20 mg 09-18 01:00: 00 09-19 14:35 :12 Yes 20mg 20 mg, Intramuscu lar, QID, First dose on Sat09/17/24 at 2000, Until Discontinu ed, Routine [facility] ketorolac (TORADOL) injection 30 mg 09-18 00:30: 00 09-17 23:48 :00 No 30mg 30 mg, Slow IV Push, ONCE, 1 dose, On Sat09/17/24 at 1930, Routine [facility] NaCl 0.9% (NS) bolus infusion 1,000 mL 09-17 23:45: 00 09-18 01:39 :00 No 1000mL at 999 mL/hr, 1,000 mL, IV Infusion, ONCE, 1 dose, On Sat09/17/24 at 1845, STAT [facility] maalox/diph enhydrAMINE :lidocaine2 %viscous 1:1:1: suspension (COMPOUNDED ) 09-17 23:45: 00 09-17 23:51 :00 No 15mL 15 mL, Oral, ONCE, 1 dose, On Sat09/17/24 at 1845, Routine [facility] ondansetron (ZOFRAN (PF)) injection 4 mg 09-17 23:45: 00 09-17 23:10 :00 No 4mg 4 mg, Slow IV Push, ONCE, 1 dose, On Sat09/17/24 at 1845, Administer over 2-5 Minutes, 2 mL [facility] morpHINE (4 mg/mL) injection 4 mg 09-17 23:45: 00 09-17 23:09 :00 No 4mg 4 mg, Slow IV Push, ONCE, 1 dose, On Lakisha 09/17/24 at 1845, [facility] iopamidol (ISOVUE 370-500 mL) injection 75 mL 09-17 23:37: 00 09-17 23:38 :00 No [id number] 75mL 75 mL, Intravenou s, ONCE, 1 dose, On Lakisha 09/17/24 at 1900, Routine [facility] ondansetron (ZOFRAN (PF)) injection 4 mg 2023-03 10:45: 00 01-12 09:44 :00 No 4mg 4 mg, Slow IV Push, ONCE, 1 dose, On Sat01/13/24 at 0445, [facility] diphenhydrA MINE:lidoca ine 2% viscous:maa lox 1:1:1 (FIRST-MOUT HWASH BLM) oral suspension 15 mL 2023-03 09:45: 00 01-12 09:43 :00 No 15mL 15 mL, Oral, ONCE, 1 dose, On Sat01/13/24 at 0345, [facility] ondansetron (ZOFRAN-ODT ) disintegrat ing tablet 8 mg 11-05 19:00: 00 11-05 18:48 :00 No 8mg 8 mg, Oral, ONCE, 1 dose, On Sat11/06/23 at 1400, Routine [facility] ondansetron 4 mg disintegrat ing tablet 2023-11-05 00:00: 00 09-24 00:00 :00 No [id number] 4mg Take 1 tablet by mouth every 8 (eight) hours as needed for Nausea and Vomiting (N/V). [facility] benzonatate 100 mg capsule 11-05 00:00: 00 09-24 00:00 :00 No [id number] 100mg Take 1 capsule by mouth 3 (three) times daily as needed for Cough. [facility] naproxen 500 mg EC tablet 11-05 00:00: 00 11-29 04:59 :00 No [id number] 500mg Take 1 tablet by mouth in the morning and 1 tablet in the evening. Take with meals. Do all this for 45 doses. [facility] ondansetron (ZOFRAN-ODT ) disintegrat ing tablet 4 mg 2020-03 15:45: 00 02-15 14:48 :00 No 4mg 4 mg, Oral, ONCE, 1 dose, On Sat02/15/21 at 0945, Routine [facility] ondansetron (ZOFRAN ODT) 4 mg disintegrat ing tablet 2020-03 00:00: 00 11-05 00:00 :00 No [id number] 4mg Take 1 tablet by mouth every 8 (eight) hours as needed for Nausea and Vomiting (N/V). [facility] Vital Signs Vital Name Observation Time Observation Value Comments S ource Systolic blood pressure 2024-09-25 14:00:00 131 mm[Hg] [facility] Diastolic blood pressure 2024-09-25 14:00:00 94 mm[Hg] [facility] Heart rate 2024-09-25 14:00:00 80 /min [facility] Body temperature 2024-09-25 14:00:00 37 Cathy [facility] Respiratory rate 2024-09-25 14:00:00 22 /min [facility] Oxygen saturation in Arterial blood by Pulse oximetry 2024-09-25 14:00:00 98 /min [facility] Body height 2024-09-25 11:26:00 165.1 cm [facility] Body weight 2024-09-25 11:26:00 69.4 kg [facility] BMI 2024-09-25 11:26:00 25.46 kg/m2 [facility] Systolic blood pressure 2024-09-24 13:26:00 109 mm[Hg] [facility] Diastolic blood pressure 2024-09-24 13:26:00 73 mm[Hg] [facility] Heart rate 2024-09-24 13:26:00 75 /min [facility] Body temperature 2024-09-24 13:26:00 36.22 Cathy [facility] Respiratory rate 2024-09-24 13:26:00 16 /min [facility] Oxygen saturation in Arterial blood by Pulse oximetry 2024-09-24 13:26:00 99 /min [facility] Body weight 2024-09-24 09:00:00 69.491 kg [facility] BMI 2024-09-24 09:00:00 25.49 kg/m2 [facility] Body height 2024-09-18 02:44:00 165.1 cm [facility] Systolic blood pressure 2024-01-13 12:29:00 123 mm[Hg] [facility] Diastolic blood pressure 2024-01-13 12:29:00 67 mm[Hg] [facility] Heart rate 2024-01-13 12:29:00 84 /min [facility] Body temperature 2024-01-13 12:29:00 36.67 Cathy [facility] Respiratory rate 2024-01-13 12:29:00 16 /min [facility] Oxygen saturation in Arterial blood by Pulse oximetry 2024-01-13 12:29:00 99 /min [facility] Body height 2024-01-13 09:14:00 167.6 cm [facility] Body weight 2024-01-13 09:14:00 76.204 kg [facility] BMI 2024-01-13 09:14:00 27.12 kg/m2 [facility] Systolic blood pressure 2023-11-06 20:10:40 120 mm[Hg] [facility] Diastolic blood pressure 2023-11-06 20:10:40 60 mm[Hg] [facility] Heart rate 2023-11-06 20:10:40 78 /min [facility] Body temperature 2023-11-06 20:10:40 37.61 Cathy [facility] Respiratory rate 2023-11-06 20:10:40 18 /min [facility] Oxygen saturation in Arterial blood by Pulse oximetry 2023-11-06 20:10:40 97 /min [facility] Body height 2023-11-06 18:07:00 165.1 cm [facility] Body weight 2023-11-06 18:07:00 65.772 kg [facility] BMI 2023-11-06 18:07:00 24.13 kg/m2 [facility] Systolic blood pressure 2021-02-15 14:14:00 122 mm[Hg] [facility] Diastolic blood pressure 2021-02-15 14:14:00 71 mm[Hg] [facility] Heart rate 2021-02-15 14:14:00 100 /min [facility] Body temperature 2021-02-15 14:14:00 37.67 Cathy [facility] Respiratory rate 2021-02-15 14:14:00 18 /min [facility] Body weight 2021-02-15 14:14:00 63.504 kg [facility] BMI 2021-02-15 14:14:00 22.60 kg/m2 [facility] Oxygen saturation in Arterial blood by Pulse oximetry 2021-02-15 14:14:00 99 /min [facility] Procedures Procedure Date / Time Performed Performing Clinician Source URINE DRUG (IMMUNOASSAY) - COMPREHENSIVE DRUG SCREEN W/O REFLEX 2024-09-25 12:05:00 Andrea Devries [facility] FENTANYL (IMMUNOASSAY) 2024-09-25 12:05:00 Michael Devries [facility] LIPASE 2024-09-25 11:32:00 [facility] 2024-09-25 11:32:00 Ivett Hernández [facility] COMP. METABOLIC PANEL ([id number]) 2024-09-25 11:32:00 Ivett Hernández [facility] CBC WITH DIFF 2024-09-25 11:32:00 Ivett Hernández U [facility] MAGNESIUM 2024-09-24 09:22:00 Dion [facility] BASIC METABOLIC PANEL (NA, K, CL, CO2, GLUCOSE, BUN, CREATININE, CA) 2024-09-24 09:22:00 Vinay Ashley [facility] CBC WITHOUT DIFF 2024-09-24 09:22:00 Vinay Ashley [facility] LIPASE 2024-09-23 09:23:00 Dion [facility] MAGNESIUM 2024-09-23 09:23:00 Dion [facility] BASIC METABOLIC PANEL (NA, K, CL, CO2, GLUCOSE, BUN, CREATININE, CA) 2024-09-23 09:23:00 Vinay Ashley [facility] LIPASE 2024-09-22 07:35:00 Dion [facility] BASIC METABOLIC PANEL (NA, K, CL, CO2, GLUCOSE, BUN, CREATININE, CA) 2024-09-22 07:35:00 Linda Mcclain [facility] CBC WITH DIFF 2024-09-22 07:35:00 Linda Mcclain [facility] URINE DRUG (IMMUNOASSAY) - COMPREHENSIVE DRUG SCREEN 2024-09-21 20:25:00 Linda Mcclain [facility] LIPASE 2024-09-21 09:25:00 Linda Mcclain [facility] COMP. METABOLIC PANEL ([id number]) 2024-09-21 09:25:00 Linda Mcclain [facility] CBC WITH DIFF 2024-09-21 09:25:00 Linda Mcclain [facility] FECAL PATHOGENS BY PCR 2024-09-20 14:23:00 Radha Mcclain [facility] FECES CULTURE 2024-09-20 14:22:00 Catherine Mcclain [facility] CALPROTECTIN, FECAL 2024-09-20 14:22:00 Catherine Mcclain [facility] MAGNESIUM 2024-09-20 09:52:00 Catherine Mcclain [facility] BASIC METABOLIC PANEL (NA, K, CL, CO2, GLUCOSE, BUN, CREATININE, CA) 2024-09-20 09:52:00 Catherine Mcclain [facility] CBC WITH DIFF 2024-09-20 09:52:00 Catherine Mcclain [facility] LIPASE 2024-09-19 09:05:00 Ciarra Rossi Uni [facility] MAGNESIUM 2024-09-19 09:05:00 Ciarra Rossi [facility] COMP. METABOLIC PANEL ([id number]) 2024-09-19 09:05:00 Ciarra Rossi [facility] CBC WITH DIFF 2024-09-19 09:05:00 [facility] / INR 2024-09-19 09:05:00 Bambi Rossi [facility] ACTIVATED PARTIAL THRMPLAS SHAYNE 2024-09-19 09:05:00 Ciarra Rossi [facility] IMMUNOGLOBULIN G SUBCLASS 4 2024-09-19 09:05:00 Vinay Ashley [facility] MR ABDOMEN W WO CONTRAST MRCP 2024-09-18 14:07:30 Ciarra Rossi [facility] LIPASE 2024-09-18 07:08:00 Ciarra Rossi [facility] MAGNESIUM 2024-09-18 07:08:00 Ciarra Rossi [facility] COMP. METABOLIC PANEL ([id number]) 2024-09-18 07:08:00 Ciarra Rossi [facility] CBC WITH DIFF 2024-09-18 07:08:00 [facility] UR[facility]YSIS 2024-09-18 06:31:00 Harjeet Hogan Uni [facility] URINE DRUG (IMMUNOASSAY) - COMPREHENSIVE DRUG SCREEN 2024-09-18 02:01:00 Ciarra Rossi [facility] URINALYSIS 2024-09-18 02:01:00 Ciarra Rossi Uni [facility] PROCALCITONIN 2024-09-18 02:01:00 [facility] FENTANYL (IMMUNOASSAY) 2024-09-18 02:01:00 Bambi Rossi [facility] US GALL BLADDER 2024-09-18 01:50:[address] [facility] [address] [facility] PEL[facility] W CONTRAST 2024-09-17 23:47:00 Almas [facility] TRIGLYCERIDES 2024-09-17 23:16:00 [facility] L[facility] 2024-09-17 23:16:00 Harjeet Hogan [facility] C-REACTIVE PROTEIN 2024-09-17 23:16:00 Ciarra Rossi [facility] COMP. METABOLIC PANEL ([id number]) 2024-09-17 23:16:00 Almas [facility] LIPID PANEL ([id number])(TOTAL CHOLESTEROL, TRIGLYCERIDES, HDL) 2024-09-17 23:16:00 Ciarra Rossi [facility] CBC WITH DIFF 2024-09-17 23:16:00 Harjeet Hogan [facility] LACTIC ACID WITH 2 HOUR REFLEX 2024-09-17 23:16[facility]00 [facility] 2024-01-13 11:33:00 [facility] URINE DRUG (IMMUNOASSAY) - COMPREHENSIVE DRUG SCREEN W/O REFLEX 2024-01-13 11:33:00 Andrea Devries [facility] XR CHEST 1 VW 2024-01-13 09:58:58 Andrea Devries [facility] TROPONIN I 2024-01-13 09:22:00 [facility] COMP. METABOLIC PANEL ([id number]) 2024-01-13 09:22:00 Andrea Devries [facility] ETHANOL 2024-01-13 09:22:00 Andrea Devries [facility] CBC WITH DIFF 2024-01-13 09:22:00 Andrea Devries [facility] N-TERMINAL PRO-BNP 2024-01-13 09:22:00 Andrea Devries [facility] RAPID STREP SCREEN FOR GROUP A 2023-11-06 18:52:00 Singer [facility] INFLUENZA A/B RSV COVID NAAT 2023-11-06 18:48:00 Singer [facility] RAPID STREP SCREEN FOR GROUP A 2021-02-15 14:19:00 Ivett Hernández [facility] RAPID INFLUENZA A/B 2021-02-15 14:19:00 Serena Hernández ra [facility] COVID-19 (ID NOW RAPID TESTING) 2021-02-15 14:19:00 Ivett Hernández [facility] CONSENT/REFUSAL FOR DIAGNOSIS AND TREATMENT 2021-02-15 14:10:35 Doctor Unassigned, [place] [facility] NOTICE OF PRIVACY PRACTICES 2021-02-15 14:09:58 Doctor Unassigned, [place] [facility] Encounters Start Date/Time End Date/Time Encounter Type Admission Type Attending [facility] Care Facility Care Department Encounter ID Source 2023-03-30 10:47:47 Outpatient [facility] [id number] [facility] 2024-09-26 18:40:00 2024-09-26 20:34:00 Emergency EM Christopher Bustillo [facility] AERS [id number] [facility] 2024-09-25 06:23:00 2024-09-25 09:24:00 Emergency X IVETT HERNÁNDEZ [facility] ERT [id number] [facility] 2024-09-17 17:49:00 2024-09-24 11:35:00 Hospital Encounter X CIARRA ROSSI [facility] KEIRA [id number] [facility] 2024-07-22 21:21:00 2024-07-23 13:25:00 Inpatient EM Dustin Pickens [facility] [id number] 08 [facility] 2024-01-13 03:12:00 2024-01-13 06:31:00 Emergency Andrea Devries [facility] [id number] [facility] 2023-11-06 13:03:00 2023-11-06 15:15:00 Emergency Jeff HULL RANDALLRANDALL SHEPPARD [facility] ERT [id number] [facility] 2023-11-06 13:03:00 2023-11-06 15:15:00 Emergency Hull Randall [facility] 1..[id number] [facility] 2021-02-15 08:19:00 2021-02-15 09:35:00 Emergency Jeff IVETT HERNÁNDEZ [facility] ERT [id number] [facility] 2021-02-15 08:19:00 2021-02-15 09:35:00 Emergency Ivett Hernández [facility] 1..[id number] [facility] Results Test Description Test Time Test Comments Results Result Co mments Source LOC-[facility], [facility] [place], [address], COMPLETE BLOOD COUNT (CBC)2024-09-26 19:25:00* Test Item Value Reference Range Interpretation Comme nts POC WHITE BLOOD CELL (test c ode = EDWBC) 8.9 10 3/uL 3.5-11.0 N POC RED BLOOD CELL (test cod e = EDRBC) 4.98 10 6/uL 4.14-5.52 N POC HEMOGLOBIN (test code = EDHGB) 15.4 g/dL 12.5-16.9 N POC HEMATOCRIT (test code = EDHCT) 42.9 % 40.0-54.0 N POC MEAN CELL VOLUME (test c ode = EDMCV) 86.1 fL 83.2-96.0 N POC MEAN CELL HEMOGLOBIN (te st code = EDMCH) 30.9 pg 27.1-32.5 N POC MEAN CELL HGB CONC (test code = EDMCHC) 35.9 g/dL 31.0-35.8 H POC PLATELET COUNT (test cod e = EDPLT) 273 10 3/uL 155-330 N POC RED CELL DISTRIB WIDTH ( test code = EDRDW-CV) 12.8 % 12.0-15.0 N POC LYMPHOCYTES % (test code = EDLYM%) 22.8 % 16.8-42.5 N POC MIXED CELLS % (test code = EDMXD%) 2.7 % 3.2-16.9 L POC NEUTROPHILS % (test code = EDNEUT%) 74.5 % 46.4-74.7 N POC LYMPHOCYTES # (test code = EDLYM#) 2.00 k/mm3 0.9-3.0 N POC MIXED CELLS # (test code = EDMXD#) 0.2 10 3/uL 0.2-1.1 N POC NEUTROPHILS # (test code = EDNEUT#) 6.70 10 3/uL 2.2-6.4 H POC MEAN PLATELET VOLUME (te st code = EDMPV) 11.2 fL 8.7-12.6 N [facility], [address] [place] [address], [place], [address], [id number] 12:07:28* Test Item Value Reference Range Interpretation Comme nts MAGNESIUM (test code = 1319411433) 2.5 mg/dL 1.7-2.4 H Lab Interpretation (test cod e = 02284-7) Abnormal [facility]. METABOLIC PANEL (28796)2024-09-25 12:07:08* Test Item Value Reference Range Interpretation Comme nts NA (test code = 3232957834) 142 mmol/L 135-145 K (test code = 1371996372) 3.4 mmol/L 3.5-5.0 L CL (test code = 5496733621) 100 mmol/L 98-108 CO2 TOTAL (test code = 8442101626) 30 mmol/L 23-31 AGAP (test code = 4160349868) 12 2-16 BUN (test code = 6220948555) 11 mg/dL 7-23 GLUCOSE (test code = 3018343427) 134 mg/dL 70-110 H CREATININE (test code = 2160-0) 0.99 mg/dL 0.60-1.25 TOTAL BILI (test code = 4975565818) 1.2 mg/dL 0.1-1.1 H CALCIUM (test code = 8016544618) 9.6 mg/dL 8.6-10.6 T PROTEIN (test code = 5513660718) 8.8 g/dL 6.3-8.2 H ALBUMIN (test code = 9550971562) 5.2 g/dL 3.5-5.0 H ALK PHOS (test code = 5727266365) 90 U/L 34-122 ALTv (test code = 1742-6) 21 U/L 5-50 AST(SGOT) (test code = 8466300972) 20 U/L 13-40 eGFR (test code = 88521-7) 105.8 mL/min/1.73m2 CKD-EPI eGFR (2020). Assuming creatinine has been stable day-to-day for at least three months, the eGFR indicates Category G1 (>= 90 mL/min/1.73 m2) Lab Interpretation (test code = 61886-5) [facility]normal [facility] 12:06:48* Test Item Value Reference Range Interpretation Comme nts LIPASE (test code = 2917001870) 113 U/L 0-220 Lab Interpretation (test cod e = 47085-2) Normal [facility] WITH [id number] 11:54:45* Test Item Value Reference Range Interpretation Comme nts WBC (test code = 6690-2) 10.05 4.20-10.70 RBC (test code = 789-8) 5.26 4.26-5.52 HGB (test code = 718-7) 16.2 g/dL 12.2-16.4 HCT (test code = 4544-3) 45.7 % 38.4-49.3 MCV (test code = 787-2) 86.9 fL 81.7-95.6 MCH (test code = 785-6) 30.8 pg 26.1-32.7 MCHC (test code = 786-4) 35.4 g/dL 31.2-35.0 H RDW-SD (test code = 96602-3) 38.4 fL 38.5-51.6 L RDW-CV (test code = 788-0) 12.1 % 12.1-15.4 PLT (test code = 777-3) 292 150-328 MPV (test code = 10297-8) 10.9 fL 9.8-13.0 NRBC/100 WBC (test code = 2399820853) 0 0.0-10.0 NRBC x10^3 (test code = 2268644303) See_Comment [Automated messa ge] The system which generated this result transmitted reference range: 10*3/?L. The reference range was not used to interpret this result as normal/abnormal. GRAN MAT (NEUT) % (test code = 770-8) 82 % IMM GRAN % (test code = 3534823787) 0.7 % LYMPH % (test code = 736-9) 12.1 % MONO % (test code = 5905-5) 4.7 % EOS % (test code = 713-8) 0 % BASO % (test code = 706-2) 0.5 % GRAN MAT x10^3(ANC) (test code = 7738784903) 8.24 10*3/uL 1.99-6.95 H IMM GRAN x10^3 (test code = 9533343231) 0.07 10*3/uL 0.00-0.06 H LYMPH x10^3 (test code = 731-0) 1.22 10*3/uL 1.09-3.23 MONO x10^3 (test code = 742-7) 0.47 10*3/uL 0.36-1.02 EOS x10^3 (test code = 711-2) 0.06-0.53 L BASO x10^3 (test code = 704-7) 0.05 10*3/uL 0.01-0.09 Lab Interpretation (test code = 19508-8) [facility]normal [facility]2025-07-23 14:16:43* Test Item Value Reference Range Interpretation Comme nts MAGNESIUM (test code = 5572012964) 2.2 mg/dL 1.7-2.4 Lab Interpretation (test cod e = 67509-1) Normal [facility] Metabolic Panel (NA, K, CL, CO2, GLUCOSE, BUN, CREATININE, CA)2024-09-23 11:33:39* Test Item Value Reference Range Interpretation Comme nts NA (test code = 8806412430) 140 mmol/L 135-145 K (test code = 6529110276) 3.2 mmol/L 3.5-5.0 L CL (test code = 3554253716) 101 mmol/L 98-108 CO2 TOTAL (test code = 6103865815) 29 mmol/L 23-31 AGAP (test code = 0089920151) 10 2-16 BUN (test code = 8778529534) 11 mg/dL 7-23 GLUCOSE (test code = 3011871822) 77 mg/dL 70-110 CREATININE (test code = 2160-0) 0.86 mg/dL 0.60-1.25 CALCIUM (test code = 3686170755) 9.1 mg/dL 8.6-10.6 eGFR (test code = 19265-1) 120.2 mL/min/1.73m2 CKD-EPI eGFR (2020). Assuming creatinine has been stable day-to-day for at least three months, the eGFR indicates Category G1 (>= 90 mL/min/1.73 m2) Lab Interpretation (test code = 51332-1) Abnormal [facility]2025-07-23 11:32:38* Test Item Value Reference Range Interpretation Comme nts LIPASE (test code = 9767782352) 102 U/L 0-220 Lab Interpretation (test cod e = 99095-7) Normal [facility] Abdomen w wo contrast [id number] 22:18:21EXAM: MR ABDOMEN W WO CONTRAST MRCP HISTORY: 28 years-old Male; elevated lipase. Pancreatitis suspected COMPARISON: CT abdomen pelvis 09/17/2024 TECHNIQUE: Multiplanar, multisequence, MR imaging of the abdomen wasperformed with and without contrast. Heavily T2-weighted MRCP images werealso acquired for evaluation of the biliary tree FINDINGS: LOWER THORAX: The lung bases are clear. LIVER: Normal size and parenchymal signal characteristics. No focal hepaticlesions. ? GALLBLADDER AND BILIARY TREE:The gallbladder is normal. No ductal dilationor filling defects. SPLEEN: The spleen appears normal.PANCREAS: Normal parenchymal intensity. No peripancreatic edema. No ductaldilation or masses are visualized. The ventral pancreatic duct inserts intomajor papilla. ADRENAL GLANDS: No adrenal masses are seen. KIDNEYS: Normal. No hydronephrosis, stones, or solid masses are visualized. PERITONEUM AND RETROPERITONEUM: No intra-abdomina fluid collection isvisualized. LYMPH NODES: No lymphadenopathy. VESSELS: Normal. BONES AND SOFT TISSUES: No abnormal marrow signal.[facility]-REACTIVE [id number] 14:41:58* Test Item Value Reference Range Interpretation Comme nts CRP (test code = 3310023394) 1.3 mg/dL <=0.8 H Lab Interpretation (test cod e = 74247-8) Abnormal [facility] FallsLIPID PANEL (64955)(TOTAL CHOLESTEROL, TRIGLYCERIDES, HDL)2024-09-18 08:35:44* Test Item Value Reference Range Interpretation Comme nts CHOL (test code = 8074356003) 157 mg/dL 120-200 HDL (test code = 1905227376) 44 mg/dL >=40 HDLC RATIO (test code = 1957449270) 3.6 <=5.0 TRIG (test code = 8534182377) 104 mg/dL 30-170 LDL CHOL (test code = 53872-6) 92 mg/dL <=160 VLDL (test code = 0768080665) 21 mg/dL 5-60 Lab Interpretation (test cod e = 18109-6) Normal [facility] FallsUS Gall [id number] 02:06:07EXAM: US GALL BLADDER HISTORY: 28 years-old Male with abdominal pain. Elevated lipase. TECHNIQUE: Limited abdominal ultrasound focused on the gallbladder wasperformed. The main portal vein was evaluated with color Doppler.Service Trainer images were obtained for the record. COMPARISON: CT abdomen and pelvis with contrast 09/17/2024 FINDINGS: The pancreas is obscured by the overlying bowel gas. BILE DUCTS:No intrahepatic biliary dilatation is visualized.The common duct is not visualized due to overlying bowel gas. GALLBLADDER:No shadowing stones are seen. Gallbladder sludge is noted. The gallbladder wall thickness is normal and measures 0.3 cm. Nopericholecystic fluid is visualized.Lainez's sign was not demonstrated due to patient being medicated.[facility] [id number] 01:47:55* Test Item Value Reference Range Interpretation Comme nts TRIG (test code = 8813078789) 106 mg/dL 30-170 Lab Interpretation (test cod e = 44309-4) Normal [facility] FallsCT ABDOMEN PELVIS W [id number] 00:40:05CT ABDOMEN PELVIS W CONTRAST Indication: Abdominal pain, acute, nonlocalized Flank pain, kidney stone suspected ? Comparison: None. Ordering Clinician: HARJEET HOGAN Technique: Axial CT images of the abdomen and pelvis were performed with ivcontrast. Sagittal and coronal reformats were created. D ose reductiontechniques were used (Needly). Technical Quality: Adequate Discussion: Chest/Vessels: No acute abnormalities within the lung bases. ?The aorta isacutely normal. Organs: No acute liver pathology. ?No gallbladder abnormalities. Thepancreas is normal. ?No splenic masses. ?The adrenal glands are normal. : No hydronephrosis. No renal stones. The ureters are normal. ?Thebladder is normal with hyperattenuating urine. GI: No inflammation of the colon. ?No small bowel obstruction. ?Normalappendix. Misc.: Subcentimeter lymph nodes are below size criteria. ?No free air orfree fluid. Skeleton: No acute osseous pathology. Small L5-S1 posterior disc bulge.[facility] FallsLIPASE2025-07-18 00:31:04* Test Item Value Reference Range Interpretation Comme nts LIPASE (test code = 8456747818) 3810 U/L 0-220 H Lab Interpretation (test cod e = 72071-1) Abnormal [facility] FallsCMP2025-07-17 23:40:06* Test Item Value Reference Range Interpretation Comme nts NA (test code = 7345701255) 140 mmol/L 135-145 K (test code = 5447421247) 3.7 mmol/L 3.5-5.0 CL (test code = 0308053299) 103 mmol/L 98-108 CO2 TOTAL (test code = 4404085855) 28 mmol/L 23-31 AGAP (test code = 9329006404) 9 2-16 BUN (test code = 2240863954) 16 mg/dL 7-23 GLUCOSE (test code = 6758845433) 109 mg/dL 70-110 CREATININE (test code = 2160-0) 0.95 mg/dL 0.60-1.25 TOTAL BILI (test code = 1841838648) 1.5 mg/dL 0.1-1.1 H CALCIUM (test code = 0998902822) 9.3 mg/dL 8.6-10.6 T PROTEIN (test code = 2879145969) 8.3 g/dL 6.3-8.2 H ALBUMIN (test code = 2794877759) 4.9 g/dL 3.5-5.0 ALK PHOS (test code = 7467325278) 91 U/L 34-122 ALTv (test code = 1742-6) 22 U/L 5-50 AST(SGOT) (test code = 8586776844) 32 U/L 13-40 eGFR (test code = 24256-5) 111.1 mL/min/1.73m2 CKD-EPI eGFR (2020). Assuming creatinine has been stable day-to-day for at least three months, the eGFR indicates Category G1 (>= 90 mL/min/1.73 m2) Lab Interpretation (test code = 12988-8) Abnormal [facility] METABOLIC [id number] 07:51:00* Test Item Value Reference Range Interpretation Comme nts SODIUM (test code = NA) 144 MMOL/L 136-145 N POTASSIUM (test code = K) 3.6 MMOL/L 3.5-5.1 N CHLORIDE (test code = CL) 107.0 MMOL/L 98-107 N CARBON DIOXIDE (test code = CO2) 28.0 MMOL/L 20.0-31.0 N GLUCOSE (test code = GLU) 101 MG/DL 74-106 BLOOD UREA NITROGEN (test code = BUN) 13 MG/DL 9-23 N GLOMERULAR FILTRATION RATE (test code = GFR) > 60 The Glomerular Filtration Rate is a calculated parameterbased on serum Creatinine, patient age and sex. GFR valuesless than 60 mL/min/1.73 square meters are indicative ofChronic Kidney Disease. Values less than 15 mL/min/1.73square meters indicate Kidney failure. The calculation forGFR is based on the CKD-EPI (202) calculation. This formulais race indifferent and is the recommended formula for GFRby the National Kidney Foundation for Adults.The GFR will not calculate if the sex is unknown or if thepatient's age is <18 years. CREATININE (test code = CREAT) 1.10 MG/DL 0.55-1.30 N CALCIUM (test code = CA) 8.50 MG/DL 8.7-10.4 L ANION GAP (test code = GAP) 13 MMOL/L 14-24 L CBC W/AUTO [id number] 07:15:00* Test Item Value Reference Range Interpretation Comme nts WHITE BLOOD CELL (test code = WBC) 9.6 K/MM3 3.8-9.8 N RED BLOOD CELL (test code = RBC) 4.48 M/MM3 3.95-5.67 N HEMOGLOBIN (test code = HGB) 13.7 G/DL 12.4-16.7 N HEMATOCRIT (test code = HCT) 40.4 % 35.9-49.5 N MEAN CELL VOLUME (test code = MCV) 90 fL 81.7-96.1 N MEAN CELL HGB (test code = MCH) 30.6 pg 27.6-33.2 N MEAN CELL HGB CONCETRATION (test code = MCHC) 33.9 % 32.9-35.5 N RED CELL DISTRIBUTION WIDTH (test code = RDW) 12.4 % 12.1-15.2 N PLATELET COUNT (test code = PLT) 212 K/MM3 129-368 N MEAN PLATELET VOLUME (test c ode = MPV) 11.2 fl 7.4-10.4 H NEUTROPHIL % (test code = NT%) 62.8 % 43-75 N IMMATURE GRANULOCYTE % (test code = IG%) 0.4 % 0.0-2.0 N LYMPHOCYTE % (test code = LY%) 26.4 % 14-44 N MONOCYTE % (test code = MO%) 9.5 % 4-13 N EOSINOPHIL % (test code = EO%) 0.4 % 0-6 N BASOPHIL % (test code = BA%) 0.5 % 0-2 N NUCLEATED RBC % (test code = NRBC%) 0.0 % 0-1.0 N NEUTROPHIL # (test code = NT#) 6.02 K/mm3 2.0-7.6 N IMMATURE GRANULOCYTE # (test code = IG#) 0.04 x10 3/uL 0-0.03 H LYMPHOCYTE # (test code = LY#) 2.53 K/mm3 1.0-3.8 N MONOCYTE # (test code = MO#) 0.91 K/mm3 0.1-0.8 H EOSINOPHIL # (test code = EO#) 0.04 K/mm3 0.0-0.2 N BASOPHIL # (test code = BA#) 0.05 K/mm3 0.0-0.2 N NUCLEATED RBC # (test code = NRBC#) 0.00 K/mm3 0.0-0.1 N BASIC METABOLIC [id number] 09:51:00* Test Item Value Reference Range Interpretation Comme nts SODIUM (test code = NA) 143 MMOL/L 136-145 N POTASSIUM (test code = K) 3.9 MMOL/L 3.5-5.1 N CHLORIDE (test code = CL) 106.0 MMOL/L 98-107 N CARBON DIOXIDE (test code = CO2) 26.0 MMOL/L 20.0-31.0 N GLUCOSE (test code = GLU) 127 MG/DL 74-106 H BLOOD UREA NITROGEN (test code = BUN) 11 MG/DL 9-23 N GLOMERULAR FILTRATION RATE (test code = GFR) > 60 The Glomerular Filtration Rate is a calculated parameterbased on serum Creatinine, patient age and sex. GFR valuesless than 60 mL/min/1.73 square meters are indicative ofChronic Kidney Disease. Values less than 15 mL/min/1.73square meters indicate Kidney failure. The calculation forGFR is based on the CKD-EPI (202) calculation. This formulais race indifferent and is the recommended formula for GFRby the National Kidney Foundation for Adults.The GFR will not calculate if the sex is unknown or if thepatient's age is <18 years. CREATININE (test code = CREAT) 1.10 MG/DL 0.55-1.30 N CALCIUM (test code = CA) 9.60 MG/DL 8.7-10.4 N ANION GAP (test code = GAP) 15 MMOL/L 14-24 N HEPATIC FUNCTION [id number] 09:51:00* Test Item Value Reference Range Interpretation Comme nts TOTAL PROTEIN (test code = PROT) 8.1 G/DL 5.7-8.2 N ALBUMIN (test code = ALB) 5.1 G/DL 3.4-5.0 H BILIRUBIN TOTAL (test code = BILT) 0.90 MG/DL 0.30-1.20 N BILIRUBIN DIRECT (test code = BILD) < 0.30 MG/DL 0.05-0.3 N SGOT/AST (test code = AST) 20.0 U/L 0-33 N SGPT/ALT (test code = ALT) 22.0 U/L 10-49 N ALKALINE PHOSPHATASE (test c ode = ALKP) 94.0 U/L 46-116 N [id number] 09:51:00* Test Item Value Reference Range Interpretation Comme nts LIPASE (test code = LIP) 53.00 U/L 12-53 N CBC W/O [id number] 09:28:00* Test Item Value Reference Range Interpretation Comme nts WHITE BLOOD CELL (test code = WBC) 10.1 K/MM3 3.8-9.8 H RED BLOOD CELL (test code = RBC) 4.97 M/MM3 3.95-5.67 N HEMOGLOBIN (test code = HGB) 15.0 G/DL 12.4-16.7 N HEMATOCRIT (test code = HCT) 43.9 % 35.9-49.5 N MEAN CELL VOLUME (test code = MCV) 88 fL 81.7-96.1 N MEAN CELL HGB (test code = MCH) 30.2 pg 27.6-33.2 N MEAN CELL HGB CONCETRATION (test code = MCHC) 34.2 % 32.9-35.5 N RED CELL DISTRIBUTION WIDTH (test code = RDW) 12.1 % 12.1-15.2 N PLATELET COUNT (test code = PLT) 230 K/MM3 129-368 N NEUTROPHIL # (test code = NT#) 8.90 K/mm3 2.0-7.6 H IMMATURE GRANULOCYTE # (test code = IG#) 0.05 x10 3/uL 0-0.03 H LYMPHOCYTE # (test code = LY#) 0.85 K/mm3 1.0-3.8 L MONOCYTE # (test code = MO#) 0.29 K/mm3 0.1-0.8 N EOSINOPHIL # (test code = EO#) 0.00 K/mm3 0.0-0.2 N BASOPHIL # (test code = BA#) 0.02 K/mm3 0.0-0.2 N NUCLEATED RBC # (test code = NRBC#) 0.00 K/mm3 0.0-0.1 N N-TERMINAL [id number] 10:41:14* Test Item Value Reference Range Interpretation Comme nts NT-proBNP (test code = 26435-5) <=125 Lab Interpretation (test cod e = 81250-4) [facility]OP[facility] [id number] 10:31:20* Test Item Value Reference Range Interpretation Comme nts TROPONIN I (test code = 0290651936) 0.001 ng/mL <=0.034 KELIN (test code = KELIN) Reference (Normal) Range (defined by the 99th percentile reference limit): <= 0.034 ng/mL Note: Cardiac troponin begins to rise 3-4 hours after the onset of ischemia. Repeat in 4-6 hours if the sample was drawn within 3-4 hours of the onset of the symptom and found normal. Diagnosis of myocardial injury is made with acute changes in cTn concentrations with at least one serial sample above the 99th percentile upper reference limit (URL), taken together with the patient's clinical presentation. Biotin has been reported to cause a negative bias, interpret results relative to patient's use of biotin. Lab Interpretation (test code = 82685-5) Normal [facility] FallsEthanol2024-11-11 10:24:45 ALCOHOL<10mg/dL01/13/2024 4:24 [facility]10 [id number] Toxic>100 Depression of BELTING AND WEBBING INSPECTOR>400 Fatalities ReportedBaylor Scott & White [facility] – Marble FallsXR CHEST 1 [id number] 10:22:48ORDERING PHYSICIAN: ANDREA DEVRIES CLINICAL HISTORY: chest pain TECHNIQUE: Single view radiograph of the chest was performed. COMPARISON: none FINDINGS: The lungs are expanded and clear. No evidenceof pleural effusionor pneumothorax is present. The cardiomediastinal silhouette is withinnormal limits. No acute osseous abnormalities are identified.[facility]. METABOLIC PANEL ([id number])2024-01-13 10:17:15* Test Item Value Reference Range Interpretation Comme nts NA (test code = 6070093631) 137 mmol/L 135-145 K (test code = 3329599261) 4.1 mmol/L 3.5-5.0 CL (test code = 4308824784) 102 mmol/L 98-108 CO2 TOTAL (test code = 8538476886) 27 mmol/L 23-31 AGAP (test code = 5486527543) 8 2-16 BUN (test code = 4205327900) 16 mg/dL 7-23 GLUCOSE (test code = 0373580894) 109 mg/dL 70-110 CREATININE (test code = 2160-0) 1.03 mg/dL 0.60-1.25 TOTAL BILI (test code = 7330718699) 1.2 mg/dL 0.1-1.1 H CALCIUM (test code = 8257514562) 9.3 mg/dL 8.6-10.6 T PROTEIN (test code = 7909306878) 8.4 g/dL 6.3-8.2 H ALBUMIN (test code = 6133743694) 4.9 g/dL 3.5-5.0 ALK PHOS (test code = 7869773982) 90 U/L 34-122 ALTv (test code = 1742-6) 22 U/L 5-50 AST(SGOT) (test code = 4507233821) 25 U/L 13-40 eGFR (test code = 68953-9) 100.8 mL/min/1.73m2 CKD-EPI eGFR (2020). Assuming creatinine has been stable day-to-day for at least three months, the eGFR indicates Category G1 (>= 90 mL/min/1.73 m2) Lab Interpretation (test code = 14112-9) Abnormal [facility] WITH [id number] 09:57:54* Test Item Value Reference Range Interpretation Comme nts WBC (test code = 6690-2) 10.97 4.20-10.70 H RBC (test code = 789-8) 5.45 4.26-5.52 HGB (test code = 718-7) 16.5 g/dL 12.2-16.4 H HCT (test code = 4544-3) 47.4 % 38.4-49.3 MCV (test code = 787-2) 87.0 fL 81.7-95.6 MCH (test code = 785-6) 30.3 pg 26.1-32.7 MCHC (test code = 786-4) 34.8 g/dL 31.2-35.0 RDW-SD (test code = 31682-9) 38.5 fL 38.5-51.6 RDW-CV (test code = 788-0) 12.2 % 12.1-15.4 PLT (test code = 777-3) 213 150-328 MPV (test code = 39607-0) 10.9 fL 9.8-13.0 NRBC/100 WBC (test code = 0396233276) 0.0 0.0-10.0 NRBC x10^3 (test code = 3536884678) See_Comment [Automated messa ge] The system which generated this result transmitted reference range: 10*3/?L. The reference range was not used to interpret this result as normal/abnormal. GRAN MAT (NEUT) % (test code = 770-8) 85.2 % IMM GRAN % (test code = 9675276756) 0.70 % LYMPH % (test code = 736-9) 8.8 % MONO % (test code = 5905-5) 4.1 % EOS % (test code = 713-8) 0.8 % BASO % (test code = 706-2) 0.4 % GRAN MAT x10^3(ANC) (test code = 3464421816) 9.35 10*3/uL 1.99-6.95 H IMM GRAN x10^3 (test code = 3326165793) 0.08 10*3/uL 0.00-0.06 H LYMPH x10^3 (test code = 731-0) 0.96 10*3/uL 1.09-3.23 L MONO x10^3 (test code = 742-7) 0.45 10*3/uL 0.36-1.02 EOS x10^3 (test code = 711-2) 0.09 10*3/uL 0.06-0.53 BASO x10^3 (test code = 704-7) 0.04 10*3/uL 0.01-0.09 Lab Interpretation (test code = 51502-3) Abnormal [facility] Consult Notes Date/Time Note Provider Source 2024-09-21 12:45:48 Associated Order(s): CONSULT GENERAL SURGERY General Surgery Consult Date of service: 09/21/2024 Reason for Consult: "lipase elevation, nausea, vomiting, sludge in gallbladder on US, no other findings. " History of Present Illness: Rony Elkins Jr. is a 28 year old male with hx of polysubstance use admitted with acute pancreatitis who we were asked to evaluate due to concern for gallstone pancreatitis. Patient reports he began having severe upper abdominal pain associated with nausea and vomiting 5 days ago. He has had similar sx in the past for which he was admitted with pancreatitis as well. States last night he also developed diarrhea "20 times". Notes when he vomits he has right sided abdominal pain, but otherwise his pain is "all over the place". No prior hx of RUQ pain or symptoms after fatty meals. No sick contacts. Denies drug use or alcohol use. States only consumes alcohol on special occasions. Denies hx of alcohol withdrawal. States he cannot use drugs due to his job testing him monthly. Past Medical History: Patient has a past medical history of Polysubstance abuse. Past Surgical History: Patient has no past surgical history on file. Family History: Patient's family history includes Other - see comments in his father. Social History: Patient reports that he has been smoking cigarettes. He has a 5 pack-year smoking history. He has never been exposed to tobacco smoke. He has never used smokeless tobacco. He reports current alcohol use. He reports current drug use. Drugs: Marijuana and "Crack" cocaine. Review of systems: As per HPI Objective: Vitals: Temp: [35.9 ?C (96.7 ?F)-36.9 ?C (98.5 ?F)] Pulse: [50-76] Resp: [16-20] BP: (128-150)/(72-95) MAP (mmHg): [94-112] Physical exam: General: wrapped in blanket with towel covering his head. Shivering. Resp: normal work of breathing CV: hemodynamically stable Abd: soft, nondistended. Generalized tenderness, no focal tenderness no peritonitis Laboratory: Labs reviewed LFTs within acceptable ranges, T bili now WNL. Lipase 1016 today No leukocytosis, Hg stable Radiology: MR Abdomen w wo contrast mrcp Result Date: 09/18/2024 No evidence of acute pancreatitis. Normal examination. Preliminary Report Dictated by Resident: Ruben De La Cruz I, Amari Dobbs MD., have reviewed this study and agree with the above report. US Gall bladder Result Date: 09/17/2024 Gallbladder sludge. No cholelithiasis or sonographic evidence of acute cholecystitis. Preliminary Report Dictated by Resident: Yue Gilbert I, Torres Dunbar MD., have reviewed this study and agree with the above report. CT ABDOMEN PELVIS W CONTRAST Result Date: 09/17/2024 Impression: No acute abnormalities. No obstructing stone. Small L5-S1 posterior disc bulge. Assessment: Rony Elkins Jr. is a 28 year old male with hx of polysubstance use, positive for THC and opiates on admission who was admitted for acute pancreatitis. Surgery consulted to evaluate for gallstones as the cause of his pancreatitis. Sx not consistent with biliary colic. US shows small amount of sludge, however MRCP has no sludge/stones/abnormalities. Low suspicion for gallstone pancreatitis given normal MRCP and symptomology not consistent with biliary colic. Recommendations: - no acute surgical intervention - recommend serax taper for sx concerning for alcohol wd - primary team working up alternative causes of pancreatitis - surgery will sign off, please reengage if need arises Steffany Carpio MD PGY-1 General Surgery 09/21/2024 12:45 Cosigned by Lauren Young MD at 09/21/2024 4:21 PM CDT Associated attestation - Lauren Young MD - 09/21/2024 4:21 PM CDT Attending Attestation: I personally evaluated and examined the patient on 09/21/[address] Carpio's consultation note as written. I actively participated in the decision-making process. Please see the resident's note for additional details. 28 YO M with a PMH significant for polysubstance abuse (marijuana, cocaine, alcohol, nicotine) despite denial admitted by the Hospitalist on 09/17/2024 for intractable abdominal pain. Patient reports prior hospitalizations for abdominal pain and recent treatment with antibiotics for abdominal pain. On admission initial work up demonstrated a WBC 14.5, normal electrolytes and LA, normal LFT's with the exception of a mildly elevated total bilirubin (fractionated/unfractionated not obtained), lipase of 3800, unremarkable UA, tox screen positive for marijuana, and unremarkable CTAP. Additional studies included normal lipid panel. US was obtained that demonstrated sludge in the GB without cholecystitis or dilated bile ducts. MRCP was then obtained which demonstrated normal GB, bile ducts, and pancreas. During his hospital course his WBC and LFT's normalized, however his lipase has fluctuated between 131 and 1450, today it is 1016. He has also developed multiple episodes of watery diarrhea and it does not appear he has received any antibiotics during this hospitalization. Stool studies were obtained and are positive for C. Difficle. On speaking with the patient he avoids eye contact and does answer questions regarding history of abdominal pain. It appears he has had intermittent episodes of abdominal pain in the past. He denies abdominal pain with eating. He does report nausea, vomiting, and diarrhea. He denies drug use although his tox screen is positive. His abdomen is soft with mild diffuse tenderness without peritoneal signs. Labs and imaging were reviewed. Based on history, exam, and supporting labs and imaging I doubt this patient has biliary pancreatitis. Recommend continued supportive care with IVF's, analgesics with minimization of narcotics, antiemetics, and treatment of C. Difficile. Would recommend outpatient GI evaluation on discharge. Surgery will sign off, please re-consult as needed. Lauren Young M.D. 09/21/2024 16:00 SURGERY [facility] - Health History and Physical Notes Date/Time Note Provider Source 2024-09-17 20:45:44 [facility] Hospitalist Admission H&P Date of Service: 09/17/2024 CHIEF COMPLAINT: Abdominal pain HISTORY OF PRESENT ILLNESS Rony Elkins Jr. is a 28 year old male who presents with intractable abdominal pain. Patient has similar episodes in the past and has been diagnosed with pancreatitis. Patient is unsure of the etiology of the pancreatitis. He denies any gallstones or alcohol history. He drinks occasionally. He states he was transferred to [facility] when he was here last year for acute pancreatitis. He is not really sure what the etiology was even though they did numerous testing. Patient has a history of substance abuse as well although he states he is only been using marijuana rarely at this time. UDS is positive for marijuana. Otherwise, patient will get lipid profile and will check abdominal ultrasound. Patient may need MRCP. Patient will be admitted to the hospital for inpatient hospitalization. I came to see the patient he was on the floor writhing in pain. He was given fentanyl with relief. PAST MEDICAL HISTORY Past Medical History: Diagnosis Date Polysubstance abuse Pancreatitis PAST SURGICAL HISTORY No past surgical history on file. ALLERGIES No Known Allergies MEDICATIONS Current home medication list reviewed: Patient's Medications START taking these medications No medications on file CONTINUE taking these medications which have NOT CHANGED BENZONATATE 100 MG CAPSULE Take 1 capsule by mouth 3 (three) times daily as needed for Cough. ONDANSETRON 4 MG DISINTEGRATING TABLET Take 1 tablet by mouth every 8 (eight) hours as needed for Nausea and Vomiting (N/V). START taking Modified Medications as Prescribed No medications on file STOP taking these medications No medications on file FAMILY HISTORY Family History Problem Relation Age of Onset Other - see comments Father prediabetes SOCIAL HISTORY Social History Socioeconomic History Marital status: Single Tobacco Use Smoking status: Every Day Current packs/day: 1.00 Average packs/day: 1 pack/day for 5.0 years (5.0 ttl pk-yrs) Types: Cigarettes Smokeless tobacco: Never Substance and Sexual Activity Alcohol use: Yes Comment: social drinker Drug use: Yes Types: Marijuana, "Crack" cocaine Social History Narrative 04/30/17 - per family in potential legal trouble and very stressed REVIEW OF SYSTEMS 10 systems negative except per HPI PHYSICAL EXAMINATION BP 107/63 | Pulse 56 | Temp 37 ?C (98.6 ?F) (Oral) | Resp 16 | Ht 1.651 m (5' 5") | Wt 77.1 kg (170 lb) | SpO2 97% | BMI 28.29 kg/m? General: Patient with significant abdominal pain and he appears to be tearful because of the degree of pain HEENT: Normal oral mucosa, anicteric sclerae, NCAT Cardiovascular: RRR Lungs: Symmetric expansion, clear bilaterally Abdomen: Soft, tender in the epigastric region with no rebound or guarding Musculoskeletal: No synovitis, normal muscle mass Genitourinary: Deferred Skin: No rash, no skin lesions Extremities: No clubbing, no cyanosis, no lower extremity edema Neuro: AAOx3, no focal deficits Psych: Normal affect LABS - reviewed pertinent labs as below: CBC BMP PT/INR WBC (10*3/?L) Date Value 09/17/2024 14.51 (H) NA (mmol/L) Date Value 09/17/2024 140 No results found for: "PT" RBC (10*6/?L) Date Value 09/17/2024 4.74 K (mmol/L) Date Value 09/17/2024 3.7 INR (no units) Date Value 04/30/2017 1.0 PLT (10*3/?L) Date Value 09/17/2024 218 CALCIUM (mg/dL) Date Value 09/17/2024 9.3 HGB (g/dL) Date Value 09/17/2024 14.8 CL (mmol/L) Date Value 09/17/2024 103 aPTT HCT (%) Date Value 09/17/2024 41.5 BUN (mg/dL) Date Value 09/17/2024 16 APTT Patient (Seconds) Date Value 04/30/2017 24 CREATININE (mg/dL) Date Value 09/17/2024 0.95 IMAGING - reviewed, pertinent results as below: Hospital Encounter on 09/17/24 CT ABDOMEN PELVIS W CONTRAST Narrative CT ABDOMEN PELVIS W CONTRAST Indication: Abdominal pain, acute, nonlocalized Flank pain, kidney stone suspected Comparison: None. Ordering Clinician: HARJEET HOGAN Technique: Axial CT images of the abdomen and pelvis were performed with iv contrast. Sagittal and coronal reformats were created. Dose reduction techniques were used (ALARA). Technical Quality: Adequate Discussion: Chest/Vessels: No acute abnormalities within the lung bases. The aorta is acutely normal. Organs: No acute liver pathology. No gallbladder abnormalities. The pancreas is normal. No splenic masses. The adrenal glands are normal. : No hydronephrosis. No renal stones. The ureters are normal. The bladder is normal with hyperattenuating urine. GI: No inflammation of the colon. No small bowel obstruction. Normal appendix. Misc.: Subcentimeter lymph nodes are below size criteria. No free air or free fluid. Skeleton: No acute osseous pathology. Small L5-S1 posterior disc bulge. Impression Impression: No acute abnormalities. No obstructing stone. Small L5-S1 posterior disc bulge. SSMENT/PLAN: 1. Acute pancreatitis; continue with IV fluids and pain control. Continue keep patient NPO. CT imaging with no abnormalities. Abdominal ultrasound is negative. Patient denies any substantial alcohol use. Patient does have a history of polysubstance abuse and is cocaine in his system in the past and he is currently positive for marijuana. Will get MRCP as well to further evaluate patient's clinical findings. At this time patient will be admitted for inpatient hospitalization. 2. Hyperbilirubinemia; continue monitoring liver function testing. Check coagulation profile as well. Patient may be developing cirrhosis. Will need to get additional labs and further evaluate as an outpatient with GI. 3. GI DVT prophylaxis DVT prophylaxis: enoxaparin Stress ulcer prophylaxis: pantoprazole Code status: FULL Advanced Care Planning (Z71.89) Above assessment and plan discussed at length with patient, patient expressed full understanding. Questions and concerned addressed. Surrogate decision maker: NO Level of care expected after discharge: HOME Time spent: 3 minutes discussing the advanced care plan Smoking Cessation: (Z71.6) Tobacco user?: NO Patient will require inpatient stay of 2 midnights or more given high risk of morbidity and mortality. 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 Ciarra Rossi MD T [facility] Notes Date/Time Note Provider Source 2024-09-26 19:29:00 [facility] EMERGENCY PROVIDER REPORT REPORT#:[id number] REPORT STATUS: Signed DATE:09/26/24 TIME: 1928 PATIENT: RONY ELKINS UNIT #: [id number] ROOM/BED: : 94 AGE: 28 SEX:M PCP PHYS: No Primary or Family Physician SERVICE AUTHOR: Christopher Bustillo DO REP SRV REP SRV TM: 1928 * ALL edits or amendments must be made on the electronic/computer document * HPI-Abd Pain M Under 40 Free Text HPI Notes Free Text HPI Notes 28 yo male with recent admission for acute pancreatitis, complicated by c.diff colitis, currently on oral vancomycin presents with c/o n/v for 3 days, started the day he was discharged from the hospital. Denies abd pain, fever, hematochezia or melena. General Initial Greet Date/Time 09/26/241839 Presentation Chief Complaint Nausea, Vomiting moderate Hx Obtained From Patient Risk-Abd Pain M Under 40 )( Torsion No risk factors Review of Systems ROS Statements Complete sys rev neg except as marked. Past Medical History - Adult Stated Complaint PUI-ABDOMINAL PAIN-WEAK DIZZY-VOMITING Allergies Coded Allergies: No Known Allergies (11/22/16) Home Medications Active Scripts METOCLOPRAMIDE (REGLAN) 10 MG PO TID PRN PRN NAUSEA/VOMITING 10 Days #30 TABS Prov: 07/23/24 traMADol (ULTRAM) 50 MG PO Q6H PRN PRN ACUTE PAIN 5 Days #20 TABS Prov: 07/23/24 Reported Medications PROMETHAZINE 25 MG PO Q6H PRN PRN NAUSEA/VOMITING METHOCARBAMOL (ROBAXIN) VANCOMYCIN (VANCOCIN) PANTOPRAZOLE DR (PROTONIX) Calculated Suicide Risk (nurs) No risk Past Medical History: Reports: Headache disorder (Migraine), Pancreatitis. Additional Medical History Reports none Additional Surgical History Reports none Additional Family History mother and father with hypertension Alcohol Use Denies EtOH use Drug Use Marijuana Smoking status for patients 13 years old or older: Never Smoker Other Social History Local resident, Lives with family Physical Exam Vital Signs Vital Signs First Documented: Result Date Time Pulse Ox 99 09/27 1839 B/P 158/81 09/27 1839 O2 Delivery Room air 09/27 1839 Temp 37.2 09/27 1839 Pulse 87 09/27 1839 Resp 15 09/27 1839 B/P Mean 112 09/27 1851 Last Documented: Result Date Time Pulse Ox 98 09/26 2014 Pulse 73 09/26 2014 B/P 158/81 09/27 1851 B/P Mean 112 09/27 1851 O2 Delivery Room air 09/27 1839 Temp 37.2 09/27 1839 Resp 09/26 Review of Vital Signs Reviewed Free Text PE Notes Free Text PE Notes General/Const - Alert and awake. No apparent distress. MS Head - Atraumatic. Eyes - No redness or swelling. Ears/Nose/Throat - Airway patent, no stridor. MS Neck - Supple, Full ROM. Resp/Chest - Clear breath sounds bilaterally. Cardiovascular - Regular rate and rhythm. Abdomen - Abdomen is soft, nontender, nondistended. Extremities - No edema. Full ROM. No focal weakness. Skin - Warm and dry. No rash observed. Neurologic - Oriented to person, place and time. Psych - Calm mood and congruent affect. Interpretation Diagnostics Lab Results Interpretation Results Laboratory Tests: 09/26 Chemistry POC Sodium (134 - 147 mmol/L) 141 POC Potassium (3.6 - 5.2 mmol/L) 3.8 POC Chloride (100 - 108 mmol/L) 101 POC Total CO2 (24 - 30 mmol/L) 30 POC Anion Gap (0 - 20) 10 POC BUN (3 - 25 mg/dL) 11 POC Creatinine (0.5 - 1.5 mg/dL) 1.1 Est GFR (CKD-EPI 2020) (>or=60 mL/min) 93 POC Glucose (70 - 110 mg/dL) 124 H POC Calcium (8.0 - 10.5 mg/dL) 9.5 POC Total Bilirubin (0.0 - 1.0 mg/dL) 1.1 H POC AST (15 - 37 U/L) 21 POC ALT (30 - 65 U/L) 17 L POC Alk Phosphatase (20 - 125 U/L) 77 POC Total Protein (5.0 - 8.0 g/dL) 7.3 POC Albumin (3.5 - 5.0 g/dL) 4.3 Hematology POC WBC (3.5 - 11.0 10 3/uL) 8.9 POC RBC (4.14 - 5.52 10 6/uL) 4.98 POC Hgb (12.5 - 16.9 g/dL) 15.4 POC Hct (40.0 - 54.0 %) 42.9 POC MCV (83.2 - 96.0 fL) 86.1 POC MCH (27.1 - 32.5 pg) 30.9 POC MCHC (31.0 - 35.8 g/dL) 35.9 H POC RDW Coeff of Vaughn (12.0 - 15.0 %) 12.8 POC Platelet Count (155 - 330 10 3/uL) 273 POC MPV (8.7 - 12.6 fL) 11.2 POC Mixed Cells % (3.2 - 16.9 %) 2.7 L POC Neut # (2.2 - 6.4 10 3/uL) 6.70 H POC Lymph # (0.9 - 3.0 k/mm3) 2.00 POC [place] # (0.2 - 1.1 10 3/uL) 0.2 POC Lymphocytes % (16.8 - 42.5 %) 22.8 POC Neutrophils % (46.4 - 74.7 %) 74.5 Lab Statement Laboratory studies reviewed and considered in the medical decision-making. Re-Evaluation MDM )( Re-Evaluation/Progress #1 Text/Dict Note workup is neg for leukocytosis, sarah or electrolyte disturbance. Symptoms improved with zofran and IV fluids. Will dc home with oral ondansetron and instructions to drink pedialyte and return if worse. The patient was reassessed and is stable and appropriate for discharge. I discussed any pertinent results with the patient and or family. There is no indication for admission and the plan is to discharge the patient home. Home care instructions and return precautions were explained in detail to the patient and/or caregiveras well as the importance of following up with the primary care physician or specialist physician for reevaluation and monitoring of condition. I have advised the patient and/or caregiver to return to the Emergency Dept for new, persistent or worsening symptoms or to call 911. The patient and/or guardian verbalized understanding of plan and discharge instrutions. All questions were answered and concerns addressed. Time of Re-Eval 1954 )( Re-Eval Status Improved ED Course Medication(s) Ordered Medication(s) Ordered: Electrolytic, Caloric, And Margot Sig/Mannie Start time Last Medication Dose Route Stop Time Status Admin Sodium Chloride 1,000 ML X1ED STA 09/26 190 DC 09/26 IV 09/26 Gastrointestinal Drugs Sig/Mannie Start time Last Medication Dose Route Stop Time Status Admin Ondansetron HCl 4 MG X1ED STA 09/26 2010 DC 09/26 IV 09/26 Ondansetron HCl 4 MG X1ED PRN PRN 09/26 1914 DC 09/26 IV 1910 Differential Diagnosis )( Differential Diagnosis Gastritis, sarah, electrolyte abnormality, infection Patient Discharge Departure Vital Signs/Condition Vital Signs First Documented: Result Date Time Pulse Ox 99 09/27 1839 B/P 158/81 09/26 184 O2 Delivery Room air 09/27 1839 Temp 37.2 09/27 1839 Pulse 87 09/27 1839 Resp 15 09/26 184 B/P Mean 112 09/26 185 Last Documented: Result Date Time Pulse Ox 98 09/26 2014 Pulse 73 09/26 2014 B/P 158/81 09/27 1851 B/P Mean 112 09/26 185 O2 Delivery Room air 09/27 1839 Temp 37.2 09/27 1839 Resp 15 09/27 1839 All vital signs available at the time of this entry have been reviewed. Condition Stable, Improved Clinical Impression Clinical Impression Primary Impression: Gastritis Secondary Impressions: Vomiting Disposition Decision Discharge )( Discharged to Home Yes )( Time 2024 )( Date 09/26/24 Discharge/Care Plan Counseled Regarding Diagnosis, Lab results, Need for follow-up, When to return to ED (Auto) Prescriptions Current Visit Scripts ONDANSETRON ODT (ZOFRAN ODT) 4 MG PO Q6H PRN PRN NAUSEA/VOMITING ONDANSETRON ODT (ZOFRAN ODT) 4 MG PO Q6H PRN PRN NAUSEA/VOMITING #15 TABS PROMETHAZINE (PHENERGAN) 25 MG RECTAL Q4H PRN PRN NAUSEA/VOMITING PROMETHAZINE (PHENERGAN) 25 MG RECTAL Q4H PRN PRN NAUSEA/VOMITING #12 SUPP Patient Instructions ED Diet, Bend (Adult), ED Gastritis (Adult), ED Vomiting ( Adult) Additional Instructions Continue taking your medication. Don't take pain medication or muscle relaxant on empty stomach. Watch for worsening abdominal pain, blood in vomit or stool, black stools. Try to drink Pedialyte when symptoms improve make sure urine color looks clear yellow. If it is dark you need to drink more fluids. - Thank you for allowing us to provide emergent medical care to you or your family member. We consider it a privilege to have served you during your illness or injury. Please read and follow your discharge instructions. - If your symptoms become worse or you develop new or worsening symptoms, you should return to the emergency department The treatment and evaluation you received have been provided on an emergency basis only and is not intended to be a substitute for, or an effort to provide complete medical care. PLEASE MAKE AN APPOINTMENT TO FOLLOW UP WITH YOUR DOCTOR or SPECIALIST FOR ONGOING MONITORING AND INTERVENTION. at 2024 RPT #:[id number] END OF REPORT [facility] 2024-09-25 09:23:06 Pt discharged with diagnosis of nausea and vomiting. Printed and verbal instructions reviewed with and given to Pt. Pt and Pt's mother verbalized understanding of teaching, and recommended follow-up. Denies questions or concerns at this time. Pt ambulatory at discharge. Appears in no apparent distress. No ataxia noted. Accompanied by Pt's mother. Valencia Carpenter RN [facility] 2024-09-25 08:11:45 PO challenge failed. Pt was dry heaving w/ c/o side pain 09/10. notified. [facility] 2024-09-25 07:45:15 Pt's mother at bedside. Pt had no needs/requests and was lying comfortably. [facility] 2024-09-25 06:58:57 Nurse report received from ARAMIS Christina [facility] 2024-09-25 06:25:26 Patient comes in with vomiting, and flank pain. Was recently discharged from the hospital yesterday. Was feeling better but then the pain started again. Skin p/w/d, rr equal and non labored. A&Ox4. [facility] Kaylah Macario RN [facility] 2024-09-25 06:20:00 [facility] Emergency Department Note Patient Name: Rony Elkins Jr. Date of : 1995 28 year old male Treatment Room: RI1 Primary Care Physician: PATIENT DOES NOT HAVE A PCP Patient Escorted by: Self [9] Mode of Arrival: Personal means [1] EMS Treatment Prior to ED Arrival: [employer] treatment: None Travel and Exposure Screening: Symptoms Does patient have any of these symptoms?: (not recorded) Exposure Screening Has patient had contact with someone with a communicable disease in the last month?: (not recorded) Diseases exposed to:: (not recorded) Is Patient ?: (not recorded) Exposure Date: (not recorded) Chief Complaint: Chief Complaint Patient presents with Vomiting History of Present Illness: History of Present Illness The patient presents from home for evaluation for nausea and vomit started yesterday evening. He was recently admitted here from September 17 until yesterday September 24 for similar complaints. He does have a history of hyperemesis from marijuana abuse. He denies using any marijuana upon discharge yesterday. He reports he did eat [employer] yesterday evening after which his vomiting started again. During his most recent admission he had a CT of his abdomen and pelvis as well as a right upper quad MRI of his abdomen showing no acute intra-abdominal pathology. He was also diagnosed with C. difficile and discharged home yesterday with oral vancomycin which she has not yet picked up. He denies using any marijuana or other drugs since being discharged home yesterday. No history of high blood pressure or diabetes. Here for evaluation. Past Medical History/Immunizations: Past Medical History: Diagnosis Date Polysubstance abuse Tetanus received in last 5 years: Yes Childhood immunizations: Up-to-date Allergies: No Known Allergies Past Social History: Tobacco Use Every Day; 1 pack/day; Smoked an average of 1 pack/day for 5.0 years; Types: Cigarettes Passive Exposure: Never Smokeless Tobacco: Never used smokeless tobacco. Alcohol Use Yes. Comments: social drinker Drug Use Yes; Marijuana, "Crack" cocaine. Past Surgical History: History reviewed. No pertinent surgical history. Review of Systems: Review of Systems Constitutional: Negative for chills and fever. Respiratory: Negative for cough and shortness of breath. Cardiovascular: Negative for chest pain. Gastrointestinal: Positive for abdominal pain, nausea and vomiting. Genitourinary: Negative for dysuria. Musculoskeletal: Negative for arthralgias, neck pain and neck stiffness. Skin: Negative for wound. Neurological: Negative for dizziness. Psychiatric/Behavioral: Negative for agitation. Endocrine: Negative for goiter. Physical Exam: Physical Exam ED Triage Vitals [09/25/24 0626] Weight 69.4 kg (153 lb) Actual or estimated Estimated by patient/family report Height 1.651 m (5' 5") BP (!) 153/102 Pulse 87 Resp 10 Temp 36.6 ?C (97.8 ?F) Temp source Oral SpO2 96 % Measured on Room air Physical Exam Vitals and nursing note reviewed. Constitutional: Appearance: Normal appearance. He is normal weight. HENT: Head: Normocephalic and atraumatic. Cardiovascular: Rate and Rhythm: Normal rate and regular rhythm. Pulses: Normal pulses. Pulmonary: Effort: Pulmonary effort is normal. No respiratory distress. Abdominal: General: There is no distension. Palpations: Abdomen is soft. There is no mass. Tenderness: There is no abdominal tenderness. There is no guarding or rebound. Hernia: No hernia is present. Musculoskeletal: General: Normal range of motion. Cervical back: Normal range of motion and neck supple. Skin: General: Skin is warm and dry. Neurological: General: No focal deficit present. Mental Status: He is alert and oriented to person, place, and time. Radiology: No orders to display Lab Results: Lab Results CBC WITH DIFF - Abnormal Result Value Ref Range WBC 10.05 4.20 - 10.70 10*3/?L RBC 5.26 4.26 - 5.52 10*6/?L HGB 16.2 12.2 - 16.4 g/dL HCT 45.7 38.4 - 49.3 % MCV 86.9 81.7 - 95.6 fL MCH 30.8 26.1 - 32.7 pg MCHC 35.4 (*) 31.2 - 35.0 g/dL RDW-SD 38.4 (*) 38.5 - 51.6 fL RDW-CV 12.1 12.1 - 15.4 % PLT 292 150 - 328 10*3/?L MPV 10.9 9.8 - 13.0 fL NRBC/100 WBC 0.0 0.0 - 10.0 /100 WBCs NRBC x10 3 <0.01 10*3/?L GRAN MAT (NEUT) % 82.0 % IMM GRAN % 0.70 % LYMPH % 12.1 % MONO % 4.7 % EOS % 0.0 % BASO % 0.5 % GRAN MAT x10 3 (ANC) 8.24 (*) 1.99 - 6.95 10*3/uL IMM GRAN x10 3 0.07 (*) 0.00 - 0.06 10*3/uL LYMPH x10 3 1.22 1.09 - 3.23 10*3/uL MONO x10 3 0.47 0.36 - 1.02 10*3/uL EOS x10 3 <0.03 (*) 0.06 - 0.53 10*3/uL BASO x10 3 0.05 0.01 - 0.09 10*3/uL COMP. METABOLIC PANEL (80258) MAGNESIUM LIPASE EKG: If EKG completed, see Procedure Note. Orders and Treatments: Orders Placed This Encounter Procedures CBC WITH DIFF COMP. METABOLIC PANEL (70172) Magnesium LIPASE Orders Placed This Encounter Medications NaCl 0.9% (NS) bolus infusion 1,000 mL haloperidol lactate (HALDOL) injection 2.5 mg metoclopramide HCl (REGLAN) injection 10 mg famotidine (PEPCID (PF)) 20 mg in NaCl 0.9% (NS) 5 mL IV push First Provider Eval: ED Events Date/Time Event User Comments 09/25/24623 Medical Screening Begins IVETT HERNÁNDEZ DO -- 09/25/24623 First Provider Evaluation IVETT HERNÁNDEZ DO -- ED COURSE ED Course as of 09/25/24 08SatSep 25, 2024 075 Bed requested [DN] ED Course User Index [DN] Andrea Devries MD Diagnosis/Impression as of 09/25/24851 Nausea and vomiting, unspecified vomiting type Cannabis 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 He was recently admitted here from September 17 until yesterday September 24 for similar complaints. He does have a history of hyperemesis from marijuana abuse. He denies using any marijuana upon discharge yesterday. He reports he did eat [employer] yesterday evening after which his vomiting started again. During his most recent admission he had a CT of his abdomen and pelvis as well as a right upper quad MRI of his abdomen showing no acute intra-abdominal pathology. He was also diagnosed with C. difficile and discharged home yesterday with oral vancomycin which she has not yet picked up. He denies using any marijuana or other drugs since being discharged home yesterday. No history of high blood pressure or diabetes. Vital signs are stable in the ER. He is writhing around the bed in pain however his abdomen is soft and nontender on examination. The CT of his abdomen pelvis, right upper quadrant ultrasound as well as MRI of his abdomen that were most recently performed on September 17 and were reviewed in [facility]. Will check laboratory studies and provide the patient with pain medication as well as IV fluids. Anticipate discharge home later. 0700 - the patient is signed out to Dr. Devries pending results of above and reeval. Problems Addressed: Nausea and vomiting, unspecified vomiting type: acute illness or injury Amount and/or Complexity of Data Reviewed External Data Reviewed: labs and radiology. Details: Laboratory studies and imaging from his most recent admission from September 17 through September 24 of this year. Labs: ordered. Decision-making details documented in ED Course. Risk Prescription drug management. Flowsheet Documentation: Scoring Tools: No data recorded Disposition/Condition: ED Disposition None Discharge Medications: Patient's Medications START taking these medications No medications on file CONTINUE taking these medications which have NOT CHANGED ACETAMINOPHEN 325 MG TABLET Take 2 tablets by mouth every 6 hours as needed for Pain (scale 1-3) or Temp > 38 C. FOLIC ACID 1 MG TABLET Take 1 tablet by mouth in the morning. IBUPROFEN 600 MG TABLET Take 1 tablet by mouth every 8 hours as needed (Pain). LACTOBACILLUS ACIDOPHILUS Take 1 tablet by mouth in the morning and 1 tablet at noon and 1 tablet in the evening. Take with meals. METHOCARBAMOL 750 MG TABLET Take 1 tablet by mouth every 6 hours as needed (muscle aches). OXAZEPAM 10 MG CAPSULE Take 1 capsule by mouth every 4 hours as needed (Only while awake for DBP equal to or greater than 100, HR equal to or greater than 100.) for up to 12 doses. PANTOPRAZOLE 40 MG EC TABLET Take 1 tablet by mouth in the morning for 15 days. PROMETHAZINE 25 MG TABLET Take 1 tablet by mouth every 6 hours as needed for Nausea and Vomiting (N/V). THIAMINE MONONITRATE 100 MG TABLET Take 1 tablet by mouth in the morning. VANCOMYCIN 125 MG CAPSULE Take 1 capsule by mouth 4 times daily for 10 days. START taking Modified Medications as Prescribed No medications on file STOP taking these medications No medications on file Follow-up: Electronically signed by: Ivett Hernández DO 09/25/24 0659 [facility] 2024-09-24 11:14:05 Problem: Falls, Risk of Goal: Absence of falls Outcome: Resolved Problem: Pain Goal: Control of pain at or below patient's documented comfort goal Outcome: Resolved Goal: Reduction in pain sensation Outcome: Resolved Problem: Discharge Planning Goal: Adequate for discharge Outcome: Resolved Goal: Effective communication Outcome: Resolved Problem: Infection Risk Goal: Absence of infection Outcome: Resolved Problem: Patient utilizes substances Goal: Reduce substance use Outcome: Resolved Grace Espinoza RN [facility] 2024-09-24 01:21:21 Problem: Falls, Risk of Goal: Absence of falls Outcome: Progressing as expected Problem: Pain Goal: Control of pain at or below patient's documented comfort goal Outcome: Progressing as expected Goal: Reduction in pain sensation Outcome: Progressing as expected Problem: Discharge Planning Goal: Adequate for discharge Outcome: Progressing as expected Goal: Effective communication Outcome: Progressing as expected Problem: Infection Risk Goal: Absence of infection Outcome: Progressing as expected Problem: Patient utilizes substances Goal: Reduce substance use Outcome: Progressing as expected Barb Jones RN [facility] 2024-09-23 04:35:00 I noticed that the pt was secretly recording audio of all staff members who walk into his room. When I was doing labs on him this morning, he lifted his arm and under is blanket, his phone was recoding all audio without consent. I have made the morning nurse aware. Linda Norris RN [facility] 2024-09-22 23:23:27 Problem: Falls, Risk of Goal: Absence of falls Outcome: Progressing as expected Problem: Pain Goal: Control of pain at or below patient's documented comfort goal Outcome: Progressing as expected Goal: Reduction in pain sensation Outcome: Progressing as expected Problem: Discharge Planning Goal: Effective communication Outcome: Progressing as expected Problem: Infection Risk Goal: Absence of infection Outcome: Progressing as expected [facility] 2024-09-22 13:15:33 Problem: Falls, Risk of Goal: Absence of falls Outcome: Progressing as expected Problem: Pain Goal: Control of pain at or below patient's documented comfort goal Outcome: Progressing as expected Goal: Reduction in pain sensation Outcome: Progressing as expected Problem: Discharge Planning Goal: Adequate for discharge Outcome: Progressing as expected Goal: Effective communication Outcome: Progressing as expected Problem: Infection Risk Goal: Absence of infection Outcome: Progressing as expected Problem: Patient utilizes substances Goal: Reduce substance use Outcome: Progressing as expected Zulay Elaine RN [facility] 2024-09-21 23:25:58 Problem: Falls, Risk of Goal: Absence of falls Outcome: Progressing as expected Problem: Pain Goal: Control of pain at or below patient's documented comfort goal Outcome: Progressing as expected Goal: Reduction in pain sensation Outcome: Progressing as expected Problem: Discharge Planning Goal: Adequate for discharge Outcome: Progressing as expected Goal: Effective communication Outcome: Progressing as expected Problem: Infection Risk Goal: Absence of infection Outcome: Progressing as expected Problem: Patient utilizes substances Goal: Reduce substance use Outcome: Progressing as expected Evelia Oviedo RN [facility] 2024-09-21 16:00:49 Problem: Falls, Risk of Goal: Absence of falls Outcome: Progressing as expected Problem: Pain Goal: Control of pain at or below patient's documented comfort goal Outcome: Progressing as expected Goal: Reduction in pain sensation Outcome: Progressing as expected Problem: Discharge Planning Goal: Adequate for discharge Outcome: Progressing as expected Goal: Effective communication Outcome: Progressing as expected Problem: Infection Risk Goal: Absence of infection Outcome: Progressing as expected Problem: Patient utilizes substances Goal: Reduce substance use Outcome: Progressing as expected Ksenia Meza RN [facility] 2024-09-21 03:03:12 Problem: Falls, Risk of Goal: Absence of falls Outcome: Progressing as expected Problem: Pain Goal: Control of pain at or below patient's documented comfort goal Outcome: Progressing as expected Goal: Reduction in pain sensation Outcome: Progressing as expected Problem: Discharge Planning Goal: Adequate for discharge Outcome: Progressing as expected Goal: Effective communication Outcome: Progressing as expected Problem: Infection Risk Goal: Absence of infection Outcome: Progressing as expected Darlin Blanco RN [facility] 2024-09-20 15:13:42 Problem: Falls, Risk of Goal: Absence of falls Outcome: Adequate for discharge Problem: Pain Goal: Control of pain at or below patient's documented comfort goal Outcome: Adequate for discharge Goal: Reduction in pain sensation Outcome: Adequate for discharge Problem: Discharge Planning Goal: Adequate for discharge Outcome: Adequate for discharge Goal: Effective communication Outcome: Adequate for discharge Problem: Infection Risk Goal: Absence of infection Outcome: Adequate for discharge Orquidea Martinez RN [facility] 2024-09-20 00:21:12 Problem: Falls, Risk of Goal: Absence of falls Outcome: Progressing as expected Problem: Pain Goal: Control of pain at or below patient's documented comfort goal Outcome: Progressing as expected Goal: Reduction in pain sensation Outcome: Progressing as expected Problem: Discharge Planning Goal: Adequate for discharge Outcome: Progressing as expected Goal: Effective communication Outcome: Progressing as expected Problem: Infection Risk Goal: Absence of infection Outcome: Progressing as expected [facility] 2024-09-19 16:26:08 Problem: Falls, Risk of Goal: Absence of falls Outcome: Progressing as expected Problem: Pain Goal: Control of pain at or below patient's documented comfort goal Outcome: Progressing as expected Goal: Reduction in pain sensation Outcome: Progressing as expected Problem: Discharge Planning Goal: Adequate for discharge Outcome: Progressing as expected Goal: Effective communication Outcome: Progressing as expected Problem: Infection Risk Goal: Absence of infection Outcome: Progressing as expected Ana Hernandez RN [facility] 2024-09-19 00:42:04 Problem: Falls, Risk of Goal: Absence of falls Outcome: Progressing as expected Problem: Pain Goal: Control of pain at or below patient's documented comfort goal Outcome: Progressing as expected Goal: Reduction in pain sensation Outcome: Progressing as expected Problem: Discharge Planning Goal: Adequate for discharge Outcome: Progressing as expected Goal: Effective communication Outcome: Progressing as expected Problem: Infection Risk Goal: Absence of infection Outcome: Progressing as expected [facility] 2024-09-18 18:58:21 Problem: Falls, Risk of Goal: Absence of falls Outcome: Progressing as expected Problem: Pain Goal: Control of pain at or below patient's documented comfort goal Outcome: Progressing as expected Goal: Reduction in pain sensation Outcome: Progressing as expected Problem: Discharge Planning Goal: Adequate for discharge Outcome: Progressing as expected Goal: Effective communication Outcome: Progressing as expected Problem: Infection Risk Goal: Absence of infection Outcome: Progressing as expected [facility] 2024-09-18 00:06:05 Problem: Falls, Risk of Goal: Absence of falls Reactivated Problem: Pain Goal: Control of pain at or below patient's documented comfort goal Reactivated Goal: Reduction in pain sensation Reactivated Problem: Discharge Planning Goal: Adequate for discharge Reactivated Goal: Effective communication Reactivated Problem: Infection Risk Goal: Absence of infection Reactivated [facility] 2024-09-17 21:03:48 Report called to Malgorzata SELF [facility] Nigel Echols RN [facility] 2024-09-17 18:57:36 Nurse Report Report given to ARAMIS Manning. Chief complaint, assessment findings, infusion verify and orders reviewed. Plan of care discussed at bedside with patient and both nurses. Patient/family members verbalized understanding. Flori Carney RN Flori Carney RN [facility] 2024-09-17 17:50:17 Patient states went to [place] yesterday for this same issue. Got a prescription for Zofran but states does not help. Patient states having multiple episodes of emesis throughout yesterday and today. [facility] 2024-09-17 17:45:01 Patient arrived ambulatory to ED c/o intermittent abdominal pain for about a year already. States it is worse at work when he gets dehydrated and starts sweating. Has not followed up with PCP or GI. When asked where the pain is patient points to right flank. Hx of kidney stones. Ibuprofen taken last this morning. Pharmacy: [facility] Emely Klein RN [facility] 2024-07-23 12:51:00 [facility] ([facility] Hospitalist Discharge Summary REPORT#:[id number] REPORT STATUS: Signed REPORT INITIALIZATION DATE:07/23/24 TIME: 1250 PATIENT: RONY ELKINS UNIT #: [id number] ROOM/BED: [address] : [birth year] AGE: 28 SEX: M ATTEND: Dustin Pickens MD ADM AUTHOR: Dustin Pickens MD REPT SERVICE DT/TIME: 07/23/24 1251 * ALL edits or amendments must be made on the electronic/computer document * General Information Problem List/A P: 1. Migraine 2. Elle-Lai tear 3. Pyelonephritis 4. Acute renal failure 5. Intractable vomiting 6. Abdominal pain 7. Vomiting 8. Substance abuse 9. Cocaine abuse 10. Appendicitis 11. Abdominal pain 12. Nausea and vomiting 13. Intractable abdominal pain 14. Depression 15. Vomiting 16. Abdominal pain 17. Suicidal ideation 18. Homicidal ideation 19. Dehydration 20. Acute renal insufficiency 21. Gastroenteritis 22. Blunt head trauma 23. Blunt abdominal trauma 24. Renal failure 25. Muscle spasm 26. Cannabis abuse 27. Hyperemesis 28. Cannabis hyperemesis syndrome concurrent with and due to cannabis abuse 29. Elevated lipase Discharge date: 07/23/24 Discharge diagnosis: Hyperemesis from cannibus abuse Hospital course: #Cannibis hyperemesis syndrome #Nausea and vomiting, intractible 2/2 to above #Dehydration 2/2 to PO loss #Polysubstance abuse - IVF - reg diet - pain control - anti-emetics - counseling on drug cessation - home meds 07/23 - symptoms better with more iVF, anti emetics and imodium. Diarrhea resolved. OK to dc Dispo - DC home Med Rec Med Rec Discharge meds: Start taking the following new medications: METOCLOPRAMIDE (REGLAN) 10 MG TAB 10 MILLIGRAM ORAL THREE TIMES DAILY NEEDED. as needed for NAUSEA/VOMITING Days = 10 Qty = 30 No Refills traMADol (ULTRAM) 50 MG TAB 50 MILLIGRAM ORAL EVERY 6 HOURS NEEDED. as needed for ACUTE PAIN Days = 5 Qty = 20 No Refills Objective ENT: moist mucosal membranes, normal dentition Cardiovascular: normal capillary refill, normal heart sounds Respiratory: aerating well Abdomen: non-tender, normal bowel sounds Extremities: moves all, normal capillary refill Musculoskeletal: normal inspection, painless range of motion Discharge Instructions PCP Discharge to: Home/Self Care Additional Discharge Routines: PCP Follow-Up Diet: Resume Home Diet/Feeds, Regular Activity: Resume Normal Activity, As Tolerated Follow-up Appointments PCP follow-up: PCP: No Primary or Family Physician PCP follow up timeframe: In 1-2 weeks at 1251 RPT #:[id number] END OF REPORT [facility] 2024-07-22 23:50:00 [facility] ([facility] Hospitalist Progress Note REPORT#:[id number] REPORT STATUS: Signed REPORT INITIALIZATION DATE:07/22/24 TIME: 0 PATIENT: RONY ELKINS UNIT #: [id number] ROOM/BED: [address] : 94 AGE: 28 SEX: M ATTEND: Dustin Pickens MD ADM AUTHOR: Dustin Pickens MD REPT SERVICE DT/TIME: 07/22/24 9710 * ALL edits or amendments must be made on the electronic/computer document * Subjective Chief complaint: neusea and vomiting HPI: This is a 28-year-old male no significant past medical history transferred from [facility] emergency room in [facility] for intractable nausea vomiting elevated lipase and THC abuse consistent with cannabis hyperemesis syndrome. Patient symptomatology resolved with Phenergan and he slept the entirety of the transport to this emergency room on arrival patient is now actively vomiting. Transport and patient deny all other complaints this time Objective Physical Exam ENT: moist mucosal membranes, normal dentition Cardiovascular: normal capillary refill, normal heart sounds Respiratory: aerating well Abdomen: non-tender, normal bowel sounds Extremities: moves all, normal capillary refill Musculoskeletal: normal inspection, painless range of motion Diagnosis, Assessment Plan Problem List/A P: 1. Migraine 2. Elle-Lai tear 3. Pyelonephritis 4. Acute renal failure 5. Intractable vomiting 6. Abdominal pain 7. Vomiting 8. Substance abuse 9. Cocaine abuse 10. Appendicitis 11. Abdominal pain 12. Nausea and vomiting 13. Intractable abdominal pain 14. Depression 15. Vomiting 16. Abdominal pain 17. Suicidal ideation 18. Homicidal ideation 19. Dehydration 20. Acute renal insufficiency 21. Gastroenteritis 22. Blunt head trauma 23. Blunt abdominal trauma 24. Renal failure 25. Muscle spasm 26. Cannabis abuse 27. Hyperemesis 28. Cannabis hyperemesis syndrome concurrent with and due to cannabis abuse 29. Elevated lipase Free Text DxA P Notes Free text DxA P notes: #Cannibis hyperemesis syndrome #Nausea and vomiting, intractible 2/2 to above #Dehydration 2/2 to PO loss #Polysubstance abuse - IVF - reg diet - pain control - anti-emetics - counseling on drug cessation - home meds Dispo - DC in 24-48 hours at 0838 RPT #:[id number] END OF REPORT [facility] 2024-07-21 09:21:00 [facility] ([facility] Hospitalist History Physical REPORT#:[id number] REPORT STATUS: Signed REPORT INITIALIZATION DATE:07/21/24 TIME: 920 PATIENT: RONY ELKINS UNIT #: [id number] ROOM/BED: [facility]9-A : 94 AGE: 28 SEX: M ATTEND: Dustin Pickens MD ADM AUTHOR: Dustin Pickens MD REPT SERVICE DT/TIME: 07/21/24920 * ALL edits or amendments must be made on the electronic/computer document * History of Present Illness HPI Chief complaint: neusea and vomiting HPI: This is a 28-year-old male no significant past medical history transferred from [facility] emergency room in [facility] for intractable nausea vomiting elevated lipase and THC abuse consistent with cannabis hyperemesis syndrome. Patient symptomatology resolved with Phenergan and he slept the entirety of the transport to this emergency room on arrival patient is now actively vomiting. Transport and patient deny all other complaints this time History Past Medical Surgical Hx Additional medical history: Reports none Additional surgical history: Reports none Family History Additional family history: mother and father with hypertension Social History Alcohol use: Denies EtOH use Drug use: Marijuana Smoking status for patients 13 years old or older: Never Smoker Other social history: Local resident, Lives with family Medication/Allergy-Vaccine Hx Allergies: Coded Allergies: No Known Allergies (11/22/16) Review of Systems GI: Reports: nausea, vomiting. Denies: abdominal pain, constipation, diarrhea, dysphagia, GERD, hematochezia, hiatal hernia, melena, rectal pain. OBJECTIVE VS/I O: Vital Signs Date Temp Pulse Resp B/P B/P Mean Pulse Ox FiO2 07/21-07/22 36.5-37.2 49-73 15-18 98-163/64-91 76.7-115.4 96-99 Last Documented: Result Date Time Pulse Ox 97 07/22 0709 B/P 98/66 07/22 0709 B/P Mean 76.7 07/22 0709 O2 Delivery Room air 07/22 708 Temp 36.9 07/22 0709 Pulse 49 07/22 0709 Resp 15 07/22 0709 24 hour I O ending at 0700: 07/22 0700 07/21 1900 Intake Total Output Total Balance Patient 75 kg Weight Weight Stated/Reported Measurement Method Patient Weight and BMI Weight (kg): 75.000 BMI: 24.4 Medications: Active Meds + DC'd Last 24 Hrs Acetaminophen (TYLENOL) 650 MG Q4H PRN PRN PO Hydralazine HCl (APRESOLINE) 10 MG Q4H PRN PRN IV Labetalol HCl (TRANDATE, NORMODYNE) 10 MG Q4H PRN PRN IV Metoclopramide HCl (REGLAN ) 5 MG Q6H PRN PRN IV Polyethylene Glycol (MIRALAX) 17 GM BID PRN PRN PO Sodium Chloride (SODIUM CHLORIDE 0.9%) 1,000 ML Q13H IV Tramadol HCl (ULTRAM) 50 MG Q12H PRN PRN PO Ondansetron HCl (ZOFRAN) 4 MG Q6H PRN PRN IV (DC) Sodium Chloride (SODIUM CHLORIDE 0.9%) 1,000 ML ONCE ONE IV (DC) Ondansetron HCl (ZOFRAN) 4 MG X1ED PRN PRN IV (DC) Sodium Chloride (SODIUM CHLORIDE 0.9%) 1,000 ML X1ED ONE IV (DC) Ketorolac Tromethamine (TORADOL) 15 MG X1ED STA IV (DC) Metoclopramide HCl (REGLAN ) 10 MG X1ED STA IV (DC) General appearance: alert, awake ENT: moist mucosal membranes, normal dentition Cardiovascular: normal capillary refill, normal heart sounds Respiratory: aerating well Abdomen: non-tender, normal bowel sounds Extremities: moves all, normal capillary refill Musculoskeletal: normal inspection, painless range of motion Diagnosis, Assessment Plan Problem List/A P: 1. Migraine 2. Elle-Lai tear 3. Pyelonephritis 4. Acute renal failure 5. Intractable vomiting 6. Abdominal pain 7. Vomiting 8. Substance abuse 9. Cocaine abuse 10. Appendicitis 11. Abdominal pain 12. Nausea and vomiting 13. Intractable abdominal pain 14. Depression 15. Vomiting 16. Abdominal pain 17. Suicidal ideation 18. Homicidal ideation 19. Dehydration 20. Acute renal insufficiency 21. Gastroenteritis 22. Blunt head trauma 23. Blunt abdominal trauma 24. Renal failure 25. Muscle spasm 26. Cannabis abuse 27. Hyperemesis 28. Cannabis hyperemesis syndrome concurrent with and due to cannabis abuse 29. Elevated lipase Free Text A P: #Cannibis hyperemesis syndrome #Nausea and vomiting, intractible 2/2 to above #Dehydration 2/2 to PO loss #Polysubstance abuse - IVF - reg diet - pain control - anti-emetics - counseling on drug cessation - home meds Dispo - DC in 24-48 hours at 0832 RPT #:[id number] END OF REPORT [facility] 2024-07-21 08:52:00 [facility] ([facility]) EMERGENCY PROVIDER REPORT REPORT#:[id number] REPORT STATUS: Signed DATE:07/21/24 TIME: 851 PATIENT: RONY ELKINS UNIT #: [id number] ROOM/BED: : 94 AGE: 28 SEX: M PCP PHYS: No Primary or Family Physician SERVICE DT: AUTHOR: Patrice Chase MD LOCATION: [facility] REP SRV REP SRV TM: 0852 * ALL edits or amendments must be made on the electronic/computer document * HPI-Abd Pain M 40 and Over General Initial Greet Date/Time 07/21/24 0846 Presentation Chief Complaint Abdominal pain, Nausea Reason for ED Visit (v.PCP/UC) Txf from [facility] Obtained From Patient, EMS, Prior medical records Sudden in Onset? No Onset Occurred Yesterday Symptom Duration Since onset Progression since Onset Unchanged Context of Onset Sleeping Caused by No trauma by history Location Diffuse Quality Same as prior, Aching, Painful Radiation Does not radiate. Migration/Movement None Pain/Sev: Onset Mild Pain/Sev: Current Mild Associated with Reports: Nausea, Vomiting. Free Text HPI Notes Free Text HPI Notes This is a 28-year-old male no significant past medical history transferred from [facility] emergency room in [facility] for intractable nausea vomiting elevated lipase and THC abuse consistent with cannabis hyperemesis syndrome. Patient symptomatology resolved with Phenergan and he slept the entirety of the transport to this emergency room on arrival patient is now actively vomiting. Transport and patient deny all other complaints this time Risk-Abd Pain M 40 and Over )( Abdominal Aortic Aneurysm Risk factors reviewed Coronary Artery Disease Risk factors reviewed Thoracic Aortic Dissection Risk factors reviewed Review of Systems ROS Statements All systems rev neg except as marked. Focused Review of Systems Constitutional Denies: Chills, Fever, Lethargy. Respiratory Denies: Cough, non-productive, Cough, productive, Shortness of breath. Cardiovascular Denies: Chest pain, Syncope. GI Reports: Abdominal pain, Nausea, Vomiting. Denies: Bloody/tarry stool, Constipation, Diarrhea. Male Denies: Flank pain, Testicular pain. Musculoskeletal Denies: Back pain, Extremity pain. Past Medical History - Adult Stated Complaint N/V, ELEVATED LIPASE Allergies Coded Allergies: No Known Allergies (11/22/16) Home Medications Reported Medications No Known Home Medications Review of Nursing Notes Rev avail, and agree Past Medical History: Reports: Headache disorder (Migraine), Pancreatitis. Additional Medical History Reports none Additional Surgical History Reports none Additional Family History mother and father with hypertension Alcohol Use Denies EtOH use Drug Use Marijuana Smoking status for patients 13 years old or older: Never Smoker Other Social History Local resident, Lives with family Ambulatory Status Independent Physical Exam Vital Signs Vital Signs First Documented: Result Date Time Pulse Ox 97 05/ 0849 B/P 135/64 05/20 0849 O2 Delivery Room air 05/20 0849 Temp 98.6 05/20 0849 Pulse 59 05/20 0849 Resp 16 / 0849 Last Documented: Result Date Time Pulse Ox 97 05/ 0849 B/P 135/64 05/20 0849 O2 Delivery Room air 05/20 0849 Temp 98.6 05/20 0849 Pulse 59 05/20 0849 Resp 16 05/20 0849 Review of Vital Signs Reviewed Focused PE General/Const General/Const Awake, Alert, No acute distress, Cooperative, Not toxic appearing MS Head Head Atraumatic, Normocephalic Eyes Eyes Atraumatic, PERRL, EOMI, No periorbital redness, No periorbital swelling Ears/Nose/Throat Ears/Nose/Throat Atraumatic, Airway patent, Mucous membranes moist Resp/Chest Respiratory/Chest Atraumatic, Breath sounds NL, Breath sounds = bilat, No respiratory distress, No rales, No rhonchi, No wheezing Cardiovascular Cardiovascular Heart rate NL, Regular rhythm, Heart sounds NL, Peripheral circulation NL Abdomen/GI Abdomen/GI Atraumatic, Soft, Non-tender, McBurney's non-tender, No guarding, No rebound, BS normoactive, No distention, No hernia, No palpable mass, No pulsatile mass MS Back Back Atraumatic, Inspection NL, Full range of motion, Painless range of motion, Non-tender, No midline vertebral tend, No CVA tenderness Skin Skin Atraumatic, Color NL, No rash, Warm, Dry, Intact, Turgor NL Genitourinary General Exam deferred Rectum Rectum/Perineum Exam deferred Neurologic Neurologic Oriented X3, Speech NL, No motor deficits, No sensory deficits, CN II - XII intact Additional PE MS Neck Neck Atraumatic, Supple, No meningismus, Full range of motion, No adenopathy Lymphatic Lymphatic No gross adenopathy, No cervical adenopathy MS Upper Extrem Upper Extremity/MS Atraumatic, Inspection NL, Full range of motion MS Lower Extrem Lower Ext/Pelvis/MS Atraumatic, Inspection NL, Full range of motion Psychiatric Psychiatric Affect NL, Mood NL, Cognitive function NL Interpretation Diagnostics Lab Results Interpretation Considerations Independ review imaging, Reviewed prior records Lab Imaging Statement Laboratory radiographic studies reviewed and considered in the medical decision-making. Point of Care Testing Pulse Oximetry Pulse Ox % 99 On: Room air Interpretation Interpreted by ma, Pulse oximetry normal Time 0855 Re-Evaluation [facility] )( Re-Evaluation/Progress #1 Text/Dict Note Patient chart reviewed from previous facility CT scan negative for acute finding. Patient's lipase 327. No other acute abnormalities noted on laboratory or imaging exam. Patient clinical presentation consistent with cannabis hyperemesis syndrome. Patient will be admitted for further care and evaluation. Medical complexity high social terms utilized in care. Discussed case with admitting provider agrees with plan. This not sepsis related with abscess or septic shock there is no signs of infection or SIRS criteria at this time. Time of Re-Eval 0856 )( Re-Eval Status Unchanged Tissue Perfusion Reassessment Patient tissue perfusion reassessment completed. ED Course Medication(s) Ordered Medication(s) Ordered: Central Nervous System Agents Sig/Mannie Start time Last Medication Dose Route Stop Time Status Admin Ketorolac 15 MG X1ED STA 07/21 0851 DC Tromethamine IV 07/21 0852 Electrolytic, Caloric, And Margot Sig/Mannie Start time Last Medication Dose Route Stop Time Status Admin Sodium Chloride 1,000 ML X1ED ONE 05/20 0855 AC IV 07/21 09 Gastrointestinal Drugs Sig/Mannie Start time Last Medication Dose Route Stop Time Status Admin Ondansetron HCl 4 MG X1ED PRN PRN 07/21 854 AC IV 07/22 08 Metoclopramide HCl 10 MG X1ED STA 07/21 0851 DC IV 07/21 0852 Patient Discharge Departure Vital Signs/Condition Vital Signs First Documented: Result Date Time Pulse Ox 97 07/21 0849 B/P 135/64 07/21 0849 O2 Delivery Room air 07/21 0849 Temp 98.6 07/21 0849 Pulse 59 07/21 0849 Resp 16 07/21 0849 Last Documented: Result Date Time Pulse Ox 97 07/21 0849 B/P 135/64 07/21 0849 O2 Delivery Room air 07/21 0849 Temp 98.6 07/21 0849 Pulse 59 07/21 0849 Resp 16 07/21 0849 All vital signs available at the time of this entry have been reviewed. Clinical Impression Clinical Impression Primary Impression: Cannabis hyperemesis syndrome concurrent with and due to cannabis abuse Secondary Impressions: Elevated lipase Disposition Decision Hospitalize Hosp Physician Name Thai Ruth MD [facility] Physician Hospitalist Request Time 08 Request Date 07/21/24 )( Accepts Hospitalization Yes )( Reason for Hospitalization n/v )( Accepted Time 855 )( Accepted Date 07/21/24 Call Information will see patient, agrees with eval, agrees with plan Discharge/Care Plan Counseled Regarding Diagnosis, Lab results, Imaging studies, Need for admission (Auto) Prescriptions Current Visit Scripts No Known Home Medications Admit Note I have spoken with the patient and/or caregivers. I have explained the patient's condition, diagnoses and treatment plan based on the information available to me at this time. I have answered the patient's and/or caregiver's questions and addressed any concerns. The patient and/or caregivers have as good an understanding of the patient's diagnosis, condition and treatment plan as can be expected at this point. The patient has been stabilized within the capability of the emergency department. The patient will be transported for further care and management or will be moved to an observation or inpatient service. I have communicated with the staff or medical practitioner taking over this patient's care. Quality Measures BP F/U for HTN Patient admitted Smoking Cessation Screened, non user at 0857 [facility] #:[id number] END OF REPORT [facility] 2024-01-13 06:31:27 Pt given printed and verbal discharge instructions regarding chest pain and cocaine abuse, encouraged hydration, Pt verbalized understanding of instructions, pt awake alert oriented, resp reg unlabored, skin w/d, color appropriate for race, moves all ext well,pt encouraged to follow up with pcp Advised to seek medical attention for new/prolonged/worsening of symptoms No adverse reaction to meds given in ER noted upon discharge PIV d'cd, dressing to site, catheter in tact. Awake, alert oriented, resp reg unlabored, skin w/d, pt leaving amb with steady gait, in no apparent distress, BODY BUILDER APPRENTICE Emely Klein RN [facility] 2024-01-13 03:13:00 Pt arrived ambulatory C/o 10/11 chest pain that woke him up 2 hours ago, nausea, diarrhea Denies any cardiac hx BODY BUILDER APPRENTICE Kamala Barrios RN [facility] 2023-11-06 15:14:39 Pt given printed and verbal discharge instructions regarding viral syndrome, COVID-19, encouraged hydration, 3 Prescriptions sent. Discussed ibuprofen and to take with food to avoid GI distress. Pt verbalized understanding of instructions, pt awake alert oriented, resp reg unlabored, skin w/d, color appropriate for race, moves all ext well,pt encouraged to follow up with pcp Advised to seek medical attention for new/prolonged/worsening of symptoms, Symptoms improved. No adverse reaction to meds given in ER noted upon discharge Awake, alert oriented, resp reg unlabored, skin w/d, pt leaving amb with steady gait, in no apparent distress, Dianne Avila RN [facility] 2023-11-06 13:06:09 Pt arrived via private car with c/o vomiting, cough, congestion. States that his coworker has covid. Alia Marcus RN [facility] 2023-11-06 13:00:00 [facility] Emergency Department Note Patient Name: Rony Elkins Jr. Date of : 1995 27 year old male Treatment Room: [facility] ED [facility] Primary Care Physician: PATIENT DOES NOT HAVE A PCP Patient Escorted by: Family [5] Mode of Arrival: Personal means [1] EMS Treatment Prior to ED Arrival: [employer] treatment: None Travel and Exposure Screening: Symptoms Does patient have any of these symptoms?: (not recorded) Exposure Screening Has patient had contact with someone with a communicable disease in the last month?: (not recorded) Diseases exposed to:: (not recorded) Is Patient ?: (not recorded) Exposure Date: (not recorded) Chief Complaint: Chief Complaint Patient presents with Vomiting Sore Throat History of Present Illness: Rony Elkins Jr. is a 27 year old male with acute viral sydnrome. Coworker positive with COVID. Wants meds for cough, nausa, and body aches. No hypoxia or resp distress. Past Medical History/Immunizations: Past Medical History: Diagnosis Date Polysubstance abuse Tetanus received in last 5 years: Unknown Childhood immunizations: Up-to-date Allergies: No Known Allergies Past Social History: Tobacco Use Every Day; 1 pack/day; Smoked an average of 1 pack/day for 5.0 years; Types: Cigarettes Smokeless Tobacco: Never used smokeless tobacco. Alcohol Use Yes. Comments: social drinker Drug Use Yes; Marijuana, "Crack" cocaine. Past Surgical History: History reviewed. No pertinent surgical history. Review of Systems: Review of Systems Constitutional: Positive for activity change, fatigue and fever. HENT: Positive for sore throat. Respiratory: Positive for cough. Negative for shortness of breath. Gastrointestinal: Positive for nausea. Negative for diarrhea. Genitourinary: Negative for dysuria. Musculoskeletal: Positive for myalgias. Skin: Negative for rash. Neurological: Positive for headaches. Physical Exam: ED Triage Vitals [11/06/23 1307] Weight 65.8 kg (145 lb) Actual or estimated Estimated by patient/family report Height 1.651 m (5' 5") BP 120/75 Pulse 72 Resp 18 Temp 37.5 ?C (99.5 ?F) Temp source Oral SpO2 100 % Measured on Room air Physical Exam Vitals and nursing note reviewed. Constitutional: Appearance: He is well-developed. HENT: Head: Normocephalic and atraumatic. Eyes: General: No scleral icterus. Conjunctiva/sclera: Conjunctivae normal. Pupils: Pupils are equal, round, and reactive to light. Neck: Vascular: No JVD. Cardiovascular: Rate and Rhythm: Normal rate and regular rhythm. Heart sounds: Normal heart sounds. Pulmonary: Effort: Pulmonary effort is normal. Breath sounds: Normal breath sounds. No stridor. Abdominal: General: Bowel sounds are normal. Palpations: Abdomen is soft. Musculoskeletal: General: Normal range of motion. Cervical back: Normal range of motion and neck supple. Skin: General: Skin is warm and dry. Neurological: Mental Status: He is alert and oriented to person, place, and time. Psychiatric: Behavior: Behavior normal. Thought Content: Thought content normal. Radiology: No orders to display Lab Results: Lab Results INFLUENZA A/B RSV COVID NAAT - Abnormal Result Value Ref Range Influenza A NAAT Negative Negative Influenza B NAAT Negative Negative RSV by PCR Negative Negative SARS-CoV-2 NAAT Positive (*) Negative RAPID STREP SCREEN FOR GROUP A - Normal Molecular Strep Negative Negative THROAT CULTURE LAB ONLY SARS-COV-2 SEQUENCING EKG: If EKG completed, see Procedure Note. Orders and Treatments: Orders Placed This Encounter Procedures Influenza A B RSV COVID NAAT Rapid Strep Screen For Group A Throat Culture Lab Only COVID Interpretation Lab Only Sars-Cov-2 Sequencing Orders Placed This Encounter Medications ondansetron (ZOFRAN-ODT) disintegrating tablet 8 mg ondansetron 4 mg disintegrating tablet naproxen 500 mg EC tablet benzonatate 100 mg capsule First Provider Eval: ED Events Date/Time Event User Comments 11/06/23 1308 Medical Screening Begins RANDALL HULL -- 11/06/23 1308 First Provider Evaluation RANDALL HULL -- ED COURSE ED Course as of 11/06/23 1456 SatNov 06, 2023 1450 SARS-CoV-2 NAAT(!): Positive [PS] 1418 Molecular Strep: Negative [PS] ED Course User Index [PS] Randall Hull DO Diagnosis/Impression as of 11/06/23 1456 Viral syndrome COVID-19 Procedures: Procedures MDM: Medical Decision Making Problems Addressed: COVID-19: Details: Rony Elkins Jr. is a 27 year old male with covid. Home with zofran, tessalon, and anaprox. Encourage fluids and light activity. No hypoxia. Work note provided. Amount and/or Complexity of Data Reviewed Labs: ordered. Decision-making details documented in ED Course. Risk Prescription drug management. Flowsheet Documentation: Scoring Tools: No data recorded Disposition/Condition: ED Disposition ED Disposition Disch - Home Condition Stable Comment -- Discharge Medications: Patient's Medications START taking these medications BENZONATATE 100 MG CAPSULE Take 1 capsule by mouth 3 (three) times daily as needed for Cough. NAPROXEN 500 MG EC TABLET Take 1 tablet by mouth in the morning and 1 tablet in the evening. Take with meals. Do all this for 45 doses. ONDANSETRON 4 MG DISINTEGRATING TABLET Take 1 tablet by mouth every 8 (eight) hours as needed for Nausea and Vomiting (N/V). CONTINUE taking these medications which have NOT CHANGED No medications on file START taking Modified Medications as Prescribed No medications on file STOP taking these medications ONDANSETRON (ZOFRAN ODT) 4 MG DISINTEGRATING TABLET Take 1 tablet by mouth every 8 (eight) hours as needed for Nausea and Vomiting (N/V). Follow-up: Electronically signed by: Randall Hull DO 11/06/231455 [facility] hospital
[2024-12-11] MEDS ORDERED: ONDANSETRON 4 MG/2 ML VIAL ONE (04:28)
[2024-12-11] MEDS ORDERED: MORPHINE 4 MG/ML SYR ONE (04:28)
[2024-12-11] MEDS ORDERED: NA CHLORIDE 0.9% 1,000 ML ONE (04:29)
[2024-12-11] MEDS ORDERED: FAMOTIDINE 20 MG/2 ML VIAL IV ONE (04:29)
[2024-12-11 04:55] LABS: Absolute Lymphocytes (CBC) 0.7 K/uL (0.7-4.9); Hematocrit 47.3 % (39.6-49.0); Hemoglobin 16.8 g/dL (13.6-17.9); MCH 31.1 pg (27.0-35.0); MCHC 35.6 g/dL (32.0-36.0); MCV 87.4 fL (80-100); MPV 9.6 fL (7.6-11.3); Nucleated RBC Absolute Count 0.0 (0-0); Nucleated Red Blood Cells % 0.0 % (0-0); RBC Red Blood Cell Count 5.41 M/uL (4.33-5.43); White Blood Count 15.80 thou/uL (4.3-10.9)
[2024-12-11 04:58] LABS: D-Dimer 0.381 FEUug/mL (0-0.500); PT Prothrombin Time 13.4 SECONDS (10-13.0); Protime INR 1.19
[2024-12-11 05:08] LABS: ALT/SGPT 37 U/L (16-61); AST/SGOT 14 U/L (15-37); Albumin 4.5 g/dL (3.4-5.0); Albumin/Globulin Ratio 1.0 (1.1-1.8); Alkaline Phosphatase 114 U/L (45-117); Anion Gap 14.8 mEq/L (5.0-15.0); BUN Blood Urea Nitrogen 24 mg/dL (7-18); Bilirubin Indirect, Calculated 0.9 mg/dL (0.2-0.8); Globulin 4.5 g/dL (2.3-3.5); Glucose Level 143 mg/dL (74-106); Lipase 28 U/L (13-75); Magnesium 2.7 mg/dL (1.6-2.4); NT PRO-BNP 28 pg/mL (<125); Potassium 3.8 mEq/L (3.5-5.1)
[2024-12-11 05:09] LABS: Troponin High Sensitivity < 3.0 pg/mL (<58.9)
[2024-12-11] MEDS ORDERED: MAGNES/ALUMIN/SIMET 30ML UCUP ONE (05:18)
[2024-12-11 05:24] LABS: Blood Morphology Comment NOT SEEN (NOT SEEN); Differential Total Cells Count 100; Segmented Neutrophils 83 % (40-80)
--- NOTE | 2024-12-11 06:38 | ER ---
Nurse's Notes [facility] Name: Rony Castrejon Jr Age: 28 yrs Sex: Male : 1995 Arrival Date: 12/11/2024 Time: 04:20 Bed 6 Private MD: Diagnosis: Chest pain, unspecified;Nausea with vomiting, unspecified Presentation: 12/11 04:21 Chief complaint: Patient states: I had spicy chicken wing s for dinner last night about bm8 4 hrs later my chest was hurting sharp going to my back. 04:21 Coronavirus screen: At this time, the client does not indicate any symptoms associated bm8 with coronavirus-19. Ebola Screen: Patient negative for fever greater than or equal to 101.5 degrees Fahrenheit, and additional compatible Ebola Virus Disease symptoms Patient denies exposure to infectious person. Patient denies travel to an Ebola-affected area in the 21 days before illness onset. No symptoms or risks identified at this time. Initial Sepsis Screen: Does the patient meet any 2 criteria? No. Patient's initial sepsis screen is negative. Does the patient have a suspected source of infection? No. Patient's initial sepsis screen is negative. Risk Assessment: Do you want to hurt yourself or someone else? Patient reports no desire to harm self or others. Onset of symptoms was December 10, 2024 at 19:00. 04:21 Method Of Arrival: Ambulatory bm8 04:21 Acuity: JUSTICE 3 bm8 Triage Assessment: 04:38 General: Appears distressed, uncomfortable, Behavior is cooperative, appropriate for bm8 age. Pain: Complains of pain in chest and abdomen Pain radiates to back Pain currently is 8 out of 10 on a pain scale. Quality of pain is described as burning, radiating, sharp, Pain began gradually. EENT: No deficits noted. No signs and/or symptoms were reported regarding the EENT system. Neuro: No deficits noted. Level of Consciousness is awake, alert, obeys commands, Oriented to person, place, time, situation, Appropriate for age. Cardiovascular: Capillary refill < 3 seconds in bilateral fingers Patient's skin is warm and dry. Cardiovascular: Reports chest pain, Heart tones S1 S2 present. Respiratory: Airway is patent Respiratory effort is even, unlabored, Respiratory pattern is regular, symmetrical. GI: Abdomen is flat, non-distended, pt has positive Lainez's sign Bowel sounds present X 4 quads. Reports upper abdominal pain, epigastric pain, nausea, Pain is 8 out of 10 on a pain scale. vomiting. : No deficits noted. Derm: No deficits noted. Musculoskeletal: No deficits noted. Historical: - Allergies: 04:38 NKA; bm8 - Home Meds: 04:38 None [Active]; bm8 - PMHx: 04:38 Anxiety; Migraine; Pancreatitis; bm8 - PSHx: 04:38 None; bm8 - Immunization history:: Adult Immunizations up to date. - Infectious Disease History:: Denies. - Social history:: Smoking status: Reported history of juuling and/or vaping. Patient/guardian denies using alcohol, street drugs. Screenin:41 [facility] ED Fall Risk Assessment (Adult) History of falling in the last 3 months, bm8 including since admission No falls in past 3 months (0 pts) Confusion or Disorientation No (0 pts) Intoxicated or Sedated No (0 pts) Impaired Gait No (0 pts) Mobility Assist Device Used No (0 pt) Altered Elimination No (0 pt) Score/Fall Risk Level 0 - 2 = Low Risk Oriented to surroundings, Maintained a safe environment, Educated pt \T\ family on fall prevention, incl call for assistance when getting out of bed, Assessed \T\ reinforced patient's understanding of fall precautions, Hourly rounding (assess needs \T\ fall precautionary measures) done, Used ambulatory aids as needed (educated on \T\ assisted with), Used gait belt as appropriate. Abuse screen: Denies threats or abuse. Nutritional screening: No deficits noted. Tuberculosis screening: No symptoms or risk factors identified. Assessment: 05:39 Reassessment: Patient and/or family updated on plan of care and expected duration. Pain bm8 level reassessed. Patient is alert, oriented x 3, equal unlabored respirations, skin warm/dry/pink. reported vomiting episode after oral medication to provider. awaiting further orders. Linen changed. GI: Reports nausea, Pain is 7 out of 10 on a pain scale. vomiting. 06:37 Reassessment: Patient and/or family updated on plan of care and expected duration. Pain cc6 level reassessed. Patient is alert, oriented x 3, equal unlabored respirations, skin warm/dry/pink. 06:46 Reassessment: Patient appears in no apparent distress at this time. Patient and/or bm8 family updated on plan of care and expected duration. Pain level reassessed. Patient is alert, oriented x 3, equal unlabored respirations, skin warm/dry/pink. Patient denies pain at this time. Patient states feeling better. Patient states symptoms have improved. Vital Signs: 04:21 BP 142 / 93; Pulse 72; Resp 18; Temp 98; Pulse Ox 98% ; Weight 70.31 kg; Height 5 ft. 5 bm8 in. ; Pain 8/10; 05:48 BP 132 / 82; Pulse 55; Resp 16; Temp 98; Pulse Ox 98% ; Pain 7/10; bm8 06:38 BP 136 / 86; Pulse 59; Resp 19; Pulse Ox 97% on R/A; cc6 04:21 Body Mass Index 25.79 (70.31 kg, 165.1 cm) bm8 04:21 Pain Scale: Adult bm8 05:48 Pain Scale: Adult bm8 [place] Coma Score: 04:41 Eye Response: spontaneous(4). Motor Response: obeys commands(6). Verbal Response: bm8 oriented(5). Total: 15. 05:48 Eye Response: spontaneous(4). Motor Response: obeys commands(6). Verbal Response: bm8 oriented(5). Total: 15. 06:46 Eye Response: spontaneous(4). Motor Response: obeys commands(6). Verbal Response: bm8 oriented(5). Total: 15. ED Course: 04:20 Patient arrived in ED. mr 04:23 Antonio Becerra DO is Attending Physician. tt7 04:34 Bossman Thomson, RN is Primary Nurse. bm8 04:38 Triage completed. bm8 04:38 Arm band placed on right wrist. bm8 04:41 Patient has correct armband on for positive identification. Bed in low position. Call bm8 light in reach. Side rails up X 1. Adult w/ patient. Client placed on continuous cardiac and pulse oximetry monitoring. NIBP monitoring applied. child monitor on. Pulse ox on. NIBP on. Door closed. Noise minimized. Pillow given. Verbal reassurance given. Head of bed elevated. 04:41 No provider procedures requiring assistance completed. Initial lab(s) drawn, by me, bm8 sent to lab. EKG done, by ED staff, reviewed by Antonio Becerra DO. Inserted saline lock: 18 gauge in right antecubital area, using aseptic technique. Blood collected. Flushed with 10 mL NS. Patient maintains SpO2 saturation greater than 95% on room air. 05:21 XRAY Chest (1 view) In Process Unspecified. EDMS 06:45 Provided Education on: MEDICATION USAGE. cc6 06:45 IV discontinued, intact, bleeding controlled, No redness/swelling at site. Pressure cc6 dressing applied. Administered Medications: 04:43 Drug: Famotidine IVP 20 mg IVP once; dilute with 10 mL 0.9% NaCl; give over 2 minutes bm8 Route: IVP; Site: right antecubital; 06:11 Follow up: Response: No adverse reaction cc6 04:43 Drug: NS 0.9% IV 1000 ml IV at 1 bolus Per protocol; to be given as a bolus over 60 bm8 minutes Route: IV; Rate: 1 bolus; Site: right antecubital; 06:46 Follow up: Response: No adverse reaction; IV Status: Completed infusion bm8 04:44 Drug: Ondansetron IVP 4 mg IVP once; over 2 minutes Route: IVP; Site: right antecubital;bm8 06:11 Follow up: Response: No adverse reaction cc6 04:44 Drug: morphine IVP or IV 4 mg IVP once over 4 mins Route: IVP; Infused Over: 4 mins; bm8 Site: right antecubital; 06:12 Follow up: Response: No adverse reaction cc6 05:31 Drug: Droperidol IVP 1.25 mg IVP once Route: IVP; Site: right antecubital; cc6 06:11 Follow up: Response: No adverse reaction cc6 05:31 Drug: Alum-Mag Hydroxide-Simeth PO Suspension (200 mg-200 mg-20 mg/5 mL) 30 ml PO once cc6 Route: PO; 06:11 Follow up: Response: No adverse reaction cc6 Medication: 04:41 VIS not applicable for this client. bm8 Outcome: 06:37 Discharge ordered by . tt7 06:43 Discharged to home ambulatory, cc6 06:43 Condition: stable 06:43 Discharge instructions given to patient, Instructed on discharge instructions, follow up and referral plans. medication usage, Demonstrated understanding of instructions, follow-up care, medications, Prescriptions given X 1 06:51 Patient left the ED. cc6 Signatures: Dispatcher [employer] EDCO Juliana Nash, Camilo Page mr Bossman Thomson, RN RN bm8 Tonia Sanchez RN RN cc6 Antonio Becerra, DO tt7
--- NOTE | 2024-12-11 06:38 | EDPHYS ---
Physician Documentation [facility] Name: Rony Castrejon Jr Age: 28 yrs Sex: Male : 1995 Arrival Date: 12/11/2024 Time: 04:20 Bed 6 Private MD: ED Physician Antonio Becerra HPI: 12/11 06:09 This 28 yrs old Male presents to ER via Ambulatory with complaints of Chest tt7 Pain. 06:09 Patient reports sharp/stabbing chest pain that radiates to his back that started at tt7 2300, about 4 hours prior to this he ate spicy chicken wings for dinner, pain is intermittent and associated with nausea. Past medical history includes anxiety disorder, migraine headaches, pancreatitis. Historical: - Allergies: 04:38 NKA; bm8 - Home Meds: 04:38 None [Active]; bm8 - PMHx: 04:38 Anxiety; Migraine; Pancreatitis; bm8 - PSHx: 04:38 None; bm8 - Immunization history:: Adult Immunizations up to date. - Infectious Disease History:: Denies. - Social history:: Smoking status: Reported history of juuling and/or vaping. Patient/guardian denies using alcohol, street drugs. ROS: 06:10 Constitutional: negative for fever. Respiratory: negative for shortness of breath. tt7 MS/Extremity: negative for injury and deformity. Skin: negative for rash. Neuro: negative for focal weakness. 06:10 Cardiovascular: Positive for chest pain, Negative for palpitations, 06:10 Abdomen/GI: Positive for abdominal pain, nausea, Negative for diarrhea, Exam: 06:10 Constitutional: vital signs reviewed, well appearing. Head/Face: normocephalic, tt7 atraumatic. Eyes: no conjunctival injection, anicteric sclerae. ENT: mucus membranes moist. Neck: trachea midline, no JVD, no meningismus. Chest/axilla: normal chest wall appearance and motion, nontender, no crepitus. Cardiovascular: regular rate and rhythm, no murmurs, no rubs, no lower extremity edema. Respiratory: normal respiratory effort, no accessory muscle use, lungs CTAB. Abdomen/GI: soft, nondistended, nontender, no guarding or rebound, negative Lainez's sign, no McBurney point tenderness. Back: normal ROM. Skin: warm, dry, intact, normal turgor, normal color, no rash. MS/ Extremity: normal ROM of extremities, no gross deformities. Neuro: alert and oriented with appropriate mental status, normal speech, follows commands, no focal neurologic deficits. Psych: appropriate mood and affect. Vital Signs: 04:21 BP 142 / 93; Pulse 72; Resp 18; Temp 98; Pulse Ox 98% ; Weight 70.31 kg; Height 5 ft. 5 bm8 in. ; Pain 8/10; 05:48 BP 132 / 82; Pulse 55; Resp 16; Temp 98; Pulse Ox 98% ; Pain 7/10; bm8 06:38 BP 136 / 86; Pulse 59; Resp 19; Pulse Ox 97% on R/A; cc6 04:21 Body Mass Index 25.79 (70.31 kg, 165.1 cm) bm8 04:21 Pain Scale: Adult bm8 05:48 Pain Scale: Adult bm8 [place] Coma Score: 04:41 Eye Response: spontaneous(4). Motor Response: obeys commands(6). Verbal Response: bm8 oriented(5). Total: 15. 05:48 Eye Response: spontaneous(4). Motor Response: obeys commands(6). Verbal Response: bm8 oriented(5). Total: 15. 06:46 Eye Response: spontaneous(4). Motor Response: obeys commands(6). Verbal Response: bm8 oriented(5). Total: 15. MDM: 04:23 Medical Screening Exam initiated tt7 05:27 Differential diagnosis: abnormal EKG, acute myocardial infarction, anxiety, tt7 costochondritis, esophagitis, gastritis, gastroesophageal reflux disease (GERD), pancreatitis, peptic ulcer disease, pneumonia, pneumothorax, pulmonary embolus. Data reviewed: vital signs, nurses notes, old medical records, lab test result(s), EKG, radiologic studies. ED course: Very low suspicion for ACS, vital signs are stable, physical exam reassuring, pulmonary embolism ruled out with PERC rule, I independently interpreted the patient's EKG performed on 12/11/2024 at 427. On my interpretation, EKG demonstrates sinus rhythm with sinus arrhythmia, ventricular rate 65 bpm, slight left axis deviation, QRS duration 102 ms, normal ST segments, Q waves in lead III and aVF, no STEMI. 06:10 HEART Score: History: Slightly Suspicious (0), ECG: Normal (0), Age: < or = 45 years tt7 (0), Risk Factors: No Risk Factors Known (0), Troponin: < or = 1 x Normal Limit (0), Total Score = 0. ED course: Pulmonary embolism ruled out with PERC rule, workup is overall reassuring, I independently interpreted the patient's chest x-ray. On my interpretation, chest x-ray demonstrates no radiographic evidence of acute cardiopulmonary disease, I reassessed the patient, pain well-controlled and feels improved, will p.o. challenge. 06:52 ED course: P.o. challenge successful, after completion of the patient's emergency tt7 department evaluation, I do not suspect a life-threatening or disabling process. Patient is medically stable and not in need of emergent medical intervention. I had a detailed discussion with the patient regarding the historical points, exam findings, emergency department evaluation, diagnostic results, and the discharge diagnosis. I instructed the patient on outpatient management of their condition. I discussed the need for outpatient follow-up with a primary care physician. I informed the patient on return precautions, including the need to return to the ED if symptoms do not improve, worsen, or if there are any questions or concerns that arise at home. The patient was discharged in stable condition with prescription for as needed Zofran. 12/11 04:34 Order name: CBC with Diff; Complete Time: 05:26 tt7 12/11 04:35 Order name: D-Dimer; Complete Time: 05:8 12/11 04:35 Order name: LFT's; Complete Time: 05:8 12/11 04:35 Order name: Magnesium; Complete Time: 05:12/11 04:35 Order name: NT PRO-BNP; Complete Time: 05:12 bm8 12/11 04:35 Order name: PT-INR; Complete Time: 05:12 8 12/11 04:35 Order name: Troponin HS; Complete Time: 05:8 12/11 04:35 Order name: CMP; Complete Time: 05:12 bm8 12/11 04:35 Order name: Lipase; Complete Time: 05:12 bm8 12/11 04:57 Order name: Manual Differential; Complete Time: 05:26 EDMS 12/11 04:34 Order name: XRAY Chest (1 view) 7 12/11 04:34 Order name: Cardiac monitoring; Complete Time: 04:44 tt12/11 04:34 Order name: EKG - Nurse/Tech; Complete Time: 04:44 12/11 04:34 Order name: IV Saline Lock; Complete Time: 04:44 12/11 04:34 Order name: Labs collected and sent; Complete Time: 04:44 12/11 04:34 Order name: O2 Per Protocol; Complete Time: 04:44 12/11 04:34 Order name: O2 Sat Monitoring; Complete Time: 04:44 12/11 04:35 Order name: Cardiac monitoring; Complete Time: 04:44 12/11 04:35 Order name: EKG - Nurse/Tech; Complete Time: 04:44 12/11 04:35 Order name: IV Saline Lock; Complete Time: 04:44 12/11 04:35 Order name: Labs collected and sent; Complete Time: 04:44 12/11 04:35 Order name: O2 Per Protocol; Complete Time: 04:44 12/11 04:35 Order name: O2 Sat Monitoring; Complete Time: 04:44 12/11 06:04 Order name: PO challenge; Complete Time: 06:17 tt7 Administered Medications: 04:43 Drug: Famotidine IVP 20 mg IVP once; dilute with 10 mL 0.9% NaCl; give over 2 minutes bm8 Route: IVP; Site: right antecubital; 06:11 Follow up: Response: No adverse reaction cc6 04:43 Drug: NS 0.9% IV 1000 ml IV at 1 bolus Per protocol; to be given as a bolus over 60 bm8 minutes Route: IV; Rate: 1 bolus; Site: right antecubital; 06:46 Follow up: Response: No adverse reaction; IV Status: Completed infusion bm8 04:44 Drug: Ondansetron IVP 4 mg IVP once; over 2 minutes Route: IVP; Site: right antecubital;bm8 06:11 Follow up: Response: No adverse reaction cc6 04:44 Drug: morphine IVP or IV 4 mg IVP once over 4 mins Route: IVP; Infused Over: 4 mins; bm8 Site: right antecubital; 06:12 Follow up: Response: No adverse reaction cc6 05:31 Drug: Droperidol IVP 1.25 mg IVP once Route: IVP; Site: right antecubital; cc6 06:11 Follow up: Response: No adverse reaction cc6 05:31 Drug: Alum-Mag Hydroxide-Simeth PO Suspension (200 mg-200 mg-20 mg/5 mL) 30 ml PO once cc6 Route: PO; 06:11 Follow up: Response: No adverse reaction cc6 Disposition: 06:53 Co-signature as Attending Physician, Antonio Becerra DO. tt7 Disposition Summary: 12/11/24 06:37 Discharge Ordered Notes: Location: Home tt7 Problem: new tt7 Symptoms: are resolved tt7 Condition: Stable tt7 Diagnosis - Chest pain, unspecified tt7 - Nausea with vomiting, unspecified tt7 Followup: tt7 - With: Emergency Department - When: As needed - Reason: Followup: tt7 - With: Private Physician - When: 1 - 2 days - Reason: Recheck today's complaints, Re-evaluation by your physician Discharge Instructions: - Discharge Summary Sheet tt7 - Nausea and Vomiting, Adult tt7 - Gastritis, Adult, [id number] tt7 - Nonspecific Chest Pain, Adult, [id number] tt7 Forms: - Medication Reconciliation Form tt7 - Antibiotic Education tt7 - Prescription Opioid Use tt7 - Patient Portal Instructions tt7 - Leadership Thank You Letter tt7 Prescriptions: - Zofran 4 mg Oral tablet - take 1 tablet ORAL route every 8 hours As needed; 20 tablet; Refills: 0, tt7 Product Selection Permitted Signatures: Dispatcher [employer] Bossman Christianson RN RN bm8 Tonia Sanchez RN RN cc6 Antonio Becerra DO DO tt7 Corrections: (The following items were deleted from the chart) 04:35 04:35 CBC+H.LAB.BRZ ordered. EDMS EDMS 04:35 04:35 Chest Single View+RAD.RAD.BRZ ordered. EDMS EDMS 04:36 04:36 BASIC METABOLIC PANEL+C.LAB.BRZ ordered. EDMS EDMS 04:36 04:36 D-DIMER+COAG.LAB.BRZ ordered. EDMS EDMS 04:36 04:36 HEPATIC FUNCTION+C.LAB.BRZ ordered. EDMS EDMS 04:36 04:36 MAGNESIUM+C.LAB.BRZ ordered. EDMS EDMS 04:36 04:36 PROBNP+C.LAB.BRZ ordered. EDMS EDMS 04:36 04:36 PROTIME (+INR)+COAG.LAB.BRZ ordered. EDMS EDMS 04:36 04:36 Troponin High Sensitivity+C.LAB.BRZ ordered. EDMS EDMS 04:36 04:36 COMPREHENSIVE METABOLIC PANEL+C.LAB.BRZ ordered. EDMS EDMS 04:36 04:36 LIPASE+C.LAB.BRZ ordered. EDMS EDMS 04:36 04:36 Chest Single View+RAD.RAD.BRZ ordered. EDMS EDMS 04:47 04:35 BASIC METABOLIC PANEL+C.LAB.BRZ ordered. EDMS EDMS 04:47 04:35 PROBNP+C.LAB.BRZ ordered. EDMS EDMS 04:47 04:35 Troponin High Sensitivity+C.LAB.BRZ ordered. EDMS EDMS 04:47 04:36 CBC+H.LAB.BRZ ordered. EDMS EDMS
[2024-12-11 07:34] VITALS: TEMP 98; O2SAT 98
--- NOTE | 2024-12-11 07:34 | RAD REPORT ---
EXAM: Chest Single View HISTORY: 28 years Male CHEST PAIN COMPARISON: 09/16/24 FINDINGS: LUNGS/PLEURA: The lungs are clear. No pleural effusions or pneumothorax. No pulmonary edema. CARDIAC/MEDIASTINUM: The cardiac silhouette is within normal limits. UPPER ABDOMEN: No significant abnormality. BONES: No acute abnormality. LINES/TUBES/OTHER: N/A IMPRESSION: No evidence of acute cardiopulmonary disease.
[2024-12-11 07:53] VITALS: BP 132/82
== END 2024-12-11 06:51 | disposition home or self-care (01) ==
LOC: ER 04:20
DX: R07.9 Chest pain, unspecified (principal); R11.2 Nausea with vomiting, unspecified
CPT/HCPCS: 96361; 93005; 85025; 36415; 83735; 85610; 85379; 80076; 84484; 83690; 80053; 83880; 71045; 96375; 96374; 99285; J2405; J1790; J7030

== ENCOUNTER 2024-12-12 21:55 | Emergency (ER) | payer OTHER ==
--- OUTSIDE RECORDS SUMMARY | 2024-12-12 22:00 | XMS REPORT | Continuity of Care Document ---
Author Name Unknown Address [address] [facility] [address] [place] [address] [facility] Address [address] 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 Phone PCP, PATIENT DOES NOT HAVE A Primary Care Physic kit Unavailable Christopher Bustillo Attending Clinician Unavailable IVETT HERNÁNDEZ Attending Clinician Unavailab IVETT Zepeda Attending Clinician Unavailab CIARRA Jackson Attending Clinician UnavailDustin Coronel Attending Clinician Unavailable Andrea Devries MD Attending Clinician [phone] RANDALL HULL Attending Clinician Unavailable RANDALL HULL Attending Clinician Unavailable Randall Hull DO Attending Clinician [phone] Physician, No Primary or Family Admitting Clinic kit Unavailable CIARRA ROSSI Admitting Clinician UnavailDustin Coronel Admitting Clinician Unavailable Payers Payer Name Policy Type Policy Number Effective Date Expirati on Date Source [employer] PPO [id number] 2023 00:00:00 Problems Condition Name Condition Details Condition Category Status Onset Date Resolution Date Last Treatment Date Treating Clinician Comments Source Right upper quadrant abdominal pain Right upper quadrant abdominal pain Disease Active 09-17 00:00: 00 [facility] Altered mental status Altered mental status Disease Active 04-30 00:00: 00 [facility] Leukocytos is Leukocytos is Disease Active 04-30 00:00: 00 [facility] Dehydratio n Dehydratio n Disease Active 04-30 00:00: 00 [facility] Allergies, Adverse Reactions, Alerts Allergy Name Allergy Type Status Severity Reaction(s) Onset Date Inactive Date Treating Clinician Comments Source No Known Allergie s DA Active U 11-22 00:00: 00 [facility] NO KNOWN ALLERGIE S Drug Class Active [facility] Social History Social Habit Start Date Stop Date Quantity Comments Source History SDOH Alcohol Frequency [facility] History SDOH Alcohol Std Drinks [facility] History SDOH Alcohol Binge [facility] Exposure to SARS-CoV-2 (event) Not sure [facility] of tobacco use Cigarette Smoker [facility] Alcoholic beverage intake 2024-09-25 00:00:00 2024-09-25 00:00:00 Current drinker of alcohol (finding) [facility] History of Social function 2024-09-18 00:00:00 2024-09-18 00:00:00 [facility] Cigarette pack-years 2024-09-17 00:00:00 2024-09-17 00:00:00 [facility] Tobacco use and exposure 2024-09-17 00:00:00 2024-09-17 00:00:00 Smokeless tobacco non-user [facility] Cigarettes smoked current (pack per day) - Reported 2024-09-17 00:00:00 2024-09-17 00:00:00 [facility] Alcohol intake 2021-02-15 00:00:00 2021-02-15 00:00:00 Current drinker of alcohol (finding) [facility] Alcohol Comment 2017-04-30 00:00:00 2017-04-30 00:00:00 social drinker [facility] Sex assigned at 1995 00:00:00 1995 00:00:00 [facility] Smoking Status Start Date Stop Date Source Smokes tobacco daily 2024-09-17 00:00:00 [facility] Medications Ordered Medication Name Filled Medication Name Start Date Stop Date Current Medication? Ordering Clinician Indication Dosage Frequency Signature (SIG) Comments Components Source NaCl 0.9% (NS) bolus infusion 1,000 mL 09-25 12:15: 00 09-25 13:27 :00 No 1000mL at 999 mL/hr, 1,000 mL, IV Infusion, ONCE, 1 dose, On Sat09/25/24 at 0715, [facility] famotidine (PEPCID (PF)) 20 mg in NaCl 0.9% (NS) 5 mL IV push 09-25 11:45: 00 09-25 11:41 :00 No 20mg 20 mg, Intravenou s, ONCE, 1 dose, On Sat09/25/24 at 0645, Administer over 2 Minutes, 5 mL [facility] metoclopram violette HCl (REGLAN) injection 10 mg 09-25 11:45: 00 09-25 11:39 :00 No 10mg 10 mg, Slow IV Push, ONCE, 1 dose, On Sat09/25/24 at 0645, [facility] haloperidol lactate (HALDOL) injection 2.5 mg 09-25 11:45: 00 09-25 11:39 :00 No 2.5mg 2.5 mg, Intravenou s, ONCE, 1 dose, On Sat09/25/24 at 0645, STAT, Chemical Restraint: No, Reason for Use: Management of Acute Agitation/ Delirium (NOT CHEMICAL RESTRAINT) , Indication for use of Injectable Psychotrop ics: Other, Please Specify Other Indication : n/v [facility] foLIC acid 1 mg tablet 09-24 00:00: 00 Yes [id number] 1mg Take 1 tablet by mouth in the morning. [facility] lactobacill us acidophilus 09-24 00:00: 00 Yes [id number] .5mg Take 1 tablet by mouth in the morning and 1 tablet at noon and 1 tablet in the evening. Take with meals. [facility] thiamine mononitrate 100 mg tablet 09-24 00:00: 00 Yes [id number] 100mg Take 1 tablet by mouth in the morning. [facility] proMETHazin e 25 mg tablet 09-24 00:00: 00 Yes [id number] 25mg Take 1 tablet by mouth every 6 hours as needed for Nausea and Vomiting (N/V). [facility] ibuprofen 600 mg tablet 09-24 00:00: 00 Yes [id number] 600mg Take 1 tablet by mouth every 8 hours as needed (Pain). [facility] oxazepam 10 mg capsule 09-24 00:00: 00 Yes [id number] 10mg Take 1 capsule by mouth every 4 hours as needed (Only while awake for DBP equal to or greater than 100, HR equal to or greater than 100.) for up to 12 doses. [facility] methocarbam oL 750 mg tablet 09-24 00:00: 00 Yes [id number] 750mg Take 1 tablet by mouth every 6 hours as needed (muscle aches). [facility] acetaminoph en 325 mg tablet 09-24 00:00: 00 09-25 04:59 :00 Yes [id number] 650mg Take 2 tablets by mouth every 6 hours as needed for Pain (scale 1-3) or Temp > 38 C. [facility] pantoprazol e 40 mg EC tablet 09-24 00:00: 00 10-10 04:59 :00 Yes [id number] 40mg Take 1 tablet by mouth in the morning for 15 days. [facility] vancomycin 125 mg capsule 09-24 00:00: 00 10-05 04:59 :00 Yes [id number] 125mg Take 1 capsule by mouth 4 times daily for 10 days. [facility] gabapentin (NEURONTIN) capsule 300 mg gabapentin (NEURONTIN) capsule 300 mg 09-23 19:00: 00 09-24 16:40 :30 Yes 300mg 300 mg, Oral, TID, First dose on Sat09/23/24 at 1400, Until Discontinu ed, Routine [facility] ketorolac (TORADOL) injection 30 mg ketorolac (TORADOL) injection 30 mg 09-23 17:00: 00 09-24 16:40 :30 Yes 30mg 30 mg, Slow IV Push, Q6H, 4 doses, First dose on Sat09/23/24 at 1200, Last dose on Sat09/24/24 at 0600, Routine [facility] methocarbam oL (ROBAXIN) tablet 750 mg methocarbam oL (ROBAXIN) tablet 750 mg 09-23 16:45: 00 Yes 750mg 750 mg, Oral, TID, First dose on Sat09/23/24 at 1145, Until Discontinu ed, Routine [facility] droNABinol (MARINOL) capsule 2.5 mg droNABinol (MARINOL) capsule 2.5 mg 09-23 13:00: 00 09-24 16:40 :30 Yes 2.5mg 2.5 mg, Oral, BID, First dose on Sat09/23/24 at 0800, Until Discontinu ed, Routine [facility] KCL (KLOR-CON M20) tablet 40 mEq KCL (KLOR-CON M20) tablet 40 mEq 09-23 13:00: 00 09-23 13:53 :00 Yes 40meq 40 mEq, Oral, ONCE, 1 dose, On Sat09/23/24 at 0800, Routine [facility] traMADoL (ULTRAM) tablet 50 mg traMADoL (ULTRAM) tablet 50 mg 09-23 09:44: 52 09-24 16:40 :30 Yes 50mg 50 mg, Oral, Q6HPRN, Starting on Sat09/23/24 at 0444, Until Sat09/24/24 at 1140, Routine, Pain (scale 4-6) [facility] morphine (2 mg/mL) injection 2 mg morphine (2 mg/mL) injection 2 mg 09-23 09:43: 56 09-24 16:40 :30 Yes 2mg 2 mg, Slow IV Push, Q4HPRN, Starting on Sat09/23/24 at 0443, Until Sat09/24/24 at 1140, Routine, Pain (scale 7-10) [facility] ketorolac (TORADOL) injection 15 mg ketorolac (TORADOL) injection 15 mg 09-23 01:45: 00 09-23 01:57 :00 Yes 15mg 15 mg, Slow IV Push, ONCE, 1 dose, On Sat09/22/24 at 2045, Routine [facility] alum-mag hydroxide-s imeth (MAG-AL PLUS) 200-200-20 mg/5 mL suspension 30 mL alum-mag hydroxide-s imeth (MAG-AL PLUS) 200-200-20 mg/5 mL suspension 30 mL 09-22 23:38: 00 09-24 16:40 :30 Yes 30mL 30 mL, Oral, Q6HPRN, Starting on Sat09/22/24 at 1838, Until Sat09/24/24 at 1140, Routine, Indigestio n [facility] droNABinol (MARINOL) capsule 2.5 mg droNABinol (MARINOL) capsule 2.5 mg 09-22 19:00: 00 09-22 18:28 :00 Yes 2.5mg 2.5 mg, Oral, ONCE, 1 dose, On Sat09/22/24 at 1400, Routine [facility] pantoprazol e (PROTONIX) EC tablet 40 mg pantoprazol e (PROTONIX) EC tablet 40 mg 09-22 16:30: 00 09-24 16:40 :30 Yes 40mg 40 mg, Oral, DAILY, First dose on Sat09/22/24 at 1130, Until Discontinu ed, Routine [facility] foLIC acid (FOLATE) tablet 1 mg foLIC acid (FOLATE) tablet 1 mg 09-22 14:00: 00 Yes 1mg 1 mg, Oral, DAILY, First dose on Sat09/22/24 at 0900, Until Discontinu ed, Routine [facility] thiamine mononitrate (VITAMIN B-1 (MONONITRAT E)) tablet 100 mg thiamine mononitrate (VITAMIN B-1 (MONONITRAT E)) tablet 100 mg 09-22 14:00: 00 Yes 100mg 100 mg, Oral, DAILY, First dose on Sat09/22/24 at 0900, Until Discontinu ed, Routine [facility] fidaxomicin (DIFICID) tablet 200 mg fidaxomicin (DIFICID) tablet 200 mg 09-21 18:15: 00 09-24 16:40 :30 Yes 200mg 200 mg, Oral, BID, 20 doses, First dose on Sat09/21/24 at 1315, Last dose on Sat09/30/24 at 2000, Routine, Reason for Anti-Infec tive: Documented Infection, Documented Infection Site: Other, Other site: cdiff infection, Duration of therapy: 10 days [facility] oxazepam (SERAX) capsule 15 mg 09-21 17:57: 02 Yes 15mg 15 mg, Oral, Q4HPRN, Starting on Sat09/21/24 at 1257, Until Discontinu ed, Routine, Only while awake for DBP equal to or greater than 100, HR equal to or greater than 100. [facility] pantoprazol e (PROTONIX) 40 mg in NaCl 0.9% (NS) 10 mL syringe pantoprazol e (PROTONIX) 40 mg in NaCl 0.9% (NS) 10 mL syringe 09-21 16:30: 00 09-22 15:37 :42 Yes 40mg 40 mg, Slow IV Push, Administer over 2 Minutes, Q24H, First dose on Sat09/21/24 at 1130, Until Discontinu ed, Routine [facility] diazePAM (VALIUM) injection 2 mg diazePAM (VALIUM) injection 2 mg 09-21 15:48: 55 09-24 16:40 :29 Yes 2mg 2 mg, Intravenou s, Q6HPRN, Starting on Sat09/21/24 at 1048, Until Sat09/24/24 at 1140, Routine, Nausea and Vomiting (N/V), anxiety, agitation [facility] morpHINE (4 mg/mL) injection 4 mg morpHINE (4 mg/mL) injection 4 mg 09-21 15:48: 11 09-21 22:49 :07 Yes 4mg 4 mg, Slow IV Push, Q4HPRN, Starting on Sat09/21/24 at 1048, Until Sat09/21/24 at 1749, Routine, Pain (scale 7-10) [facility] ondansetron (ZOFRAN (PF)) injection 4 mg ondansetron (ZOFRAN (PF)) injection 4 mg 09-21 15:17: 32 09-24 16:40 :29 Yes 4mg 4 mg, Slow IV Push, Q6HPRN, Nausea and Vomiting (N/V), Starting on Sat09/21/24 at 1017, Please give medication over 2-5 minutes. [facility] proMETHazin e (PHENERGAN) 25 mg in NS 50 mL IV piggyback (CNR) proMETHazin e (PHENERGAN) 25 mg in NS 50 mL IV piggyback (CNR) 09-21 13:36: 49 09-24 16:40 :29 Yes 25mg 25 mg, IV Piggyback, at 200 mL/hr Administer over 15 Minutes, Q4HPRN, Starting on Sat09/21/24 at 0836, Until Sat09/24/24 at 1140, Routine, N/V unresponsi ve to Ondansetro n [facility] potassium chloride in water 10 mEq/100 mL RTU 10 mEq potassium chloride in water 10 mEq/100 mL RTU 10 mEq 09-20 17:00: 00 09-20 21:09 :00 Yes 10meq 10 mEq, IV Piggyback, Q1H, 4 doses, First dose on Sat09/20/24 at 1200, Last dose on Sat09/20/24 at 1500, Administer over 60 Minutes, 100 mL [facility] ketorolac (TORADOL) injection 15 mg ketorolac (TORADOL) injection 15 mg 09-20 16:16: 56 09-22 17:12 :00 Yes 15mg 15 mg, Slow IV Push, Q6HPRN, 6 doses, Starting on Sat09/20/24 at 1116, Until Sat09/22/24 at 1212, Routine, Pain (scale 4-6) [facility] ondansetron (ZOFRAN-ODT ) disintegrat ing tablet 4 mg ondansetron (ZOFRAN-ODT ) disintegrat ing tablet 4 mg 09-20 16:16: 28 09-21 15:17 :44 Yes 4mg 4 mg, Oral, Q8HPRN, Starting on Sat09/20/24 at 1116, Until Sat09/21/24 at 1017, Routine, Nausea and Vomiting (N/V) [facility] HYDROcodone -acetaminop hen (NORCO) 10-325 mg tablet 1 tablet HYDROcodone -acetaminop hen (NORCO) 10-325 mg tablet 1 tablet 09-20 03:58: 25 09-20 15:40 :27 Yes 1{tbl} 1 tablet, Oral, Q6HPRN, Starting on Sat09/19/24 at 2258, Until Sat09/20/24 at 1040, Routine, Pain (scale 4-6) [facility] lactobacill us acidophilus tablet 0.5 mg lactobacill us acidophilus tablet 0.5 mg 09-19 22:00: 00 Yes .5mg 0.5 mg, Oral, TID MEALS, First dose on Sat09/19/24 at 1700, Until Discontinu ed, Routine [facility] psyllium husk (METAMUCIL (SUGAR FREE)) oral powder packet 1 Packet psyllium husk (METAMUCIL (SUGAR FREE)) oral powder packet 1 Packet 09-19 21:00: 00 09-20 16:19 :32 Yes 1{packe t} 1 Packet, Oral, DAILY, First dose on Sat09/19/24 at 1600, Until Discontinu ed, Routine [facility] baclofen (LIORESAL) tablet 10 mg baclofen (LIORESAL) tablet 10 mg 09-19 19:00: 00 09-21 22:51 :02 Yes 10mg 10 mg, Oral, TID, First dose on Sat09/19/24 at 1400, Until Discontinu ed, Routine [facility] morpHINE (4 mg/mL) injection 4 mg morpHINE (4 mg/mL) injection 4 mg 09-19 17:11: 06 09-20 01:27 :45 Yes 4mg 4 mg, Slow IV Push, Q3HPRN, Starting on Sat09/19/24 at 1211, Until Sat09/19/24 at 2026, Routine, Pain (scale 7-10) [facility] dicyclomine (BENTYL) capsule 10 mg dicyclomine (BENTYL) capsule 10 mg 09-19 17:00: 00 09-24 16:40 :29 Yes 10mg 10 mg, Oral, QID, First dose on Sat09/19/24 at 1200, Until Discontinu ed, Routine [facility] FENTanyl (PF) (SUBLIMAZE) injection 25 mcg FENTanyl (PF) (SUBLIMAZE) injection 25 mcg 09-19 00:38: 58 09-19 17:11 :17 Yes 25ug 25 mcg, Slow IV Push, Q4HPRN, Starting on Sat09/18/24 at 1938, Until Sat09/19/24 at 1211, Routine, Pain (scale 7-10) [facility] enoxaparin (LOVENOX) injection 40 mg enoxaparin (LOVENOX) injection 40 mg 09-18 22:00: 00 09-24 16:40 :29 Yes 40mg 40 mg, Subcutaneo us, DAILY AT 1700, First dose on Sat09/18/24 at 1700, Until Discontinu ed, Routine [facility] haloperidol lactate (HALDOL) injection 5 [...] Other Indication : Cannaboid Hyperemesi s Syndrome [facility] proMETHazin e (PHENERGAN) 25 mg in NS 50 mL IV piggyback (CNR) proMETHazin e (PHENERGAN) 25 mg in NS 50 mL IV piggyback (CNR) 09-18 18:45: 00 09-18 18:46 :00 Yes 25mg 25 mg, IV Piggyback, at 200 mL/hr Administer over 15 Minutes, ONCE, 1 dose, On Sat09/18/24 at 1345, Routine [facility] diazePAM (VALIUM) injection 5 mg diazePAM (VALIUM) injection 5 mg 09-18 17:53: 30 09-20 15:40 :37 Yes 5mg 5 mg, Intravenou s, Q6HPRN, Starting on Sat09/18/24 at 1253, Until Sat09/20/24 at 1040, Routine, Agitation [facility] gadobenate dimeglumine (MULTIHANCE -15 mL) injection 14.6 mL 09-18 14:15: 00 09-18 14:15 :00 No [id number] .2mL/kg 14.6 mL (0.2 mL/kg ?73 kg), Intravenou s, ONCE, 1 dose, On Sat09/18/24 at 0915, Routine [facility] FENTanyl (PF) (SUBLIMAZE) injection 25 mcg FENTanyl (PF) (SUBLIMAZE) injection 25 mcg 09-18 07:15: 00 09-18 07:06 :00 Yes 25ug 25 mcg, Slow IV Push, ONCE, 1 dose, On Sat09/18/24 at 0215, STAT [facility] FENTanyl (PF) (SUBLIMAZE) injection 25 mcg FENTanyl (PF) (SUBLIMAZE) injection 25 mcg 09-18 07:05: 29 09-19 00:04 :29 Yes 25ug 25 mcg, Slow IV Push, Q3HPRN, Starting on Sat09/18/24 at 0205, Until Sat09/18/24 at 1904, Routine, Pain (scale 7-10) [facility] NaCl 0.9% (NS) bolus infusion 1,000 mL 09-18 02:15: 00 09-18 02:17 :00 No 1000mL at 999 mL/hr, 1,000 mL, IV Piggyback, ONCE, 1 dose, On Sat09/17/24 at 2115, Routine [facility] NaCl 0.9% (NS) IV infusion 1,000 mL 09-18 02:00: 00 09-24 16:40 :29 No 1000mL at 150 mL/hr, IV Infusion, CONTINUOUS , Starting on Sat09/17/24 at 2100, Until Sat09/24/24 at 1140, Routine [facility] ondansetron (ZOFRAN (PF)) injection 4 mg ondansetron (ZOFRAN (PF)) injection 4 mg 09-18 01:42: 10 09-20 16:27 :57 Yes 4mg 4 mg, Slow IV Push, Q6HPRN, Starting on Sat09/17/24 at 2042, Until Sat09/20/24 at 1127, Administer over 2-5 Minutes, 2 mL [facility] FENTanyl (PF) (SUBLIMAZE) injection 25 mcg FENTanyl (PF) (SUBLIMAZE) injection 25 mcg 09-18 01:42: 06 09-18 07:02 :00 Yes 25ug 25 mcg, Slow IV Push, Q6HPRN, Starting on Sat09/17/24 at 204, Until Sat09/18/24 at 0202, Routine, Pain (scale 7-10) [facility] HYDROcodone -acetaminop hen (NORCO 5) 5-325 mg tablet 1 tablet HYDROcodone -acetaminop hen (NORCO 5) 5-325 mg tablet 1 tablet 09-18 01:41: 56 09-18 07:05 :11 Yes 1{tbl} 1 tablet, Oral, Q6HPRN, Starting on Sat09/17/24 at 2040, Until Sat09/18/24 at 020, Routine, Pain (scale 4-6) [facility] acetaminoph en (TYLENOL) tablet 650 mg acetaminoph en (TYLENOL) tablet 650 mg 09-18 01:41: 54 Yes 650mg 650 mg, Oral, Q6HPRN, Starting on Sat09/17/24 at 2040, Until Discontinu ed, Routine, Pain (scale 1-3) [facility] dicyclomine (BENTYL) injection 20 mg dicyclomine (BENTYL) injection 20 mg 09-18 01:00: 00 09-19 14:35 :12 Yes 20mg 20 mg, Intramuscu lar, QID, First dose on Sat09/17/24 at 2000, Until Discontinu ed, Routine [facility] ketorolac (TORADOL) injection 30 mg 09-18 00:30: 00 09-17 23:48 :00 No 30mg 30 mg, Slow IV Push, ONCE, 1 dose, On Sat09/17/24 at 1930, Routine [facility] NaCl 0.9% (NS) bolus infusion 1,000 mL 09-17 23:45: 00 09-18 01:39 :00 No 1000mL at 999 mL/hr, 1,000 mL, IV Infusion, ONCE, 1 dose, On Sat09/17/24 at 1845, STAT [facility] maalox/diph enhydrAMINE :lidocaine2 %viscous 1:1:1: suspension (COMPOUNDED ) 09-17 23:45: 00 09-17 23:51 :00 No 15mL 15 mL, Oral, ONCE, 1 dose, On Sat09/17/24 at 1845, Routine [facility] ondansetron (ZOFRAN (PF)) injection 4 mg 09-17:45: 00 09-17 23:10 :00 No 4mg 4 mg, Slow IV Push, ONCE, 1 dose, On Sat09/17/24 at 1845, Administer over 2-5 Minutes, 2 mL [facility] morpHINE (4 mg/mL) injection 4 mg 09-17 23:45: 00 09-17 23:09 :00 No 4mg 4 mg, Slow IV Push, ONCE, 1 dose, On Sat09/17/24 at 1845, [facility] iopamidol (ISOVUE 370-500 mL) injection 75 mL 09-17 23:37: 00 09-17 23:38 :00 No [id number] 75mL 75 mL, Intravenou s, ONCE, 1 dose, On Lakisha 09/17/24 at 1900, Routine [facility] ondansetron (ZOFRAN (PF)) injection 4 mg 2023-03 10:45: 00 01-12 09:44 :00 No 4mg 4 mg, Slow IV Push, ONCE, 1 dose, On Sat01/13/24 at 0445, [facility] diphenhydrA MINE:lidoca ine 2% viscous:maa lox 1:1:1 (FIRST-MOUT HWASH BLM) oral suspension 15 mL 2023-03 09:45: 00 01-12 09:43 :00 No 15mL 15 mL, Oral, ONCE, 1 dose, On Sat01/13/24 at 0345, [facility] ondansetron (ZOFRAN-ODT ) disintegrat ing tablet 8 mg 11-05 19:00: 00 11-05 18:48 :00 No 8mg 8 mg, Oral, ONCE, 1 dose, On Sat11/06/23 at 1400, Routine [facility] ondansetron 4 mg disintegrat ing tablet 11-05 00:00: 00 09-24 00:00 :00 No [id number] 4mg Take 1 tablet by mouth every 8 (eight) hours as needed for Nausea and Vomiting (N/V). [facility] benzonatate 100 mg capsule 11-05 00:00: 00 09-24 00:00 :00 No [id number] 100mg Take 1 capsule by mouth 3 (three) times daily as needed for Cough. [facility] naproxen 500 mg EC tablet 11-05 00:00: 00 11-29 04:59 :00 No [id number] 500mg Take 1 tablet by mouth in the morning and 1 tablet in the evening. Take with meals. Do all this for 45 doses. [facility] ondansetron (ZOFRAN-ODT ) disintegrat ing tablet 4 mg 2020-03 15:45: 00 02-15 14:48 :00 No 4mg 4 mg, Oral, ONCE, 1 dose, On Sat02/15/21 at 0945, Routine [facility] ondansetron (ZOFRAN ODT) 4 mg disintegrat ing tablet 2020-03 00:00: 00 11-05 00:00 :00 No [id number] 4mg Take 1 tablet by mouth every 8 (eight) hours as needed for Nausea and Vomiting (N/V). [facility] Vital Signs Vital Name Observation Time Observation Value Comments S ource Systolic blood pressure 2024-09-25 14:00:00 131 mm[Hg] [facility] Diastolic blood pressure 2024-09-25 14:00:00 94 mm[Hg] [facility] Heart rate 2024-09-25 14:00:00 80 /min [facility] Body temperature 2024-09-25 14:00:00 37 Cathy [facility] Respiratory rate 2024-09-25 14:00:00 22 /min [facility] Oxygen saturation in Arterial blood by Pulse oximetry 2024-09-25 14:00:00 98 /min [facility] Body height 2024-09-25 11:26:00 165.1 cm [facility] Body weight 2024-09-25 11:26:00 69.4 kg [facility] BMI 2024-09-25 11:26:00 25.46 kg/m2 [facility] Systolic blood pressure 2024-09-24 13:26:00 109 mm[Hg] [facility] Diastolic blood pressure 2024-09-24 13:26:00 73 mm[Hg] [facility] Heart rate 2024-09-24 13:26:00 75 /min [facility] Body temperature 2024-09-24 13:26:00 36.22 Cathy [facility] Respiratory rate 2024-09-24 13:26:00 16 /min [facility] Oxygen saturation in Arterial blood by Pulse oximetry 2024-09-24 13:26:00 99 /min [facility] Body weight 2024-09-24 09:00:00 69.491 kg [facility] BMI 2024-09-24 09:00:00 25.49 kg/m2 [facility] Body height 2024-09-18 02:44:00 165.1 cm [facility] Systolic blood pressure 2024-01-13 12:29:00 123 mm[Hg] [facility] Diastolic blood pressure 2024-01-13 12:29:00 67 mm[Hg] [facility] Heart rate 2024-01-13 12:29:00 84 /min [facility] Body temperature 2024-01-13 12:29:00 36.67 Cathy [facility] Respiratory rate 2024-01-13 12:29:00 16 /min [facility] Oxygen saturation in Arterial blood by Pulse oximetry 2024-01-13 12:29:00 99 /min [facility] Body height 2024-01-13 09:14:00 167.6 cm [facility] Body weight 2024-01-13 09:14:00 76.204 kg [facility] BMI 2024-01-13 09:14:00 27.12 kg/m2 [facility] Systolic blood pressure 2023-11-06 20:10:40 120 mm[Hg] [facility] Diastolic blood pressure 2023-11-06 20:10:40 60 mm[Hg] [facility] Heart rate 2023-11-06 20:10:40 78 /min [facility] Body temperature 2023-11-06 20:10:40 37.61 Cathy [facility] Respiratory rate 2023-11-06 20:10:40 18 /min [facility] Oxygen saturation in Arterial blood by Pulse oximetry 2023-11-06 20:10:40 97 /min [facility] Body height 2023-11-06 18:07:00 165.1 cm [facility] Body weight 2023-11-06 18:07:00 65.772 kg [facility] BMI 2023-11-06 18:07:00 24.13 kg/m2 [facility] Systolic blood pressure 2021-02-15 14:14:00 122 mm[Hg] [facility] Diastolic blood pressure 2021-02-15 14:14:00 71 mm[Hg] [facility] Heart rate 2021-02-15 14:14:00 100 /min [facility] Body temperature 2021-02-15 14:14:00 37.67 Cathy [facility] Respiratory rate 2021-02-15 14:14:00 18 /min [facility] Body weight 2021-02-15 14:14:00 63.504 kg [facility] BMI 2021-02-15 14:14:00 22.60 kg/m2 [facility] Oxygen saturation in Arterial blood by Pulse oximetry 2021-02-15 14:14:00 99 /min [facility] Procedures Procedure Date / Time Performed Performing Clinician Source URINE DRUG (IMMUNOASSAY) - COMPREHENSIVE DRUG SCREEN W/O REFLEX 2024-09-25 12:05:00 Andrea Devries [facility] FENTANYL (IMMUNOASSAY) 2024-09-25 12:05:00 Michael Devries [facility] LIPASE 2024-09-25 11:32:00 [facility]UM 2024-09-25 11:32:00 Ivett Hernández [facility] COMP. METABOLIC PANEL (78407) 2024-09-25 11:32:00 Ivett Hernández [facility] CBC WITH DIFF 2024-09-25 11:32:00 Ivett Hernández U [facility] MAGNESIUM 2024-09-24 09:22:00 Dion [facility] BASIC METABOLIC PANEL (NA, K, CL, CO2, GLUCOSE, BUN, CREATININE, CA) 2024-09-24 09:22:00 Dion [facility] CBC WITHOUT DIFF 2024-09-24 09:22:00 Vinay Ashley [facility] LIPASE 2024-09-23 09:23:00 Dion [facility] MAGNESIUM 2024-09-23 09:23:00 Dion [facility] BASIC METABOLIC PANEL (NA, K, CL, CO2, GLUCOSE, BUN, CREATININE, CA) 2024-09-23 09:23:00 Dion [facility] LIPASE 2024-09-22 07:35:00 Dion [facility] BASIC METABOLIC PANEL (NA, K, CL, CO2, GLUCOSE, BUN, CREATININE, CA) 2024-09-22 07:35:00 Linda Mcclain [facility] CBC WITH DIFF 2024-09-22 07:35:00 Linda Mcclain [facility] URINE DRUG (IMMUNOASSAY) - COMPREHENSIVE DRUG SCREEN 2024-09-21 20:25:00 Linda Mcclain [facility] LIPASE 2024-09-21 09:25:00 Linda Mcclain [facility] COMP. METABOLIC PANEL ([id number]) 2024-09-21 09:25:00 Linda Mcclain [facility] CBC WITH DIFF 2024-09-21 09:25:00 Linda Mcclain [facility] FECAL PATHOGENS BY PCR 2024-09-20 14:23:00 Radha Mcclain [facility] FECES CULTURE 2024-09-20 14:22:00 Catherine Mcclain [facility] CALPROTECTIN, FECAL 2024-09-20 14:22:00 Catherine Mcclain [facility] MAGNESIUM 2024-09-20 09:52:00 Catherine Mcclain [facility] BASIC METABOLIC PANEL (NA, K, CL, CO2, GLUCOSE, BUN, CREATININE, CA) 2024-09-20 09:52:00 Catherine Mcclain [facility] CBC WITH DIFF 2024-09-20 09:52:00 Catherine Mcclain [facility] LIPASE 2024-09-19 09:05:00 Ciarra Rossi [facility] MAGNESIUM 2024-09-19 09:05:00 Ciarra Rossi [facility] COMP. METABOLIC PANEL (23158) 2024-09-19 09:05:00 Ciarra Rossi [facility] CBC WITH DIFF 2024-09-19 09:05:00 [facility] PROT[facility] / INR 2024-09-19 09:05:00 Bambi Rossi [facility] ACTIVATED PARTIAL THRMPLAS HSAYNE 2024-09-19 09:05:00 Ciarra Rossi [facility] IMMUNOGLOBULIN G SUBCLASS 4 2024-09-19 09:05:00 Vinay Ashley [facility] MR ABDOMEN W WO CONTRAST MRCP 2024-09-18 14:07:30 Cirara Rossi [facility] LIPASE 2024-09-18 07:08:00 Ciarra Rossi [facility] MAGNESIUM 2024-09-18 07:08:00 Ciarra Rossi [facility] COMP. METABOLIC PANEL (06249) 2024-09-18 07:08:00 Ciarra Rossi [facility] CBC WITH DIFF 2024-09-18 07:08:00 [facility] 2024-09-18 06:31:00 Harjeet Hogan [facility] URINE DRUG (IMMUNOASSAY) - COMPREHENSIVE DRUG SCREEN 2024-09-18 02:01:00 Ciarra Rossi [facility] URINALYSIS 2024-09-18 02:01:00 Ciarra Rossi [facility] PROCALCITONIN 2024-09-18 02:01:00 [facility] FENTANYL (IMMUNOASSAY) 2024-09-18 02:01:00 Bambi Rossi [facility] US GALL BLADDER 2024-09-18 01:50:33 Harjeet Hogan [facility] CT ABDOMEN PELVIS W CONTRAST 2024-09-17 23:47:00 Almas [facility] TRIGLYCERIDES 2024-09-17 23:16:00 [facility] LIPASE 2024-09-17 23:16:00 Harjeet Hogan [facility] C-REACTIVE PROTEIN 2024-09-17 23:16:00 Ciarra Rossi [facility] COMP. METABOLIC PANEL (74339) 2024-09-17 23:16:00 Harjeet Hogan [facility] LIPID PANEL (25602)(TOTAL CHOLESTEROL, TRIGLYCERIDES, HDL) 2024-09-17 23:16:00 Ciarra Rossi [facility] CBC WITH DIFF 2024-09-17 23:16:00 Harjeet Hogan [facility] LACTIC ACID WITH 2 HOUR REFLEX 2024-09-17 23:16:00 Harjeet Hogan [facility] URINALYSIS 2024-01-13 11:33:00 Andrea Devries [facility] URINE DRUG (IMMUNOASSAY) - COMPREHENSIVE DRUG SCREEN W/O REFLEX 2024-01-13 11:33:00 Andrea Devries [facility] XR CHEST 1 VW 2024-01-13 09:58:58 Andrea Devries [facility] TROPONIN I 2024-01-13 09:22:00 Andrea Devries [facility] COMP. METABOLIC PANEL (65521) 2024-01-13 09:22:00 Andrea Devries [facility] ETHANOL 2024-01-13 09:22:[address] [facility] CBC WITH DIFF 2024-01-13 09:22:00 Andrea Devries [facility] N-TERMINAL PRO-BNP 2024-01-13 09:22:00 Andrea Devries [facility] RAPID STREP SCREEN FOR GROUP A 2023-11-06 18:52:00 Singer [facility] INFLUENZA A/B RSV COVID NAAT 2023-11-06 18:48:00 Singer [facility] RAPID STREP SCREEN FOR GROUP A 2021-02-15 14:19:00 Ivett Hernández [facility] RAPID INFLUENZA A/B 2021-02-15 14:19:00 Serena Hernández ra [facility] COVID-19 (ID NOW RAPID TESTING) 2021-02-15 14:19:00 Ivett Hernández [facility] CONSENT/REFUSAL FOR DIAGNOSIS AND TREATMENT 2021-02-15 14:10:35 Doctor Unassigned, [facility] NOTICE OF PRIVACY PRACTICES 2021-02-15 14:09:58 Doctor Unassigned, [facility] Encounters Start Date/Time End Date/Time Encounter Type Admission Type Attending [facility] Facility Care Department Encounter ID Source 2023-03-30 10:47:47 Outpatient SANDRA FLORES [id number] [facility] 2024-09-26 18:40:00 2024-09-26 20:34:00 Emergency EM Christopher Bustillo [facility] AERS [id number] [facility] 2024-09-25 06:23:00 2024-09-25 09:24:00 Emergency X IVETT HERNÁNDEZ SANDRA [facility] ERT [id number] [facility] 2024-09-17 17:49:00 2024-09-24 11:35:00 Hospital Encounter X CIARRA ROSSI [facility] KEIRA [id number] [facility] 2024-07-22 21:21:00 2024-07-23 13:25:00 Inpatient EM Dustin Pickens [facility] [id number] [facility] 2024-01-13 03:12:00 2024-01-13 06:31:[address] [facility] [id number] [id number] [facility] 2023-11-06 13:03:00 2023-11-06 15:15:00 Emergency Jeff HULL RANDALLRANDALL SHEPPARD [facility] ERT [id number] [facility] 2023-11-06 13:03:00 2023-11-06 15:15:[address] [facility] [id number] [id number] [id number] [facility] 2021-02-15 08:19:00 2021-02-15 09:35:00 Emergency Jeff IVETT HERNÁNDEZ [facility] ERT [id number] [facility] 2021-02-15 08:19:00 2021-02-15 09:35:00 Emergency Ivett Hernández [facility] 1..840.114 [id number] [id number] [id number] [facility] Results Test Description Test Time Test Comments Results Result Co mments Source LOC-[facility], [address] [place], [address], COMPLETE BLOOD COUNT (CBC)2024-09-26 19:25:00* Test Item [...] code = EDMPV) 11.2 fL 8.7-12.6 N [facility] [place], [address], [id number] 12:07:28* Test Item Value Reference Range Interpretation Comme nts MAGNESIUM (test code = 0830313008) 2.5 mg/dL 1.7-2.4 H Lab Interpretation (test cod e = 43450-6) Abnormal [facility]. METABOLIC PANEL (09918)2024-09-25 12:07:08* Test Item Value Reference Range Interpretation Comme nts NA (test code = 4331803282) 142 mmol/L 135-145 K (test code = 7595690501) 3.4 mmol/L 3.5-5.0 L CL (test code = 7217024348) 100 mmol/L 98-108 CO2 TOTAL (test code = 5556624327) 30 mmol/L 23-31 AGAP (test code = 7811897567) 12 2-16 BUN (test code = 4488984286) 11 mg/dL 7-23 GLUCOSE (test code = 6285325285) 134 mg/dL 70-110 H CREATININE (test code = 2160-0) 0.99 mg/dL 0.60-1.25 TOTAL BILI (test code = 0953188121) 1.2 mg/dL 0.1-1.1 H CALCIUM (test code = 5528807560) 9.6 mg/dL 8.6-10.6 T PROTEIN (test code = 6530491250) 8.8 g/dL 6.3-8.2 H ALBUMIN (test code = 8383248943) 5.2 g/dL 3.5-5.0 H ALK PHOS (test code = 4116918667) 90 U/L 34-122 ALTv (test code = 1742-6) 21 U/L 5-50 AST(SGOT) (test code = 4935300020) 20 U/L 13-40 eGFR (test code = 35950-9) 105.8 mL/min/1.73m2 CKD-EPI eGFR (2020). Assuming creatinine has been stable day-to-day for at least three months, the eGFR indicates Category G1 (>= 90 mL/min/1.73 m2) Lab Interpretation (test code = 76772-9) [facility]normal [facility] 12:06:48* Test Item Value Reference Range Interpretation Comme nts LIPASE (test code = 8165641856) 113 U/L 0-220 Lab Interpretation (test cod e = 38782-0) Normal [facility] WITH [id number] 11:54:45* Test Item Value Reference Range Interpretation [...] g/dL 31.2-35.0 H RDW-SD (test code = 10197-1) 38.4 fL 38.5-51.6 L RDW-CV (test code = 788-0) 12.1 % 12.1-15.4 PLT (test code = 777-3) 292 150-328 MPV (test code = 49886-8) 10.9 fL 9.8-13.0 NRBC/100 WBC (test code = 5195453598) 0 0.0-10.0 NRBC x10^3 (test code = 6833364810) See_Comment [Automated messa ge] The system which generated this result transmitted reference range: 10*3/?L. The reference range was not used to interpret this result as normal/abnormal. GRAN MAT (NEUT) % (test code = 770-8) 82 % IMM GRAN % (test code = 8443203247) 0.7 % LYMPH % (test code = 736-9) 12.1 % MONO % (test code = 5905-5) 4.7 % EOS % (test code = 713-8) 0 % BASO % (test code = 706-2) 0.5 % GRAN MAT x10^3(ANC) (test code = 4723659739) 8.24 10*3/uL 1.99-6.95 H IMM GRAN x10^3 (test code = 9068136961) 0.07 10*3/uL 0.00-0.06 H LYMPH x10^3 (test code = 731-0) 1.22 10*3/uL 1.09-3.23 MONO x10^3 (test code = 742-7) 0.47 10*3/uL 0.36-1.02 EOS x10^3 (test code = 711-2) 0.06-0.53 L BASO x10^3 (test code = 704-7) 0.05 10*3/uL 0.01-0.09 Lab Interpretation (test code = 27066-9) [facility]normal [facility]2025-07-23 14:16:43* Test Item Value Reference Range Interpretation Comme nts MAGNESIUM (test code = 5454869901) 2.2 mg/dL 1.7-2.4 Lab Interpretation (test cod e = 13022-3) Normal [facility] Children[facility] Metabolic Panel (NA, K, CL, CO2, GLUCOSE, BUN, CREATININE, CA)2024-09-23 11:33:39* Test Item Value Reference Range Interpretation Comme nts NA (test code = 0278943528) 140 mmol/L 135-145 K (test code = 8070235107) 3.2 mmol/L 3.5-5.0 L CL (test code = 9793148770) 101 mmol/L 98-108 CO2 TOTAL (test code = 4685097313) 29 mmol/L 23-31 AGAP (test code = 3565432017) 10 2-16 BUN (test code = 3415433654) 11 mg/dL 7-23 GLUCOSE (test code = 8158749481) 77 mg/dL 70-110 CREATININE (test code = 2160-0) 0.86 mg/dL 0.60-1.25 CALCIUM (test code = 7854418472) 9.1 mg/dL 8.6-10.6 eGFR (test code = 40861-7) 120.2 mL/min/1.73m2 CKD-EPI eGFR (2020). Assuming creatinine has been stable day-to-day for at least three months, the eGFR indicates Category G1 (>= 90 mL/min/1.73 m2) Lab Interpretation (test code = 77336-6) [facility]normal [facility]2025-07-23 11:32:38* Test Item Value Reference Range Interpretation Comme nts LIPASE (test code = 6410521409) 102 U/L 0-220 Lab Interpretation (test cod e = 18998-3) Normal [facility] ChildrenMR Abdomen w wo contrast [id number] 22:18:21EXAM: MR ABDOMEN W WO CONTRAST MRCP [...] BONES AND SOFT TISSUES: No abnormal marrow signal.[facility] ChildrenC-REACTIVE [id number] 14:41:58* Test Item Value Reference Range Interpretation Comme nts CRP (test code = 9158693567) 1.3 mg/dL <=0.8 H Lab Interpretation (test cod e = 32622-9) Abnormal [facility] ChildrenLIPID PANEL (18930)(TOTAL CHOLESTEROL, TRIGLYCERIDES, HDL)2024-09-18 08:35:44* Test Item Value Reference Range Interpretation Comme nts CHOL (test code = 2773733894) 157 mg/dL 120-200 HDL (test code = 0542856196) 44 mg/dL >=40 HDLC RATIO (test code = 1628581526) 3.6 <=5.0 TRIG (test code = 6080069035) 104 mg/dL 30-170 LDL CHOL (test code = 92752-1) 92 mg/dL <=160 VLDL (test code = 3912997762) 21 mg/dL 5-60 Lab Interpretation (test cod e = 40004-5) Normal [facility] ChildrenUS Gall hhqhvot8662-31-15 02:06:07EXAM: US GALL BLADDER HISTORY: 28 years-old Male with abdominal pain. Elevated lipase. TECHNIQUE: Limited abdominal ultrasound focused on the gallbladder wasperformed. The main portal vein was evaluated with color Doppler.Wheel Blocker images were obtained for the record. COMPARISON: [...] was not demonstrated due to patient being medicated.[facility] Sebanjezytwbp0875-77-88 01:47:55* Test Item Value Reference Range Interpretation Comme nts TRIG (test code = 5510310993) 106 mg/dL 30-170 Lab Interpretation (test cod e = 97381-3) Normal [facility] ChildrenCT ABDOMEN PELVIS W [id number] 00:40:05CT ABDOMEN PELVIS W CONTRAST Indication: Abdominal pain, acute, nonlocalized Flank pain, kidney stone suspected ? Comparison: None. Ordering Clinician: HARJEET HOGAN Technique: Axial CT images of the abdomen and pelvis were performed with ivcontrast. Sagittal and coronal reformats were created. D ose reductiontechniques were used ([place]). Technical Quality: Adequate Discussion: Chest/Vessels: No acute [...] acute osseous pathology. Small L5-S1 posterior disc bulge.[facility]2025-07-18 00:31:04* Test Item Value Reference Range Interpretation Comme nts LIPASE (test code = 2844315411) 3810 U/L 0-220 H Lab Interpretation (test cod e = 05678-0) Abnormal [facility] ChildrenCMP2025-07-17 23:40:06* Test Item Value Reference Range Interpretation Comme nts NA (test code = 2118555446) 140 mmol/L 135-145 K (test code = 3964527185) 3.7 mmol/L 3.5-5.0 CL (test code = 3869277573) 103 mmol/L 98-108 CO2 TOTAL (test code = 5123852538) 28 mmol/L 23-31 AGAP (test code = 0847299020) 9 2-16 BUN (test code = 3424274793) 16 mg/dL 7-23 GLUCOSE (test code = 8388614017) 109 mg/dL 70-110 CREATININE (test code = 2160-0) 0.95 mg/dL 0.60-1.25 TOTAL BILI (test code = 8435101369) 1.5 mg/dL 0.1-1.1 H CALCIUM (test code = 1003128595) 9.3 mg/dL 8.6-10.6 T PROTEIN (test code = 6454650927) 8.3 g/dL 6.3-8.2 H ALBUMIN (test code = 9936776916) 4.9 g/dL 3.5-5.0 ALK PHOS (test code = 2495522830) 91 U/L 34-122 ALTv (test code = 1742-6) 22 U/L 5-50 AST(SGOT) (test code = 9493445839) 32 U/L 13-40 eGFR (test code = 55425-0) 111.1 mL/min/1.73m2 CKD-EPI eGFR (2020). Assuming creatinine has been stable day-to-day for at least three months, the eGFR indicates Category G1 (>= 90 mL/min/1.73 m2) Lab Interpretation (test code = 68782-3) Abnormal [facility] METABOLIC [id number] 07:51:00* Test Item Value Reference Range Interpretation [...] GAP) 13 MMOL/L 14-24 L CBC W/AUTO [id number] 07:15:00* Test Item Value Reference Range Interpretation [...] NRBC#) 0.00 K/mm3 0.0-0.1 N BASIC METABOLIC [id number] 09:51:00* Test Item Value Reference Range Interpretation [...] GAP) 15 MMOL/L 14-24 N HEPATIC FUNCTION [id number] 09:51:00* Test Item Value Reference Range Interpretation [...] ode = ALKP) 94.0 U/L 46-116 N [id number] 09:51:00* Test Item Value Reference Range Interpretation Comme nts LIPASE (test code = LIP) 53.00 U/L 12-53 N CBC W/O [id number] 09:28:00* Test Item Value Reference Range Interpretation [...] = NRBC#) 0.00 K/mm3 0.0-0.1 N N-TERMINAL [id number] 10:41:14* Test Item Value Reference Range Interpretation Comme nts NT-proBNP (test code = 50849-6) <=125 Lab Interpretation (test cod e = 29732-3) Normal [facility] ChildrenTROPONIN [id number] 10:31:20* Test Item Value Reference Range Interpretation Comme nts TROPONIN I (test code = 9293613104) 0.001 ng/mL <=0.034 KELIN (test code = [...] of biotin. Lab Interpretation (test code = 48684-6) Normal [facility] ChildrenEthanol2024-11-11 10:24:45 ALCOHOL<10mg/dL01/13/2024 4:24 [facility]10 Mmkyegim90-214 Toxic>100 Depression of CONCRETE SWIMMING POOL INSTALLER>400 Fatalities ReportedTexas Scottish Rite Hospital for ChildrenXR CHEST 1 [id number] 10:22:48ORDERING PHYSICIAN: ANDREA DEVRIES CLINICAL HISTORY: chest pain TECHNIQUE: Single view radiograph of the chest was performed. COMPARISON: none FINDINGS: The lungs are expanded and clear. No evidence of pleural effusionor pneumothorax is present. The cardiomediastinal silhouette is withinnormal limits. No acute osseous abnormalities are identified.[facility]. METABOLIC PANEL (39990)2024-01-13 10:17:15* Test Item Value Reference Range Interpretation Comme nts NA (test code = 3485417968) 137 mmol/L 135-145 K (test code = 2606770800) 4.1 mmol/L 3.5-5.0 CL (test code = 6785514218) 102 mmol/L 98-108 CO2 TOTAL (test code = 6701501797) 27 mmol/L 23-31 AGAP (test code = 2714856196) 8 2-16 BUN (test code = 0594617554) 16 mg/dL 7-23 GLUCOSE (test code = 3135694704) 109 mg/dL 70-110 CREATININE (test code = 2160-0) 1.03 mg/dL 0.60-1.25 TOTAL BILI (test code = 7791006466) 1.2 mg/dL 0.1-1.1 H CALCIUM (test code = 0334797562) 9.3 mg/dL 8.6-10.6 T PROTEIN (test code = 1271679978) 8.4 g/dL 6.3-8.2 H ALBUMIN (test code = 2481819928) 4.9 g/dL 3.5-5.0 ALK PHOS (test code = 2242498923) 90 U/L 34-122 ALTv (test code = 1742-6) 22 U/L 5-50 AST(SGOT) (test code = 1039504884) 25 U/L 13-40 eGFR (test code = 93017-3) 100.8 mL/min/1.73m2 CKD-EPI eGFR (2020). Assuming creatinine has been stable day-to-day for at least three months, the eGFR indicates Category G1 (>= 90 mL/min/1.73 m2) Lab Interpretation (test code = 65539-9) Abnormal [facility] WITH [id number] 09:57:54* Test Item Value Reference Range Interpretation [...] 34.8 g/dL 31.2-35.0 RDW-SD (test code = 28648-6) 38.5 fL 38.5-51.6 RDW-CV (test code = 788-0) 12.2 % 12.1-15.4 PLT (test code = 777-3) 213 150-328 MPV (test code = 98030-7) 10.9 fL 9.8-13.0 NRBC/100 WBC (test code = 8879083476) 0.0 0.0-10.0 NRBC x10^3 (test code = 9406693960) See_Comment [Automated messa ge] The system which generated this result transmitted reference range: 10*3/?L. The reference range was not used to interpret this result as normal/abnormal. GRAN MAT (NEUT) % (test code = 770-8) 85.2 % IMM GRAN % (test code = 0668623573) 0.70 % LYMPH % (test code = 736-9) 8.8 % MONO % (test code = 5905-5) 4.1 % EOS % (test code = 713-8) 0.8 % BASO % (test code = 706-2) 0.4 % GRAN MAT x10^3(ANC) (test code = 1283869867) 9.35 10*3/uL 1.99-6.95 H IMM GRAN x10^3 (test code = 1509984774) 0.08 10*3/uL 0.00-0.06 H LYMPH x10^3 (test code = 731-0) 0.96 10*3/uL 1.09-3.23 L MONO x10^3 (test code = 742-7) 0.45 10*3/uL 0.36-1.02 EOS x10^3 (test code = 711-2) 0.09 10*3/uL 0.06-0.53 BASO x10^3 (test code = 704-7) 0.04 10*3/uL 0.01-0.09 Lab Interpretation (test code = 46106-2) Abnormal [facility] Consult Notes Date/Time Note Provider Source 2024-09-21 [...] needed. Lauren Young M.D. 09/21/2024 16:[address] [facility] - Health History and Physical Notes Date/Time Note Provider Source 2024-09-17 20:45:44 [facility] Hospitalist Admission H&P Date of Service: 09/17/2024 [...] occasionally. He states he was transferred to [facility] when he was here last year for [...] given high risk of morbidity and mortality. [place] INSTRUCTIONAL SUPPORT ASSISTANT was verified during stay Ciarra Rossi MD T [facility] Notes Date/Time Note Provider Source 2024-09-26 19:29:00 [facility] ([facility]) EMERGENCY PROVIDER REPORT REPORT#:[id number] REPORT STATUS: Signed DATE:09/26/24 TIME: 1928 PATIENT: RONY ELKINS UNIT #: [id number] ROOM/BED: : 94 AGE: 28 SEX:M PCP [...] # (0.9 - 3.0 k/mm3) 2.00 POC [place] # (0.2 - 1.1 10 3/uL) 0.2 [...] Admin Sodium Chloride 1,000 ML X1ED STA 09/27 1903 DC 09/26 IV 09/26 Gastrointestinal Drugs Sig/Mannie [...] Ox 99 09/27 1839 B/P 158/81 09/26 1840 O2 Delivery Room air 09/26 184 Temp 37.2 09/26 184 Pulse 87 09/27 1839 Resp 15 09/26 184 B/P Mean 112 09/26 185 Last Documented: Result Date Time Pulse Ox 98 09/26 2014 Pulse 73 09/26 2014 B/P 158/81 09/26 185 B/P Mean 112 09/26 185 O2 Delivery [...] NAUSEA/VOMITING #12 SUPP Patient Instructions ED Diet, [place] (Adult), ED Gastritis (Adult), ED Vomiting ( [...] FOR ONGOING MONITORING AND INTERVENTION. at 2024 [facility] #:[id number] END OF REPORT [facility] 2024-09-25 09:23:06 Pt discharged with diagnosis of nausea and vomiting. Printed and verbal instructions reviewed with and given to Pt. Pt and Pt's mother verbalized understanding of teaching, and recommended follow-up. Denies questions or concerns at this time. Pt ambulatory at discharge. Appears in no apparent distress. No ataxia noted. Accompanied by Pt's mother. Valencia Carpenter RN [facility] 2024-09-25 08:11:45 PO challenge failed. Pt was dry heaving w/ c/o side pain 09/10. MD notified. [facility] 2024-09-25 07:45:15 Pt's mother at bedside. Pt had no needs/requests and was lying comfortably. [facility] 2024-09-25 06:58:57 Nurse report received from ARAMIS Christina [facility] 2024-09-25 06:25:26 Patient comes in with vomiting, and flank pain. Was recently discharged from the hospital yesterday. Was feeling better but then the pain started again. Skin p/w/d, rr equal and non labored. A&Ox4. T Kaylah Macario RN [facility] 2024-09-25 06:20:00 [facility] Emergency Department Note Patient Name: Rony Elkins Jr. 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 METABOLIC PANEL (71958) MAGNESIUM LIPASE EKG: If EKG completed, see Procedure Note. Orders and Treatments: Orders Placed This Encounter Procedures CBC WITH DIFF COMP. METABOLIC PANEL (04617) Magnesium LIPASE Orders Placed This Encounter Medications [...] -- ED COURSE ED Course as of 09/25/24851Sep 25, 2024 0758 Bed requested [DN] ED Course User Index [...] on September 17 and were reviewed in [facility]. Will check laboratory studies and provide [...] signed by: Ivett Hernández DO 09/25/24 0659 [facility] 2024-09-24 11:14:05 Problem: Falls, Risk of Goal: [...] substance use Outcome: Resolved Grace Espinoza RN [facility] 2024-09-24 01:21:21 Problem: Falls, Risk of [...] Outcome: Progressing as expected Barb Jones RN [facility] 2024-09-23 04:35:00 I noticed that the pt was secretly recording audio of all staff members who walk into his room. When I was doing labs on him this morning, he lifted his arm and under is blanket, his phone was recoding all audio without consent. I have made the morning nurse aware. Linda Norris RN [facility] 2024-09-22 23:23:27 Problem: Falls, Risk of Goal: Absence of falls Outcome: Progressing as expected Problem: Pain Goal: Control of pain at or below patient's documented comfort goal Outcome: Progressing as expected Goal: Reduction in pain sensation Outcome: Progressing as expected Problem: Discharge Planning Goal: Effective communication Outcome: Progressing as expected Problem: Infection Risk Goal: Absence of infection Outcome: Progressing as expected [facility] 2024-09-22 13:15:33 Problem: Falls, Risk of [...] Outcome: Progressing as expected Zulay Elaine RN [facility] 2024-09-21 23:25:58 Problem: Falls, Risk of [...] Outcome: Progressing as expected Evelia Oviedo RN [facility] 2024-09-21 16:00:49 Problem: Falls, Risk of [...] Outcome: Progressing as expected Ksenia Meza RN [facility] 2024-09-21 03:03:12 Problem: Falls, Risk of [...] Outcome: Progressing as expected Darlin Blanco RN [facility] 2024-09-20 15:13:42 Problem: Falls, Risk of [...] Outcome: Adequate for discharge Orquidea Martinez RN [facility] 2024-09-20 00:21:12 Problem: Falls, Risk of [...] Absence of infection Outcome: Progressing as expected [facility] 2024-09-19 16:26:08 Problem: Falls, Risk of [...] Outcome: Progressing as expected Ana Hernandez RN [facility] 2024-09-19 00:42:04 Problem: Falls, Risk of [...] Absence of infection Outcome: Progressing as expected [facility] 2024-09-18 18:58:21 Problem: Falls, Risk of Goal: [...] Absence of infection Outcome: Progressing as expected [facility] 2024-09-18 00:06:05 Problem: Falls, Risk of Goal: Absence of falls Reactivated Problem: Pain Goal: Control of pain at or below patient's documented comfort goal Reactivated Goal: Reduction in pain sensation Reactivated Problem: Discharge Planning Goal: Adequate for discharge Reactivated Goal: Effective communication Reactivated Problem: Infection Risk Goal: Absence of infection Reactivated [facility] 2024-09-17 21:03:48 Report called to Malgorzata SELF ND [facility] Nigel Echols RN [facility] 2024-09-17 18:57:36 Nurse Report Report given to ARAMIS Manning. Chief complaint, assessment findings, infusion verify and orders reviewed. Plan of care discussed at bedside with patient and both nurses. Patient/family members verbalized understanding. Flori Carney RN Flori Carney RN [facility] 2024-09-17 17:50:17 Patient states went to [place] yesterday for this same issue. Got a prescription for Zofran but states does not help. Patient states having multiple episodes of emesis throughout yesterday and today. [facility] 2024-09-17 17:45:01 Patient arrived ambulatory to ED c/o intermittent abdominal pain for about a year already. States it is worse at work when he gets dehydrated and starts sweating. Has not followed up with PCP or GI. When asked where the pain is patient points to right flank. Hx of kidney stones. Ibuprofen taken last this morning. Pharmacy: [facility] Emely Klein RN [facility] 2024-07-23 12:51:00 [facility] ([facility] Hospitalist Discharge Summary REPORT#:[id number] REPORT STATUS: Signed REPORT INITIALIZATION DATE:07/23/24 TIME: 125 PATIENT: RONY ELKINS UNIT #: [id number] ROOM/BED: [facility]9-A : 94 AGE: 28 SEX: M ATTEND: [...] timeframe: In 1-2 weeks at 1251 RPT #:[id number] END OF REPORT [facility] 2024-07-22 23:50:00 [facility] ([facility] Hospitalist Progress Note REPORT#:[id number] REPORT STATUS: Signed REPORT INITIALIZATION DATE:07/22/24 TIME: 0 PATIENT: RONY ELKINS UNIT #: [id number] ROOM/BED: 539-A : 94 AGE: 28 SEX: M ATTEND: Dustin Pickens MD ADM AUTHOR: Dustin Pickens MD REPT SERVICE DT/TIME: 07/22/24 9663 * ALL edits or amendments must be made on the electronic/computer document * Subjective Chief complaint: neusea and vomiting HPI: This is a 28-year-old male no significant past medical history transferred from [facility] emergency room in [facility] for intractable nausea vomiting elevated lipase and [...] DC in 24-48 hours at 0838 RPT #:[id number] END OF REPORT [facility] 2024-07-21 09:21:00 [facility] ([facility]) Hospitalist History Physical REPORT#:[id number] REPORT STATUS: Signed REPORT INITIALIZATION DATE:07/21/24 TIME: 920 PATIENT: RONY ELKINS UNIT #: [id number] ROOM/BED: [address] : 94 AGE: 28 SEX: M ATTEND: Dustin Pickens MD ADM AUTHOR: Dustin Pickens MD REPT SERVICE DT/TIME: 07/21/24920 * ALL edits or amendments must be made on the electronic/computer document * History of Present Illness HPI Chief complaint: neusea and vomiting HPI: This is a 28-year-old male no significant past medical history transferred from [facility] emergency room in [facility] for intractable nausea vomiting elevated lipase and [...] 07/22 0709 O2 Delivery Room air 07/22 07 Temp 36.9 07/22 0709 Pulse 49 07/22 [...] DC in 24-48 hours at 0832 RPT #:[id number] END OF REPORT [facility] 2024-07-21 08:52:00 [facility] ([facility]) EMERGENCY PROVIDER REPORT REPORT#:[id number] REPORT STATUS: Signed DATE:07/21/24 TIME: 851 PATIENT: RONY ELKINS UNIT #: [id number] ROOM/BED: : 94 AGE: 28 SEX: M PCP PHYS: No Primary or Family Physician SERVICE DT: AUTHOR: Patrice Chase MD LOCATION: [facility] REP SRV REP SRV TM: 0852 * ALL edits or amendments must be made on the electronic/computer document * HPI-Abd Pain M 40 and Over General Initial Greet Date/Time 07/21/24 0846 Presentation Chief Complaint Abdominal pain, Nausea Reason for ED Visit (v.PCP/UC) Txf from [facility] Obtained From Patient, EMS, Prior [...] no significant past medical history transferred from [facility] emergency room in [facility] for intractable nausea vomiting elevated lipase and [...] 59 05/20 0849 Resp 16 / 0849 Review of Vital Signs Reviewed Focused [...] 99 On: Room air Interpretation Interpreted by , Pulse oximetry normal Time 0855 Re-Evaluation [facility] )( Re-Evaluation/Progress #1 Text/Dict Note Patient chart [...] Admin Sodium Chloride 1,000 ML X1ED ONE 07/21 0855 AC IV 07/21 0955 Gastrointestinal Drugs Sig/Mannie Start time Last Medication Dose Route Stop Time Status Admin Ondansetron HCl 4 MG X1ED PRN PRN 07/21 854 AC IV 07/22 0856 Metoclopramide HCl 10 MG X1ED STA 07/21 [...] Hospitalize Hosp Physician Name Thai Ruth MD Hosp Physician Hospitalist Request Time 08 Request Date [...] Smoking Cessation Screened, non user at 0857 [facility] #:[id number] END OF REPORT [facility] 2024-01-13 06:31:27 Pt [...] with steady gait, in no apparent distress, [employer] LEGAL ASSISTANT Emely Klein RN [facility] 2024-01-13 03:13:00 Pt arrived ambulatory C/o 10/11 chest pain that woke him up 2 hours ago, nausea, diarrhea Denies any cardiac hx [employer] LEGAL ASSISTANT Kamala Barrios RN [facility] 2023-11-06 15:14:39 Pt given printed and [...] in no apparent distress, Dianne Avila RN [facility] 2023-11-06 13:06:09 Pt arrived via private car with c/o vomiting, cough, congestion. States that his coworker has covid. Alia Marcus RN [facility] 2023-11-06 13:00:00 [facility] Emergency Department Note Patient Name: Rony Elkins Jr. 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
--- NOTE | 2024-12-12 22:59 | ER ---
Nurse's Notes [facility] Name: Rony Castrejon Jr Age: 28 yrs Sex: Male : 1995 Arrival Date: 12/12/2024 Time: 21:55 Bed IW1 Private MD: Diagnosis: ED Course: 12/12 21:56 Patient arrived in ED. mr 22:01 [facility] cp 22:01 Ruslan Haider MD is Attending Physician. cp 22:47 Patient's name was called from [employer]. No response. Unable to locate patient. Will vc1 disposition as left without being seen by a provider. Administered Medications: No medications were administered Outcome: 22:58 Eloped from waiting room, before seeing physician Time discovered patient gone: December at 22:47 22:58 Patient left the ED. vc1 Signatures: Juliana Nash, Reg Reg mr Ruslan Carlson PA-C PA-C cp Calcote, Vanessa, RN RN vc1
== END 2024-12-12 22:58 | disposition left against medical advice (07) ==
LOC: ER 21:55
DX: Z02.9 Encounter for administrative examinations, unspecified (principal)